=== PATIENT | male | born 1940 | race Caucasian/White ===

== ENCOUNTER 2018-11-11 23:43 | Emergency (ER) | payer MEDICARE, OTHER ==
[~2018-11-11] VITALS: Ht 175.3 cm; Wt 89.8 kg
[~2018-11-11 23:43] MED LIST: ADVIL200 M1; ALBUTEROL S5 MG/1 ML; ASPIRIN EC81 MG; ATENOLOL25 MG; GABAPENTIN300 MG; HYDROCODON-ACE1 EA10 PO; METFORMIN HCL500 MG PO; PREDNISONE20 MG PO; PROVENTIL HFA6.7 GM INH; ROSUVASTATIN CA40 MG PO; STIOLTO RESPIMAT4 GM IH
[2018-11-12] MEDS ORDERED: MACROBID 100 M100 MG PO (04:56)
--- NOTE | 2018-11-12 13:35 | EKG ---
[facility] [address] [facility] [place], [place] [address] Signed Normal sinus rhythm Cannot rule out Anterior infarct , age undetermined Abnormal ECG When compared with ECG of 15-FEB-2017 17:05, Sinus rhythm has replaced Electronic atrial pacemaker Confirmed by GUIDO CRUZ DO ([id number]) on 11/12/2018 1:35:05 PM Electronically Signed By: GUIDO CRUZ DO 11/12/18 1335 PATIENT NAME: CRYSTAL GALVAN Darnell Electrocardiogram DATE OF : 44 PHYSICIAN: GUIDO CRUZ DO REPORT #: [id number] REPORT IS CONFIDENTIAL AND NOT TO BE RELEASED WITHOUT AUTHORIZATION
== END 2018-11-12 05:10 | disposition home or self-care (01) ==
LOC: ED 23:43
DX: N21.0 Calculus in bladder (principal); N39.0 Urinary tract infection, site not specified; I10 Essential (primary) hypertension; E78.5 Hyperlipidemia, unspecified; Z79.82 Long term (current) use of aspirin; Z79.899 Other long term (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; Z79.84 Long term (current) use of oral hypoglycemic drugs
CPT/HCPCS: 71045; 74177; 80053; 81001; 83690; 84484; 85025; 87088; 87502; 93005; 93010; 96361; 96374; 96375; 99284-25; J2270; J2405; J7030; Q9967

== ENCOUNTER 2019-07-29 09:38 | Inpatient (IN) | payer MEDICARE, OTHER ==
[~2019-07-29] VITALS: Ht 175.3 cm; Wt 86.5 kg
[~2019-07-29 09:38] MED LIST changes: +ASPIRIN EC325 MG PO; -ASPIRIN EC81 MG; -ATENOLOL25 MG; +ATENOLOL25 MG PO; -GABAPENTIN300 MG; +GABAPENTIN300 MG PO; +MACROBID 100 M100 MG PO; +METFORMIN HCL500 M3 PO; -METFORMIN HCL500 MG PO; +SPIRIVA RESPIMAT4 GM INH; -STIOLTO RESPIMAT4 GM IH
--- NOTE | 2019-07-29 14:54 | NUR ---
PT ADMITTED TO ROOM 109 VIA STRETCHER
--- NOTE | 2019-07-29 15:48 | NUR ---
PT RESTING IN HIS BED EATING AT THIS TIME HE DIDN'T HAVE LUNCH. HE DENIES ANY SOB OR CP OR ANY OTHER PROBLEMS AT THIS TIME. PT ORIENTED TO HIS ROOM AND QUESTIONS ANSWERED ABOUT HIS POC. PT ON 1L O2 WITH A SAT OF 96%, LUNG SOUNDS ARE COARSE WITH EXP WHEEZES NOTED. UPON THE ASKING QUESTIONS OF THE PT HE STATES BLACK TARRY STOOL THAT HAVE BEEN GOING ON FOR "ABOUT 2 MONTHS" WHICH HIS MD IS AWARE OF.
--- NOTE | 2019-07-29 16:57 | NUR ---
Pt denies any sob of chest pain.
--- NOTE | 2019-07-29 17:00 | NUR ---
Pt ambulated in his room to his chair and his rr did increase to 26 for a few minutes.
--- NOTE | 2019-07-29 18:14 | NUR ---
Pt eating dinner and denies any problems at rest. Dr Lorenzo notified that the pt had stated he has black tarry stool for the last 2 months.
--- NOTE | 2019-07-29 18:55 | NUR ---
SHIFT REPORT RECEIVED FROM DAYSHIFT NGUYEN ZAMORA. PT RESTING IN BED, 1LNC IN PLACE. PT APPEARS COMFORTABLE AND IS WATCHING TELEVISION. NO DISTRESS NOTED. CALL LIGHT IN REACH. NO FURTHER NEEDS VERBALIZED AT THIS TIME.
--- NOTE | 2019-07-29 21:00 | NUR ---
SPOKE TO DR CRUZ REGARDING PT'S SCHEDULED IV SOLU-MEDROL. PT RECEIVED SOLU-MEDROL IN THE ED IN THE AFTERNOON AND HAS IT ORDERED TO ALSO START TOMIGHT. PER DR CRUZ, OKAY TO GIVE TONGIHT'S SCHEDULED DOSE.
--- NOTE | 2019-07-29 21:30 | NUR ---
ASSESSMENT COMPLETE, VSS. NOTIFIED BY PRESLEY MEEHAN THAT PT IS COUGHING IN BED. SCHEDULED MEDICATIONS GIVEN, PRN TESSALON PEARLS ALSO GIVEN. SENNA HELD PER PT REQUEST. ACCUCHECK RESULT OF 208, 3 UNITS INSULIN SS ADMINSITERED. PT ON 1LNC, EXPIRATORY WHEEZES NOTED, COUGHING HAS RESOLVED. WILL CONTNUE TO MONITOR. NO FURTHER NEEDS AT THIS TIME, CALL LIGHT IN REACH.
--- NOTE | 2019-07-29 23:00 | NUR ---
PT RESTING IN BED, EYES CLOSED. NO DISTRESS NOTED, WILL CONTINUE TO MONITOR. CALL LIGHT IN REACH.
--- NOTE | 2019-07-30 01:18 | NUR ---
PT RESTING IN BED, EYES CLOSED. O2 SPOT CHECK 89%, O2 TITRATED TO 2LNC, O2 SAT MAINTAINING 90%. WILL CONTINUE TO MONITOR. CALL LIGHT IN REACH.
--- NOTE | 2019-07-30 02:16 | NUR ---
ASSESSMENT COMPLETE, NO NEW CHANGES OR CONCERNS. VSS, SBP ELEVATED BUT WITHIN PARAMTERS. WILL MONITOR. PT ON 1.5-2LNC, O2 SAT WNL. LUNG SOUNDS COURSE WITH SCATTERED WHEEZES. NO DISTRESS NOTED. WARM BLANKET PROVIDED PER PT REQUEST. NO FURTHER NEEDS, CALL LIGHT IN REACH.
--- NOTE | 2019-07-30 03:43 | NUR ---
PT RESTING IN BED, EYES CLOSED. PT ON 1.5-2LNC, NO DISTRESS NOTED. CALL LIGHT IN REACH.
--- NOTE | 2019-07-30 05:58 | NUR ---
PT HAD AN UNEVENTFUL NIGHT. VSS, SBP ELEVATED, 160-170, BELOW PARAMTERS. 1-2LNC IN PLACE. SBA WITH AMBULATION, USES CALL LIGHT APPROPERIATELY. 60 CARB DIET, TOLERATING WELL. DENIED NAUSEA THIS SHIFT. VOIDING QS.
--- NOTE | 2019-07-30 07:12 | NUR ---
0700: Pt resting in his bed with no complaints at this time. Call stringer within reach. Bedside report recieved from Elke CEDILLO.
--- NOTE | 2019-07-30 08:12 | NUR ---
IN TO COMPLETE PTS INITIAL CASE MANAGEMENT ASSESSMENT. PT DENIES ANY NEEDS AT HOME.
--- NOTE | 2019-07-30 08:13 | NUR ---
PT RESTING IN BED AND HE DENIES ANY PAIN OR SOB. PT STATES HE ONLY HAS SOB WITH ACTIVITY. SAT NOW 94% ON 1.5L VIA NC. LUNG SOUNDS COARSE WITH EXP WHEEZES NOTED. PT GIVEN AN IS AND INSTRUCTED IN IT'S USE.
--- NOTE | 2019-07-30 08:27 | NUR ---
ASKED PATIENT HE WOULD LIKE TO SIT IN THE CHAIR FOR BREAKFAST AND HE SAID NO. HE SAID HE WAS TO TIRED.
--- NOTE | 2019-07-30 08:29 | NUR ---
ODERED HIS BREAKFAST THIS MORNING.
--- NOTE | 2019-07-30 10:17 | NUR ---
Pt had ambulated with assist to the br and his rr increased into the mid 20's and he is unsteady on his feet.
[2019-07-30] MEDS ORDERED: CLOPIDOGREL75 MG PO (10:32)
[2019-07-30] MEDS ORDERED: SYMBICORT 16010.2 GM INH (10:34)
--- NOTE | 2019-07-30 10:35 | NUR ---
PHYSICAL THERAPY INTO THE ROOM TO WORK WITH THE PT AT THIS TIME.
--- NOTE | 2019-07-30 11:08 | NUR ---
UPON RETURNING TO HIS ROOM FROM PHYSICAL THERAPY HIS RR WAS 28 AND HIS SAT ON 1L IS 94%. AFTER A FEW MINUTES HIS RR DECREASED TO 20.
[2019-07-30] MEDS ORDERED: DOK250 MG PO (11:10)
[2019-07-30] MEDS ORDERED: ANTI-ITCH28 G1 TOP (11:15)
[2019-07-30] MEDS ORDERED: CRESTOR40 MG PO (11:18)
[2019-07-30] MEDS ORDERED: FLOMAX0.4 MG PO (11:19)
--- NOTE | 2019-07-30 11:23 | NUR ---
Dr Lorenzo to the room to see the pt at this time.
--- NOTE | 2019-07-30 11:34 | NUR ---
sat 94% on room air at this time. o2 left off.
--- NOTE | 2019-07-30 11:38 | NUR ---
MED REC COMPLETE
--- NOTE | 2019-07-30 13:09 | NUR ---
PT RESTING IN HIS BED, HE REFUSED TO GET UP INTO HIS CHAIR AND STATES HE WISHES TO STAY IN BED. PT DENIES ANY SOB AT REST AT THIS TIME, BUT BECOMES SOB WITH ACTIVITY. SAT ON ROOM AIR IS NOW 95%.
--- NOTE | 2019-07-30 13:13 | NUR ---
URINE OUTPUT HAS BEEN LOW AND HE IS STILL RECEIVING A FLUID IV BOLUS DUE TO THIS. SEE EMAR.
--- NOTE | 2019-07-30 14:41 | NUR ---
PATIENT TOOK A SHOWER THIS MORING. PATIENT DID NOT WANT ANY HELP BUT I STAYED IN HIS ROOM IN CASE HE NEEDED MY HELP.
--- NOTE | 2019-07-30 19:58 | NUR ---
SHIFT REPORT RECEIVED FROM CEEFLCLARICE ZAMORA AT BEDSIDE. PT RESTING IN BED, ON RA. APPEARS IN GOOD SPIRITS, DENIES NEEDS. BOARD UPDATED. CALL LIGHT IN REACH.
--- NOTE | 2019-07-30 21:30 | NUR ---
VITALS DONE AND CHARTED. FRESH ICE WATER GIVEN. BEDSIDE TABLE AND CALL LIGHT IN REACH.
--- NOTE | 2019-07-30 22:00 | NUR ---
ASSESSMENT COMPLETE, VSS. PT ON RA AT THIS TIME. WILL MONITOR. A/OX4, DENIES PAIN. IV SITE WNL, SALINE LOCKED. SCHEDULED MEDICATIONS GIVEN, SEE EMAR. LUNG SOUNDS COURSE, EXPIRATORY WHEEZES NOTED. PT'S UO BORDERLINE, DR CRUZ ALREADY AWARE. PER MD, CONTINUE TO MONITOR. PT DENIES ADDITIONAL NEEDS, CALL LIGHT IN REACH.
--- NOTE | 2019-07-31 00:32 | NUR ---
HELPED PT TO THE BATHROOM AND BACK TO BED WITH HIS FWW. TWO WARM BLANKETS CHAMBER WORKER PER PT REQUEST. BEDSIDE TABLE AND CALL LIGHT IN REACH.
--- NOTE | 2019-07-31 00:59 | NUR ---
PT RESTING IN BED, REPORTS DIFFICULTY IN BREATHING PER RN MAYKEL. PT ON RA, O2 SAT 94%. LUNG SOUNDS COURSE WITH SCATTERED EXPIRATORY WHEEZES, RT SANDRA CALLED FOR PRN BREATHING TEREATMENT. SANDRA IN ROOM WITH PT AT THIS TIME.
--- NOTE | 2019-07-31 01:30 | NUR ---
PT RESTING IN BED, ON RA. NO SIGNS OF DISTRESS NOTED, PT APPEARS COMFORTABLE. EYES CLOSED, RR WNL. HOB ELEVATED FOR EASE OF BREATHING. WILL MONITOR, CALL LIGHT IN REACH.
--- NOTE | 2019-07-31 03:20 | NUR ---
PT RESTING IN BED, EYES CLOSED. PT ON RA, NO DISTRESS NOTED. HOB ELEVATED, CALL LIGHT IN REACH.
--- NOTE | 2019-07-31 03:56 | NUR ---
PT UP SBA WITH FWW AFTER VOIDING 350MLS. PT TOLERATED AMBULATION WELL. AFTER RETURNING TO BED, 02 SAT 93% ON RA, HR 84. ASSESSMENT COMPLETE, NO NEW CHANGES OR CONCERNS. PT NOW RESTING IN BED, DENIES ADDITIONAL NEEDS. CALL LIGHT IN REACH.
--- NOTE | 2019-07-31 05:26 | NUR ---
PT SLEPT ON AND OFF THIS SHIFT, VSS. INTERMITTENT COUGHING NOTED, WITH EPISODE OF SOB. BREATHING TREATMENTS PRN. PT ON RA, SLEEPS WITH HOB ELEVATED AND PILLOWS. 60 G CARB DIET, NO INSULIN SS REQUIRED. NO NAUSEA OR PAIN NOTED. VOIDING QS.
--- NOTE | 2019-07-31 06:44 | NUR ---
THIS RN IN ROOM TO ANSWER CALL LIGHT. PT IN BED REPORTING SOB, O2 SAT 91-92% ON RA. LUNG SOUNDS COURSE, EXPIRATORY WHEEZES NOTED. RT SANDRA CALLED FOR PRN BREATHING TREATMENT. NO SIGNS OF OBVIOUS DISTRESS NOTED, CALL LIGHT IN REACH.
--- NOTE | 2019-07-31 07:25 | NUR ---
PT RESTING IN FOWLERS PSOITION IN BED, ALERT AND ORIENTED. PT DENIES PAIN, SOB OR NAUSEA. BEDSIDE REPORT RECEIVED FROM NGUYEN SALVADOR. CALL LIGHT AND H2O IN REACH.
--- NOTE | 2019-07-31 09:41 | NUR ---
PT RESTING IN FOWLERS POSITION IN BED WATCHING TV. PT ASSESSMENT COMPLETED. CALL LIGHT AND H2O IN REACH. PT APPEARS TO BE IN NO ACUTE DISTRESS. PT VOICED THAT HE WOULD LIKE TO BE DISCHARGED TODAY BUT AGREES THAT HE WOULD LIKELY BENEFIT FROM FURTHER TREATMENT HERE IN HOSPITAL.
--- NOTE | 2019-07-31 11:37 | NUR ---
PT FINISHED WITH SHOWER. BATHROOM CALL LIGHT ON. THIS RN IMMEDIATLY TO ROOM. PT ALREADY UP OUT OF SHOWER WALKING ACROSS FLOOR. PT ASKED TO SIT BACK DOWN. SOCKS APPLIED. PT AMBULATES WITH SBA AND FWW BACK TO BED. RESPIRATORY THERAPY TO BEDSIDE FOR BREATHING TX. CALL LIGHT WITHINR EACH. BED RAILS UP.
--- NOTE | 2019-07-31 14:50 | NUR ---
BLADDER SCAN COMPLETED PER DR ARAUJO REQUEST. BLADDER SCAN SHOWS >729MLS, MD AWARE. PT UP TO VOID AND PT VOIDS 180MLS. BLADDER SCAN COMPLETED AGAIN AND SHOWS >550MLS. MD AWARE AND ÁLVAREZ CATH PLACED PER MD VERBAL ORDER. PT TOLERATED 16F ÁLVAREZ CATH PLACED WITH STERILE TECHNIQUE. BALLOON FILLED WITH 10CC STERILE H2O. ÁLVAREZ PRODUCED OVER 500MLS UPON PLACEMENT AND IS STILL DRAINING CLEAR YELLOW URINE. CALL LIGHT AND H2O IN REACH.
--- NOTE | 2019-07-31 16:51 | NUR ---
PT RESTING IN HIGH FOWLERS POSITION IN BED WATCHING TV. CALL LIGHT AND H2O IN REACH. VSS, GARBAGE EMPTIED PT DENIES SOB, PAIN OR NAUSEA.
--- NOTE | 2019-07-31 19:10 | NUR ---
SHIFT REPORT RECEIVED FROM DAYSHIFT NGUYEN BLOCK AT BEDSIDE. PT AWAKE AND RESTING IN BED, NO DISTRESS NOTED. PT ON RA, CALL LIGHT IN REACH.
--- NOTE | 2019-07-31 21:47 | NUR ---
ROUNDED CHARGE. PATIENT IS RESTING IN BED. PATIENT DENIES ANY COMMENTS, QUESTIONS, OR CONCERNS. NO NEEDS NOTED. CALL LIGHT IN REACH.
--- NOTE | 2019-07-31 22:00 | NUR ---
ASSESSMENT COMPLETE, SCHEDULED MEDICATIONS GIVEN. PT A/OX4, VSS. PT IS SALINE LOCKED, IV SITE WNL. PT REPORTS 4/10 PAIN, DENIES NEED FOR PAIN MEDICATION AT THIS TIME. WILL MONITOR. SCATTERED WHEEZES, PT ON RA. NO FURTHER NEEDS, CALL LIGHT IN REACH.
--- NOTE | 2019-07-31 22:03 | NUR ---
PT VITALS/I&Os DONE
--- NOTE | 2019-08-01 00:25 | NUR ---
PT RESTING IN BED, EYES CLOSED, RR WNL. NO DISTRESS NOTED. CALL LIGHT IN REACH. HOB ELEVATED.
--- NOTE | 2019-08-01 01:16 | NUR ---
PT RESTING IN BED, EYES CLOSED. HOB ELEVATED. NO DISTRESS NOTED, RR WNL. CALL LIGHT IN REACH.
--- NOTE | 2019-08-01 03:00 | NUR ---
ASSESSMENT COMPLETE, PT RESTING IN BED. SPOT CHECKED, RESULT OF 87-88%. 1-1.5LNC PLACED, O2 SAT MAINTAINING ABOVE 90%. NO NEW CHANGES REGARDING LUNG SOUNDS, NO DISTRESS NOTED. HOB ELEVATED, NO FURTHER NEEDS, CALL LIGHT IN REACH.
--- NOTE | 2019-08-01 03:50 | NUR ---
PT TITRATED BACK TO RA, O2 SAT MAINTAINING AT 91%, WILL CONTINUE TO MONITOR. CALL LIGHT IN REACH.
--- NOTE | 2019-08-01 04:54 | NUR ---
PT SLEPT WELL THIS SHIFT, VSS. PT REQUIRED 1.5LNC BRIEFLY ONCE FOR O2 SAT IN UPPER 80'S. A/OX4, VERY [place]. SBA WITH AMBULATION, UNSTEADY AT TIMES. 60 G CARB DIET, SCHEDULED ACCUCHECKS WITH INSULIN SS. ÁLVAREZ CATHETER IN PLACE, VOIDING QS. NO BM THIS SHIFT.
--- NOTE | 2019-08-01 05:45 | NUR ---
SPOT CHECK OF 89%, PT INSTRUCTED TO DEEP BREATH. O2 SAT RETURN TO 90% BUT WOULD NOT SUSTAIN. 0.5-1L NC PLACED. CALL LIGHT IN REACH.
--- NOTE | 2019-08-01 06:44 | NUR ---
TOOK PT VITALS AND RECORDED I&Os
--- NOTE | 2019-08-01 07:07 | NUR ---
PT RESTING IN HIGH FOWLERS POSITION IN BED ALERT AND ORIENTED AND WATCHING TV. PT ON 1/2LPNC AND DENIES SOB. REPORT RECEIVED FROM NGUYEN SALVADOR. CALL LIGHT AND H2O IN REACH.
--- NOTE | 2019-08-01 07:52 | NUR ---
PT ASSISTED UP TO SIT AT SIDE OF BED TO EAT DINNER, PT REFUSED TO AMBULATE TO CHAIR FOR BREAKFAST STATES "OH NO I'M FINE RIGHT HERE, THANK YOU". NO NEEDS OR CONCERNS VOICED, PT REMAINS ON 1/2LPNC AT THIS TIME AND DENIES SOB AT REST.
--- NOTE | 2019-08-01 08:38 | NUR ---
PATIENT SITTING ON EDGE OF THE BED EATING BREAKFAST. WARM WASHCLOTH OFFERED. SHOWER OFFERED AND ACCEPTED. CALL LIGHT IN REACH. NO FURTHER NEEDS AT THIS TIME.
--- NOTE | 2019-08-01 09:02 | NUR ---
PT BACK TO ROOM FROM WORKING WITH PHYSICAL THERAPY. PT APPEARS SHAKEY WHILE WALKING BACK TO BED AND REPORTS SOB, O2 DESATTING TO MID TO HIGH 80'S AFTER WALK, PT STATES "I JUST NEED A MINUTE TO CATCH MY BREATH". 2LPNC APPLIED AND PT NOW SATTING IN LOW TO MID 90'S. CALL LIGHT AND H2O IN DEBRA. MAK,RT NOTIFIED OF NEED FOR BREATHING TX. ASSESSMENT COMPLETED. NO FURTHER NEEDS OR CONCERNS VOICED.
--- NOTE | 2019-08-01 13:37 | NUR ---
PT RESTING IN SEMIFOWLERS POSITION IN BED, ALERT AND ORIENTED. ASSESSMENT COMPLETED. PT DENIES SOB AT REST ON RA. RR 20. CALL LIGHT AND H2O IN REACH. MD IN TO DISCUSS POC WITH PATIENT.
--- NOTE | 2019-08-01 19:05 | NUR ---
SHIFT REPORT RECEIVED FROM DAYSHIFT NGUYEN BLOCK AT BEDSIDE. PT RESTING IN BED, ON RA. NO DISTRESS NOTED, PT APPEARS IN GOOD SPIRITS. NO NEEDS AT THIS TIME. CALL LIGHT IN REACH.
--- NOTE | 2019-08-01 21:19 | NUR ---
ROUNDED CHARGE. PATIENT IS RESTING IN BED WATCHING TV. PATIENT PROVIDED WITH WARM BLANKET. PATIENT DENIES ANY COMMENTS, QUESTIONS OR CONCERNS. NO NEEDS NOTED. CALL LIGHT IN REACH.
--- NOTE | 2019-08-01 22:00 | NUR ---
ASSESSMENT COMPLETE, SCHEDULED MEDICATIONS GIVEN (SEE EMAR). VSS, PT RECENTLY PLACED ON 1LNC FOR O2 SATS IN UPPER 80'S. O2 NOW 93% ON 1LNC, HR 64. SCATTERED WHEEZES NOTED, PT CONVERSING WITH NURSING STAFF. NO SIGNS OF DISTRESS. DENIES PAIN AND FURTHER NEEDS, CALL LIGHT IN REACH. BED ALARM ON FOR SAFETY.
--- NOTE | 2019-08-01 23:45 | NUR ---
PT RESTING IN BED, EYES CLOSED. RESPIRATIONS WNL. NO DISTRESS NOTED, CALL LIGHT IN REACH.
--- NOTE | 2019-08-02 01:00 | NUR ---
NG TUBE PLACED BY NGUYEN BALL. THIS RN AND NGUYEN ESPINO ALSO IN ROOM. PT TOERATED INSERTION WELL, NG TUBE CLAMPED. IMAGING CALLED FOR PLACEMENT VERIFICATION. NEW GOWN PROVIDED, BED LINENS ALSO CHANGED. ASSESSMENT COMPLETE, PT DENIES NAUSEA, ABDOMEN FIRM AND DISTENDED, BOWEL TONES HYPOACTIVE. INCISION WELL APPROXIMATED, OPEN TO AIR WITH NUVIA. IV FLUIDS INFUSING PER MD ORDERS, IV SITE WNL. NO FURTHER NEEDS, CALL LIGHT IN REACH.
--- NOTE | 2019-08-02 01:20 | NUR ---
IMAGING IN ROOM WITH PT.
--- NOTE | 2019-08-02 02:03 | NUR ---
RESULTS FROM IMAGING RECEIVED. PER RECOMMENDATION OF IMAGING RESULTS, ADVANCE NG TUBE 7CM . ADVANCEMENT COMPLETED WITH HELP FROM NGUYEN MEMBRENO. NG TUBE CONNECTED TO LWIS, APPROX 400MLS INITIAL OUTPUT COLLECTED. OUTPUT BROWN/RED IN COLOR. PT HAD JELLO EARLIER IN SHIFT. NO FURTHER NEEDS, CALL LIGHT IN REACH.
--- NOTE | 2019-08-02 02:30 | NUR ---
ASSESSMENT COMPLETE, NO NEW CHANGES OR CONCERNS. LUNG SOUNDS SOUND TIGHT IN PLACES, DIMINISHED IN THE BASES. NO DISTRESS NOTED. CALL LIGHT IN REACH, BED ALARM ON FOR SAFETY.
--- NOTE | 2019-08-02 03:55 | NUR ---
PT RESTING IN BED, EYES CLOSED. O2 SAT 89%, PT PLACED ON 1LNC. O2 SAT MAINTAINING 90-91%. CALL LIGHT IN REACH.
--- NOTE | 2019-08-02 07:07 | NUR ---
PT RESTING IN SEMIFOWLERS POSITION IN BED EYES CLSOED AND RESPIRATIONS EVEN AND UNLABORED. PT APPEARS TO BE SLEEPING COMFORTABLY. CALL LIGHT AND H2O IN REACH. BEDSIDE REPORT RECEIVED FROM NGUYEN SALVADOR.
--- NOTE | 2019-08-02 07:45 | NUR ---
PATIENT UP TO THE BR STANDBY ASSIST WITH FWW. PATIENT REFUSED TO WEAR O2 NC WHILE AMBULATING. THIS [place] CHECK pt SAT'S ONCE THE pt WAS BACK SITTING ON EDGE OF BED SAT'S 82%. OXYGEN 2L BACK ON PATIENT OXYGEN LEVEL BACK UP TO 93% ON 1L NC. RN NOTIFIED PATIENTS HANDS AT FACE WASHED FOR BREAKFAST. CALL BUTTON IN REACH. FRESH ICE WATER GIVEN. NO OTHER NEEDS AT THIS TIME.
--- NOTE | 2019-08-02 08:18 | NUR ---
PT SITTING UP AT SIDE OF BED EATING BREAKFAST. PT ALERT AND ORIENTED. AM MEDS ADMINISTERED AND ASSESSMENT COMPLETED. BP REMAINS ELEVATED WILL RECHECK BP IN AN HOUR. PT DENIES NEEDS OR CONCERNS CALL LIGHT AND H2O IN REACH.
--- NOTE | 2019-08-02 09:15 | NUR ---
SPOKE WITH PATIENT IN ROOM. PATIENT STILL VERY SOB WITH ACTIVITY. PATIENT LIVES ALONE AND STATES HIS FAMILY CANNOT HELP THEY ARE "BUSY WITH THEIR OWN LIVES". DISCUSSED TRANSITIONAL CARE BED PROGRAM, WHERE HE CAN STAY AND WORK ON HIS STRENGTH AND CONDITIONING BEFORE RETURNING HOME TO CARE FOR HIMSELF. HE IS INTERESTED IN THIS. WILL CONTINUE TO FOLLOW.
--- NOTE | 2019-08-02 09:19 | NUR ---
Pt up working with ot in restroom alert and oriented. Pt currently shaving at sink with OT. Pt appears to be tolerating activity well.
--- NOTE | 2019-08-02 10:35 | NUR ---
PT UP AMBULATING WITH FWW AND PHYSICAL THERAPY. PT APPEARS TO BE TOLERATING ACTIVITY WELL.
== END 2019-08-02 10:24 | disposition swing bed (61) | DRG 193 ==
LOC: ED 09:38 → MS 14:12
PROVIDERS: ADMIT Internal Medicine
DX: J18.8 Other pneumonia, unspecified organism (principal); J96.01 Acute respiratory failure with hypoxia; J44.1 Chronic obstructive pulmonary disease with (acute) exacerbation; K92.1 Melena; J44.0 Chronic obstructive pulmonary disease with (acute) lower respiratory infection; I25.10 Atherosclerotic heart disease of native coronary artery without angina pectoris; R91.8 Other nonspecific abnormal finding of lung field; N40.1 Benign prostatic hyperplasia with lower urinary tract symptoms; R33.8 Other retention of urine; I10 Essential (primary) hypertension; F17.210 Nicotine dependence, cigarettes, uncomplicated; E11.9 Type 2 diabetes mellitus without complications; E78.5 Hyperlipidemia, unspecified; D63.8 Anemia in other chronic diseases classified elsewhere; Z95.0 Presence of cardiac pacemaker; Z95.820 Peripheral vascular angioplasty status with implants and grafts; Z79.2 Long term (current) use of antibiotics; Z79.84 Long term (current) use of oral hypoglycemic drugs; Z79.82 Long term (current) use of aspirin; Z79.899 Other long term (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
CPT/HCPCS: 36415; 71260; 74177; 80048; 80053; 82607; 82728; 82746; 83036; 83540; 83605; 83735; 83880; 84466; 85025; 87070; 87077; 87186; 87205; 94640; 94667; 94668; 94760; 97110; 97116; 97162; 97165; 97535; 99284-25; 99406; J0696; J1650; J1815; J2930; J7120; Q9967

== ENCOUNTER 2019-08-02 10:25 | Inpatient (IN) | payer MEDICARE, OTHER ==
[~2019-08-02] VITALS: Ht 175.3 cm; Wt 85.0 kg
[~2019-08-02 10:25] MED LIST changes: +ANTI-ITCH28 G1 TOP; +CLOPIDOGREL75 MG PO; +CRESTOR40 MG PO; +DOK250 MG PO; +FLOMAX0.4 MG PO; +SYMBICORT 16010.2 GM INH
[2019-08-05] MEDS ORDERED: ATENOLOL50 MG PO (09:13)
[2019-08-05] MEDS ORDERED: NICORETTE4 M2 BUCCAL (09:13)
[2019-08-05] MEDS ORDERED: AMLODIPINE BESY10 MG PO (09:14)
[2019-08-05] MEDS ORDERED: LISINOPRIL5 MG PO (09:14)
== END 2019-08-05 10:50 | disposition home or self-care (01) | DRG 189 ==
LOC: MS 10:25
PROVIDERS: ADMIT Student in an Organized Health Care Education/Training Program
DX: J96.21 Acute and chronic respiratory failure with hypoxia (principal); J18.9 Pneumonia, unspecified organism; J44.1 Chronic obstructive pulmonary disease with (acute) exacerbation; J44.0 Chronic obstructive pulmonary disease with (acute) lower respiratory infection; K92.1 Melena; I25.10 Atherosclerotic heart disease of native coronary artery without angina pectoris; F17.210 Nicotine dependence, cigarettes, uncomplicated; I10 Essential (primary) hypertension; E78.5 Hyperlipidemia, unspecified; E11.9 Type 2 diabetes mellitus without complications; D64.9 Anemia, unspecified; R91.8 Other nonspecific abnormal finding of lung field; N40.1 Benign prostatic hyperplasia with lower urinary tract symptoms; R33.8 Other retention of urine; Z95.0 Presence of cardiac pacemaker; Z95.820 Peripheral vascular angioplasty status with implants and grafts; Z79.84 Long term (current) use of oral hypoglycemic drugs; Z79.02 Long term (current) use of antithrombotics/antiplatelets; Z79.82 Long term (current) use of aspirin; Z79.51 Long term (current) use of inhaled steroids; Z79.899 Other long term (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
CPT/HCPCS: 90662; 94640; 94668; 94760; 97110; 97116; 97162

== ENCOUNTER 2020-12-08 07:58 | Emergency (ER) | payer MEDICARE, OTHER ==
[~2020-12-08] VITALS: Ht 175.3 cm; Wt 85.0 kg
[~2020-12-08 07:58] MED LIST changes: +AMLODIPINE BESY10 MG PO; +ATENOLOL50 MG PO; +LISINOPRIL5 MG PO; +NICORETTE4 M2 BUCCAL
[2020-12-08] MEDS ORDERED: ZITHROMAX250 MG PO (11:09)
[2020-12-08] MEDS ORDERED: PREDNISONE20 MG PO (11:09)
--- NOTE | 2020-12-08 15:45 | EKG ---
[facility] [address] [facility] [place] [id number] Signed Atrial-paced rhythm with prolonged AV conduction Abnormal ECG When compared with ECG of 12-NOV-2018 00:42, Electronic atrial pacemaker has replaced Sinus rhythm T wave amplitude has increased in Inferior leads T wave inversion now evident in Anterior leads Confirmed by GUIDO CRUZ DO ([id number]) on 12/08/2020 3:45:30 PM Electronically Signed By: GUIDO CRUZ DO 12/08/20 1545 PATIENT NAME: CRYSTAL GALVAN Darnell Electrocardiogram DATE OF : 44 PHYSICIAN: GUIDO CRUZ DO REPORT #: [id number] REPORT IS CONFIDENTIAL AND NOT TO BE RELEASED WITHOUT AUTHORIZATION
== END 2020-12-08 11:27 | disposition home or self-care (01) ==
LOC: ED 07:58
DX: J44.0 Chronic obstructive pulmonary disease with (acute) lower respiratory infection (principal); J18.9 Pneumonia, unspecified organism; J44.1 Chronic obstructive pulmonary disease with (acute) exacerbation; Z20.822 Contact with and (suspected) exposure to COVID-19; I10 Essential (primary) hypertension; I25.10 Atherosclerotic heart disease of native coronary artery without angina pectoris; E78.5 Hyperlipidemia, unspecified; E11.9 Type 2 diabetes mellitus without complications; F17.200 Nicotine dependence, unspecified, uncomplicated; Z79.899 Other long term (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; Z79.82 Long term (current) use of aspirin; Z79.84 Long term (current) use of oral hypoglycemic drugs
CPT/HCPCS: 71045; 80053; 83880; 84484; 85025; 93005; 93010; 96365; 96375; 99285-25; C9803; J0696; J2930; U0003

== ENCOUNTER 2021-02-15 20:03 | Inpatient (IN) | payer MEDICARE, OTHER ==
[~2021-02-15] VITALS: Ht 175.3 cm; Wt 92.0 kg
[~2021-02-15 20:03] MED LIST changes: +COL-RITE250 MG PO; -DOK250 MG PO; +ZITHROMAX250 MG PO
--- NOTE | 2021-02-15 22:15 | NUR ---
REPORT RECEIVED FROM ED RN PEDRO LUIS, WILL CONTINUE PLAN OF CARE WHEN PT. ARRIVES.
--- NOTE | 2021-02-15 23:35 | NUR ---
PT ARRIVED TO CCU AT 2230 VIA STRETCHER. PT BROUGHT DOWN BY RN WITH BELONGINGS AND WAS ALERT AND ORIENTED ON 10L O2 OXYMASK. PT ABLE TO SHUFFLE WALK A FEW STEPS OVER TO THE BED BUT NEEDED ASSISTANCE GETTING OUT OF THE STRETCHER. IVF AND ORDERED MEDICATIONS ADMINISTERED AT THIS TIME (SEE DEC). PT REPORTS NO SOB AT THIS TIME WHEN ASKED AND IS ON 10L O2 OXYMASK, SPO2 MAINTAINING AT 90-91%. PT ASSESSED AT THIS TIME, LUNGS SOUND DIMINISHED ON RIGHT SIDE, BOWEL TONES ACTIVE IN ALL 4 QUADRANTS. PT PROVIDED WITH A PROTEIN PACK AND ORANGE JUICE PT STATED HE WAS HUNGRY. IV ABX COMPLETED DURING THIS TIME. PT NOW EATING HIS SNACK AND WATCHING TV. PT MOMENTARILY PLACED ON A NC WHILE EATING AND IS MAINTAINING HIS SPO2 AT 90-91%. PT REPORTS NO FURTHER NEEDS AT THIS TIME, WILL CONTINUE PLAN OF CARE. CALL LIGHT IN REACH BED IN LOWEST POSITION, IVF INFUSING AT ORDERED RATE.
--- NOTE | 2021-02-15 23:50 | NUR ---
RESPONDED TO PT CALL LIGHT, PT STATED HE WAS FINISHED EATING. OXYMASK PLACED BACK ON AT 10L OF O2. PT DENIES SOB WHEN ASKED AT THIS TIME. PT REPORTS NO FURTHER NEEDS WHEN ASKED, RT IN ROOM TO DO A NEB TX. CALL LIGHT IN REACH, BED IN LOWEST POSITION, IVF INFUSING, RT IN ROOM, WILL CONTINUE PLAN OF CARE.
--- NOTE | 2021-02-16 00:22 | NUR ---
THIS RN IN TO TAKE VS OF PT. PT SLEEPING ON OXYMASK AND RECEIVING MAINTENANCE IVF AT ORDERED RATE. PT WOKE UP EASILY AND REPORTS NO PAIN OR SOB AT THIS TIME. PT IS ORIENTED. PT REPORTS NO FURTHER NEEDS WHEN ASKED AT THIS TIME AND RETURNED BACK TO SLEEP. CALL LIGHT ON BED WITHIN REACH, BED IN LOWEST POSITION, WILL CONTINUE PLAN OF CARE.
--- NOTE | 2021-02-16 02:06 | NUR ---
THIS RN IN TO CHECK ON PT AND ADJUST THE SPO2 MONITOR IT WAS NOT READING. PT LAYING IN BED SLEEPING BUT WOKE UP WHEN PLACING MONITOR BACK ON. PT WAS ORIENTED AND REPORTED NO NEEDS WHEN ASKED. PT STATED HE WOULD RETURN BACK TO SLEEP. IVF INFUSING ORDERED, PT ON 10L O2 OXYMASK, SPO2 AT 95%. CALL LIGHT IN REACH, BED IN LOWEST POSITION, WILL CONTINUE PLAN OF CARE.
--- NOTE | 2021-02-16 03:32 | NUR ---
RESPONDED TO PT CALL LIGHT, PT AWAKE AND ALERT LAYING IN BED. PT STATED HE WANTED TO SIT UP ON THE SIDE OF THE BED. PT ASSISTED AND IS NOW SITTING AT THE SIDE OF THE BED PLAYING ON HIS PHONE. PT DENIES SOB AT THIS TIME AND PAIN. PT STATES HE OCCASIONALLY WAKES UP AT NIGHT AND PLAYS ON HIS PHONE. PT ASSESSED AT THIS TIME, WHEEZING AND COARSENESS HEARD ON PT'S RIGHT SIDE. LEFT SIDE IS CLEAR/DIM. PT REPORTS NO NEEDS AT THIS TIME AND STATES HE WILL BE UP PLAYING ON HIS PHONE FOR A BIT. CALL LIGHT ON BED WITHIN REACH, BED IN LOWEST POSITION, IVF INFUSING ORDERED, PT ON 10 L O2 OXYMASK WITH AN SPO2 OF 92%. WILL CONTINUE PLAN OF CARE.
--- NOTE | 2021-02-16 03:51 | NUR ---
CHECKED ON PT AT THIS TIME. PT STILL SITTING UP AT SIDE OF BED ON HIS PHONE. PT PROVIDED WITH ICE WATER. PT REPORTS NO FURTHER NEEDS AT THIS TIME AND SAYS THAT HE WILL CONTINUE TO PLAY GAMES ON HIS PHONE FOR A BIT LONGER. IVF INFUSING ORDERED, OXYMASK ON AT 10L, PT SPO2 AT 92%, BED IN LOWEST POSITION, CALL LIGHT IN REACH. WILL CONTINUE PLAN OF CARE.
--- NOTE | 2021-02-16 04:32 | NUR ---
THIS RN IN TO ASSIST NGUYEN BRAR. PT HAD USED CALL LIGHT AND NEEDED HELP GETTING BACK INTO BED AND GETTING COVERED WITH A BLANKET. THIS RN AND NGUYEN BRAR HELPED REPOSITION PT UP IN BED. PT REPORTS NO FURTHER NEEDS AT THIS TIME WHEN ASKED AND STATED HE WOULD GO BACK TO SLEEP. IVF INFUSING ORDERED, PT ON 10L O2 OXYMASK, CALL LIGHT IN REACH, BED IN LOWEST POSITION. WILL CONTINUE PLAN OF CARE.
--- NOTE | 2021-02-16 06:35 | NUR ---
THIS RN IN TO ADMINISTER ORDERED MEDICATION. PT LAYING IN BED SLEEPING INITIALLY BUT AWOKE TO VOICE. PT IS NOW ALERT AND ORIENTED LAYING IN BED. IV MEDICATION ADMINISTERED (SEE MAR). PT ASKED IF HE NEEDED TO VOID, PT DENIES THE NEED AT THIS TIME. PT SITTING ON SIDE OF BED NOW, ICE WATER PROVIDED. PT REPORTS NO NEEDS WHEN ASKED AT THIS TIME, BREAKFAST ORDER TAKEN. IVF INFUSING, PT ON 10L O2 OXYMASK, WILL CONTINUE PLAN OF CARE.
--- NOTE | 2021-02-16 06:51 | NUR ---
THIS RN IN TO BLADDER SCAN PT DUE TO PT. NOT VOIDING THIS SHIFT. PT DENIES THE NEED TO VOID WHEN ASKED. BLADDER SCAN SHOWED A TOTAL OF 644 ML IN HIS BLADDER. PT REPORTS NO NEEDS WHEN ASKED AND IS NOW SITTING AT THE SIDE OF THE BED ON HIS PHONE. PT ON 10L O2 VIA OXYMASK AND ON IVF AT THE ORDERED RATE (SEE MAR). BED IN LOWEST POSITION, CALL LIGHT IN REACH, WILL CONTINUE PLAN OF CARE.
--- NOTE | 2021-02-16 08:00 | NUR ---
REPORT RECEIVED FROM NIGHT RN AND PT. CARE RESUMED. PT. IS ALERT AND ORIENTED. PT. AMBULATED WITH ONE PERSON ASSIST TO THE BATHROOM AND TOLERATED WELL. PT. STEADY ON FEET. PT. COULD NOT VOID. ADMIN. FLOMAX AND WILL CONTINUE TO MONITOR. BLOOD GLUCOSE WAS 239 AND 5 UNITS OF HUMALOG ADMIN. PT. UP IN THE CHAIR FOR BREAKFAST. SWITCHED FROM OXYMASK TO NC AND TITRATED O2 TO 5L. TOLERATING WELL AND O2 SAT. IS 95%, RR IS 17. DISCUSSED POC AND SAFETY. PT. LEFT RESTING IN CHAIR WITH CALL LIGHT IN REACH.
--- NOTE | 2021-02-16 09:16 | NUR ---
1PERSON ASSIST TO THE BATHROOM TO ATTEMPT TO VOID. Kg [email or web address].Neyda. IN THE ROOM. WILL CONTINUE TO MONITOR.
--- NOTE | 2021-02-16 10:12 | NUR ---
PT. HAD AN UNMEASURED VOID. BLADDER SCANNED AFTERWARD AND HAD 440ML REMAINING. WILL CONTINUE TO MONITOR. 02 SAT. WAS 96% AND TITRATED DOWN TO 5L NC. 02 SAT. 94% AND RR IS 18.
--- NOTE | 2021-02-16 11:30 | NUR ---
SPOKE WITH PATIENT IN ROOM. HE IS UP IN CHAIR. HAS OXYGEN IN PLACE. PATIENT IS ALERT AND ORIENTED. DOES HAVE A LITTLE HEARING CHALLENGE. PATIENT LIVES ALONE IN [place]. HE DRIVES, ALTHOUGH HE STATES HE ONLY DRIVES LOCALLY. HE ASKS FOR RIDES TO GO OUT OF TOWN TO APPOINTMENTS. HIS NEICE USUALLY WILL HELP WITH THIS, BUT HE STATES THAT HAS BECOME A PROBLEM. HE STATES IF SHE DOES TAKE HIM SHE ALWAYS WANTS TO GO SHOPPING AND OTHER PLACES AND HE STATES HE JUST DOESN'T FEEL LIKE DOING ALL THAT ANYMORE. HE STATES HE USES A CANE ON OCCASION. HE DOES NOT USE OXYGEN OR HAVE A NEBULIZER AT HOME. HE DOES HAVE A WALK-IN SHOWER WITH CHAIR IF HE NEEDS IT. HE STATES HE SHOPS FOR HIMSELF, BUT HE HAS TROUBLE WITH READING FINE PRINT ON LABELS. HE STATES HE DOES NOT HAVE BI-FOCALS, HE JUST GOT [place] THOUGH 4 MONTHS AGO. HE DENIES PROBLEMS WITH COST OF MEDS/FOOD/UTILITIES. HE USES THE [facility] OR [facility] LOCALLY. HE DOES NOT FEEL HE NEEDS HELP AT HOME USUALLY. STATES SOMETIMES HE GETS WORN OUT AND HAS PROBLEMS KEEPING UP WITH HOUSE CHORES, ETC. [facility] AND HE DID NOT QUALIFY FOR HELP. HE IS NOT VERY HAPPY WITH CURRENT PROVIDER AT [facility]. HE STATES HE MIGHT TALK WITH THEM ABOUT CHANGING. I DISCUSSED THAT POSSIBLY HE MIGHT QUALIFY FOR OXYGEN AT DISCHARGE BUT WHEN HE GETS CLOSER TO THAT WE WILL LOOK AT THAT. WE DISCUSSED HIS PREFERENCE FOR DISCHARGE WHICH IS HOME. WE DISCUSSED WHAT HE MAY NEED TO MANAGE HIS HEALTH AFTER DISCHARGE AND UNDERSTANDING MEDICATIONS HE TAKES. HE STATES HE DOES OWN MEDS, HAS A SYSTEM WITH A SHELF UNIT THAT WORKS FOR HIM. HE STATES HE HAS MORNING MEDS ON ONE SHELF, AFTERNOON MEDS ON NEXT SHELF AND EVENING MEDS ON NEXT SHELF. HE LIKE IT THIS WAY AND STATES HE NEVER MISSES HIS MEDS. WE DISCUSSED POSSIBLE VISIT WITH OUR CHW TO SEE IF SHE COULD HELP HIM WITH ANY RESOURCES. HE IS VERY OPEN TO THIS. I DISCUSSED WE WILL HAVE HER CALL AFTER DISCHARGE. CM WILL CONTINUE TO FOLLOW.
--- NOTE | 2021-02-16 11:41 | NUR ---
PATIENT AMBULATED WITH SBA TO THE BATHROOM AND VOIDED 200ML OF YELLOW URINE. DISCUSSED TOILETING Q1H AND BLADDER SCAN Q2H. PATIENT AGREEABLE.
--- NOTE | 2021-02-16 12:10 | NUR ---
BLOOD GLUCOSE WAS 229 AND 5 UNITS OF HUMALOG ADMIN. PT. UP TO THE CHAIR FOR LUNCH. 02 TITRATED TO 4L NC AND O2 SAT IS 92%.
--- NOTE | 2021-02-16 13:15 | NUR ---
PT. AMBULATED UNIT AND TOLERATED WELL. TO THE BATHROOM WITH SBA AND COULD NOT VOID, BUT HAD A BM. BLADDER SCAN SHOWED 540ML OF RETAINED URINE. STRAIGHT CATH. WITH UROJET ADMIN. PATIENT STATED IT WAS PAINFUL.CATH. OUTPUT WAS 560ML DARK YELLOW, CLEAR URINE. PT. CLEANED AND ASSISTED WITH REPOSITIONING. LEFT RESTING IN BED WITH CALL LIGHT IN REACH.
[2021-02-16] MEDS ORDERED: PRESERVISION A1 EAC3 PO (14:48)
[2021-02-16] MEDS ORDERED: REFRESH LIQUIGE15 ML OU (14:49)
[2021-02-16] MEDS ORDERED: ATENOLOL25 MG PO (14:55)
--- NOTE | 2021-02-16 15:00 | NUR ---
MED REC COMPLETE
--- NOTE | 2021-02-16 15:37 | NUR ---
PT. AMBULATED TO THE BATHROOM WITH SBA. TOLERATED WELL. DISCUSSED SAFETY AND USING CALL LIGHT WHEN DONE. PT. ON 4L NC AND O2 SAT. 93%
--- NOTE | 2021-02-16 15:59 | NUR ---
PATIENT'S O2 TITRATED DOWN TO 3L NC. 02 SAT. REMAINING ABOVE 90%.
--- NOTE | 2021-02-16 16:30 | NUR ---
BLOOD GLUCOSE WAS 265 AND ADMIN. 5 UNITS HUMALOG. PT. UP IN THE CHAIR WITH LEGS ELEVATED. ALERT AND ORIENTED. LUNGS STILL COARSE IN UPPER LOBES AND DIM. IN THE BASES. ON 3L NC AND O2 SAT. IS 93%, RR IS 18 . THERE IS INCREASING EDEMA BLE, NOW +2 PITTING. LEGS ELEVATED. SMALL REDDENED AREA PRESENT ON LEFT SECOND TOE, APPROX. 0.5 CM. IV SITES WNL AND FLUSH WELL.
--- NOTE | 2021-02-16 17:45 | NUR ---
PATIENT BLADDER SCANNED AND HAD 530ML URINE. PT. AMBULATED WITH SBA TO BATHROOM AND VOIDED 300ML.
--- NOTE | 2021-02-16 18:09 | NUR ---
REPORT GIVEN TO NGUYEN GREENE ON [facility]. PT. TRANSFERRED WITH ALL BELONGINGS VIA BED TO ROOM 116. ON 2L NC.
--- NOTE | 2021-02-16 18:11 | NUR ---
PT TRANSFERED FROM CCU TO PA AT 1800. PT AAOX4, PT DENIES SOB, PT ON 2L O2NC. PT WATCHING TV IN ROOM. WILL CONTINUE TO MONITOR.
--- NOTE | 2021-02-16 19:22 | NUR ---
SHIFT REPORT RECEIVED FROM RAMONA CEDILLO. PT RESTING IN BED, LEGS ELEVATED. NO NEEDS AT THIS TIME. CALL LIGHT IN REACH.
--- NOTE | 2021-02-16 19:45 | NUR ---
IN TO SBA PT TO THE TOILET, MISSED URINE HAT IN TOILET, REFILLED ICE WATER, NO FURTHER NEEDS AT THIS TIME
--- NOTE | 2021-02-16 22:20 | NUR ---
pt up at bedside with urinal, 200mls voided at this time
--- NOTE | 2021-02-16 22:27 | NUR ---
ASSESSMENT COMPLETED. GCS 15, A&O X4 BUT CAN BE FORGETFUL. NC @ 2L. LUNGS HAVE EXPIRATORY WHEEZING. HEART TONES DISTANT, PACED. ABD SOFT, NONTENDER, PT STATES NORMAL, BOWEL TONES ACTIVE. IV WNL, CDI, FLUSHED WELL. REMOVED FIELD START IN RIGHT AC, WNL. IV FLUIDS INFUSING PER ORDER. CMS INTACT. 1+ BLE EDEMA. PT HAS SOB WITH ACTIVITY. SCHEDULED MEDS PROVIDED. NO OTHER NEEDS AT THIS TIME. CALL LIGHT IN REACH.
--- NOTE | 2021-02-17 | NUR ---
PT RESTING IN BED, EYES CLOSED. RR EVEN, UNLABORED. NC @ 2L. CALL LIGHT IN REACH.
--- NOTE | 2021-02-17 01:28 | NUR ---
PT STATES HE HAS AN ACHE IN HIS SHOULDER/LEFT CHEST. PT IS LOW IN BED. PT REPOSITIONED IN BED. VS AND I&O COMPLETED, WNL. PT STATES THE ACHE IS GONE. EDUCATION PROVIDED TO CALL IF PAIN RETURNS OR ANY OTHER CONCERNS. NC @ 2L. IV FLUIDS INFUSING PER ORDER. CALL LIGHT IN REACH.
--- NOTE | 2021-02-17 04:32 | NUR ---
PT UP TO BR AND BACK TO BED. 485ML POST RESIDUAL IN BLADDER SCAN. EDUCATION PROVIDED CONCERNING ELIMINATION. GCS 15, A&O X4. LUNGS HAVE EXPIRATORY WHEEZE. NC @ 2L. HEART TONES REGULAR AND DISTANT. ABD SOFT, NONTENDTER, PT STATES NORMAL, BOWEL TONES ACTIVE. CMS INTACT. +1 BLE EDEMA. IV WNL, CDI, IV FLUIDS INFUSING PER ORDER. NO OTHER NEEDS AT THIS TIME. CALL LIGHT IN REACH.
--- NOTE | 2021-02-17 06:12 | NUR ---
PT UP TO BR AND BACK TO BED. PT HAD 399 RESIDUAL IN BLADDER SCAN.
--- NOTE | 2021-02-17 06:41 | NUR ---
SCHEDULED MED PROVIDED. IV FLUIDS INFUSING PER ORDER. NO OTHER NEEDS AT THIS TIME. CALL LIGHT IN REACH.
--- NOTE | 2021-02-17 08:00 | NUR ---
REPORT RECEIVED FROM NIGHT RN AND PT. CARE RESUMED. PT. IS ALERT, ORIENTED AND UP IN THE CHAIR FOR BREAKFAST. 02 SAT. IS 94% ON 2L NC. REMOVED NC FROM PT. O2 SAT. REMAINED GREATER THAN 90% ON RA. LUNGS SOUND CLEAR THROUGHOUT AND IMPROVED SINCE YESTERDAY. MODERATE EDEMA PRESENT BLE. IV SITE WNL AND FLUSH WELL. PT. AMBULATED TO THE BATHROOM AND VOIDED 100ML. BLADDER SCAN AFTER SHOWED 468 RESIDUAL. WILL CONTINUE TO MONITOR. PT. DENIES PAIN AND DENIED SOB ON R.A. PT. LEFT RESTING IN CHAIR.
--- NOTE | 2021-02-17 10:44 | NUR ---
ROUNDING ON PT. AND CHECKED 02 SAT. 93% ON RA. PT. DENIES SOB. HE HAS BEEN UP TO SEVERAL TIMES THIS SHIFT.
[2021-02-17] MEDS ORDERED: PREDNISONE20 MG PO (12:16)
[2021-02-17] MEDS ORDERED: DOXYCYCLINE HY100 MG PO ×2 (12:17→12:26)
--- NOTE | 2021-02-17 12:49 | NUR ---
PATIENT DISCHARGED VITALS DONE. NO COMPLAINTS
--- NOTE | 2021-02-17 15:13 | EKG ---
[facility] [address] [place], [place] [address] Signed Atrial-paced rhythm Abnormal ECG When compared with ECG of 08-DEC-2020 08:04, T wave inversion no longer evident in Anterior leads Confirmed by GUIDO CRUZ DO ([id number]) on 02/17/2021 3:13:19 PM Electronically Signed By: GUIDO CRUZ DO 02/17/21 1513 PATIENT NAME: GALVANCRYSTAL Electrocardiogram DATE OF : 44 PHYSICIAN: GUIDO CRUZ DO REPORT #: [id number] REPORT IS CONFIDENTIAL AND NOT TO BE RELEASED WITHOUT AUTHORIZATION
== END 2021-02-17 12:55 | disposition home or self-care (01) | DRG 871 ==
LOC: ED 20:03 → CCU 22:05 → MS 02-16 17:54
PROVIDERS: ADMIT Student in an Organized Health Care Education/Training Program; ATTEND Student in an Organized Health Care Education/Training Program
DX: A41.9 Sepsis, unspecified organism (principal); J18.9 Pneumonia, unspecified organism; J96.01 Acute respiratory failure with hypoxia; J44.1 Chronic obstructive pulmonary disease with (acute) exacerbation; J44.0 Chronic obstructive pulmonary disease with (acute) lower respiratory infection; K55.1 Chronic vascular disorders of intestine; Z20.822 Contact with and (suspected) exposure to COVID-19; I25.10 Atherosclerotic heart disease of native coronary artery without angina pectoris; I10 Essential (primary) hypertension; E78.5 Hyperlipidemia, unspecified; E11.9 Type 2 diabetes mellitus without complications; N40.0 Benign prostatic hyperplasia without lower urinary tract symptoms; F17.210 Nicotine dependence, cigarettes, uncomplicated; D72.829 Elevated white blood cell count, unspecified; T38.0X5A Adverse effect of glucocorticoids and synthetic analogues, initial encounter; R91.8 Other nonspecific abnormal finding of lung field; Z95.0 Presence of cardiac pacemaker; Z79.899 Other long term (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; Z79.84 Long term (current) use of oral hypoglycemic drugs; Z79.02 Long term (current) use of antithrombotics/antiplatelets; Z79.82 Long term (current) use of aspirin; Z79.51 Long term (current) use of inhaled steroids; Z79.52 Long term (current) use of systemic steroids
CPT/HCPCS: 36415; 36600; 71045; 80048; 80053; 82803; 83605; 83735; 83880; 84484; 85025; 85379; 93005; 93010; 94640; 94644; 96374; 97116; 97161; 97165; 99285-25; C9803; J0696; J1650; J1815; J2930; J7121; U0003

== ENCOUNTER 2021-06-03 19:52 | Observation (INO) | payer MEDICARE, OTHER ==
[~2021-06-03] VITALS: Ht 175.3 cm; Wt 89.1 kg
[~2021-06-03 19:52] MED LIST changes: +DOXYCYCLINE HY100 MG PO; +PRESERVISION A1 EAC3 PO; +REFRESH LIQUIGE15 ML OU
--- OUTSIDE RECORDS SUMMARY | 2021-06-03 20:00 | XMS ---
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 Care History Medical/Surgical 08/13/2019 [facility] - PATIENT IS A -RECEIVES SERVICES AT [facility] [place] VISIT COUNT (12 MO.) [address] [facility] TOTAL 3 NOTE: Visits indicate total known visits. 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 - Hyperlipidemia, unspecified - Nicotine dependence, unspecified, uncomplicated - Shortness of breath - Chronic obstructive pulmonary disease with (acute) lower respiratory infection - care home (current) use of oral hypoglycemic drugs - Essential (primary) hypertension - watermaster (current) use of aspirin - Other custodial (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 - Chronic obstructive pulmonary disease with (acute) exacerbation INPATIENT VISIT TRACKING (12 MO.) 02/15/2021 22:05 [facility] [place] TYPE: Medical Surgical COMPLAINT: - COPD EXACERBATION DIAGNOSES: - Pneumonia, unspecified organism - Elevated white blood cell count, unspecified - Presence of cardiac pacemaker - Essential (primary) hypertension - watermaster (current) use of inhaled steroids - Benign prostatic hyperplasia without lower urinary tract symptoms - 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 - Presence of cardiac pacemaker - Chronic obstructive pulmonary disease with (acute) exacerbation - Nicotine dependence, cigarettes, uncomplicated - Essential (primary) hypertension - Chronic obstructive pulmonary disease with (acute) lower respiratory infection - care home (current) use of oral hypoglycemic drugs - Other nonspecific abnormal finding of lung field - Nicotine dependence, cigarettes, uncomplicated - Hyperlipidemia, unspecified - Adverse effect of glucocorticoids and synthetic analogues, initial encounter - watermaster (current) use of antithrombotics/antiplatelets - Other custodial (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 - Chronic vascular disorders of intestine - care home (current) use of systemic steroids - care home (current) use of aspirin - Chronic obstructive pulmonary disease with (acute) exacerbation - care home (current) use of antithrombotics/antiplatelets - Type 2 diabetes mellitus without complications - Acute respiratory failure with hypoxia - watermaster (current) use of inhaled steroids - Hyperlipidemia, unspecified - watermaster (current) use of aspirin - Sepsis, unspecified organism - 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 - Type 2 diabetes mellitus without complications - care home (current) use of systemic steroids - Pneumonia, unspecified organism - Other nonspecific abnormal finding of lung field - Adverse effect of glucocorticoids and synthetic analogues, initial encounter - watermaster (current) use of oral hypoglycemic drugs - Elevated white blood cell count, unspecified - Benign prostatic hyperplasia without lower urinary tract symptoms - Chronic obstructive pulmonary disease with (acute) lower respiratory infection - Chronic vascular disorders of intestine - Other ocean transportation intermediary (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 - Acute respiratory failure with hypoxia [email or web address]
--- NOTE | 2021-06-04 00:15 | NUR ---
pt ARRIVES TO [facility] FLOOR VIA STRETCHER. AMBULATORY TO HOSPITAL BED. ORIENTATION TO ROOM PROVIDED. SANDWICH BOX PROVIDED REQUESTED. TELE 2 PLACED ON pt PER ORDERS. CALL LIGHT IN REACH.
--- NOTE | 2021-06-04 01:41 | NUR ---
PATIENT'S ADMIT ASSESSMENT COMPLETE. 1PSBA TO THE BATHROOM AND BACK TO BED, PATIENT REPOSITIONED IN BED, SHOWN BED CONTROLS AND CALL LIGHT FUNCTIONS, PATIENT VERBALIZED UNDERSTANDING. PATIENT FINISHED EATING EVERYTHING IN HIS SANDWICH BOX. PATIENT HAS NO OTHER CARE NEEDS AT THIS TIME CALL LIGHT IS IN REACH.
--- NOTE | 2021-06-04 04:00 | NUR ---
PATIENT RESTING QUIETLY IN SEMI-FOWLERS POSITION, EYES CLOSED, RESPIRATIONS REGUAL AND EVEN, CALL LIGHT IS IN REACH. PATIENT'S O2 NASAL CANNULA IS ON.
--- NOTE | 2021-06-04 06:16 | NUR ---
PATIENT UP TO THE BATHROOM AND BACK TO BED 1PSBA WITH THIS RN. PATIENT GETTING DYSPNIC WITH EXERTION. PATIENT COMPENSATES FAIRLY QUICKLY ONCE HE IS BACK AT REST. AM ASSESSMENT COMPLETE. NO CARE NEEDS AT THIS TIME. CALL LIGHT IN REACH.
--- NOTE | 2021-06-04 06:41 | NUR ---
VERBAL ORDER FROM MD TO DC TELEMETRY. FOOD EXPEDITOR IN ROOM TO DC TELE, CCU NOTIFIED.
--- NOTE | 2021-06-04 08:46 | NUR ---
sitting edge of bed, O2 2lNC, chronic at HS only at home, sats wnl. no c/o cp. coop. took meds w/o problems. ivf infusing.
--- NOTE | 2021-06-04 10:00 | NUR ---
PATIENT SITTING UP IN BED WATCHING TV. VITALS AND I&O'S CHARTED. FRESH WATER GIVEN. CALL LIGHT IN REACH. NO FURTHER NEEDS AT THIS TIME.
--- NOTE | 2021-06-04 10:48 | NUR ---
in chair, in room, shaving him and gave him a towel bath. pt denies c/o pain. O2 91% on room air, as he took O2 off while was doing care. aware of results from barium swallow, stated understanding, no cough at this time. legs elevated
--- NOTE | 2021-06-04 12:59 | NUR ---
PT was receiving care and so was unable to visit.
--- NOTE | 2021-06-04 13:12 | NUR ---
pt watching tv, no c/o pain, ate 100% meals, tolerating liquids well. no emesis no sob when up to br. call light at bedside
--- NOTE | 2021-06-04 14:22 | NUR ---
cm in room talking to pt, pt showering, will give 1400 meds when hes done
--- NOTE | 2021-06-04 14:45 | NUR ---
showered, sob on return resp 24, sats 93%n on room air. once he sat down resp went down to 16-18. sasts stayes the same. tolerating diet well
--- NOTE | 2021-06-04 15:13 | NUR ---
Spoke with Hussein. He asks why I am asking him questions as I always see him when he comes in. Told him I have a poor memory and I need to ask everytime. He cont. live in [place] in an apartment. Up to this point he has been active and independent. He still drives. States he now only drives on Sundays and only to his nieces a few blocks away. He used to drive to [employer] and grocery shop but now his niece will drive him. Pt states he needs o2 at home, but this has not shown on qualifier in the past. Discussed qualifier will be completed if he remains on on dc. Pt plans on dc to home when cleared for DC. [facility]
--- NOTE | 2021-06-04 16:02 | NUR ---
PT WAS ON O2 2L NC AT BEGINING OF SHIFT. CURRENTLY ON RA, SATS 93%, INCREAED RESP WITH EXERTION, SATS STAY THE SAME. LUNGS HAD WHEEZING T/O AT BEGINING OF SHIFT. DIM AT BASES AND WHEEZING PRESENT. LAST BM 06/02, VOIDING QS DARK YELLOW URINE. SBA IN ROOM, TOLERATED WELL. PT/OT EVAL PRIOR TO DC HOME ORDERED BY . PT IS TO BE DC HOME TOMORROW. IVF INFUSING W/O PROBLEMS, NO C/O PAIN. GETS NEBS AND SOLUMEDROL IV. PLEASANT AND COOPERATIVE, USES CALL LIGHT. TOLERATING LIQUIDS AND DIET, NO EMESIS
--- NOTE | 2021-06-04 19:10 | NUR ---
REPORT RECEIVED FROM DAY SHIFT RN. PT LYING IN BED ALERT AND ORIENTED. DENIES NEEDS AT THIS TIME. WHITE BOARD UPDATED. CALL LIGHT IN REACH.
--- NOTE | 2021-06-04 21:45 | NUR ---
EVENING ASSESSMENT COMPLETE. SCHEDULED MEDS ADMINISTERED PER EMAR. PT DENIES PAIN OR NAUSEA. SpO2 91% ON RA. HR IRREGULAR. REPORTS FEELING SLIGHTLY SOB AT THIS TIME. RESPIRATIONS EVEN. 2L/NC APPLIED FOR NOC. SNACK PROVIDED. PT DENIES QUESTIONS OR CONCERNS. CALL LIGHT IN REACH. BED ALARM FOR SAFETY.
--- NOTE | 2021-06-04 23:54 | NUR ---
CALL LIGHT ANSWERED. SBA TOT HE BATHROOM. PATIENT IS BACK IN BED SITTING AT THE EDGE PLAYING GAMES ON CELPHONE. BED ALARM ON.
--- NOTE | 2021-06-05 01:39 | NUR ---
PT RESTING IN BED WITH EYES CLOSED. RESPIRATIONS EVEN. 2L/NC IN PLACE. NO APPARENT DISTRESS. CALL LIGHT IN REACH.
--- NOTE | 2021-06-05 04:02 | NUR ---
PT RESTING IN BED LYING ON RIGHT SIDE WITH EYES CLOSED. RESPIRATIONS EVEN. 2L/NC IN PLACE. CALL LIGHT IN REACH.
--- NOTE | 2021-06-05 04:20 | NUR ---
CALL LIGHT ANSWERED. PT UP TO BR WITH MINIMAL SBA TO VOID. GAIT STEADY. BACK TO BED, RANDA WELL. PT HAD REMOVED OXYGEN TO AMB TO BR. UPON RETURNING TO BED SpO2 83% ON RA. 2L/NC PLACED. PT DOES REPORT SOB WITH EXERTION. SpO2 UP TO 92% 2L/NC BEFORE THIS RN LEFT THE ROOM. RT IN ROOM FOR BREATHING TX. NO FURTHER NEEDS AT THIS TIME. CALL LIGHT IN REACH.
--- NOTE | 2021-06-05 05:41 | NUR ---
SCHEDULED MEDS ADMINISTERED PER EMAR. PT DENIES SOB. SpO2 91% ON 2L/NC. RESPIRATIONS EVEN. FRESH WATER PROVIDED. NO FURTHER NEEDS. CALL LIGHT IN REACH.
--- NOTE | 2021-06-05 07:30 | NUR ---
Shift report received from NGUYEN Carrington, pt resting in bed safely w/ call light in reach. Pt denies any needs at this time.
--- NOTE | 2021-06-05 08:09 | NUR ---
Wash cloth was offered. Patient refused to sit in chair but is eating breakfast on the side of the bed and wants to sleep soon. No requests at this time but is curious when the doctor will come.
--- NOTE | 2021-06-05 08:12 | NUR ---
Board was updated for the patient.
--- NOTE | 2021-06-05 09:25 | NUR ---
PT SITTING UP IN BED WATCHING TV, CALL LIGHT IN REACH. MORNING ASSESMENT COMPLETED AND SCHEDULED MEDS GIVEN PER PROVIDER ORDER. PT GIVEN COFFEE PER REQUEST.
--- NOTE | 2021-06-05 10:13 | NUR ---
Vitals, I&Os were completed. Patient requested and recieved coffee. Call light in reach. Patient has no requests at this time.
--- NOTE | 2021-06-05 10:30 | NUR ---
pt sitting up in bed watching tv, pt denies any needs at this time.
[2021-06-05] MEDS ORDERED: PREDNISONE20 MG PO (10:47)
[2021-06-05] MEDS ORDERED: DOXYCYCLINE HY100 MG PO (11:20)
--- NOTE | 2021-06-05 11:25 | NUR ---
MED REC COMPLETE
--- NOTE | 2021-06-05 11:32 | NUR ---
MED REC COMPLETE
--- NOTE | 2021-06-05 12:05 | NUR ---
It was my pleasure to visit with Hussein today and discuss his care while here in the hospital. Mr. Brunner stated that he felt like he was receiving "good care" while here in the hopsital. He feels that the nurses are answering his call light in a timely manner, and that his needs are being attended to. He denies pain, and expresses understanding of the medications that he is receiving, and his current treatment plan. He denies any concerns regarding his care or treatment plans, and expresses no needs at this time.
--- NOTE | 2021-06-05 12:21 | NUR ---
Notified by Rn pt is ready for dc, but does not have 02 take to go home with. In and spoke with pt and he is unsure who supplies his 02. He knows he gets it through the [place]. He thinks it might be [employer]. Attempted to call [employer] x 5 as his niece is waiting in the parking lot to take him home. Pt also states he had portables at home, but left them turned on and they are empty. I am attempting to contact [employer] to check if they provide his 02. Spoke with [facility] and they do not have this pt on service. Per Ansley at [facility], the [facility] contracts with [employer]. I will send this pt home with one of [employer] portable tanks and contact them when I can get through by phone.
--- NOTE | 2021-06-05 12:43 | NUR ---
Still unable to reach [employer] by phone. Pt sent with [employer] tank and regulator with his niece. Faxed [employer] face sheet and dc summary with note showing pt dc with their tank and regulator.
--- NOTE | 2021-06-05 18:38 | EKG ---
[facility] [address] [place] [address] Signed Atrial flutter with variable AV block with occasional ventricular-paced complexes Abnormal ECG When compared with ECG of 15-FEB-2021 20:20, Electronic ventricular pacemaker has replaced Electronic atrial pacemaker Confirmed by GUIDO CRUZ DO ([id number]) on 06/05/2021 6:38:49 PM Electronically Signed By: GUIDO CRUZ DO 06/05/21 1838 PATIENT NAME: CRYSTAL GALVAN Darnell Electrocardiogram DATE OF : 44 PHYSICIAN: GUIDO CRUZ DO REPORT #: [id number] REPORT IS CONFIDENTIAL AND NOT TO BE RELEASED WITHOUT AUTHORIZATION
== END 2021-06-05 12:45 | disposition home or self-care (01) ==
LOC: ED 19:52 → MS 19:53
PROVIDERS: ADMIT Internal Medicine; ATTEND Internal Medicine
DX: J43.9 Emphysema, unspecified (principal); J96.21 Acute and chronic respiratory failure with hypoxia; I10 Essential (primary) hypertension; E11.9 Type 2 diabetes mellitus without complications; E78.5 Hyperlipidemia, unspecified; N40.0 Benign prostatic hyperplasia without lower urinary tract symptoms; I48.91 Unspecified atrial fibrillation; Z20.822 Contact with and (suspected) exposure to COVID-19; M19.90 Unspecified osteoarthritis, unspecified site; G89.29 Other chronic pain; M54.9 Dorsalgia, unspecified; F17.200 Nicotine dependence, unspecified, uncomplicated; Z79.52 Long term (current) use of systemic steroids; Z79.899 Other long term (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; Z79.82 Long term (current) use of aspirin
CPT/HCPCS: 71045; 80053; 83735; 84484; 85025; 93005; 93010; 94640; 94760; 96372; 96374; 96376; 97162; 99285-25; G0378; J1650; J2920; J2930; J7121; U0003

== ENCOUNTER 2021-10-10 17:34 | Emergency (ER) | payer OTHER ==
[~2021-10-10] VITALS: Ht 175.3 cm; Wt 81.7 kg
[2021-10-10] MEDS ORDERED: PREDNISONE20 MG PO (19:43)
--- NOTE | 2021-10-10 19:45 | EKG ---
[facility] [address] [place] [address] Signed Atrial fibrillation with occasional ventricular-paced complexes Abnormal ECG When compared with ECG of 03-JUN-2021 20:17, Vent. rate has increased BY 8 BPM Confirmed by HUMBLE MOYER MD ([id number]) on 10/10/2021 7:45:17 PM Electronically Signed By: HUMBLE MOYER MD 10/10/211944 PATIENT NAME: CRYSTAL GALVAN Darnell Electrocardiogram DATE OF : 44 PHYSICIAN: HUMBLE MOYER MD REPORT #: [id number] REPORT IS CONFIDENTIAL AND NOT TO BE RELEASED WITHOUT AUTHORIZATION
== END 2021-10-10 21:04 | disposition home or self-care (01) ==
LOC: ED 17:34
DX: J44.1 Chronic obstructive pulmonary disease with (acute) exacerbation (principal); Z20.822 Contact with and (suspected) exposure to COVID-19; I10 Essential (primary) hypertension; I25.10 Atherosclerotic heart disease of native coronary artery without angina pectoris; E78.5 Hyperlipidemia, unspecified; E11.9 Type 2 diabetes mellitus without complications; F17.200 Nicotine dependence, unspecified, uncomplicated; Z79.899 Other long term (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; Z79.82 Long term (current) use of aspirin; Z79.52 Long term (current) use of systemic steroids
CPT/HCPCS: 71045; 80053; 83880; 84484; 85025; 93005; 93010; 94640; 96374; 99285-25; C9803; J2930; U0003

== ENCOUNTER 2021-12-08 23:49 | Emergency (ER) | payer MEDICARE, OTHER ==
[~2021-12-08] VITALS: Ht 175.3 cm; Wt 77.1 kg
[~2021-12-08 23:49] MED LIST changes: -SYMBICORT 16010.2 GM INH; +WIXELA 250-501 EACH INH
[2021-12-09] MEDS ORDERED: AZITHROMYCIN500 MG PO (01:15)
[2021-12-09] MEDS ORDERED: medrol dose pack (01:15)
[2021-12-09] MEDS ORDERED: IPRAT-ALBUT 0.5-3 ML INH (01:15)
[2021-12-09] MEDS ORDERED: ONDANSETRON ODT8 MG PO (01:16)
[2021-12-09] MEDS ORDERED: CYCLOBENZAPRINE5 MG PO (01:16)
[2021-12-10] MEDS ORDERED: METHYLPREDNISOLO4 M1 PO (09:20)
== END 2021-12-09 03:33 | disposition home or self-care (01) ==
LOC: ED 23:49
DX: U07.1 COVID-19 (principal); J44.1 Chronic obstructive pulmonary disease with (acute) exacerbation; E11.9 Type 2 diabetes mellitus without complications; I25.10 Atherosclerotic heart disease of native coronary artery without angina pectoris; E78.5 Hyperlipidemia, unspecified; M19.90 Unspecified osteoarthritis, unspecified site; F17.200 Nicotine dependence, unspecified, uncomplicated; Z79.899 Other long term (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; Z79.52 Long term (current) use of systemic steroids; Z79.82 Long term (current) use of aspirin
CPT/HCPCS: 36415; 71045; 80053; 82803; 83880; 85025; 94640; 96374; 96375; 96376; 99285-25; C9803; J1885; J2270; M0247; U0003

== ENCOUNTER 2021-12-09 09:48 | Inpatient (IN) | payer OTHER ==
[~2021-12-09] VITALS: Ht 175.3 cm; Wt 81.8 kg
[~2021-12-09 09:48] MED LIST changes: +AZITHROMYCIN500 MG PO; +CYCLOBENZAPRINE5 MG PO; +IPRAT-ALBUT 0.5-3 ML INH; +ONDANSETRON ODT8 MG PO; +medrol dose pack
--- OUTSIDE RECORDS SUMMARY | 2021-12-09 09:56 | XMS ---
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 Care History Medical/Surgical 08/13/2019 [facility] - PATIENT IS A -RECEIVES SERVICES AT [facility] [place] VISIT COUNT (12 MO.) [address] [facility] TOTAL 5 NOTE: Visits indicate total known visits. 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 - fuel pilot engineer (current) use of aspirin - Atherosclerotic heart disease of [place] coronary artery without angina pectoris - Chronic obstructive pulmonary disease with (acute) exacerbation - Other assisted (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 - Essential (primary) hypertension - Hyperlipidemia, unspecified - Shortness of breath - Type 2 diabetes mellitus without complications 06/03/2021 19:52 [facility] [place] TYPE: Emergency COMPLAINT: - DIFFUCULTY BREATHING 02/15/2021 20:04 [facility] [place] TYPE: Emergency COMPLAINT: - SOB INPATIENT VISIT TRACKING (12 MO.) 06/03/2021 19:53 [facility] [place] TYPE: Observation COMPLAINT: - COPD EXACERBATION DIAGNOSES: - Nicotine dependence, unspecified, uncomplicated - Hyperlipidemia, unspecified - Other chronic pain - Type 2 diabetes mellitus without complications - Emphysema, unspecified - 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 saw operator (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 - Acute and chronic respiratory failure with hypoxia - Unspecified atrial fibrillation - Shortness of breath - Dorsalgia, unspecified - Essential (primary) hypertension - Unspecified osteoarthritis, unspecified site - correction (current) use of aspirin - Benign prostatic hyperplasia without lower urinary tract symptoms - correction (current) use of systemic steroids 02/15/2021 22:05 [facility] [place] TYPE: Medical Surgical COMPLAINT: - COPD EXACERBATION DIAGNOSES: - Pneumonia, unspecified organism - Elevated white blood cell count, unspecified - Presence of cardiac pacemaker - Essential (primary) hypertension - correction (current) use of inhaled steroids - Benign prostatic hyperplasia without lower urinary tract symptoms - Atherosclerotic heart disease of [place] coronary artery without angina pectoris - Presence of cardiac pacemaker - Chronic obstructive pulmonary disease with (acute) exacerbation - Nicotine dependence, cigarettes, uncomplicated - Essential (primary) hypertension - Chronic obstructive pulmonary disease with (acute) lower respiratory infection - fuel pilot engineer (current) use of oral hypoglycemic drugs - Other nonspecific abnormal finding of lung field - Nicotine dependence, cigarettes, uncomplicated - Hyperlipidemia, unspecified - Adverse effect of glucocorticoids and synthetic analogues, initial encounter - fuel pilot engineer (current) use of antithrombotics/antiplatelets - 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 saw operator (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 - Chronic vascular disorders of intestine - fuel pilot engineer (current) use of systemic steroids - fuel pilot engineer (current) use of aspirin - Chronic obstructive pulmonary disease with (acute) exacerbation - correction (current) use of antithrombotics/antiplatelets - Type 2 diabetes mellitus without complications - Acute respiratory failure with hypoxia - fuel pilot engineer (current) use of inhaled steroids - Hyperlipidemia, unspecified - fuel pilot engineer (current) use of aspirin - Sepsis, unspecified organism - Atherosclerotic heart disease of [place] coronary artery without angina pectoris - Type 2 diabetes mellitus without complications - correction (current) use of systemic steroids - Pneumonia, unspecified organism - Other nonspecific abnormal finding of lung field - Adverse effect of glucocorticoids and synthetic analogues, initial encounter - correction (current) use of oral hypoglycemic drugs - Elevated white blood cell count, unspecified - Benign prostatic hyperplasia without lower urinary tract symptoms - Chronic obstructive pulmonary disease with (acute) lower respiratory infection - Chronic vascular disorders of intestine - 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 saw operator (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 - Acute respiratory failure with hypoxia [email or web address]
--- NOTE | 2021-12-09 13:00 | NUR ---
81 YEAR OLD MALE PATIENT ADMITTED TO CCU FROM ED VIA STRETCHER WITH DX OF COVID +. PATIENT STATES HE HAS BEEN FEELING ILL FOR APPROX 5 DAYS. WAS IN ED YESTERDAY AND RECIEVED MOMOCLONAL ANTIBODIES, THEN HOME. PATIENT NIECE CALL EMS THIS AM PATIENT WAS WITH INCREASED SHORTNESS OF BREATH. IS ON HOME O2, HX OF COPD. O2 SAT 85 IN FEILD. UPON ADMIT TO CCU PATIENT IS ALERT, ORIENTED AND COOPERATIVE. IS [place]. ADMISSION PROCESS STARTED.
--- NOTE | 2021-12-09 13:30 | NUR ---
TRANSFERRED TO CHAIR WITH ASSIST. TAKING JELLO. MOIZTAYLER NAUSEA, HAS SLIGHT HEADACHE, MILD BACK PAIN. ROUTINE MEDICATIONS GIVEN WHICH INCLUDED GABAPENTIN.
--- NOTE | 2021-12-09 14:00 | NUR ---
BACK TO BED WITH ASSIST. C/O INCREASED SOB WITH EXERTION, REQUESTING NEB TREATMENT. CPAP AT 50%, WITH PRESSURE OF 10. CALM AFTER CPAP APPLIED. HAD BEEN ON O2 NC 5 LITERS.
--- NOTE | 2021-12-09 16:00 | NUR ---
CONTINUE ON CPAP, WOKE BRIEFLY FOR ASSESSMENT. HAS BEEN VERY SLEEPY SINCE GABAPENTIN GIVEN. REFUSING PO AT THIS TIME. HOB ELEVATED.
--- NOTE | 2021-12-09 17:30 | NUR ---
DINNER HELD PATIENT IS STILL IN DEEP SLEEP. NO FUTHER CHANGES.
--- NOTE | 2021-12-09 19:02 | NUR ---
[place] [facility]
--- NOTE | 2021-12-09 20:06 | NUR ---
PATIENT APPEARS TO BE SLEEPING SOUNDLY. TOLERATING CPAP AT 50% Fi02, SPO2 93%, RR 20. CPAP ALERM FOR POOR SEAL, PATIENT'S MOUTH HANGING OPEN AND LEAK IS GREATER THAN 100. CPAP REMOVED. PATIENT ALERT. REPORTS "I'M READY TO GO HOME". TOLD PATIENT I'D CALL HIM A TAXI AND HE LAUGHED, STATING "I GUESS I'LL SPEND THE NIGHT". PATIENT SWITCHED TO OXYMASK 8L. PATIENT DENIED HIS GABAPENTINE FOR THE 2100 DOSE AND DENIED NEED TO VOID AT THIS TIME. CALL LIGHT IN REACH, PATIENT DROWSY. BACK TO SLEEPING QUICKLY. LIGHTS DIMMED.
--- NOTE | 2021-12-09 21:20 | NUR ---
PATIENT AWAKE WATCHING TV. TOLERATING OXYMASK 8L. REPORTS FEELING "SO MUCH BETTER". DENIES FEELING SOB. RR 16-18. O2 SAYS 94%. SWITCHED TO 4L NC. PATIENT REPOSITIONED IN BED. PROVIDED WITH EVENING MEDS, DECLINED PM DOSE OF GABAPENTIN. DENIED BACK PAIN. NO GI UPSET. DENIED NEED TO VOID. LUNG SOUNDS ARE CLEAR. VS STABLE. PATIENT AGREES TO CALL FOR ANY ASSISTANCE OR TO USE THE URNAL. DEMONSTATES ABILITY TO USE CALL LIGHT. LIGHTS DIMMED. TV LEFT ON PER REQUEST.
--- NOTE | 2021-12-10 00:30 | NUR ---
PATIENT APPEARED TO BE SLEEPING SOUNDLY. WAKES EASILY TO VOICE. PATIENT DENIES ANY NEEDS; ENCOURAGED PATIENT TO VOID WHICH HE DECLINED. TOLERATING 4L NC. ALLOWED PATIENT TO REST. CALL LIGHT IN REACH.
--- NOTE | 2021-12-10 03:29 | NUR ---
PATIENT UP TO THE EDGE OF THE BED. INSIST ON STANDING TO VOID. PATIENT REQUIRED SOME LIGHT ASSISTANCE TO GET TO A STANDING POSITION, THEN STOOD WITHOUT ASSISTANCE TO VOID. 300MLS [place]ARK [place] URINE. PATIENT BACK TO SITTING ON EDGE OF BED. TOLERATING 4L NC. HR UP TO 120'S WITH ACTIVITY, 90-100 SITTING. PROVIDED PATIENT WITH SNACKS AND A PROTEIN DRINK, WARM WASH CLOTH AND HIS DENTURES. PATIENT WOULD LIKE TO SIT UP FOR A WHILE. DOES NOT APPEAR SOB, RR 20. LUNG SOUNDS ARE MOSTL CLEAR, LITTLE COARSE IN TERRELL UPPER LOABES THAT CLEARED WITH A COUGH. PATIENT AGREES TO CALL IF HE NEEDS ASSISTANCE OR TO LAY BACK DOWN. CALL LIGHT IN REACH.
--- NOTE | 2021-12-10 04:00 | NUR ---
PATIENT ASSISTED BACK INTO BED BY KIANNA CEDILLO
--- NOTE | 2021-12-10 05:15 | NUR ---
MORNING LABS DRAWN FROM ON RIGHT. IVF STOPPED, 6ML WASTED AND THEN SAMPLE TAKEN. LAB IN ROOM TO COLLECT. ALL PORTS FLUSHED WITH 10ML NS.
--- NOTE | 2021-12-10 06:48 | EKG ---
[facility] [address] [place] [address] Signed Atrial fibrillation with rapid ventricular response Low voltage QRS Abnormal ECG When compared with ECG of 10-OCT-2021 17:59, Atrial fibrillation has replaced Electronic ventricular pacemaker Vent. rate has increased BY 37 BPM Confirmed by HUMBLE MOYER MD ([id number]) on 12/10/2021 6:48:30 AM Electronically Signed By: HUMBLE OMYER MD 12/10/21 0648 PATIENT NAME: CRYSTAL GALVAN Electrocardiogram DATE OF : 44 PHYSICIAN: HUMBLE MOYER MD REPORT #: [id number] REPORT IS CONFIDENTIAL AND NOT TO BE RELEASED WITHOUT AUTHORIZATION
--- NOTE | 2021-12-10 08:16 | NUR ---
PATIENT AWAKE IN BED, SBA TO CHAIR FOR [facility]. O2 INCREASED TO 5L WHILE HE EATS. FRESH ICE WATER PROVIDED. LINENS CHANGED. DR MOYER IN TO SEE PATIENT AT THIS TIME. CALL LIGHT IN REACH
--- NOTE | 2021-12-10 08:30 | NUR ---
ASSESSMENT DONE. IN CHAIR EATING BREAKFAST. DENIES FEELING SHORT OF BREATH.
--- NOTE | 2021-12-10 09:00 | NUR ---
ORDERS RECIEVED TO TRANSFER TO [facility]. TELE#5 APPLIED. IS ON O2 AT 5NC, WILL USE OXYMASK WITH NC WHEN FEEING INCREASED SHORTNESS OF BREATH. CURRENT FLOWW OF PRN OXYMASK IS 8 L. PATIENT STATES HE SLEP POOR.
[2021-12-10] MEDS ORDERED: METHYLPREDNISOLO4 M1 PO (09:20)
--- NOTE | 2021-12-10 10:31 | NUR ---
1pa, patient back to bed. 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 Call light in easy reach, no other needs at this time.
--- NOTE | 2021-12-10 12:30 | NUR ---
TOOK LUNCH FAIR.
--- NOTE | 2021-12-10 13:00 | NUR ---
REPORT TO MED-SURG.
--- NOTE | 2021-12-10 13:10 | NUR ---
PATIENT READY TO TRANSFER TO MED-SURG.
--- NOTE | 2021-12-10 13:20 | NUR ---
PT ARRIVED TO FLOOR AT THIS TIME VIA CHAIR BUT PT REQUESTING TO GO BACK TO BED AT THIS TIME. PT ON 5L NC. SATING WNL. CALL LIGHT WITHIN REACH
--- NOTE | 2021-12-10 15:30 | NUR ---
THIS RN IN PTS ROOM TO GIVE SCHEDULED MEDS. PT STATES THAT HE IS DOING WELL AND NEEDS NOTHING ELSE
--- NOTE | 2021-12-10 16:58 | NUR ---
ATTEMPTED TO CONTACT THE PATIENT VIA PHONE TO DISCUSS DISCHARGE PLANNING, NO ANSWER. WILL ATTEMPT TO CONTACT TOMORROW.
--- NOTE | 2021-12-10 17:45 | NUR ---
THIS RN DELIVERED PT A DIFFERENT DINNER PER PT REQUEST. PT STATES THAT EGG SALAD ANDWICH APPEARS MORE APPETIZING. PT NEEDS NOTHING FURTHER AND CALL LIGHT WITHIN REACH
--- NOTE | 2021-12-10 19:12 | NUR ---
PATIENT IN BED RESTING AT THIS TIME. VITALS AND I&O'S CHARTED. CALL LIGHT IN REACH. NO FURTHER NEEDS AT THIS TIME.
--- NOTE | 2021-12-10 19:25 | NUR ---
RECEIVED REPORT FROM DAY SHIFT RN. PATIENT IS RESTING IN BEDSIDE. PATIENT DENIES ANY SOB. PATIENT IS ON 5L. NO NEEDS NOTED. CALL LIGHT IN REACH.
--- NOTE | 2021-12-10 21:55 | NUR ---
PATIENT ASSESMENT COMPLETED. PATIENT IS RESTING IN BED. PATIENT DENIES ANY SOB. PATIENT DENIES ANY PAIN. PATIENT ON 5L VIA NC AT THIS TIME. PATIENTS VITALS TAKEN AND RECORDED. INTAKE AND OUTPUT RECORDED. PATIENT REMAINS ON TELE #5. PATIENT DENIES ANY NEEDS. CALL LIGHT IN REACH.
--- NOTE | 2021-12-11 00:32 | NUR ---
PATIENT IS RESTING IN BED WATCHING TV. PATIENT DENIES ANY NEEDS. CALL LIGHT IN REACH.
--- NOTE | 2021-12-11 01:43 | NUR ---
PATIENT IS RESTING IN BED WITH EYES CLOSED, RR 18. CALL LIGHT IN REACH. TITRATED OXYGEN TO 4LVIA NC
--- NOTE | 2021-12-11 02:38 | NUR ---
PATIENT HAS INCREASED WHAT APPEARS TO BE PVCS ON TELE #5. EKG DONE PER CHANGES AND CCUS REQUEST. NO ACUTE CONCERN AT THIS TIME PER CCU RN. PATIENT DENIES ANY CHEST PAIN OR SOB. PATIENT DENIES ANY PALPITATIONS. PATIENT DENIES ANY NEEDS. PATIENT ON 4L VIA NC. NO FURTHER NEEDS NOTED. CALL LIGHT IN REACH.
--- NOTE | 2021-12-11 04:13 | NUR ---
PATIENT IS RESTING IN BED WITH EYES CLOSED, RR 18. CALL LIGHT IN REACH. CBI REMAINS CLAMPED.
--- NOTE | 2021-12-11 05:31 | NUR ---
PATIENTS VITALS TAKEN AND RECORDED. INTAKE AND OUTPUT RECORDED. PATIENT DENIES ANY PAIN OR SOB. PATIENT REMAINS ON 4L VIA NC. PATIENT REPORTS HEARTBURN. PATIENT STATED "ITS LIKE I ALWAYS GET AT HOME". PATIENT DENIES ANY CHEST PAIN OR HEART PALPITATIONS. PATIENTS BLOOD DRAWN AND SENT TO LAB. NO FURTHER NEEDS NOTED. CALL LIGHT IN REACH.
--- NOTE | 2021-12-11 06:29 | NUR ---
PATIENT IS RESTING IN BED WATCHING TV. PATIENT REPORTS "HEARTBURN IS ALL RON NOW". PATIENT REMAINS ON 4L VIA NC. TEA PROVIDED IN ICE TO PATIENT. PATIENT DENIES ANY FURTHER NEEDS. CALL LIGHT IN REACH.
--- NOTE | 2021-12-11 07:00 | NUR ---
Report received from Pascual CEDILLO. Pt resting in bed, watching tv. On 4L NC at this time. No needs identified at this time, will continue plan of care.
[2021-12-11] MEDS ORDERED: METFORMIN HCL500 M2 PO (08:28)
--- NOTE | 2021-12-11 08:45 | NUR ---
Scheduled medications administered and assessment complete. Pt sitting up at edge of bedside eating breakfast. VSS, A+O, [place]. Pt states no pain or SOB, maintains spo2 >90% on 4L O2 at this time. Exp wheeze, coarse lung sounds noted. pt states current smoker and states uninterested in tobacco cessation materials. Pt states no needs at this time. Call light in reach
[2021-12-11] MEDS ORDERED: IPRAT-ALBUT 0.5-3 ML INH (08:50)
[2021-12-11] MEDS ORDERED: NITROGLYCERIN0.4 MG SL (08:54)
[2021-12-11] MEDS ORDERED: NORVASC10 MG PO (08:55)
--- NOTE | 2021-12-11 10:07 | NUR ---
PATIENT WAS SITTING ON EDGE OF BED FOR BREAKFAST. PATIENT NOW BACK TO BED. VITALS DONE BY TOOLING MECHANIC AND RN. VITALS CHARTED BY THIS MIXING PLANT DUMPER. CALL LIGHT IN REACH. NO FURTHER NEEDS AT THIS TIME.
--- NOTE | 2021-12-11 11:00 | NUR ---
Spoke with pt and he states he lives alone in low income housing. Nieces assist him with grocery shopping, but work and cannot be his cg. He requests help with medication management, house keeping, and caregiving. I suggested he start using a med box, apply for Medicaid caregiver to help with cooking and cleaning and provide in home care. He refuses all of this, including a walker. He does agree to use of a cane. He cont. to request help and informed we can complete GEC as he has covid and is legally blind. I can complete this form and send to the [facility] to see if there is any assistance, but he will need to agree to assistance and not refuse. He agrees to this. GEC completed and I faxed to Mira Zheng at the Home care program. Pt states he is able to walk across the side street [place] office. He does not cross the highway as his vision is so poor. His niece takes him shopping. Pt wants to go home today and will use his 02 from [employer]. I faxed [employer] the paperwork for a cane and called and asked if they could deliver to his home. Pt is concerned as he does not have his keys. I called his niece Milli and she states her daughter is delivering keys around 3:30pm. They do not have anyone to transport as pt is covid + and family has not been around him. I will call [facility].
--- NOTE | 2021-12-11 11:15 | NUR ---
Rounded on patient who is resting in bed and has no concerns at this time. On 2L NC at this time. SPO2 >90s.
--- NOTE | 2021-12-11 12:41 | NUR ---
MED REC COMPLETE
--- NOTE | 2021-12-11 14:51 | NUR ---
Scheduled medications administered, assessment complete, pt resting in bed A+O. Attempted to make arrangements for his transport, niece called and does not have adequate transport for patient. Discharge teaching provided to patient, SN Fabian assisttyrese, this Rn at bedside. VSS, SPO2 100% on 4L, titrated to 3L O2. POLST form signed to update patient's wishes.
--- NOTE | 2021-12-11 15:00 | NUR ---
Pts RN in my office, she attempted to call [facility] and they could not transport. WC will work on transport by facilities to home.
--- NOTE | 2021-12-13 18:03 | EKG ---
[facility] [address] [place], [place] [address] Signed Atrial fibrillation with frequent ventricular-paced complexes Low voltage QRS Abnormal ECG When compared with ECG of 11-DEC-2021 02:13, (Unconfirmed) Vent. rate has increased BY 3 BPM Confirmed by ALEXI HAWLEY MD ([id number]) on 12/13/2021 6:03:04 PM Electronically Signed By: ALEXI HAWLEY MD 12/13/21 1803 PATIENT NAME: CRYSTAL GALVAN Electrocardiogram DATE OF : 44 PHYSICIAN: ALEXI HAWLEY MD REPORT #: [id number] REPORT IS CONFIDENTIAL AND NOT TO BE RELEASED WITHOUT AUTHORIZATION
== END 2021-12-11 16:10 | disposition home or self-care (01) | DRG 177 ==
LOC: ED 09:48 → CCU 11:45 → MS 11:45
PROVIDERS: ADMIT Internal Medicine; ATTEND Internal Medicine
PROC: 8E0ZXY6 Isolation (ICD-10-PCS; principal; 2021-12-09)
PROC: 3E0DX3Z Introduction of Anti-inflammatory into Mouth and Pharynx, External Approach (ICD-10-PCS; 2021-12-09)
PROC: 5A09357 Assistance with Respiratory Ventilation, Less than 24 Consecutive Hours, Continuous Positive Airway Pressure (ICD-10-PCS; 2021-12-09)
DX: U07.1 COVID-19 (principal); J12.82 Pneumonia due to coronavirus disease 2019; J96.01 Acute respiratory failure with hypoxia; I10 Essential (primary) hypertension; I48.91 Unspecified atrial fibrillation; K21.9 Gastro-esophageal reflux disease without esophagitis; E11.9 Type 2 diabetes mellitus without complications; J43.9 Emphysema, unspecified; E78.5 Hyperlipidemia, unspecified; M19.90 Unspecified osteoarthritis, unspecified site; I25.10 Atherosclerotic heart disease of native coronary artery without angina pectoris; Z95.0 Presence of cardiac pacemaker; Z90.49 Acquired absence of other specified parts of digestive tract; Z98.890 Other specified postprocedural states; Z79.4 Long term (current) use of insulin; Z79.52 Long term (current) use of systemic steroids; Z79.82 Long term (current) use of aspirin; Z79.899 Other long term (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
CPT/HCPCS: 36415; 36600; 71045; 80053; 82803; 83735; 83880; 84484; 85025; 93005; 93010; 94660; 96374; 99285-25; C9113; J1100; J1650; J8540

== ENCOUNTER 2023-01-02 11:48 | Emergency (ER) | payer OTHER, MEDICARE ==
[~2023-01-02] VITALS: Ht 175.3 cm; Wt 79.8 kg
[~2023-01-02 11:48] MED LIST changes: -ANTI-ITCH28 G1 TOP; -COL-RITE250 MG PO; +DOCUSATE CALCI240 MG PO; +HYDROCORTISONE454 GM TOP; +METFORMIN HCL500 M2 PO; +METHYLPREDNISOLO4 M1 PO; +NITROGLYCERIN0.4 MG SL; +NORVASC10 MG PO; -REFRESH LIQUIGE15 ML OU; +REFRESH TEARS15 ML OU
[2023-01-02] MEDS ORDERED: PREDNISONE20 MG PO (13:19)
[2023-01-02] MEDS ORDERED: IPRAT-ALBUT 0.5-3 ML INH (13:38)
[2023-01-03] MEDS ORDERED: ELIQUIS5 MG PO (18:01)
[2023-01-03] MEDS ORDERED: ATENOLOL25 MG PO (18:02)
[2023-01-03] MEDS ORDERED: IPRATROPIU0.2 MG/1 M INH (18:04)
[2023-01-03] MEDS ORDERED: CENTRUM SILVER1 EAC3 PO (18:05)
[2023-01-03] MEDS ORDERED: OCULAR VITAMIN1 EACH PO (18:06)
== END 2023-01-02 14:11 | disposition home or self-care (01) ==
LOC: ED 11:48
DX: J44.1 Chronic obstructive pulmonary disease with (acute) exacerbation (principal); Z20.822 Contact with and (suspected) exposure to COVID-19; I10 Essential (primary) hypertension; E11.9 Type 2 diabetes mellitus without complications; I25.10 Atherosclerotic heart disease of native coronary artery without angina pectoris; E78.5 Hyperlipidemia, unspecified; M19.90 Unspecified osteoarthritis, unspecified site; F17.200 Nicotine dependence, unspecified, uncomplicated; Z79.899 Other long term (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; Z79.82 Long term (current) use of aspirin; Z79.84 Long term (current) use of oral hypoglycemic drugs
CPT/HCPCS: 36415; 71045; 80053; 83880; 85025; 87502; 94640; 99285-25; C9803; U0003

== ENCOUNTER 2023-01-03 10:44 | Inpatient (IN) | payer OTHER, MEDICARE ==
[~2023-01-03] VITALS: Ht 175.3 cm; Wt 75.3 kg
--- OUTSIDE RECORDS SUMMARY | 2023-01-03 10:47 | XMS ---
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 Care History Medical/Surgical 08/13/2019 [facility] - [facility] NOTE: Visits indicate total known visits. ED/UCC VISIT TRACKING (12 MO.) 01/03/2023 10:45 [facility] [place] COMPLAINT: - SHORTNESS OF BREATH 01/02/2023 11:[address] [facility] [place] TYPE: Emergency COMPLAINT: - SHORTNESS OF BREATH INPATIENT VISIT TRACKING (12 MO.) No inpatient visits to display in this time frame [email or web address]
[2023-01-03] MEDS ORDERED: ELIQUIS5 MG PO (18:01)
[2023-01-03] MEDS ORDERED: ATENOLOL25 MG PO (18:02)
[2023-01-03] MEDS ORDERED: IPRATROPIU0.2 MG/1 M INH (18:04)
[2023-01-03] MEDS ORDERED: CENTRUM SILVER1 EAC3 PO (18:05)
[2023-01-03] MEDS ORDERED: OCULAR VITAMIN1 EACH PO (18:06)
--- NOTE | 2023-01-03 21:46 | EKG ---
[facility] [address] [place] [address] Signed Atrial fibrillation with rapid ventricular response Abnormal ECG When compared with ECG of 11-DEC-2021 02:13, Atrial fibrillation has replaced Electronic ventricular pacemaker Vent. rate has increased BY 78 BPM Confirmed by HUMBLE MOYER MD ([id number]) on 01/03/2023 9:46:17 PM Electronically Signed By: HUMBLE MOYER MD 01/03/23 2146 PATIENT NAME: CRYSTAL GALVAN [place] Electrocardiogram DATE OF : 44 PHYSICIAN: HUMBLE MOYER MD REPORT #: [id number] REPORT IS CONFIDENTIAL AND NOT TO BE RELEASED WITHOUT AUTHORIZATION
[2023-01-09] MEDS ORDERED: IPRAT-ALBUT 0.5-3 ML INH (17:42)
[2023-01-09] MEDS ORDERED: FLOMAX0.4 MG PO (17:43)
[2023-01-09] MEDS ORDERED: NICOTINE LOZENGE4 MG BUCCAL (17:44)
[2023-01-09] MEDS ORDERED: LACTULOSE20 GM/30 M PO (17:45)
[2023-01-09] MEDS ORDERED: DILTIAZEM 24HR120 MG PO (17:45)
[2023-01-09] MEDS ORDERED: GABAPENTIN300 MG PO (17:45)
[2023-01-09] MEDS ORDERED: GAS RELIEF125 M1 PO (17:46)
[2023-01-09] MEDS ORDERED: SENNA LAX8.6 MG PO (17:46)
[2023-01-09] MEDS ORDERED: SORE THROAT LO1 EAC3 PO (17:46)
[2023-01-09] MEDS ORDERED: HEALTHYLAX17 GM PO (17:46)
[2023-01-09] MEDS ORDERED: PREDNISONE10 MG PO (17:47)
== END 2023-01-10 09:00 | DRG 308 ==
LOC: ED 10:44 → MS 14:01
PROVIDERS: ADMIT Internal Medicine; ATTEND Internal Medicine
DX: I48.91 Unspecified atrial fibrillation (principal); J96.21 Acute and chronic respiratory failure with hypoxia; Z66 Do not resuscitate; Z20.822 Contact with and (suspected) exposure to COVID-19; N40.1 Benign prostatic hyperplasia with lower urinary tract symptoms; R33.8 Other retention of urine; K59.09 Other constipation; I10 Essential (primary) hypertension; E78.5 Hyperlipidemia, unspecified; E11.9 Type 2 diabetes mellitus without complications; G89.4 Chronic pain syndrome; I25.10 Atherosclerotic heart disease of native coronary artery without angina pectoris; M19.90 Unspecified osteoarthritis, unspecified site; J43.9 Emphysema, unspecified; F17.210 Nicotine dependence, cigarettes, uncomplicated; Z95.0 Presence of cardiac pacemaker; Z87.01 Personal history of pneumonia (recurrent); Z90.49 Acquired absence of other specified parts of digestive tract; Z98.890 Other specified postprocedural states; Z79.51 Long term (current) use of inhaled steroids; Z79.52 Long term (current) use of systemic steroids; Z79.82 Long term (current) use of aspirin; Z79.899 Other long term (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
CPT/HCPCS: 36415; 71045; 80048; 83735; 83880; 84484; 85025; 93005; 93010; 94640; 94660; 94760; 94762; 94799; 97110; 97116; 97162; 97530; A9270; C9803; J0690; J1815; J1940; J2060; J2930; J7512; U0003

== ENCOUNTER 2023-06-02 08:31 | Emergency (ER) | payer OTHER, MEDICARE ==
[~2023-06-02] VITALS: Ht 175.3 cm; Wt 73.9 kg
--- OUTSIDE RECORDS SUMMARY | ~2023-06-02 | XMS | Continuity of Care Document ---
Demographics + + + | Address | [address] | | | [place] [address] | + + + | Preferred Language | Unknown | + + + | Marital Status | | + + + | Denominational Affiliation | Unknown | + + + | Race | White | + + + | Ethnic Group | Not or | + + + Author + + + | Author | [facility] | + + + | Organization | [facility] | + + + | Address | [address] | | | [place] [address] | + + + | Phone | | + + + Care Team Providers + + + + | Care Hand Sander Name | Role | Phone | + + + + Unavailable | Unavailable | + + + + Unavailable | Unavailable | + + + + Unavailable | Unavailable | + + + + Allergies No information. Encounters No information. Functional Status No information. Immunizations + + + + | date | description | facility | + + + + | 2019-08-03 00:00 | Influenza, High Dose | [facility] | | | Seasonal | | + + + + | 2019-08-03 00:00 | Influenza, High Dose | [facility] | | | Seasonal | | + + + + | 2023-01-02 00:00 | Influenza, High Dose | [facility] | | | Seasonal | | + + + + | 2023-01-10 00:00 | Influenza, High Dose | [facility] | | | Seasonal | | + + + + | 2023-01-17 00:00 | Influenza, High Dose | [facility] | | | Seasonal | | + + + + Medications + + + + | date | description | facility | + + + + | 2023-01-02 00:00 | HYDROCORTISONE | [facility] | + + + + | 2023-01-09 00:00 | POLYETHYLENE GLYCOL 3350 | [facility] | + + + + | 2023-01-09 00:00 | POLYETHYLENE GLYCOL 3350 | [facility] | + + + + | 2023-01-10 00:00 | CARBOXYMETHYLCELLULOSE | [facility] | | | SODIUM | | + + + + | 2023-01-17 00:00 | CARBOXYMETHYLCELLULOSE | [facility] | | | SODIUM | | + + + + | 2023-01-10 00:00 | DOCUSATE CALCIUM | [facility] | + + + + | 2023-01-17 00:00 | DOCUSATE CALCIUM | [facility] | + + + + | 2023-01-02 00:00 | DOCUSATE SODIUM | [facility] | + + + + | 2023-01-10 00:00 | APIXABAN | [facility] | + + + + | 2023-01-17 00:00 | APIXABAN | [facility] | + + + + | 2023-01-02 00:00 | IPRATROPIUM/ALBUTEROL | [facility] | | | SULFATE | | + + + + | 2023-01-02 00:00 | IPRATROPIUM/ALBUTEROL | [facility] | | | SULFATE | | + + + + | 2023-01-09 00:00 | IPRATROPIUM/ALBUTEROL | [facility] | | | SULFATE | | + + + + | 2023-01-09 00:00 | IPRATROPIUM/ALBUTEROL | [facility] | | | SULFATE | | + + + + | 2023-01-02 00:00 | TIOTROPIUM BROMIDE | [facility] | + + + + | 2023-01-10 00:00 | TIOTROPIUM BROMIDE | [facility] | + + + + | 2023-01-17 00:00 | TIOTROPIUM BROMIDE | [facility] | + + + + | 2021-02-17 00:00 | DOXYCYCLINE HYCLATE | [facility] | + + + + | 2021-02-17 00:00 | DOXYCYCLINE HYCLATE | [facility] | + + + + | 2023-01-02 00:00 | METFORMIN HCL | [facility] | + + + + | 2023-01-10 00:00 | METFORMIN HCL | [facility] | + + + + | 2023-01-17 00:00 | METFORMIN HCL | [facility] | + + + + | 2023-01-02 00:00 | ATENOLOL | [facility] | + + + + | 2023-01-10 00:00 | ATENOLOL | [facility] | + + + + | 2023-01-17 00:00 | ATENOLOL | [facility] | + + + + | 2023-01-02 00:00 | NITROGLYCERIN | [facility] | + + + + | 2023-01-10 00:00 | NITROGLYCERIN | [facility] | + + + + | 2023-01-17 00:00 | NITROGLYCERIN | [facility] | + + + + | 2023-01-09 00:00 | predniSONE | [facility] | + + + + | 2023-01-09 00:00 | predniSONE | [facility] | + + + + | 2023-01-02 00:00 | ASPIRIN | [facility] | + + + + | 2023-01-10 00:00 | ASPIRIN | [facility] | + + + + | 2023-01-17 00:00 | ASPIRIN | [facility] | + + + + | 2023-01-02 00:00 | Fluticasone | [facility] | | | Propion/Salmeterol | | + + + + | 2023-01-10 00:00 | Fluticasone | [facility] | | | Propion/Salmeterol | | + + + + | 2023-01-17 00:00 | Fluticasone | [facility] | | | Propion/Salmeterol | | + + + + | 2023-01-02 00:00 | AMLODIPINE BESYLATE | [facility] | + + + + | 2023-01-10 00:00 | AMLODIPINE BESYLATE | [facility] | + + + + | 2023-01-17 00:00 | AMLODIPINE BESYLATE | [facility] | + + + + | 2023-01-02 00:00 | ALBUTEROL SULFATE | [facility] | + + + + | 2023-01-10 00:00 | ALBUTEROL SULFATE | [facility] | + + + + | 2023-01-17 00:00 | ALBUTEROL SULFATE | [facility] | + + + + | 2019-08-05 00:00 | AMLODIPINE BESYLATE | [facility] | + + + + | 2019-08-05 00:00 | AMLODIPINE BESYLATE | [facility] | + + + + | 2023-01-02 00:00 | GABAPENTIN | [facility] | + + + + | 2023-01-09 00:00 | GABAPENTIN | [facility] | + + + + | 2023-01-09 00:00 | GABAPENTIN | [facility] | + + + + | 2023-01-10 00:00 | GABAPENTIN | [facility] | + + + + | 2023-01-17 00:00 | GABAPENTIN | [facility] | + + + + | 2023-01-10 00:00 | HYDROCORTISONE | [facility] | + + + + | 2023-01-17 00:00 | HYDROCORTISONE | [facility] | + + + + | 2019-08-05 00:00 | LISINOPRIL | [facility] | + + + + | 2019-08-05 00:00 | LISINOPRIL | [facility] | + + + + | 2017-02-15 00:00 | predniSONE | [facility] | + + + + | 2017-02-15 00:00 | predniSONE | [facility] | + + + + | 2021-02-17 00:00 | predniSONE | [facility] | + + + + | 2021-02-17 00:00 | predniSONE | [facility] | + + + + | 2021-06-05 00:00 | predniSONE | [facility] | + + + + | 2021-06-05 00:00 | predniSONE | [facility] | + + + + | 2023-01-02 00:00 | predniSONE | [facility] | + + + + | 2023-01-09 00:00 | SENNOSIDES | [facility] | + + + + | 2023-01-09 00:00 | SENNOSIDES | [facility] | + + + + | 2023-01-09 00:00 | SIMETHICONE | [facility] | + + + + | 2023-01-09 00:00 | SIMETHICONE | [facility] | + + + + | 2023-01-09 00:00 | NICOTINE POLACRILEX | [facility] | + + + + | 2023-01-09 00:00 | NICOTINE POLACRILEX | [facility] | + + + + | 2023-01-09 00:00 | LACTULOSE | [facility] | + + + + | 2023-01-09 00:00 | LACTULOSE | [facility] | + + + + | 2023-01-02 00:00 | CARBOXYMETHYLCELLULOSE | [facility] | | | SODIUM | | + + + + | 2023-01-02 00:00 | IBUPROFEN | [facility] | + + + + | 2023-01-10 00:00 | IBUPROFEN | [facility] | + + + + | 2023-01-17 00:00 | IBUPROFEN | [facility] | + + + + | 2023-01-02 00:00 | ALBUTEROL SULFATE MDI | [facility] | | | (HFA) | | + + + + | 2023-01-10 00:00 | ALBUTEROL SULFATE MDI | [facility] | | | (HFA) | | + + + + | 2023-01-17 00:00 | ALBUTEROL SULFATE MDI | [facility] | | | (HFA) | | + + + + | 2021-12-09 00:00 | AZITHROMYCIN | [facility] | + + + + | 2021-12-09 00:00 | AZITHROMYCIN | [facility] | + + + + | 2023-01-09 00:00 | BENZOCAINE/MENTHOL | [facility] | + + + + | 2023-01-09 00:00 | BENZOCAINE/MENTHOL | [facility] | + + + + | 2021-12-09 00:00 | CYCLOBENZAPRINE HCL | [facility] | + + + + | 2023-01-09 00:00 | DILTIAZEM HCL | [facility] | + + + + | 2023-01-09 00:00 | DILTIAZEM HCL | [facility] | + + + + | 2023-01-10 00:00 | IPRATROPIUM BROMIDE | [facility] | + + + + | 2023-01-17 00:00 | IPRATROPIUM BROMIDE | [facility] | + + + + | 2023-01-02 00:00 | HYDROCODONE | [facility] | | | BIT/ACETAMINOPHEN | | + + + + | 2023-01-10 00:00 | HYDROCODONE | [facility] | | | BIT/ACETAMINOPHEN | | + + + + | 2023-01-17 00:00 | HYDROCODONE | [facility] | | | BIT/ACETAMINOPHEN | | + + + + | 2023-01-02 00:00 | Rosuvastatin Calcium | [facility] | + + + + | 2023-01-10 00:00 | Rosuvastatin Calcium | [facility] | + + + + | 2023-01-17 00:00 | Rosuvastatin Calcium | [facility] | + + + + | 2023-01-02 00:00 | ROSUVASTATIN CALCIUM | [facility] | + + + + | 2023-01-10 00:00 | ROSUVASTATIN CALCIUM | [facility] | + + + + | 2023-01-17 00:00 | ROSUVASTATIN CALCIUM | [facility] | + + + + | 2023-01-02 00:00 | TAMSULOSIN HCL | [facility] | + + + + | 2023-01-09 00:00 | TAMSULOSIN HCL | [facility] | + + + + | 2023-01-09 00:00 | TAMSULOSIN HCL | [facility] | + + + + | 2023-01-10 00:00 | TAMSULOSIN HCL | [facility] | + + + + | 2023-01-17 00:00 | TAMSULOSIN HCL | [facility] | + + + + | 2019-08-05 00:00 | Nicotine Polacrilex | [facility] | + + + + | 2019-08-05 00:00 | Nicotine Polacrilex | [facility] | + + + + Problems + + + + | date | description | facility | + + + + | 2014-06-23 00:00 | Abdominal pain | [facility] | + + + + | 2014-06-23 00:00 | Abdominal pain | [facility] | + + + + | 2017-02-15 00:00 | Obstructive chronic | [facility] | | | bronchitis with | | | | exacerbation | | + + + + | 2017-02-15 00:00 | Obstructive chronic | [facility] | | | bronchitis with | | | | exacerbation | | + + + + | 2018-11-12 00:00 | Urolithiasis | [facility] | + + + + | 2018-11-12 00:00 | Urolithiasis | [facility] | + + + + | 2018-11-12 00:00 | Urinary tract infection | [facility] | + + + + | 2018-11-12 00:00 | Urinary tract infection | [facility] | + + + + | 2019-07-29 00:00 | Hypokalemia | [facility] | + + + + | 2019-07-29 00:00 | Hypokalemia | [facility] | + + + + | 2019-07-29 00:00 | Contusion | [facility] | + + + + | 2019-07-29 00:00 | Contusion | [facility] | + + + + | 2019-07-29 00:00 | Fall | [facility] | + + + + | 2019-07-29 00:00 | Fall | [facility] | + + + + | 2020-12-08 00:00 | Pneumonia | [facility] | + + + + | 2020-12-08 00:00 | Pneumonia | [facility] | + + + + | 2020-12-08 00:00 | Chronic obstructive | [facility] | | | pulmonary disease with | | | | acute exacerbation | | + + + + | 2020-12-08 00:00 | Chronic obstructive | [facility] | | | pulmonary disease with | | | | acute exacerbation | | + + + + | 2021-02-15 00:00 | Acute exacerbation of | [facility] | | | chronic obstructive | | | | pulmonary disease | | + + + + | 2021-02-15 00:00 | Acute exacerbation of | [facility] | | | chronic obstructive | | | | pulmonary disease | | + + + + | 2021-12-09 00:00 | New onset atrial | [facility] | | | fibrillation | | + + + + | 2021-12-09 00:00 | New onset atrial | [facility] | | | fibrillation | | + + + + | 2021-12-09 00:00 | Infection due to severe | [facility] | | | acute respiratory syndrome | | | | coronavirus 2 (SARS-CoV-2) | | + + + + | 2021-12-09 00:00 | Infection due to severe | [facility] | | | acute respiratory syndrome | | | | coronavirus 2 (SARS-CoV-2) | | + + + + | 2023-01-03 00:00 | Atrial fibrillation with | [facility] | | | rapid ventricular response | | + + + + | 2023-01-03 00:00 | Atrial fibrillation with | [facility] | | | rapid ventricular response | | + + + + | 2023-01-17 00:00 | Encounter for medical | [facility] | | | screening examination | | + + + + Procedures [...] (missing) | | (unavailable | 11:54:07 | [facility] | | | | | ) | [...] (missing) | (missing) | | (unavailable | 12::07 | [facility] | | | | + + + + + + + + + | Result panel 55 | + + + + + + + + + | | 2023-01-02 | [facility] | NEGATIVE | (missing) | (missing) | | (unavailable | 12::07 | [facility] | | | | + + + + + + + + + | Result panel 56 | + + + + + + + + + | | 2023-01-02 | [facility] | NEGATIVE | (missing) | (missing) | | (unavailable | | [facility] | | | | + + + + + + + + + | Result panel 57 | + + + + + + + + + | | 2023-01-02 | [facility] | NEGATIVE | (missing) | (missing) | | (unavailable | | [facility] | | | | | [...] 68 | + + + + + +------+ + + | | 2023-01-07 | [facility] | 99 | (missing) | (missing) | | (unavailable | 05:22:07 | [facility] | | | | + + + +------+ + + + + | Result panel 69 | + + + + + +------+ + + | | 2023-01-07 | [facility] | 38 | (missing) | (missing) | | (unavailable | 05:22:07 | [facility] | | | | + + + +------+ + + + + | Result panel 70 | + + + + + +-------+ + + | | 2023-01-07 | [facility] | 5.9 | (missing) | (missing) | | (unavailable | 05:22:07 | [facility] | | | | + + + +-------+ + + + + | Result panel 71 | + + + + + +-------+---------+ + | | 2023-01-07 | [facility] | 8.7 | mg/dL | (missing) | | (unavailable | 05:22:07 | [facility] | | | | + + + +-------+---------+ + + + | Result panel 72 | + + + + + +------+---------+ + | | 2023-01-07 | [facility] | 87 | mg/dL | (missing) | | (unavailable | 05:22:07 | [facility] | | | | + + + +------+---------+ + + + | Result panel 73 | + + + + + +------+---------+ + | | 2023-01-07 | [facility] | 24 | mg/dL | (missing) | | (unavailable | 05:22:07 | [facility] | | | | + + + +------+---------+ + + + | Result panel 74 | + + + + + +--------+---------+ + | | 2023-01-07 | [facility] | 0.62 | mg/dL | (missing) | | (unavailable | 05:22:07 | [facility] | | | | + + + +--------+---------+ + + + | Result panel 75 [...] 76 | + + + + + +---------+ [...] 78 | + + + + + +-------+ + + | | 2023-01-07 | [facility] | 3.9 | (missing) | (missing) | | (unavailable | 05:22:07 | [facility] | | | | + + + +-------+ + + + + | Result panel 79 | + + + + + +------+ + + | | 2023-01-07 | [facility] | 99 | (missing) | (missing) | | (unavailable | 05:22:07 [facility] | | | | + + + +------+ + + + + | Result panel 80 | + + + + + +------+ + + | | 2023-01-07 | [facility] | 38 | (missing) | (missing) | | (unavailable | 05:22:07 | [facility] | | | | + + + +------+ + + + + | Result panel 81 | + + + + + +-------+ + + | | 2023-01-07 | [facility] | 5.9 | (missing) | (missing) | | (unavailable | 05:22:07 [facility] | | | | + + + +-------+ + + + + | Result panel 82 | + + + + + +-------+---------+ + | | 2023-01-07 | [facility] | 8.7 | mg/dL | (missing) | | (unavailable | 05:22:07 | [facility] | | | | + + + +-------+---------+ + + + | Result panel 83 | + + + + + +------+---------+ + | | 2023-01-07 | [facility] | 87 | mg/dL | (missing) | | (unavailable | 05:22:07 | [facility] | | | | + + + +------+---------+ + + + | Result panel 84 | + + + + + +------+---------+ + | | 2023-01-07 | [facility] | 24 | mg/dL | (missing) | | (unavailable | 05:22:07 | [facility] | | | | + + + +------+---------+ + + + | Result panel 85 | + + + + + +--------+---------+ + | | 2023-01-07 | [facility] | 0.62 | mg/dL | (missing) | | (unavailable | 05:22:07 | [facility] | | | | + + + +--------+---------+ + + + | Result panel 86 [...] 87 | + + + + + +---------+ [...] 89 | + + + + + +-------+ + + | | 2023-01-07 | [facility] | 3.9 | (missing) | (missing) | | (unavailable | 05:22:07 [facility] | | | | + + + +-------+ + + + + | Result panel 90 [...] 98 | + + + + + +--------+ [...] 100 | + + + + + +-------+ + + | | 2023-01-09 | [facility] | 272 | (missing) | (missing) | | (unavailable | 05:26:07 | [facility] | | | | + + + +-------+ + + + + | Result panel 101 | + + + + + +--------+ + + | | 2023-01-09 | [facility] | 80.6 | (missing) | (missing) | | (unavailable | 05:26:07 | [facility] | | | | + + + +--------+ + + + + | Result panel 102 | + + + + + +--------+ [...] 104 | + + + + + +-------+ + + | | 2023-01-09 | [facility] | 1.1 | (missing) | (missing) | | (unavailable | 05:26:07 [facility] | | | | + + + +-------+ + + + + | Result panel 105 | + + + + + +-------+ + + | | 2023-01-09 | [facility] | 0.5 | (missing) | (missing) | | (unavailable | 05:26:07 [facility] | | | | + + + +-------+ + + + + | Result panel 106 | + + + + + +-------+ [...] 109 | + + + + + +-------+ + + | | 2023-01-09 | [facility] | 5.6 | (missing) | (missing) | | (unavailable | 05:26:07 [facility] | | | | + + + +-------+ + + + + | Result panel 110 | + + + + + +-------+ + + | | 2023-01-09 | [facility] | 1.1 | (missing) | (missing) | | (unavailable | 05::07 | [facility] | | | | + + + +-------+ + + + + | Result panel 111 | + + + + + +-------+ + + | | 2023-01-09 | [facility] | 0.5 | (missing) | (missing) | | (unavailable | 05:26:07 [facility] | | | | + + + +-------+ + + + + | Result panel 112 | + + + + + +--------+ [...] 115 | + + + + + +--------+ + + | | 2023-01-09 | [facility] | 34.3 | (missing) | (missing) | | (unavailable | 05:26:07 [facility] | | | | + + + +--------+ + + + + | Result panel 116 | + + + + + +--------+ + + | | 2023-01-09 | [facility] | 93.6 | (missing) | (missing) | | (unavailable | 05:26:07 [facility] | | | | + + + +--------+ + + + + | Result panel 117 | + + + + + +--------+ [...] + + + + + + + Social History No information. Vital [...] 172.63 | lb | + + + +---------+"
--- OUTSIDE RECORDS SUMMARY | ~2023-06-02 | XMS | Continuity of Care Document ---
Demographics + + + | Address | [facility] [address] | | | [place] [address] | + + + | Preferred Language | Unknown | + + + | Marital Status | | + + + | Catholic Affiliation | Unknown | + + + | Race | White | + + + | Ethnic Group | Not or | + + + Author + + + | Author | [facility] | + + + | Organization | [facility] | + + + | Address | [address] | | | [place] [address] | + + + | Phone | | + + + Care Team Providers + + + + | Care Tailing Hand Name | Role | Phone | + [...] 2019-08-03 00:00 | Influenza, High Dose | [facility] | | | Seasonal | | + + + + | 2019-08-03 00:00 | Influenza, High Dose | [facility] | | | Seasonal | | + + + + | 2023-01-02 00:00 | Influenza, High Dose | [facility] | | | Seasonal | | + + + + | 2023-01-10 00:00 | Influenza, High Dose | [facility] | | | Seasonal | | + + + + | 2023-01-17 00:00 | Influenza, High Dose | [facility] | | | Seasonal | | + + + + Medications + + + + | date | description | facility | + + + + | 2023-01-02 00:00 | HYDROCORTISONE | [facility] | + + + + | 2023-01-09 00:00 | POLYETHYLENE GLYCOL 3350 | [facility] | + + + + | 2023-01-09 00:00 | POLYETHYLENE GLYCOL 3350 | [facility] | + + + + | 2023-01-10 00:00 | CARBOXYMETHYLCELLULOSE | [facility] | | | SODIUM | | + + + + | 2023-01-17 00:00 | CARBOXYMETHYLCELLULOSE | [facility] | | | SODIUM | | + + + + | 2023-01-10 00:00 | DOCUSATE CALCIUM | [facility] | + + + + | 2023-01-17 00:00 | DOCUSATE CALCIUM | [facility] | + + + + | 2023-01-02 00:00 | DOCUSATE SODIUM | [facility] | + + + + | 2023-01-10 00:00 | APIXABAN | [facility] | + + + + | 2023-01-17 00:00 | APIXABAN | [facility] | + + + + | 2023-01-02 00:00 | IPRATROPIUM/ALBUTEROL | [facility] | | | SULFATE | | + + + + | 2023-01-02 00:00 | IPRATROPIUM/ALBUTEROL | [facility] | | | SULFATE | | + + + + | 2023-01-09 00:00 | IPRATROPIUM/ALBUTEROL | [facility] | | | SULFATE | | + + + + | 2023-01-09 00:00 | IPRATROPIUM/ALBUTEROL | [facility] | | | SULFATE | | + + + + | 2023-01-02 00:00 | TIOTROPIUM BROMIDE | [facility] | + + + + | 2023-01-10 00:00 | TIOTROPIUM BROMIDE | [facility] | + + + + | 2023-01-17 00:00 | TIOTROPIUM BROMIDE | [facility] | + + + + | 2021-02-17 00:00 | DOXYCYCLINE HYCLATE | [facility] | + + + + | 2021-02-17 00:00 | DOXYCYCLINE HYCLATE | [facility] | + + + + | 2023-01-02 00:00 | METFORMIN HCL | [facility] | + + + + | 2023-01-10 00:00 | METFORMIN HCL | [facility] | + + + + | 2023-01-17 00:00 | METFORMIN HCL | [facility] | + + + + | 2023-01-02 00:00 | ATENOLOL | [facility] | + + + + | 2023-01-10 00:00 | ATENOLOL | [facility] | + + + + | 2023-01-17 00:00 | ATENOLOL | [facility] | + + + + | 2023-01-02 00:00 | NITROGLYCERIN | [facility] | + + + + | 2023-01-10 00:00 | NITROGLYCERIN | [facility] | + + + + | 2023-01-17 00:00 | NITROGLYCERIN | [facility] | + + + + | 2023-01-09 00:00 | predniSONE | [facility] | + + + + | 2023-01-09 00:00 | predniSONE | [facility] | + + + + | 2023-01-02 00:00 | ASPIRIN | [facility] | + + + + | 2023-01-10 00:00 | ASPIRIN | [facility] | + + + + | 2023-01-17 00:00 | ASPIRIN | [facility] | + + + + | 2023-01-02 00:00 | Fluticasone | [facility] | | | Propion/Salmeterol | | + + + + | 2023-01-10 00:00 | Fluticasone | [facility] | | | Propion/Salmeterol | | + + + + | 2023-01-17 00:00 | Fluticasone | [facility] | | | Propion/Salmeterol | | + + + + | 2023-01-02 00:00 | AMLODIPINE BESYLATE | [facility] | + + + + | 2023-01-10 00:00 | AMLODIPINE BESYLATE | [facility] | + + + + | 2023-01-17 00:00 | AMLODIPINE BESYLATE | [facility] | + + + + | 2023-01-02 00:00 | ALBUTEROL SULFATE | [facility] | + + + + | 2023-01-10 00:00 | ALBUTEROL SULFATE | [facility] | + + + + | 2023-01-17 00:00 | ALBUTEROL SULFATE | [facility] | + + + + | 2019-08-05 00:00 | AMLODIPINE BESYLATE | [facility] | + + + + | 2019-08-05 00:00 | AMLODIPINE BESYLATE | [facility] | + + + + | 2023-01-02 00:00 | GABAPENTIN | [facility] | + + + + | 2023-01-09 00:00 | GABAPENTIN | [facility] | + + + + | 2023-01-09 00:00 | GABAPENTIN | [facility] | + + + + | 2023-01-10 00:00 | GABAPENTIN | [facility] | + + + + | 2023-01-17 00:00 | GABAPENTIN | [facility] | + + + + | 2023-01-10 00:00 | HYDROCORTISONE | [facility] | + + + + | 2023-01-17 00:00 | HYDROCORTISONE | [facility] | + + + + | 2019-08-05 00:00 | LISINOPRIL | [facility] | + + + + | 2019-08-05 00:00 | LISINOPRIL | [facility] | + + + + | 2017-02-15 00:00 | predniSONE | [facility] | + + + + | 2017-02-15 00:00 | predniSONE | [facility] | + + + + | 2021-02-17 00:00 | predniSONE | [facility] | + + + + | 2021-02-17 00:00 | predniSONE | [facility] | + + + + | 2021-06-05 00:00 | predniSONE | [facility] | + + + + | 2021-06-05 00:00 | predniSONE | [facility] | + + + + | 2023-01-02 00:00 | predniSONE | [facility] | + + + + | 2023-01-09 00:00 | SENNOSIDES | [facility] | + + + + | 2023-01-09 00:00 | SENNOSIDES | [facility] | + + + + | 2023-01-09 00:00 | SIMETHICONE | [facility] | + + + + | 2023-01-09 00:00 | SIMETHICONE | [facility] | + + + + | 2023-01-09 00:00 | NICOTINE POLACRILEX | [facility] | + + + + | 2023-01-09 00:00 | NICOTINE POLACRILEX | [facility] | + + + + | 2023-01-09 00:00 | LACTULOSE | [facility] | + + + + | 2023-01-09 00:00 | LACTULOSE | [facility] | + + + + | 2023-01-02 00:00 | CARBOXYMETHYLCELLULOSE | [facility] | | | SODIUM | | + + + + | 2023-01-02 00:00 | IBUPROFEN | [facility] | + + + + | 2023-01-10 00:00 | IBUPROFEN | [facility] | + + + + | 2023-01-17 00:00 | IBUPROFEN | [facility] | + + + + | 2023-01-02 00:00 | ALBUTEROL SULFATE MDI | [facility] | | | (HFA) | | + + + + | 2023-01-10 00:00 | ALBUTEROL SULFATE MDI | [facility] | | | (HFA) | | + + + + | 2023-01-17 00:00 | ALBUTEROL SULFATE MDI | [facility] | | | (HFA) | | + + + + | 2021-12-09 00:00 | AZITHROMYCIN | [facility] | + + + + | 2021-12-09 00:00 | AZITHROMYCIN | [facility] | + + + + | 2023-01-09 00:00 | BENZOCAINE/MENTHOL | [facility] | + + + + | 2023-01-09 00:00 | BENZOCAINE/MENTHOL | [facility] | + + + + | 2021-12-09 00:00 | CYCLOBENZAPRINE HCL | [facility] | + + + + | 2023-01-09 00:00 | DILTIAZEM HCL | [facility] | + + + + | 2023-01-09 00:00 | DILTIAZEM HCL | [facility] | + + + + | 2023-01-10 00:00 | IPRATROPIUM BROMIDE | [facility] | + + + + | 2023-01-17 00:00 | IPRATROPIUM BROMIDE | [facility] | + + + + | 2023-01-02 00:00 | HYDROCODONE | [facility] | | | BIT/ACETAMINOPHEN | | + + + + | 2023-01-10 00:00 | HYDROCODONE | [facility] | | | BIT/ACETAMINOPHEN | | + + + + | 2023-01-17 00:00 | HYDROCODONE | [facility] | | | BIT/ACETAMINOPHEN | | + + + + | 2023-01-02 00:00 | Rosuvastatin Calcium | [facility] | + + + + | 2023-01-10 00:00 | Rosuvastatin Calcium | [facility] | + + + + | 2023-01-17 00:00 | Rosuvastatin Calcium | [facility] | + + + + | 2023-01-02 00:00 | ROSUVASTATIN CALCIUM | [facility] | + + + + | 2023-01-10 00:00 | ROSUVASTATIN CALCIUM | [facility] | + + + + | 2023-01-17 00:00 | ROSUVASTATIN CALCIUM | [facility] | + + + + | 2023-01-02 00:00 | TAMSULOSIN HCL | [facility] | + + + + | 2023-01-09 00:00 | TAMSULOSIN HCL | [facility] | + + + + | 2023-01-09 00:00 | TAMSULOSIN HCL | [facility] | + + + + | 2023-01-10 00:00 | TAMSULOSIN HCL | [facility] | + + + + | 2023-01-17 00:00 | TAMSULOSIN HCL | [facility] | + + + + | 2019-08-05 00:00 | Nicotine Polacrilex | [facility] | + + + + | 2019-08-05 00:00 | Nicotine Polacrilex | [facility] | + + + + Problems + + + + | date | description | facility | + + + + | 2014-06-23 00:00 | Abdominal pain | [facility] | + + + + | 2014-06-23 00:00 | Abdominal pain | [facility] | + + + + | 2017-02-15 00:00 | Obstructive chronic | [facility] | | | bronchitis with | | | | exacerbation | | + + + + | 2017-02-15 00:00 | Obstructive chronic | [facility] | | | bronchitis with | | | | exacerbation | | + + + + | 2018-11-12 00:00 | Urolithiasis | [facility] | + + + + | 2018-11-12 00:00 | Urolithiasis | [facility] | + + + + | 2018-11-12 00:00 | Urinary tract infection | [facility] | + + + + | 2018-11-12 00:00 | Urinary tract infection | [facility] | + + + + | 2019-07-29 00:00 | Hypokalemia | [facility] | + + + + | 2019-07-29 00:00 | Hypokalemia | [facility] | + + + + | 2019-07-29 00:00 | Contusion | [facility] | + + + + | 2019-07-29 00:00 | Contusion | [facility] | + + + + | 2019-07-29 00:00 | Fall | [facility] | + + + + | 2019-07-29 00:00 | Fall | [facility] | + + + + | 2020-12-08 00:00 | Pneumonia | [facility] | + + + + | 2020-12-08 00:00 | Pneumonia | [facility] | + + + + | 2020-12-08 00:00 | Chronic obstructive | [facility] | | | pulmonary disease with | | | | acute exacerbation | | + + + + | 2020-12-08 00:00 | Chronic obstructive | [facility] | | | pulmonary disease with | | | | acute exacerbation | | + + + + | 2021-02-15 00:00 | Acute exacerbation of | [facility] | | | chronic obstructive | | | | pulmonary disease | | + + + + | 2021-02-15 00:00 | Acute exacerbation of | [facility] | | | chronic obstructive | | | | pulmonary disease | | + + + + | 2021-12-09 00:00 | New onset atrial | [facility] | | | fibrillation | | + + + + | 2021-12-09 00:00 | New onset atrial | [facility] | | | fibrillation | | + + + + | 2021-12-09 00:00 | Infection due to severe | [facility] | | | acute respiratory syndrome | | | | coronavirus 2 (SARS-CoV-2) | | + + + + | 2021-12-09 00:00 | Infection due to severe | [facility] | | | acute respiratory syndrome | | | | coronavirus 2 (SARS-CoV-2) | | + + + + | 2023-01-03 00:00 | Atrial fibrillation with | [facility] | | | rapid ventricular response | | + + + + | 2023-01-03 00:00 | Atrial fibrillation with | [facility] | | | rapid ventricular response | | + + + + | 2023-01-17 00:00 | Encounter for medical | [facility] | | | screening examination | [...] (missing) | | (unavailable | 11:54:07 | Elais | | | | | ) | [...]
[~2023-06-02 08:31] MED LIST changes: +CENTRUM SILVER1 EAC3 PO; +DILTIAZEM 24HR120 MG PO; +ELIQUIS5 MG PO; +GAS RELIEF125 M1 PO; +HEALTHYLAX17 GM PO; +IPRATROPIU0.2 MG/1 M INH; +LACTULOSE20 GM/30 M PO; +NICOTINE LOZENGE4 MG BUCCAL; +OCULAR VITAMIN1 EACH PO; +PREDNISONE10 MG PO; +SENNA LAX8.6 MG PO; +SORE THROAT LO1 EAC3 PO
[2023-06-02 09:06] LABS: BILIRUBIN, URINE NEGATIVE (negative); BLOOD/HGB, URINE LARGE (Negative); KETONE, URINE TRACE (Negative); LEUK ESTERASE, URINE MODERATE (negative); NITRITE, URINE POSITIVE (negative); PH, URINE 6.5 (5-7)
[2023-06-02 09:35] LABS: RED BLOOD CELLS, URINE >50 /hpf (0-5); WHITE BLOOD CELLS, URINE >50 /HPF (0-5)
[2023-06-02 09:36] LABS: BACTERIA, URINE 3+ /hpf (negative); CASTS, URINE NONE SEEN \\lpf; COLLECTION TYPE, URINE CLEAN CATCH; CRYSTALS, URINE NONE SEEN (0-1+); EPITHELIAL CELLS, URINE 0 /lpf (0-1+); REFLEX CULTURE, URINE Yes (No)
[2023-06-02] MEDS ORDERED: CEFDINIR300 MG PO (09:45)
[2023-06-02 09:52] VITALS: BP 97/61
== END 2023-06-02 09:54 | disposition home or self-care (01) ==
LOC: ED 08:31
PROVIDERS: Emergency Medicine
DX: N39.0 Urinary tract infection, site not specified (principal); I10 Essential (primary) hypertension; I25.10 Atherosclerotic heart disease of native coronary artery without angina pectoris; E78.5 Hyperlipidemia, unspecified; E11.9 Type 2 diabetes mellitus without complications; Z79.01 Long term (current) use of anticoagulants; Z79.84 Long term (current) use of oral hypoglycemic drugs; Z79.899 Other long term (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
CPT/HCPCS: 51798; 81001; 87088; 99283-25

== ENCOUNTER 2023-07-04 23:14 | Emergency (ER) | payer OTHER, MEDICARE ==
[~2023-07-04] VITALS: Ht 175.3 cm; Wt 71.2 kg
--- OUTSIDE RECORDS SUMMARY | ~2023-07-04 | XMS | Continuity of Care Document ---
Demographics + + + | Address | [address] | | | [place] [address] | + + + | Preferred Language | Unknown | + + + | Marital Status | | + + + | Taoist Affiliation | Unknown | + + + | Race | White | + + + | Ethnic Group | Not or | + + + Author + + + | Author | [facility] | + + + | Organization | [facility] | + + + | Address | [address] | | | [place] [address] | + + + | Phone | | + + + Care Team Providers + + + + | Care Line Up Machine Operator Name | Role | Phone | + + + + Unavailable | Unavailable | + + + + Unavailable | Unavailable | + + + + Unavailable | Unavailable | + + + + Unavailable | Unavailable | + + + + Unavailable | Unavailable | + + + + Allergies and Intolerances + + + + + + | date | description | facility | reaction | severity | + + + + + + | (no date) | No Known Drug | [facility] | (no reaction) | (no severity) | | | Allergies | | | | + + + + + + Encounters No information. Functional Status No information. Immunizations + + + + | date | description | facility | + + + + | 2019-08-03 00:00 | Influenza, High Dose | [facility] | | | Seasonal | | + + + + | 2019-08-03 00:00 | Influenza, High Dose | [facility] | | | Seasonal | | + + + + | 2019-08-03 00:00 | Influenza, High Dose | [facility] | | | Seasonal | | + + + + | 2023-01-02 00:00 | Influenza, High Dose | [facility] | | | Seasonal | | + + + + | 2023-01-10 00:00 | Influenza, High Dose | [facility] | | | Seasonal | | + + + + | 2023-01-17 00:00 | Influenza, High Dose | [facility] | | | Seasonal | | + + + + | 2023-06-02 00:00 | Influenza, High Dose | [facility] | | | Seasonal | | + + + + Medications + + + + | date | description | facility | + + + + | 2023-01-02 00:00 | HYDROCORTISONE | [facility] | + + + + | 2023-01-09 00:00 | POLYETHYLENE GLYCOL 3350 | [facility] | + + + + | 2023-01-09 00:00 | POLYETHYLENE GLYCOL 3350 | [facility] | + + + + | 2023-01-09 00:00 | POLYETHYLENE GLYCOL 3350 | [facility] | + + + + | 2023-01-10 00:00 | CARBOXYMETHYLCELLULOSE | [facility] | | | SODIUM | | + + + + | 2023-01-17 00:00 | CARBOXYMETHYLCELLULOSE | [facility] | | | SODIUM | | + + + + | 2023-06-02 00:00 | CARBOXYMETHYLCELLULOSE | [facility] | | | SODIUM | | + + + + | 2023-01-10 00:00 | DOCUSATE CALCIUM | [facility] | + + + + | 2023-01-17 00:00 | DOCUSATE CALCIUM | [facility] | + + + + | 2023-06-02 00:00 | DOCUSATE CALCIUM | [facility] | + + + + | 2023-01-02 00:00 | DOCUSATE SODIUM | [facility] | + + + + | 2023-01-10 00:00 | APIXABAN | [facility] | + + + + | 2023-01-17 00:00 | APIXABAN | [facility] | + + + + | 2023-06-02 00:00 | APIXABAN | [facility] | + + + + | 2023-01-02 00:00 | IPRATROPIUM/ALBUTEROL | [facility] | | | SULFATE | | + + + + | 2023-01-02 00:00 | IPRATROPIUM/ALBUTEROL | [facility] | | | SULFATE | | + + + + | 2023-01-02 00:00 | IPRATROPIUM/ALBUTEROL | [facility] | | | SULFATE | | + + + + | 2023-01-09 00:00 | IPRATROPIUM/ALBUTEROL | [facility] | | | SULFATE | | + + + + | 2023-01-09 00:00 | IPRATROPIUM/ALBUTEROL | [facility] | | | SULFATE | | + + + + | 2023-01-09 00:00 | IPRATROPIUM/ALBUTEROL | [facility] | | | SULFATE | | + + + + | 2023-01-02 00:00 | TIOTROPIUM BROMIDE | [facility] | + + + + | 2023-01-10 00:00 | TIOTROPIUM BROMIDE | [facility] | + + + + | 2023-01-17 00:00 | TIOTROPIUM BROMIDE | [facility] | + + + + | 2023-06-02 00:00 | TIOTROPIUM BROMIDE | [facility] | + + + + | 2021-02-17 00:00 | DOXYCYCLINE HYCLATE | [facility] | + + + + | 2021-02-17 00:00 | DOXYCYCLINE HYCLATE | [facility] | + + + + | 2021-02-17 00:00 | DOXYCYCLINE HYCLATE | [facility] | + + + + | 2023-01-02 00:00 | METFORMIN HCL | [facility] | + + + + | 2023-01-10 00:00 | METFORMIN HCL | [facility] | + + + + | 2023-01-17 00:00 | METFORMIN HCL | [facility] | + + + + | 2023-06-02 00:00 | METFORMIN HCL | [facility] | + + + + | 2023-01-02 00:00 | ATENOLOL | [facility] | + + + + | 2023-01-10 00:00 | ATENOLOL | [facility] | + + + + | 2023-01-17 00:00 | ATENOLOL | [facility] | + + + + | 2023-06-02 00:00 | ATENOLOL | [facility] | + + + + | 2023-01-02 00:00 | NITROGLYCERIN | [facility] | + + + + | 2023-01-10 00:00 | NITROGLYCERIN | [facility] | + + + + | 2023-01-17 00:00 | NITROGLYCERIN | [facility] | + + + + | 2023-06-02 00:00 | NITROGLYCERIN | [facility] | + + + + | 2023-01-09 00:00 | predniSONE | [facility] | + + + + | 2023-01-09 00:00 | predniSONE | [facility] | + + + + | 2023-01-09 00:00 | predniSONE | [facility] | + + + + | 2023-01-02 00:00 | ASPIRIN | [facility] | + + + + | 2023-01-10 00:00 | ASPIRIN | [facility] | + + + + | 2023-01-17 00:00 | ASPIRIN | [facility] | + + + + | 2023-06-02 00:00 | ASPIRIN | [facility] | + + + + | 2023-06-02 00:00 | CEFDINIR | [facility] | + + + + | 2023-01-02 00:00 | Fluticasone | [facility] | | | Propion/Salmeterol | | + + + + | 2023-01-10 00:00 | Fluticasone | [facility] | | | Propion/Salmeterol | | + + + + | 2023-01-17 00:00 | Fluticasone | [facility] | | | Propion/Salmeterol | | + + + + | 2023-06-02 00:00 | Fluticasone | [facility] | | | Propion/Salmeterol | | + + + + | 2023-01-02 00:00 | AMLODIPINE BESYLATE | [facility] | + + + + | 2023-01-10 00:00 | AMLODIPINE BESYLATE | [facility] | + + + + | 2023-01-17 00:00 | AMLODIPINE BESYLATE | [facility] | + + + + | 2023-06-02 00:00 | AMLODIPINE BESYLATE | [facility] | + + + + | 2023-01-02 00:00 | ALBUTEROL SULFATE | [facility] | + + + + | 2023-01-10 00:00 | ALBUTEROL SULFATE | [facility] | + + + + | 2023-01-17 00:00 | ALBUTEROL SULFATE | [facility] | + + + + | 2023-06-02 00:00 | ALBUTEROL SULFATE | [facility] | + + + + | 2019-08-05 00:00 | AMLODIPINE BESYLATE | [facility] | + + + + | 2019-08-05 00:00 | AMLODIPINE BESYLATE | [facility] | + + + + | 2019-08-05 00:00 | AMLODIPINE BESYLATE | [facility] | + + + + | 2023-01-02 00:00 | GABAPENTIN | [facility] | + + + + | 2023-01-09 00:00 | GABAPENTIN | [facility] | + + + + | 2023-01-09 00:00 | GABAPENTIN | [facility] | + + + + | 2023-01-09 00:00 | GABAPENTIN | [facility] | + + + + | 2023-01-10 00:00 | GABAPENTIN | [facility] | + + + + | 2023-01-17 00:00 | GABAPENTIN | [facility] | + + + + | 2023-06-02 00:00 | GABAPENTIN | [facility] | + + + + | 2023-01-10 00:00 | HYDROCORTISONE | [facility] | + + + + | 2023-01-17 00:00 | HYDROCORTISONE | [facility] | + + + + | 2023-06-02 00:00 | HYDROCORTISONE | [facility] | + + + + | 2019-08-05 00:00 | LISINOPRIL | [facility] | + + + + | 2019-08-05 00:00 | LISINOPRIL | [facility] | + + + + | 2019-08-05 00:00 | LISINOPRIL | [facility] | + + + + | 2017-02-15 00:00 | predniSONE | [facility] | + + + + | 2017-02-15 00:00 | predniSONE | [facility] | + + + + | 2017-02-15 00:00 | predniSONE | [facility] | + + + + | 2021-02-17 00:00 | predniSONE | [facility] | + + + + | 2021-02-17 00:00 | predniSONE | [facility] | + + + + | 2021-02-17 00:00 | predniSONE | [facility] | + + + + | 2021-06-05 00:00 | predniSONE | [facility] | + + + + | 2021-06-05 00:00 | predniSONE | [facility] | + + + + | 2021-06-05 00:00 | predniSONE | [facility] | + + + + | 2023-01-02 00:00 | predniSONE | [facility] | + + + + | 2023-01-09 00:00 | SENNOSIDES | [facility] | + + + + | 2023-01-09 00:00 | SENNOSIDES | [facility] | + + + + | 2023-01-09 00:00 | SENNOSIDES | [facility] | + + + + | 2023-01-09 00:00 | SIMETHICONE | [facility] | + + + + | 2023-01-09 00:00 | SIMETHICONE | [facility] | + + + + | 2023-01-09 00:00 | SIMETHICONE | [facility] | + + + + | 2023-01-09 00:00 | NICOTINE POLACRILEX | [facility] | + + + + | 2023-01-09 00:00 | NICOTINE POLACRILEX | [facility] | + + + + | 2023-01-09 00:00 | NICOTINE POLACRILEX | [facility] | + + + + | 2023-01-09 00:00 | LACTULOSE | [facility] | + + + + | 2023-01-09 00:00 | LACTULOSE | [facility] | + + + + | 2023-01-09 00:00 | LACTULOSE | [facility] | + + + + | 2023-01-02 00:00 | CARBOXYMETHYLCELLULOSE | [facility] | | | SODIUM | | + + + + | 2023-01-02 00:00 | IBUPROFEN | [facility] | + + + + | 2023-01-10 00:00 | IBUPROFEN | [facility] | + + + + | 2023-01-17 00:00 | IBUPROFEN | [facility] | + + + + | 2023-06-02 00:00 | IBUPROFEN | [facility] | + + + + | 2023-01-02 00:00 | ALBUTEROL SULFATE MDI | [facility] | | | (HFA) | | + + + + | 2023-01-10 00:00 | ALBUTEROL SULFATE MDI | [facility] | | | (HFA) | | + + + + | 2023-01-17 00:00 | ALBUTEROL SULFATE MDI | [facility] | | | (HFA) | | + + + + | 2023-06-02 00:00 | ALBUTEROL SULFATE MDI | [facility] | | | (HFA) | | + + + + | 2021-12-09 00:00 | AZITHROMYCIN | [facility] | + + + + | 2021-12-09 00:00 | AZITHROMYCIN | [facility] | + + + + | 2021-12-09 00:00 | AZITHROMYCIN | [facility] | + + + + | 2023-01-09 00:00 | BENZOCAINE/MENTHOL | [facility] | + + + + | 2023-01-09 00:00 | BENZOCAINE/MENTHOL | [facility] | + + + + | 2023-01-09 00:00 | BENZOCAINE/MENTHOL | [facility] | + + + + | 2021-12-09 00:00 | CYCLOBENZAPRINE HCL | [facility] | + + + + | 2023-01-09 00:00 | DILTIAZEM HCL | [facility] | + + + + | 2023-01-09 00:00 | DILTIAZEM HCL | [facility] | + + + + | 2023-01-09 00:00 | DILTIAZEM HCL | [facility] | + + + + | 2023-01-10 00:00 | IPRATROPIUM BROMIDE | [facility] | + + + + | 2023-01-17 00:00 | IPRATROPIUM BROMIDE | [facility] | + + + + | 2023-06-02 00:00 | IPRATROPIUM BROMIDE | [facility] | + + + + | 2023-01-02 00:00 | HYDROCODONE | [facility] | | | BIT/ACETAMINOPHEN | | + + + + | 2023-01-10 00:00 | HYDROCODONE | [facility] | | | BIT/ACETAMINOPHEN | | + + + + | 2023-01-17 00:00 | HYDROCODONE | [facility] | | | BIT/ACETAMINOPHEN | | + + + + | 2023-06-02 00:00 | HYDROCODONE | [facility] | | | BIT/ACETAMINOPHEN | | + + + + | 2023-01-02 00:00 | Rosuvastatin Calcium | [facility] | + + + + | 2023-01-10 00:00 | Rosuvastatin Calcium | [facility] | + + + + | 2023-01-17 00:00 | Rosuvastatin Calcium | [facility] | + + + + | 2023-06-02 00:00 | Rosuvastatin Calcium | [facility] | + + + + | 2023-01-02 00:00 | ROSUVASTATIN CALCIUM | [facility] | + + + + | 2023-01-10 00:00 | ROSUVASTATIN CALCIUM | [facility] | + + + + | 2023-01-17 00:00 | ROSUVASTATIN CALCIUM | [facility] | + + + + | 2023-06-02 00:00 | ROSUVASTATIN CALCIUM | [facility] | + + + + | 2023-01-02 00:00 | TAMSULOSIN HCL | [facility] | + + + + | 2023-01-09 00:00 | TAMSULOSIN HCL | [facility] | + + + + | 2023-01-09 00:00 | TAMSULOSIN HCL | [facility] | + + + + | 2023-01-09 00:00 | TAMSULOSIN HCL | [facility] | + + + + | 2023-01-10 00:00 | TAMSULOSIN HCL | [facility] | + + + + | 2023-01-17 00:00 | TAMSULOSIN HCL | [facility] | + + + + | 2023-06-02 00:00 | TAMSULOSIN HCL | [facility] | + + + + | 2019-08-05 00:00 | Nicotine Polacrilex | [facility] | + + + + | 2019-08-05 00:00 | Nicotine Polacrilex | [facility] | + + + + | 2019-08-05 00:00 | Nicotine Polacrilex | [facility] | + + + + Problems + + + + | date | description | facility | + + + + | 2014-06-23 00:00 | Abdominal pain | [facility] | + + + + | 2014-06-23 00:00 | Abdominal pain | [facility] | + + + + | 2014-06-23 00:00 | Abdominal pain | [facility] | + + + + | 2017-02-15 00:00 | Obstructive chronic | [facility] | | | bronchitis with | | | | exacerbation | | + + + + | 2017-02-15 00:00 | Obstructive chronic | [facility] | | | bronchitis with | | | | exacerbation | | + + + + | 2017-02-15 00:00 | Obstructive chronic | [facility] | | | bronchitis with | | | | exacerbation | | + + + + | 2018-11-12 00:00 | Urolithiasis | [facility] | + + + + | 2018-11-12 00:00 | Urolithiasis | [facility] | + + + + | 2018-11-12 00:00 | Urolithiasis | [facility] | + + + + | 2018-11-12 00:00 | Urinary tract infection | [facility] | + + + + | 2018-11-12 00:00 | Urinary tract infection | [facility] | + + + + | 2018-11-12 00:00 | Urinary tract infection | [facility] | + + + + | 2019-07-29 00:00 | Hypokalemia | [facility] | + + + + | 2019-07-29 00:00 | Hypokalemia | [facility] | + + + + | 2019-07-29 00:00 | Hypokalemia | [facility] | + + + + | 2019-07-29 00:00 | Contusion | [facility] | + + + + | 2019-07-29 00:00 | Contusion | [facility] | + + + + | 2019-07-29 00:00 | Contusion | [facility] | + + + + | 2019-07-29 00:00 | Fall | [facility] | + + + + | 2019-07-29 00:00 | Fall | [facility] | + + + + | 2019-07-29 00:00 | Fall | [facility] | + + + + | 2020-12-08 00:00 | Pneumonia | [facility] | + + + + | 2020-12-08 00:00 | Pneumonia | [facility] | + + + + | 2020-12-08 00:00 | Pneumonia | [facility] | + + + + | 2020-12-08 00:00 | Chronic obstructive | [facility] | | | pulmonary disease with | | | | acute exacerbation | | + + + + | 2020-12-08 00:00 | Chronic obstructive | [facility] | | | pulmonary disease with | | | | acute exacerbation | | + + + + | 2020-12-08 00:00 | Chronic obstructive | [facility] | | | pulmonary disease with | | | | acute exacerbation | | + + + + | 2021-02-15 00:00 | Acute exacerbation of | [facility] | | | chronic obstructive | | | | pulmonary disease | | + + + + | 2021-02-15 00:00 | Acute exacerbation of | [facility] | | | chronic obstructive | | | | pulmonary disease | | + + + + | 2021-02-15 00:00 | Acute exacerbation of | [facility] | | | chronic obstructive | | | | pulmonary disease | | + + + + | 2021-06-03 19:53 | TYPE 2 DIABETES MELLITUS | [facility] | | | WITHOUT COMPLICATIONS | | + + + + | 2021-06-03 19:53 | HYPERLIPIDEMIA, | [facility] | | | UNSPECIFIED | | + + + + | 2021-06-03 19:53 | NICOTINE DEPENDENCE, | [facility] | | | UNSPECIFIED, UNCOMPLICATED | | + + + + | 2021-06-03 19:53 | OTHER CHRONIC PAIN | [facility] | + + + + | 2021-06-03 19:53 | Essential (primary) | [facility] | | | hypertension | | + + + + | 2021-06-03 19:53 | UNSPECIFIED ATRIAL | [facility] | | | FIBRILLATION | | + + + + | 2021-06-03 19:53 | EMPHYSEMA, UNSPECIFIED | [facility] | + + + + | 2021-06-03 19:53 | ACUTE AND CHRONIC | [facility] | | | RESPIRATORY FAILURE WITH | | | | HYPOXIA | | + + + + | 2021-06-03 19:53 | UNSPECIFIED | [facility] | | | OSTEOARTHRITIS, UNSPECIFIED | | | | SITE | | + + + + | 2021-06-03 19:53 | DORSALGIA, UNSPECIFIED | [facility] | + + + + | 2021-06-03 19:53 | BENIGN PROSTATIC | [facility] | | | HYPERPLASIA WITHOUT LOWER | | | | URINRY | | + + + + | 2021-06-03 19:53 | SHORTNESS OF BREATH | [facility] | + + + + | 2021-06-03 19:53 | HALF-WAY (CURRENT) USE OF | [facility] | | | SYSTEMIC STEROIDS | | + + + + | 2021-06-03 19:53 | ACCOUNTS MANAGER (CURRENT) USE OF | [facility] | | | ASPIRIN | | + + + + | 2021-06-03 19:53 | OTHER ACCOUNTS MANAGER (CURRENT) | [facility] | | | DRUG THERAPY | | + + + + | 2021-12-08 23:50 | TYPE 2 DIABETES MELLITUS | [facility] | | | WITHOUT COMPLICATIONS | | + + + + | 2021-12-08 23:50 | HYPERLIPIDEMIA, | [facility] | | | UNSPECIFIED | | + + + + | 2021-12-08 23:50 | NICOTINE DEPENDENCE, | [facility] | | | UNSPECIFIED, UNCOMPLICATED | | + + + + | 2021-12-08 23:50 | 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 | | + + + + | 2021-12-08 23:50 | CHRONIC OBSTRUCTIVE | [facility] | | | PULMONARY DISEASE W (ACUTE) | | | | EX | | + + + + | 2021-12-08 23:50 | UNSPECIFIED | [facility] | | | OSTEOARTHRITIS, UNSPECIFIED | | | | SITE | | + + + + | 2021-12-08 23:50 | SHORTNESS OF BREATH | [facility] | + + + + | 2021-12-08 23:50 | COVID-19 | [facility] | + + + + | 2021-12-08 23:50 | ACCOUNTS MANAGER (CURRENT) USE OF | [facility] | | | SYSTEMIC STEROIDS | | + + + + | 2021-12-08 23:50 | ACCOUNTS MANAGER (CURRENT) USE OF | [facility] | | | ASPIRIN | | + + + + | 2021-12-08 23:50 | OTHER ACCOUNTS MANAGER (CURRENT) | [facility] | | | DRUG THERAPY | | + + + + | 2021-12-09 00:00 | New onset atrial | [facility] | | | fibrillation | | + + + + | 2021-12-09 00:00 | New onset atrial | [facility] | | | fibrillation | | + + + + | 2021-12-09 00:00 | New onset atrial | [facility] | | | fibrillation | | + + + + | 2021-12-09 00:00 | Infection due to severe | [facility] | | | acute respiratory syndrome | | | | coronavirus 2 (SARS-CoV-2) | | + + + + | 2021-12-09 00:00 | Infection due to severe | [facility] | | | acute respiratory syndrome | | | | coronavirus 2 (SARS-CoV-2) | | + + + + | 2021-12-09 00:00 | Infection due to severe | [facility] | | | acute respiratory syndrome | | | | coronavirus 2 (SARS-CoV-2) | | + + + + | 2023-01-02 11:49 | TYPE 2 DIABETES MELLITUS | [facility] | | | WITHOUT COMPLICATIONS | | + + + + | 2023-01-02 11:49 | HYPERLIPIDEMIA, | [facility] | | | UNSPECIFIED | | + + + + | 2023-01-02 11:49 | NICOTINE DEPENDENCE, | [facility] | | | UNSPECIFIED, UNCOMPLICATED | | + + + + | 2023-01-02 11:49 | Essential (primary) | [facility] | | | hypertension | | + + + + | 2023-01-02 11:49 | 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 | | | rapid ventricular response | | + + + + | 2023-01-03 00:00 | Atrial fibrillation with | [facility] | | | rapid ventricular response | | + + + + | 2023-01-03 00:00 | Atrial fibrillation with | [facility] | | | rapid ventricular response | | + + + + | 2023-01-03 14:01 | TYPE 2 DIABETES MELLITUS | [facility] | | | WITHOUT COMPLICATIONS | | + + + + | 2023-01-03 14:01 | HYPERLIPIDEMIA, | [facility] | | | UNSPECIFIED | | + + + + | 2023-01-03 14:01 | NICOTINE DEPENDENCE, | [facility] | | | CIGARETTES, UNCOMPLICATED | | + + + + | 2023-01-03 14:01 | CHRONIC PAIN SYNDROME | [facility] | + + + + | 2023-01-03 14:01 | Essential (primary) | [facility] | | | hypertension | | + + + + | 2023-01-03 14:01 | 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 | | + + + + | 2023-01-03 14:01 | UNSPECIFIED ATRIAL | [facility] | | | FIBRILLATION | | + + + + | 2023-01-03 14:01 | EMPHYSEMA, UNSPECIFIED | [facility] | + + + + | 2023-01-03 14:01 | CHRONIC OBSTRUCTIVE | [facility] | | | PULMONARY DISEASE W (ACUTE) | | | | EXACERBATION | | + + + + | 2023-01-03 14:01 | ACUTE AND CHRONIC | [facility] | | | RESPIRATORY FAILURE WITH | | | | HYPOXIA | | + + + + | 2023-01-03 14:01 | OTHER CONSTIPATION | [facility] | + + + + | 2023-01-03 14:01 | UNSPECIFIED | [facility] | | | OSTEOARTHRITIS, UNSPECIFIED | | | | SITE | | + + + + | 2023-01-03 14:01 | BENIGN PROSTATIC | [facility] | | | HYPERPLASIA WITH LOWER | | | | URINARY TR | | + + + + | 2023-01-03 14:01 | OTHER RETENTION OF URINE | [facility] | + + + + | 2023-01-03 14:01 | Do not resuscitate status | [facility] | | | (Z66) | | + + + + | 2023-01-03 14:01 | HALF-WAY (CURRENT) USE OF | [facility] | | | INHALED STEROIDS | | + + + + | 2023-01-03 14:01 | HALF-WAY (CURRENT) USE OF | [facility] | | | SYSTEMIC STEROIDS | | + + + + | 2023-01-03 14:01 | HALF-WAY (CURRENT) USE OF | [facility] | | | ASPIRIN | | + + + + | 2023-01-03 14:01 | OTHER ACCOUNTS MANAGER (CURRENT) | [facility] | | | DRUG THERAPY | | + + + + | 2023-01-03 14:01 | PERSONAL HISTORY OF | [facility] | | | PNEUMONIA (RECURRENT) | | + + + + | 2023-01-03 14:01 | ACQUIRED ABSENCE OF OTHER | [facility] | | | SPECIFIED PARTS OF DIGES | | + + + + | 2023-01-03 14:01 | PRESENCE OF CARDIAC | [facility] | | | PACEMAKER | | + + + + | 2023-01-03 14:01 | OTHER SPECIFIED | [facility] | | | POSTPROCEDURAL STATES | | + + + + | 2023-01-17 00:00 | Encounter for medical | [facility] | | | screening examination | | + + + + | 2023-01-17 00:00 | Encounter for medical | [facility] | | | screening examination | | + + + + | 2023-06-02 08:32 | TYPE 2 DIABETES MELLITUS | [facility] | | | WITHOUT COMPLICATIONS | | + + + + | 2023-06-02 08:32 | HYPERLIPIDEMIA, | [facility] | | | UNSPECIFIED | | + + + + | 2023-06-02 08:32 | Essential (primary) | [facility] | | | hypertension | | + + + + | 2023-06-02 08:32 | 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 Results/Labs +--------+--------+ +---------+--------+---------+ | test | date | facility | value | unit | notes | +--------+--------+ +---------+--------+---------+ + + | Result panel 1 | + + + + + +-------+ + + | | 2023-01-02 | [facility] | 6.8 | (missing) | (missing) | | (unavailable | 11:54:07 | [facility] | | | | + + + +-------+ + + + + | Result panel 2 | + + + + + +-------+ + + | | 2023-01-02 | [facility] | 3.5 | (missing) | (missing) | | (unavailable | 11:54:07 | [facility] | | | | + + + +-------+ + + + + | Result panel 3 | + + + + + +-------+ + + | | 2023-01-02 | [facility] | 3.3 | (missing) | (missing) | | (unavailable | 11:54:07 | [facility] | | | | + + + +-------+ + + + + | Result panel 4 | + + + + + +--------+ + + | | 2023-01-02 | [facility] | 1.06 | (missing) | (missing) | | (unavailable | 11:54:07 | [facility] | | | | + + + +--------+ + + + + | Result panel 5 | + + + + + +-------+ + + | | 2023-01-02 | [facility] | 0.4 | (missing) | (missing) | | (unavailable | 11:54:07 | [facility] | | | | + + + +-------+ + + + + | Result panel 6 | + + + + + +------+ + + | | 2023-01-02 | [facility] | 21 | (missing) | (missing) | | (unavailable | 11:54:07 | [facility] | | | | + + + +------+ + + + + | Result panel 7 | + + + + + +------+ + + | | 2023-01-02 | [facility] | 23 | (missing) | (missing) | | (unavailable | 11:54:07 | [facility] | | | | + + + +------+ + + + + | Result panel 8 | + + + + + +-------+ + + | | 2023-01-02 | [facility] | 115 | (missing) | (missing) | | (unavailable | 11:54:07 | [facility] | | | | + + + +-------+ + + + + | Result panel 9 | + + + + + +-------+ + + | | 2023-01-02 | [facility] | 6.8 | (missing) | (missing) | | (unavailable | 11:54:07 | [facility] | | | + + + +-------+ + + + + | Result panel 10 | + + + + + +-------+ + + | | 2023-01-02 | [facility] | 3.5 | (missing) | (missing) | | (unavailable | 11:54:07 | [facility] | | | + + + +-------+ + + + + | Result panel 11 | + + + + + +-------+ + + | | 2023-01-02 | [facility] | 3.3 | (missing) | (missing) | | (unavailable | 11:54:07 | [facility] | | | + + + +-------+ + + + + | Result panel 12 | + + + + + +--------+ + + | | 2023-01-02 | [facility] | 1.06 | (missing) | (missing) | | (unavailable | 11:54:07 | [facility] | | | + + + +--------+ + + + + | Result panel 13 | + + + + + +-------+ + + | | 2023-01-02 | [facility] | 0.4 | (missing) | (missing) | | (unavailable | 11:54:07 [facility] | | | + + + +-------+ + + + + | Result panel 14 | + + + + + +------+ + + | | 2023-01-02 | [facility] | 21 | (missing) | (missing) | | (unavailable | 11:54:07 [facility] | | | + + + +------+ + + + + | Result panel 15 | + + + + + +------+ + + | | 2023-01-02 | [facility] | 23 | (missing) | (missing) | | (unavailable | 11:54:07 | [facility] | | | + + + +------+ + + + + | Result panel 16 | + + + + + +-------+ + + | | 2023-01-02 | [facility] | 115 | (missing) | (missing) | | (unavailable | 11:54:07 | [facility] | | | + + + +-------+ + + + + | Result panel 17 | + + + + + +-------+ + + | | 2023-01-02 | [facility] | 6.5 | (missing) | (missing) | | (unavailable | 11:54:08 | [facility] | | | + + + +-------+ + + + + | Result panel 18 | + + + + + +--------+ + + | | 2023-01-02 | [facility] | 3.91 | (missing) | (missing) | | (unavailable | 11:54:08 | [facility] | | | + + + +--------+ + + + + | Result panel 19 | + + + + + +--------+ + + | | 2023-01-02 | [facility] | 12.3 | (missing) | (missing) | | (unavailable | 11:54:08 | [facility] | | | + + + +--------+ + + + + | Result panel 20 | + + + + + +--------+ + + | | 2023-01-02 | [facility] | 37.2 | (missing) | (missing) | | (unavailable | 11:54:08 | [facility] | | | + + + +--------+ + + + + | Result panel 21 | + + + + + +--------+ + + | | 2023-01-02 | [facility] | 95.0 | (missing) | (missing) | | (unavailable | 11:54:08 | [facility] | | | + + + +--------+ + + + + | Result panel 22 | + + + + + +--------+ + + | | 2023-01-02 | [facility] | 31.4 | (missing) | (missing) | | (unavailable | 11:54:08 | [facility] | | | + + + +--------+ + + + + | Result panel 23 | + + + + + +--------+ + + | | 2023-01-02 | [facility] | 33.0 | (missing) | (missing) | | (unavailable | 11:54:08 | [facility] | | | + + + +--------+ + + + + | Result panel 24 | + + + + + +--------+ + + | | 2023-01-02 | [facility] | 14.8 | (missing) | (missing) | | (unavailable | 11:54:08 | [facility] | | | + + + +--------+ + + + + | Result panel 25 | + + + + + +-------+ + + | | 2023-01-02 | [facility] | 231 | (missing) | (missing) | | (unavailable | 11:54:08 | [facility] | | | + + + +-------+ + + + + | Result panel 26 | + + + + + +--------+ + + | | 2023-01-02 | [facility] | 76.1 | (missing) | (missing) | | (unavailable | 11:54:08 | [facility] | | | + + + +--------+ + + + + | Result panel 27 | + + + + + +-------+ + + | | 2023-01-02 | [facility] | 8.1 | (missing) | (missing) | | (unavailable | 11:54:08 | [facility] | | | + + + +-------+ + + + + | Result panel 28 | + + + + + +--------+ + + | | 2023-01-02 | [facility] | 11.0 | (missing) | (missing) | | (unavailable | 11:54:08 | [facility] | | | + + + +--------+ + + + + | Result panel 29 | + + + + + +-------+ + + | | 2023-01-02 | [facility] | 4.3 | (missing) | (missing) | | (unavailable | 11:54:08 | [facility] | | | + + + +-------+ + + + + | Result panel 30 | + + + + + +-------+ + + | | 2023-01-02 | [facility] | 0.5 | (missing) | (missing) | | (unavailable | 11:54:08 | [facility] | | | + + + +-------+ + + + + | Result panel 31 | + + + + + +-------+---------+ + | | 2023-01-02 | [facility] | 133 | mg/dL | (missing) | | (unavailable | 11:54:08 | [facility] | | | | + + + +-------+---------+ + + + | Result panel 32 | + + + + + +------+---------+ + | | 2023-01-02 | [facility] | 15 | mg/dL | (missing) | | (unavailable | 11:54:08 | [facility] | | | | + + + +------+---------+ + + + | Result panel 33 | + + + + + +--------+---------+ + | | 2023-01-02 | [facility] | 0.84 | mg/dL | (missing) | | (unavailable | 11:54:08 | [facility] | | | | + + + +--------+---------+ + + + | Result panel 34 | + + + + + +------+ + + | | 2023-01-02 | [facility] | 88 | (missing) | (missing) | | (unavailable | 11:54:08 | [facility] | | | + + + +------+ + + + + | Result panel 35 | + + + + + +---------+ + + | | 2023-01-02 | [facility] | 17.85 | (missing) | (missing) | | (unavailable | 11:54:08 | [facility] | | | | + + + +---------+ + + + + | Result panel 36 | + + + + + +-------+ + + | | 2023-01-02 | [facility] | 138 | (missing) | (missing) | | (unavailable | 11:54:08 | [facility] | | | | + + + +-------+ + + + + | Result panel 37 | + + + + + +-------+ + + | | 2023-01-02 | [facility] | 3.8 | (missing) | (missing) | | (unavailable | 11:54:08 | [facility] | | | | + + + +-------+ + + + + | Result panel 38 | + + + + + +-------+ + + | | 2023-01-02 | [facility] | 100 | (missing) | (missing) | | (unavailable | 11:54:08 | [facility] | | | | + + + +-------+ + + + + | Result panel 39 | + + + + + +------+ + + | | 2023-01-02 | [facility] | 32 | (missing) | (missing) | | (unavailable | 11:54:08 | [facility] | | | + + + +------+ + + + + | Result panel 40 | + + + + + +-------+ + + | | 2023-01-02 | [facility] | 9.8 | (missing) | (missing) | | (unavailable | 11:54:08 | [facility] | | | + + + +-------+ + + + + | Result panel 41 | + + + + + +-------+---------+ + | | 2023-01-02 | [facility] | 9.1 | mg/dL | (missing) | | (unavailable | 11:54:08 | [facility] | | | + + + +-------+---------+ + + + | Result panel 42 | + + + + + +-------+ + + | | 2023-01-02 | [facility] | 6.8 | (missing) | (missing) | | (unavailable | 11:54:08 | [facility] | | | | + + + +-------+ + + + + | Result panel 43 | + + + + + +-------+ + + | | 2023-01-02 | [facility] | 3.5 | (missing) | (missing) | | (unavailable | 11:54:08 | [facility] | | | | + + + +-------+ + + + + | Result panel 44 | + + + + + +-------+ + + | | 2023-01-02 | [facility] | 3.3 | (missing) | (missing) | | (unavailable | 11:54:08 | [facility] | | | + + + +-------+ + + + + | Result panel 45 | + + + + + +--------+ + + | | 2023-01-02 | [facility] | 1.06 | (missing) | (missing) | | (unavailable | 11:54:08 | [facility] | | | + + + +--------+ + + + + | Result panel 46 | + + + + + +-------+ + + | | 2023-01-02 | [facility] | 0.4 | (missing) | (missing) | | (unavailable | 11:54:08 | [facility] | | | + + + +-------+ + + + + | Result panel 47 | + + + + + +------+ + + | | 2023-01-02 | [facility] | 21 | (missing) | (missing) | | (unavailable | 11:54:08 | [facility] | | | + + + +------+ + + + + | Result panel 48 | + + + + + +------+ + + | | 2023-01-02 | [facility] | 23 | (missing) | (missing) | | (unavailable | 11:54:08 | [facility] | | | + + + +------+ + + + + | Result panel 49 | + + + + + +-------+ + + | | 2023-01-02 | [facility] | 115 | (missing) | (missing) | | (unavailable | 11:54:08 | [facility] | | | + + + +-------+ + + + + | Result panel 50 | + + + + + + + + + | | 2023-01-02 | [facility] | NEGATIVE | (missing) | (missing) | | (unavailable | 12:05:07 | [facility] | | | + + + + + + + + + | Result panel 51 | + + + + + + + + + | | 2023-01-02 | [facility] | NEGATIVE | (missing) | (missing) | | (unavailable | 12:05:07 | [facility] | | | | + + + + + + + + + | Result panel 52 | + + + + + + + + + | | 2023-01-02 | [facility] | NEGATIVE | (missing) | (missing) | | (unavailable | 12:: | [facility] | | | | + + + + + + + + + | Result panel 53 | + + + + + + + + + | | 2023-01-02 | [facility] | NEGATIVE | (missing) | (missing) | | (unavailable | 07 | [facility] | | | | + + + + + + + + + | Result panel 54 | + + + + + + + + + | | 2023-01-02 | [facility] | NEGATIVE | (missing) | (missing) | | (unavailable | 12:05:07 | [facility] | | | | + + + + + + + + + | Result panel 55 | + + + + + + + + + | | 2023-01-02 | [facility] | NEGATIVE | (missing) | (missing) | | (unavailable | 12:05:07 | [facility] | | | | + + + + + + + + + | Result panel 56 | + + + + + + + + + | | 2023-01-02 | [facility] | NEGATIVE | (missing) | (missing) | | (unavailable | 12:05:07 | [facility] | | | | + + + + + + + + + | Result panel 57 | + + + + + + + + + | | 2023-01-02 | [facility] | NEGATIVE | (missing) | (missing) | | (unavailable | 12:05:07 | [facility] | | | | + + + + + + + + + | Result panel 58 | + + + + + + + + + | | 2023-01-02 | [facility] | NEGATIVE | (missing) | (missing) | | (unavailable | 12:05:08 | [facility] | | | | + + + + + + + + + | Result panel 59 | + + + + + + + + + | | 2023-01-02 | [facility] | NEGATIVE | (missing) | (missing) | | (unavailable | 12:05:08 | [facility] | | | | + + + + + + + + + | Result panel 60 | + + + + + + + + + | | 2023-01-02 | [facility] | NEGATIVE | (missing) | (missing) | | (unavailable | 12:05:08 | [facility] | | | + + + + + + + + + | Result panel 61 | + + + + + + + + + | | 2023-01-02 | [facility] | NEGATIVE | (missing) | (missing) | | (unavailable | 12:05:08 | [facility] | | | | + + + + + + + + + | Result panel 62 | + + + + + +-------+ + + | | 2023-01-03 | [facility] | 8.7 | (missing) | (missing) | | (unavailable | 10:45:07 | [facility] | | | | + + + +-------+ + + + + | Result panel 63 | + + + + + +-------+ + + | | 2023-01-03 | [facility] | 8.7 | (missing) | (missing) | | (unavailable | 10:45:07 | [facility] | | | + + + +-------+ + + + + | Result panel 64 | + + + + + +-------+---------+ + | | 2023-01-04 | [facility] | 2.5 | mg/dL | (missing) | | (unavailable | 05:11:07 | [facility] | | | | + + + +-------+---------+ + + + | Result panel 65 | + + + + + +-------+---------+ + | | 2023-01-04 | [facility] | 2.5 | mg/dL | (missing) | | (unavailable | 05:11:07 | [facility] | | | | + + + +-------+---------+ + + + | Result panel 66 | + + + + + +-------+ + + | | 2023-01-06 | [facility] | 246 | (missing) | (missing) | | (unavailable | 20:40:07 | [facility] | | | | + + + +-------+ + + + + | Result panel 67 | + + + + + +-------+ + + | | 2023-01-06 | [facility] | 246 | (missing) | (missing) | | (unavailable | 20:40:07 | [facility] | | | | + + + +-------+ + + + + | Result panel 68 | + + + + + +------+---------+ + | | 2023-01-07 | [facility] | 87 | mg/dL | (missing) | | (unavailable | 05:22:07 | [facility] | | | | + + + +------+---------+ + + + | Result panel 69 | + + + + + +------+---------+ + | | 2023-01-07 | [facility] | 24 | mg/dL | (missing) | | (unavailable | 05:22:07 | [facility] | | | | + + + +------+---------+ + + + | Result panel 70 | + + + + + +--------+---------+ + | | 2023-01-07 | [facility] | 0.62 | mg/dL | (missing) | | (unavailable | 05:22:07 [facility] | | | + + + +--------+---------+ + + + | Result panel 71 | + + + + + +------+ + + | | 2023-01-07 | [facility] | 97 | (missing) | (missing) | | (unavailable | 05:22:07 | [facility] | | | + + + +------+ + + + + | Result panel 72 | + + + + + +---------+ + + | | 2023-01-07 | [facility] | 38.70 | (missing) | (missing) | | (unavailable | 05:22:07 | [facility] | | | | + + + +---------+ + + + + | Result panel 73 | + + + + + +-------+ + + | | 2023-01-07 | [facility] | 139 | (missing) | (missing) | | (unavailable | 05:22:07 | [facility] | | | | + + + +-------+ + + + + | Result panel 74 | + + + + + +-------+ + + | | 2023-01-07 | [facility] | 3.9 | (missing) | (missing) | | (unavailable | 05:22:07 | [facility] | | | + + + +-------+ + + + + | Result panel 75 | + + + + + +------+ + + | | 2023-01-07 | [facility] | 99 | (missing) | (missing) | | (unavailable | 05:22:07 | [facility] | | | + + + +------+ + + + + | Result panel 76 | + + + + + +------+ + + | | 2023-01-07 | [facility] | 38 | (missing) | (missing) | | (unavailable | 05:22:07 | [facility] | | | + + + +------+ + + + + | Result panel 77 | + + + + + +-------+ + + | | 2023-01-07 | [facility] | 5.9 | (missing) | (missing) | | (unavailable | 05:22:07 [facility] | | | + + + +-------+ + + + + | Result panel 78 | + + + + + +-------+---------+ + | | 2023-01-07 | [facility] | 8.7 | mg/dL | (missing) | | (unavailable | 05::07 | [facility] | | | | + + + +-------+---------+ + + + | Result panel 79 | + + + + + +------+---------+ + | | 2023-01-07 | [facility] | 87 | mg/dL | (missing) | | (unavailable | 05:22:07 [facility] | | | + + + +------+---------+ + + + | Result panel 80 | + + + + + +------+---------+ + | | 2023-01-07 | [facility] | 24 | mg/dL | (missing) | | (unavailable | 05:22:07 [facility] | | | + + + +------+---------+ + + + | Result panel 81 | + + + + + +--------+---------+ + | | 2023-01-07 | [facility] | 0.62 | mg/dL | (missing) | | (unavailable | 05:22:07 [facility] | | | + + + +--------+---------+ + + + | Result panel 82 | + + + + + +------+ + + | | 2023-01-07 | [facility] | 97 | (missing) | (missing) | | (unavailable | 05:22:07 [facility] | | | + + + +------+ + + + + | Result panel 83 | + + + + + +---------+ + + | | 2023-01-07 | [facility] | 38.70 | (missing) | (missing) | | (unavailable | 05:22:07 [facility] | | | + + + +---------+ + + + + | Result panel 84 | + + + + + +-------+ + + | | 2023-01-07 | [facility] | 139 | (missing) | (missing) | | (unavailable | 05:22:07 [facility] | | | + + + +-------+ + + + + | Result panel 85 | + + + + + +-------+ + + | | 2023-01-07 | [facility] | 3.9 | (missing) | (missing) | | (unavailable | 05:22:07 [facility] | | | + + + +-------+ + + + + | Result panel 86 | + + + + + +------+ + + | | 2023-01-07 | [facility] | 99 | (missing) | (missing) | | (unavailable | 05:22:07 [facility] | | | | + + + +------+ + + + + | Result panel 87 | + + + + + +------+ + + | | 2023-01-07 | [facility] | 38 | (missing) | (missing) | | (unavailable | 05:22:07 [facility] | | | | + + + +------+ + + + + | Result panel 88 | + + + + + +-------+ + + | | 2023-01-07 | [facility] | 5.9 | (missing) | (missing) | | (unavailable | 05:22:07 [facility] | | | + + + +-------+ + + + + | Result panel 89 | + + + + + +-------+---------+ + | | 2023-01-07 | [facility] | 8.7 | mg/dL | (missing) | | (unavailable | 05:22:07 [facility] | | | + + + +-------+---------+ + + + | Result panel 90 | + + + + + +--------+ + + | | 2023-01-09 | [facility] | 11.3 | (missing) | (missing) | | (unavailable | 05:26:07 [facility] | | | + + + +--------+ + + + + | Result panel 91 | + + + + + +--------+ + + | | 2023-01-09 | [facility] | 3.67 | (missing) | (missing) | | (unavailable | 05:26:07 [facility] | | | + + + +--------+ + + + + | Result panel 92 | + + + + + +--------+ + + | | 2023-01-09 | [facility] | 11.3 | (missing) | (missing) | | (unavailable | 05:26:07 [facility] | | | + + + +--------+ + + + + | Result panel 93 | + + + + + +--------+ + + | | 2023-01-09 | [facility] | 34.3 | (missing) | (missing) | | (unavailable | 05:26:07 [facility] | | | + + + +--------+ + + + + | Result panel 94 | + + + + + +--------+ + + | | 2023-01-09 | [facility] | 93.6 | (missing) | (missing) | | (unavailable | 05:26:07 [facility] | | | + + + +--------+ + + + + | Result panel 95 | + + + + + +--------+ + + | | 2023-01-09 | [facility] | 30.9 | (missing) | (missing) | | (unavailable | 05:26:07 [facility] | | | + + + +--------+ + + + + | Result panel 96 | + + + + + +--------+ + + | | 2023-01-09 | [facility] | 33.0 | (missing) | (missing) | | (unavailable | 05:26:07 [facility] | | | + + + +--------+ + + + + | Result panel 97 | + + + + + +--------+ + + | | 2023-01-09 | [facility] | 14.4 | (missing) | (missing) | | (unavailable | 05:26:07 [facility] | | | + + + +--------+ + + + + | Result panel 98 | + + + + + +-------+ + + | | 2023-01-09 | [facility] | 272 | (missing) | (missing) | | (unavailable | 05:26:07 [facility] | | | + + + +-------+ + + + + | Result panel 99 | + + + + + +--------+ + + | | 2023-01-09 | [facility] | 80.6 | (missing) | (missing) | | (unavailable | 05:26:07 [facility] | | | + + + +--------+ + + + + | Result panel 100 | + + + + + +--------+ + + | | 2023-01-09 | [facility] | 12.2 | (missing) | (missing) | | (unavailable | 05:26:07 [facility] | | | + + + +--------+ + + + + | Result panel 101 | + + + + + +-------+ + + | | 2023-01-09 | [facility] | 5.6 | (missing) | (missing) | | (unavailable | 05:26:07 [facility] | | | + + + +-------+ + + + + | Result panel 102 | + + + + + +-------+ + + | | 2023-01-09 | [facility] | 1.1 | (missing) | (missing) | | (unavailable | 05:26:07 [facility] | | | + + + +-------+ + + + + | Result panel 103 | + + + + + +-------+ + + | | 2023-01-09 | [facility] | 0.5 | (missing) | (missing) | | (unavailable | 05:26:07 [facility] | | | + + + +-------+ + + + + | Result panel 104 | + + + + + +--------+ + + | | 2023-01-09 | [facility] | 11.3 | (missing) | (missing) | | (unavailable | 05:26:07 [facility] | | | + + + +--------+ + + + + | Result panel 105 | + + + + + +--------+ + + | | 2023-01-09 | [facility] | 3.67 | (missing) | (missing) | | (unavailable | 05:26:07 [facility] | | | + + + +--------+ + + + + | Result panel 106 | + + + + + +--------+ + + | | 2023-01-09 | [facility] | 11.3 | (missing) | (missing) | | (unavailable | 05:26:07 [facility] | | | + + + +--------+ + + + + | Result panel 107 | + + + + + +--------+ + + | | 2023-01-09 | [facility] | 34.3 | (missing) | (missing) | | (unavailable | 05:26:07 [facility] | | | + + + +--------+ + + + + | Result panel 108 | + + + + + +--------+ + + | | 2023-01-09 | [facility] | 93.6 | (missing) | (missing) | | (unavailable | 05:26:07 [facility] | | | + + + +--------+ + + + + | Result panel 109 | + + + + + +--------+ + + | | 2023-01-09 | [facility] | 30.9 | (missing) | (missing) | | (unavailable | 05:26:07 [facility] | | | + + + +--------+ + + + + | Result panel 110 | + + + + + +--------+ + + | | 2023-01-09 | [facility] | 33.0 | (missing) | (missing) | | (unavailable | 05:26:07 [facility] | | | + + + +--------+ + + + + | Result panel 111 | + + + + + +--------+ + + | | 2023-01-09 | [facility] | 14.4 | (missing) | (missing) | | (unavailable | 05:26:07 [facility] | | | | + + + +--------+ + + + + | Result panel 112 | + + + + + +-------+ + + | | 2023-01-09 | [facility] | 272 | (missing) | (missing) | | (unavailable | 05:26:07 | [facility] | | | | + + + +-------+ + + + + | Result panel 113 | + + + + + +--------+ + + | | 2023-01-09 | [facility] | 80.6 | (missing) | (missing) | | (unavailable | 05:26:07 | [facility] | | | | + + + +--------+ + + + + | Result panel 114 | + + + + + +--------+ + + | | 2023-01-09 | [facility] | 12.2 | (missing) | (missing) | | (unavailable | 05:26:07 | [facility] | | | | + + + +--------+ + + + + | Result panel 115 | + + + + + +-------+ + + | | 2023-01-09 | [facility] | 5.6 | (missing) | (missing) | | (unavailable | 05:26:07 [facility] | | | | + + + +-------+ + + + + | Result panel 116 | + + + + + +-------+ + + | | 2023-01-09 | [facility] | 1.1 | (missing) | (missing) | | (unavailable | 05:26:07 | [facility] | | | | + + + +-------+ + + + + | Result panel 117 | + + + + + +-------+ + + | | 2023-01-09 | [facility] | 0.5 | (missing) | (missing) | | (unavailable | 05:26:07 | [facility] | | | | + + + +-------+ + + + + | Result panel 118 | + + + + + + + + + | | 2023-01-10 | [facility] | NEGATIVE | (missing) | (missing) | | (unavailable | 07:45:07 | [facility] | | | | + + + + + + + + + | Result panel 119 | + + + + + + + + + | | 2023-01-10 | [facility] | NEGATIVE | (missing) | (missing) | | (unavailable | 07:45:07 | [facility] | | | | + + + + + + + + + | Result panel 120 | + + + + + +---------+ + + | | 2023-06-02 | [facility] | BROWN | (missing) | (missing) | | (unavailable | 08:58:07 | [facility] | | | | + + + +---------+ + + + + | Result panel 121 | + + + + + +-------+ + + | | 2023-06-02 | [facility] | 2.0 | (missing) | (missing) | | (unavailable | 08:58:07 | [facility] | | | | + + + +-------+ + + + + | Result panel 122 | + + + + + + + + + | | 2023-06-02 | [facility] | POSITIVE | (missing) | (missing) | | (unavailable | 08:58:07 | [facility] | | | | + + + + + + + + + | Result panel 123 | + + + + + + + + + | | 2023-06-02 | [facility] | MODERATE | (missing) | (missing) | | (unavailable | 08:58:07 | [facility] | | | | + + + + + + + + + | Result panel 124 | + + + + + +-------+ + + | | 2023-06-02 | [facility] | >50 | (missing) | (missing) | | (unavailable | 08:58:07 | [facility] | | | | + + + +-------+ + + + + | Result panel 125 | + + + + + +-------+ + + | | 2023-06-02 | [facility] | >50 | (missing) | (missing) | | (unavailable | 08:58:07 | [facility] | | | | + + + +-------+ + + + + | Result panel 126 | + + + + + +-----+ + + | | 2023-06-02 | [facility] | 0 | (missing) | (missing) | | (unavailable | 08:58:07 | [facility] | | | | + + + +-----+ + + + + | Result panel 127 | + + + + + + + + + | | 2023-06-02 | [facility] | NONE SEEN | (missing) | (missing) | | (unavailable | 08:58:07 | [facility] | | | | + + + + + + + + + | Result panel 128 | + + + + + +------+ + + | | 2023-06-02 | [facility] | 3+ | (missing) | (missing) | | (unavailable | 08:58:07 | [facility] | | | | + + + +------+ + + + + | Result panel 129 | + + + + + + + + + | | 2023-06-02 | [facility] | NONE SEEN | (missing) | (missing) | | (unavailable | 08:58:07 | [facility] | | | | + + + + + + + + + | Result panel 130 | + + + + + +-------+ + + | | 2023-06-02 | [facility] | Yes | (missing) | (missing) | | (unavailable | 08:58:07 | [facility] | | | | + + + +-------+ + + + + | Result panel 131 | + + + + + + + + + | | 2023-06-02 | [facility] | CLOUDY | (missing) | (missing) | | (unavailable | 08:58:07 | [facility] | | | | + + + + + + + + + | Result panel 132 | + + + + + + + + + | | 2023-06-02 | [facility] | CLEAN CATCH | (missing) | (missing) | | (unavailable | 08:58:07 | [facility] | | | | + + + + + + + + + | Result panel 133 | + + + + + + + + + | | 2023-06-02 | [facility] | >=1000 | (missing) | (missing) | | (unavailable | 08:58:07 | [facility] | | | | + + + + + + + + + | Result panel 134 | + + + + + + + + + | | 2023-06-02 | [facility] | NEGATIVE | (missing) | (missing) | | (unavailable | 08:58:07 | [facility] | | | | + + + + + + + + + | Result panel 135 | + + + + + +---------+ + + | | 2023-06-02 | [facility] | TRACE | (missing) | (missing) | | (unavailable | 08:58:07 | [facility] | | | | + + + +---------+ + + + + | Result panel 136 | + + + + + +---------+ + + | | 2023-06-02 | [facility] | 1.020 | (missing) | (missing) | | (unavailable | 08:58:07 | [facility] | | | | + + + +---------+ + + + + | Result panel 137 | + + + + + +---------+ + + | | 2023-06-02 | [facility] | LARGE | (missing) | (missing) | | (unavailable | 08:58:07 | [facility] | | | | + + + +---------+ + + + + | Result panel 138 | + + + + + +-------+ + + | | 2023-06-02 | [facility] | 6.5 | (missing) | (missing) | | (unavailable | 08:58:07 | [facility] | | | | + + + +-------+ + + + + | Result panel 139 | + + + + + +---------+ + + | | 2023-06-02 | [facility] | >=300 | (missing) | (missing) | | (unavailable | 08:58:07 | [facility] | | | | + + + +---------+ + + Social History No information. Vital Signs + + + +---------+ | date | measurement | value | units | + + + +---------+ | 2023-01-02 00:00 | BMI | 26.0 | kg/m2 | + + + +---------+ | 2023-01-02 00:00 | BP_diastolic | 58 | mmHg | + + + +---------+ | 2023-01-02 00:00 | BP_systolic | 110 | mmHg | + + + +---------+ | 2023-01-02 00:00 | heart_rate | 97 | /min | + + + +---------+ | 2023-01-02 00:00 | height_metric | 175.26 | cm | + + + +---------+ | 2023-01-02 00:00 | height_standard | 69 | in | + + + +---------+ | 2023-01-02 00:00 | o2_saturation | 94 | % | + + + +---------+ | 2023-01-02 00:00 | respiration_rate | 17 | /min | + + + +---------+ | 2023-01-02 00:00 | temperature_metric | 36.78 | C | | | | | | + + + +---------+ | 2023-01-02 00:00 | | 98.2 | F | | | temperature_standar | | | | | d | | | + + + +---------+ | 2023-01-02 00:00 | weight_metric | 79.83 | kg | + + + +---------+ | 2023-01-02 00:00 | weight_standard | 176 | lb | + + + +---------+ | 2023-01-10 00:00 | BMI | 24.5 | kg/m2 | + + + +---------+ | 2023-01-10 00:00 | BP_diastolic | 57 | mmHg | + + + +---------+ | 2023-01-10 00:00 | BP_systolic | 100 | mmHg | + + + +---------+ | 2023-01-10 00:00 | heart_rate | 83 | /min | + + + +---------+ | 2023-01-10 00:00 | height_metric | 175.26 | cm | + + + +---------+ | 2023-01-10 00:00 | height_standard | 69 | in | + + + +---------+ | 2023-01-10 00:00 | o2_saturation | 92 | % | + + + +---------+ | 2023-01-10 00:00 | respiration_rate | 20 | /min | + + + +---------+ | 2023-01-10 00:00 | temperature_metric | 36.78 | C | | | | | | + + + +---------+ | 2023-01-10 00:00 | | 98.2 | F | | | temperature_standar | | | | | d | | | + + + +---------+ | 2023-01-10 00:00 | weight_metric | 75.3 | kg | + + + +---------+ | 2023-01-10 00:00 | weight_standard | 166.01 | lb | + + + +---------+ | 2023-01-17 00:00 | BMI | 25.5 | kg/m2 | + + + +---------+ | 2023-01-17 00:00 | BP_diastolic | 64 | mmHg | + + + +---------+ | 2023-01-17 00:00 | BP_systolic | 104 | mmHg | + + + +---------+ | 2023-01-17 00:00 | heart_rate | 72 | /min | + + + +---------+ | 2023-01-17 00:00 | height_metric | 175.26 | cm | + + + +---------+ | 2023-01-17 00:00 | height_standard | 69 | in | + + + +---------+ | 2023-01-17 00:00 | o2_saturation | 90 | % | + + + +---------+ | 2023-01-17 00:00 | respiration_rate | 15 | /min | + + + +---------+ | 2023-01-17 00:00 | temperature_metric | 36.56 | C | | | | | | + + + +---------+ | 2023-01-17 00:00 | | 97.8 | F | | | temperature_standar | | | | | d | | | + + + +---------+ | 2023-01-17 00:00 | weight_metric | 78.3 | kg | + + + +---------+ | 2023-01-17 00:00 | weight_standard | 172.62 | lb | + + + +---------+ | 2023-01-17 00:00 | weight_standard | 172.63 | lb | + + + +---------+ | 2023-06-02 00:00 | BMI | 24.1 | kg/m2 | + + + +---------+ | 2023-06-02 00:00 | BP_diastolic | 61 | mmHg | + + + +---------+ | 2023-06-02 00:00 | BP_systolic | 97 | mmHg | + + + +---------+ | 2023-06-02 00:00 | heart_rate | 87 | /min | + + + +---------+ | 2023-06-02 00:00 | height_metric | 175.26 | cm | + + + +---------+ | 2023-06-02 00:00 | height_standard | 69 | in | + + + +---------+ | 2023-06-02 00:00 | o2_saturation | 91 | % | + + + +---------+ | 2023-06-02 00:00 | respiration_rate | 15 | /min | + + + +---------+ | 2023-06-02 00:00 | temperature_metric | 36.89 | C | | | | | | + + + +---------+ | 2023-06-02 00:00 | | 98.4 | F | | | temperature_standar | | | | | d | | | + + + +---------+ | 2023-06-02 00:00 | weight_metric | 73.9 | kg | + + + +---------+ | 2023-06-02 00:00 | weight_standard | 162.92 | lb | + + + +---------+"
--- OUTSIDE RECORDS SUMMARY | ~2023-07-04 | XMS | Continuity of Care Document ---
Demographics + + + | Address | [facility] [address] | | | [place] [address] | + + + | Preferred Language | Unknown | + + + | Marital Status | | + + + | Anglican Affiliation | Unknown | + + + | Race | White | + + + | Ethnic Group | Not or | + + + Author + + + | Author | [facility] | + + + | Organization | [facility] | + + + | Address | [address] [facility] | | | [place] [address] | + + + | Phone | | + + + Care Team Providers + + + + | Care Emblem Fuser Tender Name | Role | Phone | + [...] 00:00 | Influenza, High Dose | [facility] | | | Seasonal | | + + + + | 2019-08-03 00:00 | Influenza, High Dose | [facility] | | | Seasonal | | + + + + | 2019-08-03 00:00 | Influenza, High Dose | [facility] | | | Seasonal | | + + + + | 2023-01-02 00:00 | Influenza, High Dose | [facility] | | | Seasonal | | + + + + | 2023-01-10 00:00 | Influenza, High Dose | [facility] | | | Seasonal | | + + + + | 2023-01-17 00:00 | Influenza, High Dose | [facility] | | | Seasonal | | + + + + | 2023-06-02 00:00 | Influenza, High Dose | [facility] | | | Seasonal | | + + + + Medications + + + + | date | description | facility | + + + + | 2023-01-02 00:00 | HYDROCORTISONE | [facility] | + + + + | 2023-01-09 00:00 | POLYETHYLENE GLYCOL 3350 | [facility] | + + + + | 2023-01-09 00:00 | POLYETHYLENE GLYCOL 3350 | [facility] | + + + + | 2023-01-09 00:00 | POLYETHYLENE GLYCOL 3350 | [facility] | + + + + | 2023-01-10 00:00 | CARBOXYMETHYLCELLULOSE | [facility] | | | SODIUM | | + + + + | 2023-01-17 00:00 | CARBOXYMETHYLCELLULOSE | [facility] | | | SODIUM | | + + + + | 2023-06-02 00:00 | CARBOXYMETHYLCELLULOSE | [facility] | | | SODIUM | | + + + + | 2023-01-10 00:00 | DOCUSATE CALCIUM | [facility] | + + + + | 2023-01-17 00:00 | DOCUSATE CALCIUM | [facility] | + + + + | 2023-06-02 00:00 | DOCUSATE CALCIUM | [facility] | + + + + | 2023-01-02 00:00 | DOCUSATE SODIUM | [facility] | + + + + | 2023-01-10 00:00 | APIXABAN | [facility] | + + + + | 2023-01-17 00:00 | APIXABAN | [facility] | + + + + | 2023-06-02 00:00 | APIXABAN | [facility] | + + + + | 2023-01-02 00:00 | IPRATROPIUM/ALBUTEROL | [facility] | | | SULFATE | | + + + + | 2023-01-02 00:00 | IPRATROPIUM/ALBUTEROL | [facility] | | | SULFATE | | + + + + | 2023-01-02 00:00 | IPRATROPIUM/ALBUTEROL | [facility] | | | SULFATE | | + + + + | 2023-01-09 00:00 | IPRATROPIUM/ALBUTEROL | [facility] | | | SULFATE | | + + + + | 2023-01-09 00:00 | IPRATROPIUM/ALBUTEROL | [facility] | | | SULFATE | | + + + + | 2023-01-09 00:00 | IPRATROPIUM/ALBUTEROL | [facility] | | | SULFATE | | + + + + | 2023-01-02 00:00 | TIOTROPIUM BROMIDE | [facility] | + + + + | 2023-01-10 00:00 | TIOTROPIUM BROMIDE | [facility] | + + + + | 2023-01-17 00:00 | TIOTROPIUM BROMIDE | [facility] | + + + + | 2023-06-02 00:00 | TIOTROPIUM BROMIDE | [facility] | + + + + | 2021-02-17 00:00 | DOXYCYCLINE HYCLATE | [facility] | + + + + | 2021-02-17 00:00 | DOXYCYCLINE HYCLATE | [facility] | + + + + | 2021-02-17 00:00 | DOXYCYCLINE HYCLATE | [facility] | + + + + | 2023-01-02 00:00 | METFORMIN HCL | [facility] | + + + + | 2023-01-10 00:00 | METFORMIN HCL | [facility] | + + + + | 2023-01-17 00:00 | METFORMIN HCL | [facility] | + + + + | 2023-06-02 00:00 | METFORMIN HCL | [facility] | + + + + | 2023-01-02 00:00 | ATENOLOL | [facility] | + + + + | 2023-01-10 00:00 | ATENOLOL | [facility] | + + + + | 2023-01-17 00:00 | ATENOLOL | [facility] | + + + + | 2023-06-02 00:00 | ATENOLOL | [facility] | + + + + | 2023-01-02 00:00 | NITROGLYCERIN | [facility] | + + + + | 2023-01-10 00:00 | NITROGLYCERIN | [facility] | + + + + | 2023-01-17 00:00 | NITROGLYCERIN | [facility] | + + + + | 2023-06-02 00:00 | NITROGLYCERIN | [facility] | + + + + | 2023-01-09 00:00 | predniSONE | [facility] | + + + + | 2023-01-09 00:00 | predniSONE | [facility] | + + + + | 2023-01-09 00:00 | predniSONE | [facility] | + + + + | 2023-01-02 00:00 | ASPIRIN | [facility] | + + + + | 2023-01-10 00:00 | ASPIRIN | [facility] | + + + + | 2023-01-17 00:00 | ASPIRIN | [facility] | + + + + | 2023-06-02 00:00 | ASPIRIN | [facility] | + + + + | 2023-06-02 00:00 | CEFDINIR | [facility] | + + + + | 2023-01-02 00:00 | Fluticasone | [facility] | | | Propion/Salmeterol | | + + + + | 2023-01-10 00:00 | Fluticasone | [facility] | | | Propion/Salmeterol | | + + + + | 2023-01-17 00:00 | Fluticasone | [facility] | | | Propion/Salmeterol | | + + + + | 2023-06-02 00:00 | Fluticasone | [facility] | | | Propion/Salmeterol | | + + + + | 2023-01-02 00:00 | AMLODIPINE BESYLATE | [facility] | + + + + | 2023-01-10 00:00 | AMLODIPINE BESYLATE | [facility] | + + + + | 2023-01-17 00:00 | AMLODIPINE BESYLATE | [facility] | + + + + | 2023-06-02 00:00 | AMLODIPINE BESYLATE | [facility] | + + + + | 2023-01-02 00:00 | ALBUTEROL SULFATE | [facility] | + + + + | 2023-01-10 00:00 | ALBUTEROL SULFATE | [facility] | + + + + | 2023-01-17 00:00 | ALBUTEROL SULFATE | [facility] | + + + + | 2023-06-02 00:00 | ALBUTEROL SULFATE | [facility] | + + + + | 2019-08-05 00:00 | AMLODIPINE BESYLATE | [facility] | + + + + | 2019-08-05 00:00 | AMLODIPINE BESYLATE | [facility] | + + + + | 2019-08-05 00:00 | AMLODIPINE BESYLATE | [facility] | + + + + | 2023-01-02 00:00 | GABAPENTIN | [facility] | + + + + | 2023-01-09 00:00 | GABAPENTIN | [facility] | + + + + | 2023-01-09 00:00 | GABAPENTIN | [facility] | + + + + | 2023-01-09 00:00 | GABAPENTIN | [facility] | + + + + | 2023-01-10 00:00 | GABAPENTIN | [facility] | + + + + | 2023-01-17 00:00 | GABAPENTIN | [facility] | + + + + | 2023-06-02 00:00 | GABAPENTIN | [facility] | + + + + | 2023-01-10 00:00 | HYDROCORTISONE | [facility] | + + + + | 2023-01-17 00:00 | HYDROCORTISONE | [facility] | + + + + | 2023-06-02 00:00 | HYDROCORTISONE | [facility] | + + + + | 2019-08-05 00:00 | LISINOPRIL | [facility] | + + + + | 2019-08-05 00:00 | LISINOPRIL | [facility] | + + + + | 2019-08-05 00:00 | LISINOPRIL | [facility] | + + + + | 2017-02-15 00:00 | predniSONE | [facility] | + + + + | 2017-02-15 00:00 | predniSONE | [facility] | + + + + | 2017-02-15 00:00 | predniSONE | [facility] | + + + + | 2021-02-17 00:00 | predniSONE | [facility] | + + + + | 2021-02-17 00:00 | predniSONE | [facility] | + + + + | 2021-02-17 00:00 | predniSONE | [facility] | + + + + | 2021-06-05 00:00 | predniSONE | [facility] | + + + + | 2021-06-05 00:00 | predniSONE | [facility] | + + + + | 2021-06-05 00:00 | predniSONE | [facility] | + + + + | 2023-01-02 00:00 | predniSONE | [facility] | + + + + | 2023-01-09 00:00 | SENNOSIDES | [facility] | + + + + | 2023-01-09 00:00 | SENNOSIDES | [facility] | + + + + | 2023-01-09 00:00 | SENNOSIDES | [facility] | + + + + | 2023-01-09 00:00 | SIMETHICONE | [facility] | + + + + | 2023-01-09 00:00 | SIMETHICONE | [facility] | + + + + | 2023-01-09 00:00 | SIMETHICONE | [facility] | + + + + | 2023-01-09 00:00 | NICOTINE POLACRILEX | [facility] | + + + + | 2023-01-09 00:00 | NICOTINE POLACRILEX | [facility] | + + + + | 2023-01-09 00:00 | NICOTINE POLACRILEX | [facility] | + + + + | 2023-01-09 00:00 | LACTULOSE | [facility] | + + + + | 2023-01-09 00:00 | LACTULOSE | [facility] | + + + + | 2023-01-09 00:00 | LACTULOSE | [facility] | + + + + | 2023-01-02 00:00 | CARBOXYMETHYLCELLULOSE | [facility] | | | SODIUM | | + + + + | 2023-01-02 00:00 | IBUPROFEN | [facility] | + + + + | 2023-01-10 00:00 | IBUPROFEN | [facility] | + + + + | 2023-01-17 00:00 | IBUPROFEN | [facility] | + + + + | 2023-06-02 00:00 | IBUPROFEN | [facility] | + + + + | 2023-01-02 00:00 | ALBUTEROL SULFATE MDI | [facility] | | | (HFA) | | + + + + | 2023-01-10 00:00 | ALBUTEROL SULFATE MDI | [facility] | | | (HFA) | | + + + + | 2023-01-17 00:00 | ALBUTEROL SULFATE MDI | [facility] | | | (HFA) | | + + + + | 2023-06-02 00:00 | ALBUTEROL SULFATE MDI | [facility] | | | (HFA) | | + + + + | 2021-12-09 00:00 | AZITHROMYCIN | [facility] | + + + + | 2021-12-09 00:00 | AZITHROMYCIN | [facility] | + + + + | 2021-12-09 00:00 | AZITHROMYCIN | [facility] | + + + + | 2023-01-09 00:00 | BENZOCAINE/MENTHOL | [facility] | + + + + | 2023-01-09 00:00 | BENZOCAINE/MENTHOL | [facility] | + + + + | 2023-01-09 00:00 | BENZOCAINE/MENTHOL | [facility] | + + + + | 2021-12-09 00:00 | CYCLOBENZAPRINE HCL | [facility] | + + + + | 2023-01-09 00:00 | DILTIAZEM HCL | [facility] | + + + + | 2023-01-09 00:00 | DILTIAZEM HCL | [facility] | + + + + | 2023-01-09 00:00 | DILTIAZEM HCL | [facility] | + + + + | 2023-01-10 00:00 | IPRATROPIUM BROMIDE | [facility] | + + + + | 2023-01-17 00:00 | IPRATROPIUM BROMIDE | [facility] | + + + + | 2023-06-02 00:00 | IPRATROPIUM BROMIDE | [facility] | + + + + | 2023-01-02 00:00 | HYDROCODONE | [facility] | | | BIT/ACETAMINOPHEN | | + + + + | 2023-01-10 00:00 | HYDROCODONE | [facility] | | | BIT/ACETAMINOPHEN | | + + + + | 2023-01-17 00:00 | HYDROCODONE | [facility] | | | BIT/ACETAMINOPHEN | | + + + + | 2023-06-02 00:00 | HYDROCODONE | [facility] | | | BIT/ACETAMINOPHEN | | + + + + | 2023-01-02 00:00 | Rosuvastatin Calcium | [facility] | + + + + | 2023-01-10 00:00 | Rosuvastatin Calcium | [facility] | + + + + | 2023-01-17 00:00 | Rosuvastatin Calcium | [facility] | + + + + | 2023-06-02 00:00 | Rosuvastatin Calcium | [facility] | + + + + | 2023-01-02 00:00 | ROSUVASTATIN CALCIUM | [facility] | + + + + | 2023-01-10 00:00 | ROSUVASTATIN CALCIUM | [facility] | + + + + | 2023-01-17 00:00 | ROSUVASTATIN CALCIUM | [facility] | + + + + | 2023-06-02 00:00 | ROSUVASTATIN CALCIUM | [facility] | + + + + | 2023-01-02 00:00 | TAMSULOSIN HCL | [facility] | + + + + | 2023-01-09 00:00 | TAMSULOSIN HCL | [facility] | + + + + | 2023-01-09 00:00 | TAMSULOSIN HCL | [facility] | + + + + | 2023-01-09 00:00 | TAMSULOSIN HCL | [facility] | + + + + | 2023-01-10 00:00 | TAMSULOSIN HCL | [facility] | + + + + | 2023-01-17 00:00 | TAMSULOSIN HCL | [facility] | + + + + | 2023-06-02 00:00 | TAMSULOSIN HCL | [facility] | + + + + | 2019-08-05 00:00 | Nicotine Polacrilex | [facility] | + + + + | 2019-08-05 00:00 | Nicotine Polacrilex | [facility] | + + + + | 2019-08-05 00:00 | Nicotine Polacrilex | [facility] | + + + + Problems + + + + | date | description | facility | + + + + | 2014-06-23 00:00 | Abdominal pain | [facility] | + + + + | 2014-06-23 00:00 | Abdominal pain | [facility] | + + + + | 2014-06-23 00:00 | Abdominal pain | [facility] | + + + + | 2017-02-15 00:00 | Obstructive chronic | [facility] | | | bronchitis with | | | | exacerbation | | + + + + | 2017-02-15 00:00 | Obstructive chronic | [facility] | | | bronchitis with | | | | exacerbation | | + + + + | 2017-02-15 00:00 | Obstructive chronic | [facility] | | | bronchitis with | | | | exacerbation | | + + + + | 2018-11-12 00:00 | Urolithiasis | [facility] | + + + + | 2018-11-12 00:00 | Urolithiasis | [facility] | + + + + | 2018-11-12 00:00 | Urolithiasis | [facility] | + + + + | 2018-11-12 00:00 | Urinary tract infection | [facility] | + + + + | 2018-11-12 00:00 | Urinary tract infection | [facility] | + + + + | 2018-11-12 00:00 | Urinary tract infection | [facility] | + + + + | 2019-07-29 00:00 | Hypokalemia | [facility] | + + + + | 2019-07-29 00:00 | Hypokalemia | [facility] | + + + + | 2019-07-29 00:00 | Hypokalemia | [facility] | + + + + | 2019-07-29 00:00 | Contusion | [facility] | + + + + | 2019-07-29 00:00 | Contusion | [facility] | + + + + | 2019-07-29 00:00 | Contusion | [facility] | + + + + | 2019-07-29 00:00 | Fall | [facility] | + + + + | 2019-07-29 00:00 | Fall | [facility] | + + + + | 2019-07-29 00:00 | Fall | [facility] | + + + + | 2020-12-08 00:00 | Pneumonia | [facility] | + + + + | 2020-12-08 00:00 | Pneumonia | [facility] | + + + + | 2020-12-08 00:00 | Pneumonia | [facility] | + + + + | 2020-12-08 00:00 | Chronic obstructive | [facility] | | | pulmonary disease with | | | | acute exacerbation | | + + + + | 2020-12-08 00:00 | Chronic obstructive | [facility] | | | pulmonary disease with | | | | acute exacerbation | | + + + + | 2020-12-08 00:00 | Chronic obstructive | [facility] | | | pulmonary disease with | | | | acute exacerbation | | + + + + | 2021-02-15 00:00 | Acute exacerbation of | [facility] | | | chronic obstructive | | | | pulmonary disease | | + + + + | 2021-02-15 00:00 | Acute exacerbation of | [facility] | | | chronic obstructive | | | | pulmonary disease | | + + + + | 2021-02-15 00:00 | Acute exacerbation of | [facility] | | | chronic obstructive | | [...] + + + | 2021-06-03 19:53 | FDC (CURRENT) USE OF | [facility] | | | SYSTEMIC STEROIDS | | + + + + | 2021-06-03 19:53 | OPTIMIZATION ENGINEER (CURRENT) USE OF | [facility] | | | ASPIRIN | | + + + + | 2021-06-03 19:53 | OTHER OPTIMIZATION ENGINEER (CURRENT) | [facility] | | | DRUG [...] DISEASE OF | [facility] | | | [place] CORONARY ARTERY W/O | | + + [...] + + + | 2021-12-08 23:50 | OPTIMIZATION ENGINEER (CURRENT) USE OF | [facility] | | | SYSTEMIC STEROIDS | | + + + + | 2021-12-08 23:50 | OPTIMIZATION ENGINEER (CURRENT) USE OF | [facility] | | | ASPIRIN | | + + + + | 2021-12-08 23:50 | OTHER OPTIMIZATION ENGINEER (CURRENT) | [facility] | | | DRUG THERAPY | | + + + + | 2021-12-09 00:00 | New onset atrial | [facility] | | | fibrillation | | + + + + | 2021-12-09 00:00 | New onset atrial | [facility] | | | fibrillation | | + + + + | 2021-12-09 00:00 | New onset atrial | [facility] | | | fibrillation | | + + + + | 2021-12-09 00:00 | Infection due to severe | [facility] | | | acute respiratory syndrome | | | | coronavirus 2 (SARS-CoV-2) | | + + + + | 2021-12-09 00:00 | Infection due to severe | [facility] | | | acute respiratory syndrome | | | | coronavirus 2 (SARS-CoV-2) | | + + + + | 2021-12-09 00:00 | Infection due to severe | [facility] | | | acute respiratory syndrome | [...] DISEASE OF | [facility] | | | [place] CORONARY ART[place] W/O | | + + [...] + + + | 2023-01-02 11:49 | FDC (CURRENT) USE OF | [facility] | | | ASPIRIN | | + + + + | 2023-01-02 11:49 | FDC (CURRENT) USE OF | [facility] | | | ORAL HYPOGLYCEMIC DRUGS | | + + + + | 2023-01-02 11:49 | OTHER OPTIMIZATION ENGINEER (CURRENT) | [facility] | | | DRUG THERAPY | | + + + + | 2023-01-03 00:00 | Atrial fibrillation with | [facility] | | | rapid ventricular response | | + + + + | 2023-01-03 00:00 | Atrial fibrillation with | [facility] | | | rapid ventricular response | | + + + + | 2023-01-03 00:00 | Atrial fibrillation with | [facility] | | | rapid ventricular response | [...] DISEASE OF | [facility] | | | [place] CORONARY ARTERY W/O | | + + [...] + + + | 2023-01-03 14:01 | FDC (CURRENT) USE OF | [facility] | | | INHALED STEROIDS | | + + + + | 2023-01-03 14:01 | FDC (CURRENT) USE OF | [facility] | | | SYSTEMIC STEROIDS | | + + + + | 2023-01-03 14:01 | FDC (CURRENT) USE OF | [facility] | | | ASPIRIN | | + + + + | 2023-01-03 14:01 | OTHER OPTIMIZATION ENGINEER (CURRENT) | [facility] | | | DRUG [...] 00:00 | Encounter for medical | [facility] | | | screening examination | | + + + + | 2023-01-17 00:00 | Encounter for medical | [facility] | | | screening examination | | [...] DISEASE OF | [facility] | | | [place] CORONARY ARTERY W/O | | + + + + | 2023-06-02 08:32 | URINARY TRACT INFECTION, | [facility] | | | SITE NOT SPECIFIED | | + + + + | 2023-06-02 08:32 | OPTIMIZATION ENGINEER (CURRENT) USE OF | [facility] | | | ANTICOAGULANTS | | + + + + | 2023-06-02 08:32 | OPTIMIZATION ENGINEER (CURRENT) USE OF | [facility] | | | ORAL HYPOGLYCEMIC DRUGS | | + + + + | 2023-06-02 08:32 | OTHER FDC (CURRENT) | [facility] | | | DRUG [...]
[~2023-07-04 23:14] MED LIST changes: +CEFDINIR300 MG PO
[2023-07-05 03:00] VITALS: BP 106/53
== END 2023-07-05 03:05 | disposition home or self-care (01) ==
LOC: ED 23:14
DX: S80.11XA Contusion of right lower leg, initial encounter (principal); W01.0XXA Fall on same level from slipping, tripping and stumbling without subsequent striking against object, initial encounter; I10 Essential (primary) hypertension; E11.9 Type 2 diabetes mellitus without complications; I25.10 Atherosclerotic heart disease of native coronary artery without angina pectoris; E78.5 Hyperlipidemia, unspecified; J43.9 Emphysema, unspecified; F17.200 Nicotine dependence, unspecified, uncomplicated; Z95.0 Presence of cardiac pacemaker; Z79.899 Other long term (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; Z79.01 Long term (current) use of anticoagulants
CPT/HCPCS: 70450; 73552; 96374; 99284-25; J2270

== ENCOUNTER 2023-07-27 08:43 | Inpatient (IN) | payer OTHER ==
[2023-07-27] VITALS (23 sets, daily range): BP systolic 90–146; BP diastolic 30–798
[~2023-07-27] VITALS: Ht 175.3 cm; Wt 69.8 kg
--- OUTSIDE RECORDS SUMMARY | ~2023-07-27 | XMS | Continuity of Care Document ---
Demographics + + + | Address | [address] | | | [place] [address] | + + + | Preferred Language | Unknown | + + + | Marital Status | | + + + | Confucianism Affiliation | Unknown | + + + | Race | White | + + + | Ethnic Group | Not or | + + + Author + + + | Author | [place] | + + + | Organization | [facility] | + + + | Address | [address] | | | [place] [address] | + + + | Phone | | + + + Care Team Providers + + + + | Care Reversal Print Inspector Name | Role | Phone | + + + + Unavailable | Unavailable | + + + + Allergies No information. Encounters No information. Functional Status No information. Immunizations No information. Medications No information. Problems + + + + | date | description | facility | + + + + | 2023-06-02 [...] DISEASE OF | [facility] | | | [place] CORONARY ARTERY W/O | | + + + + | 2023-06-02 08:32 | URINARY TRACT INFECTION, | [facility] | | | SITE NOT SPECIFIED | | + + + + | 2023-06-02 08:32 | DETENTION (CURRENT) USE OF | [facility] | | | ANTICOAGULANTS | | + + + + | 2023-06-02 08:32 | LICENSED INVESTMENT SALES ASSISTANT (CURRENT) USE OF | [facility] | | | ORAL HYPOGLYCEMIC DRUGS | | + + + + | 2023-06-02 08:32 | OTHER LICENSED INVESTMENT SALES ASSISTANT (CURRENT) | [facility] | | | DRUG THERAPY | | + + + + | 2023-07-04 23:14 | TYPE 2 DIABETES MELLITUS | [facility] | | | WITHOUT COMPLICATIONS | | + + + + | 2023-07-04 23:14 | HYPERLIPIDEMIA, | [facility] | | | UNSPECIFIED | | + + + + | 2023-07-04 23:14 | NICOTINE DEPENDENCE, | [facility] | | | UNSPECIFIED, UNCOMPLICATED | | + + + + | 2023-07-04 23:14 | Essential (primary) | [facility] | | | hypertension | | + + + + | 2023-07-04 23:14 | ATHSCL HEART DISEASE OF | [facility] | | | [place] CORONARY ARTERY W/O | | + + + + | 2023-07-04 23:14 | EMPHYSEMA, UNSPECIFIED | [facility] | + + + + | 2023-07-04 23:14 | PAIN IN RIGHT LEG | [facility] | + + + + | 2023-07-04 23:14 | CONTUSION OF RIGHT LOWER | [facility] | | | LEG, INITIAL ENCOUNTER | | + + + + | 2023-07-04 23:14 | FALL SAME LEV FROM | [facility] | | | SLIP/TRIP W/O STRIKE | | | | AGAINST OB | | + + + + | 2023-07-04 23:14 | DETENTION (CURRENT) USE OF | [facility] | | | ANTICOAGULANTS | | + + + + | 2023-07-04 23:14 | OTHER DETENTION (CURRENT) | [facility] | | | DRUG THERAPY | | + + + + | 2023-07-04 23:14 | PRESENCE OF CARDIAC | [facility] | | | PACEMAKER | | + + + + | 2023-07-19 11:48 | ANEMIA, UNSPECIFIED | [facility] | + + + + | 2023-07-19 11:48 | HYPOKALEMIA | [facility] | + + + + | 2023-07-19 11:48 | NICOTINE DEPENDENCE, | [facility] | | | UNSPECIFIED, UNCOMPLICATED | | + + + + | 2023-07-19 11:48 | URINARY TRACT INFECTION, | [facility] | | | SITE NOT SPECIFIED | | + + + + | 2023-07-19 11:48 | DYSURIA | [facility] | + + + + | 2023-07-19 11:48 | DETENTION (CURRENT) USE OF | [facility] | | | ANTICOAGULANTS | | + + + + | 2023-07-19 11:48 | OTHER DETENTION (CURRENT) | [facility] | | | DRUG THERAPY | | + + + + Procedures No information. Results/Labs No information. Social History +--------+ + + | date | description | facility | +--------+ + + Vital Signs No information."
--- OUTSIDE RECORDS SUMMARY | ~2023-07-27 | XMS | Continuity of Care Document ---
Demographics + + + | Address | [address] | | | [place] [address] | + + + | Preferred Language | Unknown | + + + | Marital Status | | + + + | Hoahaoism Affiliation | Unknown | + + + | Race | White | + + + | Ethnic Group | Not or | + + + Author + + + | Author | [facility] | + + + | Organization | [facility] | + + + | Address | [address] | | | [place] [address] | + + + | Phone | | + + + Care Team Providers + + + + | Care Funeral Home Location Manager Name | Role | Phone | + [...] DISEASE OF | [facility] | | | [place] CORONARY ARTERY W/O | | + + + + | 2023-06-02 08:32 | URINARY TRACT INFECTION, | [facility] | | | SITE NOT SPECIFIED | | + + + + | 2023-06-02 08:32 | PRISON (CURRENT) USE OF | [facility] | | | ANTICOAGULANTS | | + + + + | 2023-06-02 08:32 | NATIONAL SALES ASSOCIATE (CURRENT) USE OF | [facility] | | | ORAL HYPOGLYCEMIC DRUGS | | + + + + | 2023-06-02 08:32 | OTHER NATIONAL SALES ASSOCIATE (CURRENT) | [facility] | | | DRUG [...] DISEASE OF | [facility] | | | [place] CORONARY ARTERY W/O | | + + [...] + + + | 2023-07-04 23:14 | PRISON (CURRENT) USE OF | [facility] | | | ANTICOAGULANTS | | + + + + | 2023-07-04 23:14 | OTHER PRISON (CURRENT) | [facility] | | | DRUG [...] + + + | 2023-07-19 11:48 | PRISON (CURRENT) USE OF | [facility] | | | ANTICOAGULANTS | | + + + + | 2023-07-19 11:48 | OTHER PRISON (CURRENT) | [facility] | | | DRUG THERAPY | | + + + + Procedures No information. Results/Labs No information. Social History +--------+ + + | date | description | facility | +--------+ + + Vital Signs No information."
[~2023-07-27 08:43] MED LIST changes: +CEPHALEXIN500 M1 PO; +PYRIDIUM200 MG PO
--- OUTSIDE RECORDS SUMMARY | 2023-07-27 08:46 | XMS ---
PreManage Notification: CRYSTAL GALVAN [facility] Events No recent Security Events currently on file CRITERIA MET - [facility] - 2 Visits in 30 Days CARE PROVIDERS Dot Escobar Technical Photographer/Professional Builder 05/27/2023-Current PHONE: [phone] Elian Plummer [place] [facility] [place] 08/13/2019-[facility] PHONE: [phone] NAREN Rangel, Registered 08/10/2019-[facility] PHONE: [phone] -Muriel- Dentist: Sandwich Artist [facility] PHONE: [phone] JAN BRIAN Milieu Counselor: Foot \T\ Ankle Surgery Current PHONE: [phone] SPEEDY AGUILAR Internal Medicine Current PHONE: [phone] MERON TIRADO Nurse Practitioner: Family Current PHONE: Unknown STEFANI SHIELDS Internal Medicine Current PHONE: [phone] KELVIN BELCHER Nurse Practitioner: Family Current PHONE: [phone] BRODY CRONIN Nurse Practitioner Current GREER PHONE: [phone] [facility] Current PHONE: Unknown MARYCARMEN SHAW Family [facility] Current PHONE: [phone] ANUSHA WEI Nurse Practitioner: Family Current PHONE: [phone] Gracie has no Care Guidelines for this patient. Care History Medical/Surgical 08/13/2019 [facility] - PATIENT IS A -RECEIVES SERVICES AT [facility] [place] VISIT COUNT (12 MO[address] [facility] NOTE: Visits indicate total known visits. ED/UCC VISIT TRACKING (12 MO.) 07/[facility]2023 08:[facility] [place] [facility] COMPLAINT: - RECTAL BLEEDING 07/19/2023 11:48 [facility]DA Navarro [place] TYPE: Emergency COMPLAINT: - FALL DIAGNOSES: - Anemia, unspecified - Dysuria - Hypokalemia - custodial (current) use of anticoagulants - Nicotine dependence, unspecified, uncomplicated - Other joint terminal attack controller (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 - Urinary tract infection, site not specified 07/04/2023 23:14 [facility]DA [facility] [place] TYPE: Emergency COMPLAINT: - WEAKNESS DIAGNOSES: - Atherosclerotic heart disease of [place] coronary artery without angina pectoris - Contusion of right lower leg, initial encounter - Emphysema, unspecified - Essential (primary) hypertension - Fall on same level from slipping, tripping and stumbling without subsequent striking against object, initial encounter - Hyperlipidemia, unspecified - joint terminal attack controller (current) use of anticoagulants - Nicotine dependence, unspecified, uncomplicated - Other joint terminal attack controller (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 - Pain in right leg - Presence of cardiac pacemaker - Type 2 diabetes mellitus without complications 06/02/2023 08:32 [facility] [place] TYPE: Emergency COMPLAINT: - DIFFICULTY URINATING DIAGNOSES: - Atherosclerotic heart disease of [place] coronary artery without angina pectoris - Essential (primary) hypertension - Hyperlipidemia, unspecified - custodial (current) use of anticoagulants - custodial (current) use of oral hypoglycemic drugs - Other joint terminal attack controller (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 - Type 2 diabetes mellitus without complications - Urinary tract infection, site not specified 01/17/2023 10:10 [facility] [place] TYPE: Emergency COMPLAINT: - CATHETER ISSUE 01/03/2023 10:45 [facility] Navarro [place] TYPE: Emergency COMPLAINT: - SHORTNESS OF BREATH 01/02/2023 11:49 [facility]DA Navarro [place] TYPE: Emergency COMPLAINT: - SHORTNESS OF BREATH DIAGNOSES: - Atherosclerotic heart disease of [place] coronary artery without angina pectoris - Chronic obstructive pulmonary disease with (acute) exacerbation - Contact with and (suspected) exposure to COVID-19 - Essential (primary) hypertension - Hyperlipidemia, unspecified - joint terminal attack controller (current) use of aspirin - custodial (current) use of oral hypoglycemic drugs - Nicotine dependence, unspecified, uncomplicated - Other joint terminal attack controller (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 - Shortness of breath - Type 2 diabetes mellitus without complications - Unspecified osteoarthritis, unspecified site INPATIENT VISIT TRACKING (12 MO.) 01/03/2023 14:01 ROLANDA Navarro [place] TYPE: Medical Surgical COMPLAINT: - ACUTE EXACERBATION OF COPD, ATRIAL FIB WITH RVR DIAGNOSES: - Acquired absence of other specified parts of digestive tract - Acquired absence of other specified parts of digestive tract - Acute and chronic respiratory failure with hypoxia - Acute and chronic respiratory failure with hypoxia - Atherosclerotic heart disease of [place] coronary artery without angina pectoris - Atherosclerotic heart disease of [place] coronary artery without angina pectoris - Benign prostatic hyperplasia with lower urinary tract symptoms - Benign prostatic hyperplasia with lower urinary tract symptoms - Chronic obstructive pulmonary disease with (acute) exacerbation - Chronic pain syndrome - Chronic pain syndrome - Constipation, unspecified - Contact with and (suspected) exposure to COVID-19 - Contact with and (suspected) exposure to COVID-19 - Do not resuscitate - Do not resuscitate - Emphysema, unspecified - Emphysema, unspecified - Essential (primary) hypertension - Essential (primary) hypertension - Hyperlipidemia, unspecified - Hyperlipidemia, unspecified - joint terminal attack controller (current) use of aspirin - joint terminal attack controller (current) use of aspirin - custodial (current) use of inhaled steroids - joint terminal attack controller (current) use of inhaled steroids - joint terminal attack controller (current) use of systemic steroids - joint terminal attack controller (current) use of systemic steroids - Nicotine dependence, cigarettes, uncomplicated - Nicotine dependence, cigarettes, uncomplicated - Other constipation - Other joint terminal attack controller (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 - Other joint terminal attack controller (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 - Other retention of urine - Other retention of urine - Other specified postprocedural states - Other specified postprocedural states - Personal history of pneumonia (recurrent) - Personal history of pneumonia (recurrent) - Presence of cardiac pacemaker - Presence of cardiac pacemaker - Type 2 diabetes mellitus without complications - Type 2 diabetes mellitus without complications - Unspecified atrial fibrillation - Unspecified atrial fibrillation - Unspecified osteoarthritis, unspecified site - Unspecified osteoarthritis, unspecified site [email or web address]
[2023-07-27 09:12] LABS: BASOPHILS 0.6 % (0-2); EOSINOPHILS 0.1 % (0-6); HEMATOCRIT 13.7 % (35.0-50.0); LYMPHOCYTES 8.3 % (24-44); MCH 32.6 (27-36); MCHC 33.3 g/dl (30-36); MCV 97.9 fl (81-99); MONOCYTES 6.4 % (0-12); NEUTROPHILS 84.6 % (39-80); PLATELET COUNT 305 K/uL (140-440); RDW 14.7 (10.5-15.0)
[2023-07-27 09:25] LABS: HEMOGLOBIN 4.5 g/dL (12.0-18.0); INR 1.39 (0.80-1.30); PROTIME 16.6 Sec (11.2-14.2)
[2023-07-27 09:35] LABS: ALBUMIN 1.8 g/dL (3.4-5.0); ALBUMIN/GLOBULIN RATIO 0.64 (1.1-2.4); BILIRUBIN, TOTAL 0.4 ng/dL (0.2-1.0); BUN/CREATININE RATIO 46.66 (6.0-28.6); CREATININE, SERUM 1.05 mg/dL (0.70-1.30); PROTEIN, TOTAL 4.6 g/dL (6.4-8.2)
[2023-07-27 09:55] LABS: ABO AB; RH POSITIVE
[2023-07-27 09:56] LABS: ANTIBODY SCREEN NEGATIVE; IS CROSSMATCH COMPATIBLE
[2023-07-27 09:58] LABS: ABO AB; RH POSITIVE
[2023-07-27 10:45] LABS: INFLUENZA B NAA NEGATIVE (NEGATIVE); RESPIRATORY SYNCYTIAL VIR NAA NEGATIVE (NEGATIVE)
[2023-07-27 15:06] LABS: BASOPHILS 0.8 % (0-2); EOSINOPHILS 0.3 % (0-6); HEMATOCRIT 18.7 % (35.0-50.0); HEMOGLOBIN 6.3 g/dL (12.0-18.0); LYMPHOCYTES 9.7 % (24-44); MCH 31.7 (27-36); MCHC 33.8 g/dl (30-36); MCV 93.7 fl (81-99); MONOCYTES 5.8 % (0-12); NEUTROPHILS 83.4 % (39-80); PLATELET COUNT 273 K/uL (140-440); RBC 1.99 M/ul (4.3-5.7); RDW 15.4 (10.5-15.0)
[2023-07-27 17:46] LABS: IS CROSSMATCH COMPATIBLE
--- NOTE | 2023-07-27 21:40 | EKG ---
[facility] [address] [place] [address] Signed Atrial fibrillation with rapid ventricular response Low voltage QRS Nonspecific ST and T wave abnormality Abnormal ECG When compared with ECG of 03-JAN-2023 11:01, Nonspecific T wave abnormality now evident in Inferior leads Nonspecific T wave abnormality now evident in Anterolateral leads Confirmed by Vamsi Hong MD () on 07/27/2023 9:40:19 PM Electronically Signed By: VAMSI HONG MD 07/27/23 2140 PATIENT NAME: CRYSTAL GALVAN Electrocardiogram DATE OF : 44 PHYSICIAN: VAMSI HONG MD REPORT #: [id number] REPORT IS CONFIDENTIAL AND NOT TO BE RELEASED WITHOUT AUTHORIZATION
[2023-07-28] VITALS (15 sets, daily range): BP systolic 102–121; BP diastolic 48–84
[2023-07-28 00:15] LABS: HEMOGLOBIN 7.7 g/dL (12.0-18.0)
[2023-07-28 00:18] LABS: BASOPHILS 0.9 % (0-2); HEMATOCRIT 22.5 % (35.0-50.0); LYMPHOCYTES 9.9 % (24-44); MCH 30.8 (27-36); MCV 90.7 fl (81-99); MONOCYTES 7.1 % (0-12); NEUTROPHILS 81.1 % (39-80); PLATELET COUNT 214 K/uL (140-440); RBC 2.48 M/ul (4.3-5.7); RDW 16.5 (10.5-15.0)
[2023-07-28 05:18] LABS: BILIRUBIN, URINE NEGATIVE (negative); BLOOD/HGB, URINE TRACE-I (Negative); KETONE, URINE NEGATIVE (Negative); LEUK ESTERASE, URINE SMALL (negative); NITRITE, URINE NEGATIVE (negative)
[2023-07-28 05:23] LABS: BACTERIA, URINE RARE /hpf (negative); CRYSTALS, URINE NONE SEEN (0-1+); EPITHELIAL CELLS, URINE SQUAMOUS 1+ /lpf (0-1+); WHITE BLOOD CELLS, URINE >50 /HPF (0-5)
[2023-07-28 05:24] LABS: CASTS, URINE NONE SEEN \\lpf; REFLEX CULTURE, URINE Yes (No)
[2023-07-28 05:35] LABS: BASOPHILS 0.3 % (0-2); EOSINOPHILS 1.9 % (0-6); HEMATOCRIT 24.2 % (35.0-50.0); HEMOGLOBIN 8.1 g/dL (12.0-18.0); LYMPHOCYTES 8.4 % (24-44); MCH 30.6 (27-36); MCHC 33.7 g/dl (30-36); MCV 90.7 fl (81-99); MONOCYTES 7.1 % (0-12); NEUTROPHILS 82.3 % (39-80); PLATELET COUNT 213 K/uL (140-440); RBC 2.66 M/ul (4.3-5.7); RDW 16.8 (10.5-15.0)
[2023-07-28 05:50] LABS: ALBUMIN 1.6 g/dL (3.4-5.0); ALBUMIN/GLOBULIN RATIO 0.57 (1.1-2.4); ANION GAP 10.9 (7-21); BILIRUBIN, TOTAL 0.7 ng/dL (0.2-1.0); BUN/CREATININE RATIO 29.62 (6.0-28.6); CALCIUM 7.5 mg/dL (8.5-10.1); CREATININE, SERUM 0.81 mg/dL (0.70-1.30); MAGNESIUM 1.6 mg/dL (1.8-2.4); POTASSIUM 2.9 mmol/L (3.5-5.1); PROTEIN, TOTAL 4.4 g/dL (6.4-8.2)
[2023-07-28 18:00] LABS: BASOPHILS 0.6 % (0-2); EOSINOPHILS 1.5 % (0-6); HEMOGLOBIN 9.6 g/dL (12.0-18.0); LYMPHOCYTES 7.5 % (24-44); MCH 30.6 (27-36); MCV 92.8 fl (81-99); MONOCYTES 3.6 % (0-12); NEUTROPHILS 86.8 % (39-80); PLATELET COUNT 249 K/uL (140-440); RBC 3.12 M/ul (4.3-5.7); RDW 17.1 (10.5-15.0)
[2023-07-29 04:49] VITALS: BP 121/65
[2023-07-29 06:04] LABS: BASOPHILS 0.5 % (0-2); EOSINOPHILS 1.1 % (0-6); HEMATOCRIT 24.2 % (35.0-50.0); LYMPHOCYTES 5.7 % (24-44); MCH 30.6 (27-36); MCV 92.7 fl (81-99); MONOCYTES 4.3 % (0-12); NEUTROPHILS 88.4 % (39-80); PLATELET COUNT 195 K/uL (140-440); RBC 2.61 M/ul (4.3-5.7); RDW 16.5 (10.5-15.0)
[2023-07-29 06:17] LABS: ALBUMIN 1.7 g/dL (3.4-5.0); ALBUMIN/GLOBULIN RATIO 0.61 (1.1-2.4); ANION GAP 8.6 (7-21); BILIRUBIN, TOTAL 0.6 ng/dL (0.2-1.0); BUN/CREATININE RATIO 17.24 (6.0-28.6); CALCIUM 7.5 mg/dL (8.5-10.1); CREATININE, SERUM 0.87 mg/dL (0.70-1.30); MAGNESIUM 1.7 mg/dL (1.8-2.4); PHOSPHORUS, INORGANIC 3.5 mg/dL (2.5-4.9); POTASSIUM 3.6 mmol/L (3.5-5.1); PROTEIN, TOTAL 4.5 g/dL (6.4-8.2)
[2023-07-29 10:20] VITALS: BP 116/63
[2023-07-29 13:07] VITALS: BP 147/62
[2023-07-29 13:28] VITALS: BP 101/52
[2023-07-29 13:33] LABS: BASOPHILS 0.7 % (0-2); EOSINOPHILS 1.7 % (0-6); HEMATOCRIT 25.4 % (35.0-50.0); HEMOGLOBIN 8.3 g/dL (12.0-18.0); LYMPHOCYTES 7.9 % (24-44); MCH 30.6 (27-36); MCHC 32.7 g/dl (30-36); MCV 93.4 fl (81-99); MONOCYTES 3.3 % (0-12); NEUTROPHILS 86.4 % (39-80); PLATELET COUNT 193 K/uL (140-440); RBC 2.72 M/ul (4.3-5.7); RDW 17.1 (10.5-15.0)
[2023-07-29 18:16] VITALS: BP 131/64
[2023-07-29 22:19] VITALS: BP 122/54
[2023-07-30 05:56] VITALS: BP 141/76
[2023-07-30 06:12] LABS: BASOPHILS 0.8 % (0-2); EOSINOPHILS 3.7 % (0-6); HEMATOCRIT 22.4 % (35.0-50.0); HEMOGLOBIN 7.4 g/dL (12.0-18.0); MCH 30.6 (27-36); MCHC 33.2 g/dl (30-36); MCV 92.3 fl (81-99); MONOCYTES 4.9 % (0-12); NEUTROPHILS 82.6 % (39-80); PLATELET COUNT 198 K/uL (140-440); RBC 2.43 M/ul (4.3-5.7); RDW 16.6 (10.5-15.0)
[2023-07-30 06:26] LABS: ALBUMIN 1.6 g/dL (3.4-5.0); ALBUMIN/GLOBULIN RATIO 0.57 (1.1-2.4); ANION GAP 9.3 (7-21); BILIRUBIN, TOTAL 0.4 ng/dL (0.2-1.0); BUN/CREATININE RATIO 16.43 (6.0-28.6); CALCIUM 7.6 mg/dL (8.5-10.1); CREATININE, SERUM 0.73 mg/dL (0.70-1.30); MAGNESIUM 1.9 mg/dL (1.8-2.4); POTASSIUM 3.3 mmol/L (3.5-5.1); PROTEIN, TOTAL 4.4 g/dL (6.4-8.2)
[2023-07-30] MEDS ORDERED: CEFPODOXIME PR200 MG PO (09:35)
[2023-07-30 09:39] VITALS: BP 127/62
== END 2023-07-30 09:45 | disposition home or self-care (01) | DRG 378 ==
LOC: ED 08:43 → MS 10:22 → CCU 10:22 → MS 07-28 09:20
PROVIDERS: Emergency Medicine; ADMIT Family Medicine; ATTEND Family Medicine
PROC: 30233N1 Transfusion of Nonautologous Red Blood Cells into Peripheral Vein, Percutaneous Approach (ICD-10-PCS; principal; 2023-07-27)
DX: K92.2 Gastrointestinal hemorrhage, unspecified (principal); D62 Acute posthemorrhagic anemia; J96.10 Chronic respiratory failure, unspecified whether with hypoxia or hypercapnia; N39.0 Urinary tract infection, site not specified; D68.9 Coagulation defect, unspecified; I48.91 Unspecified atrial fibrillation; E87.6 Hypokalemia; E11.65 Type 2 diabetes mellitus with hyperglycemia; E78.5 Hyperlipidemia, unspecified; F17.210 Nicotine dependence, cigarettes, uncomplicated; E83.39 Other disorders of phosphorus metabolism; E83.42 Hypomagnesemia; I25.10 Atherosclerotic heart disease of native coronary artery without angina pectoris; I10 Essential (primary) hypertension; M19.90 Unspecified osteoarthritis, unspecified site; J43.9 Emphysema, unspecified; H54.7 Unspecified visual loss; Z20.822 Contact with and (suspected) exposure to COVID-19; B95.7 Other staphylococcus as the cause of diseases classified elsewhere; B95.2 Enterococcus as the cause of diseases classified elsewhere; Z87.01 Personal history of pneumonia (recurrent); Z90.49 Acquired absence of other specified parts of digestive tract; Z98.890 Other specified postprocedural states; Z60.2 Problems related to living alone; Z95.0 Presence of cardiac pacemaker; Z79.2 Long term (current) use of antibiotics; Z79.899 Other long term (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; Z79.51 Long term (current) use of inhaled steroids; Z79.01 Long term (current) use of anticoagulants
CPT/HCPCS: 36415; 36430; 80053; 81001; 83036; 83735; 84100; 85025; 85060; 85610; 86850; 86900; 86901; 86922; 87088; 87502; 93005; 93010; 94640; 94762; 96374; 96375; 99285-25; A9270; C9113; C9803; J0696; J1200; J1815; J3475; J3480; J3490; J7060; J7121; J7168; P9016; U0002

== ENCOUNTER 2023-08-10 22:53 | Inpatient (IN) | payer OTHER, MEDICARE ==
[~2023-08-10] VITALS: Ht 175.3 cm; Wt 68.4 kg
[~2023-08-10 22:53] MED LIST changes: +CEFPODOXIME PR200 MG PO
--- OUTSIDE RECORDS SUMMARY | 2023-08-10 22:56 | XMS ---
PreManage Notification: CYRSTAL GALVAN Security Veterinarian Laboratory Animal Care Events No recent Security Events currently on file CRITERIA MET - [facility] - 2 Visits in 30 Days CARE PROVIDERS Dot Escobar Hairspring I Inspector/Bat Person 05/27/2023-Current PHONE: [phone] Elian Plummer [place] [facility] [place] 08/13/2019-[facility] PHONE: [phone] NAREN Rangel, Registered 08/10/2019-[facility] PHONE: [phone] -Muriel- Dentist: Electrician Third [facility] PHONE: [phone] JAN BRIAN Chemical Laboratory Assistant: Foot \T\ Ankle Surgery Current PHONE: [phone] SPEEDY AGUILAR Internal Medicine Current PHONE: [phone] MERON TIRADO Nurse Practitioner: Family Current PHONE: Unknown STEFANI SHIELDS Internal Medicine Current PHONE: [phone] KELVIN BELCHER Nurse Practitioner: Family Current PHONE: [phone] BRODY CRONIN Nurse Practitioner Current [facility] PHONE: [phone] [facility] Current PHONE: Unknown MARYCARMEN SHAW [facility] Current PHONE: [phone] ANUSHA WEI Nurse Practitioner: Family Current PHONE: [phone] Gracie has no Care Guidelines for this patient. Care History Medical/Surgical 08/13/2019 [facility] - PATIENT IS A -RECEIVES SERVICES AT [facility] [place] VISIT COUNT (12 MO.) 8 [facility] TOTAL 8 NOTE: Visits indicate total known visits. ED/UCC VISIT TRACKING (12 MO.) 08[facility]10/2023 22:53 [facility] [place] [facility] Emergency COMPLAINT: - BACK PAIN 07/27/2023 08:44 ROLANDA Navarro [place] TYPE: Emergency COMPLAINT: - RECTAL BLEEDING 07/19/2023 11:48 ROLANDA Navarro [place] TYPE: Emergency COMPLAINT: - FALL DIAGNOSES: - Anemia, unspecified - Dysuria - Hypokalemia - jail (current) use of anticoagulants - Nicotine dependence, unspecified, uncomplicated - Other computer terminal operator (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 - Urinary tract infection, site not specified 07/04/2023 23:14 ROLANDA Navarro [place] TYPE: Emergency COMPLAINT: - WEAKNESS DIAGNOSES: - Atherosclerotic heart disease of [place] coronary artery without angina pectoris - Contusion of right lower leg, initial encounter - Emphysema, unspecified - Essential (primary) hypertension - Fall on same level from slipping, tripping and stumbling without subsequent striking against object, initial encounter - Hyperlipidemia, unspecified - long term care administrator (current) use of anticoagulants - Nicotine dependence, unspecified, uncomplicated - Other computer terminal operator (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 - Pain in right leg - Presence of cardiac pacemaker - Type 2 diabetes mellitus without complications 06/02/2023 08:32 [facility]DA [facility]arro [place] TYPE: Emergency COMPLAINT: - DIFFICULTY URINATING DIAGNOSES: - Atherosclerotic heart disease of [place] coronary artery without angina pectoris - Essential (primary) hypertension - Hyperlipidemia, unspecified - long term care administrator (current) use of anticoagulants - jail (current) use of oral hypoglycemic drugs - Other computer terminal operator (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 - Type 2 diabetes mellitus without complications - Urinary tract infection, site not specified 01/17/2023 10:10 ROLANDA Navarro [place] TYPE: Emergency COMPLAINT: - CATHETER ISSUE 01/03/2023 10:45 R[facility]ANDA Navarro [place] TYPE: Emergency COMPLAINT: - SHORTNESS OF BREATH 01/02/2023 11:49 R[facility]DA Navarro [place] TYPE: Emergency COMPLAINT: - SHORTNESS OF BREATH DIAGNOSES: - Atherosclerotic heart disease of [place] coronary artery without angina pectoris - Chronic obstructive pulmonary disease with (acute) exacerbation - Contact with and (suspected) exposure to COVID-19 - Essential (primary) hypertension - Hyperlipidemia, unspecified - long term care administrator (current) use of aspirin - long term care administrator (current) use of oral hypoglycemic drugs - Nicotine dependence, unspecified, uncomplicated - Other computer terminal operator (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 - Shortness of breath - Type 2 diabetes mellitus without complications - Unspecified osteoarthritis, unspecified site INPATIENT VISIT TRACKING (12 MO.) 07/27/2023 10:[address] [facility] [place] TYPE: Medical Surgical COMPLAINT: - GI BLEED DIAGNOSES: - Acquired absence of other specified parts of digestive tract - Acquired absence of other specified parts of digestive tract - Acute posthemorrhagic anemia - Acute posthemorrhagic anemia - Atherosclerotic heart disease of [place] coronary artery without angina pectoris - Atherosclerotic heart disease of [place] coronary artery without angina pectoris - Chronic respiratory failure, unspecified whether with hypoxia or hypercapnia - Chronic respiratory failure, unspecified whether with hypoxia or hypercapnia - Coagulation defect, unspecified - Coagulation defect, unspecified - Contact with and (suspected) exposure to COVID-19 - Contact with and (suspected) exposure to COVID-19 - Emphysema, unspecified - Emphysema, unspecified - Enterococcus as the cause of diseases classified elsewhere - Enterococcus as the cause of diseases classified elsewhere - Essential (primary) hypertension - Essential (primary) hypertension - Gastrointestinal hemorrhage, unspecified - Hyperlipidemia, unspecified - Hyperlipidemia, unspecified - Hypokalemia - Hypokalemia - Hypomagnesemia - Hypomagnesemia - jail (current) use of antibiotics - long term care administrator (current) use of antibiotics - jail (current) use of anticoagulants - long term care administrator (current) use of anticoagulants - long term care administrator (current) use of inhaled steroids - jail (current) use of inhaled steroids - Nicotine dependence, cigarettes, uncomplicated - Nicotine dependence, cigarettes, uncomplicated - 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 - Other usp (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 - Other usp (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 - Other specified postprocedural states - Other specified postprocedural states - Other staphylococcus as the cause of diseases classified elsewhere - Other staphylococcus as the cause of diseases classified elsewhere - Personal history of pneumonia (recurrent) - Personal history of pneumonia (recurrent) - Presence of cardiac pacemaker - Presence of cardiac pacemaker - Problems related to living alone - Problems related to living alone - Type 2 diabetes mellitus with hyperglycemia - Type 2 diabetes mellitus with hyperglycemia - Unspecified atrial fibrillation - Unspecified atrial fibrillation - Unspecified osteoarthritis, unspecified site - Unspecified osteoarthritis, unspecified site - Unspecified visual loss - Unspecified visual loss - Urinary tract infection, site not specified - Urinary tract infection, site not specified 01/03/2023 14:01 [facility]arro [place] TYPE: Medical Surgical COMPLAINT: - ACUTE EXACERBATION OF COPD, ATRIAL FIB WITH RVR DIAGNOSES: - Acquired absence of other specified parts of digestive tract - Acquired absence of other specified parts of digestive tract - Acute and chronic respiratory failure with hypoxia - Acute and chronic respiratory failure with hypoxia - Atherosclerotic heart disease of [place] coronary artery without angina pectoris - Atherosclerotic heart disease of [place] coronary artery without angina pectoris - Benign [...] - Hyperlipidemia, unspecified - Hyperlipidemia, unspecified - long term care administrator (current) use of aspirin - long term care administrator (current) use of aspirin - jail (current) use of inhaled steroids - long term care administrator (current) use of inhaled steroids - long term care administrator (current) use of systemic steroids - jail (current) use of systemic steroids - Nicotine dependence, cigarettes, uncomplicated - Nicotine dependence, cigarettes, uncomplicated - Other constipation - Other usp (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 - Other usp (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 - Other retention of [...] unspecified site - Unspecified osteoarthritis, unspecified site [email or web address]
[2023-08-11 00:49] LABS: BASOPHILS 0.3 % (0-2); EOSINOPHILS 0.6 % (0-6); HEMATOCRIT 29.4 % (35.0-50.0); HEMOGLOBIN 9.5 g/dL (12.0-18.0); LYMPHOCYTES 1.6 % (24-44); MCH 30.1 (27-36); MCHC 32.4 g/dl (30-36); MCV 92.7 fl (81-99); MONOCYTES 3.2 % (0-12); NEUTROPHILS 94.3 % (39-80); PLATELET COUNT 356 K/uL (140-440); RBC 3.17 M/ul (4.3-5.7); RDW 16.4 (10.5-15.0)
[2023-08-11 01:01] LABS: ALBUMIN 2.5 g/dL (3.4-5.0); ALBUMIN/GLOBULIN RATIO 0.71 (1.1-2.4); ANION GAP 10.1 (7-21); BILIRUBIN, TOTAL 0.6 ng/dL (0.2-1.0); BUN/CREATININE RATIO 14.15 (6.0-28.6); CALCIUM 8.3 mg/dL (8.5-10.1); CREATININE, SERUM 1.13 mg/dL (0.70-1.30); POTASSIUM 4.1 mmol/L (3.5-5.1)
[2023-08-11 01:08] LABS: BILIRUBIN, URINE NEGATIVE (negative); BLOOD/HGB, URINE LARGE (Negative); KETONE, URINE NEGATIVE (Negative); LEUK ESTERASE, URINE MODERATE (negative); NITRITE, URINE POSITIVE (negative)
[2023-08-11 01:16] LABS: BACTERIA, URINE 1+ /hpf (negative); COLLECTION TYPE, URINE CLEAN CATCH; EPITHELIAL CELLS, URINE SQUAMOUS 1+ /lpf (0-1+); REFLEX CULTURE, URINE Yes (No); WHITE BLOOD CELLS, URINE >50 /HPF (0-5)
[2023-08-11] MEDS ORDERED: DILTIAZEM 24HR120 MG PO (02:15)
[2023-08-11] MEDS ORDERED: CIPRO500 MG PO (02:15)
[2023-08-11 06:43] VITALS: BP 117/52
--- NOTE | 2023-08-11 07:25 | NUR ---
REPORT RECIEVED FROM BREAKER HAND. PT RESTING IN BED. BREATHS EVEN AND UNLABORED. O2 VIA NC IN PLACE. CALL LIGHT WITHIN REACH
--- NOTE | 2023-08-11 08:50 | NUR ---
ASSESSMENT COMPLETE. PT REQUESTING US TO CALL HIS NIECE TO TELL HER HE WAS ADMITTED TO THE HOSPITAL. THIS RN CALLS AND UPDATES FAMILY. PT DENIES OTHER NEEDS AT THIS TIME. CALL LIGHT GIVEN. WARM BLANKET PROVIDED.
--- NOTE | 2023-08-11 09:34 | NUR ---
PT REQUESTS BREATHING TREATMENT. ORDER RECEIVED FROM . RT CALLED. TREATMENT COMPLETED. PT HELPED FROM SITTING ON BEDSIDE BACK TO LAYING DOWN. BREAKFAST TRAY CLEARED. CALL LIGHT GIVEN., NO OTHER NEEDS AT THIS TIME.
[2023-08-11 10:06] VITALS: BP 118/53
--- NOTE | 2023-08-11 10:21 | NUR ---
DR. HONG IN ROOM TO ROUND. DISCUSSED CODE STATUS. PT DECIDES ON FULL CODE/DNI PT DENIES NEEDS AT THIS TIME. CALL LIGHT GIVEN. WARM BLANKET GIVEN.
--- NOTE | 2023-08-11 10:44 | NUR ---
medications reconciled
--- NOTE | 2023-08-11 11:26 | NUR ---
PT REQUESTING TO USE BEDSIDE COMMODE. PT VERY RESISTANT TO RN AND JEWELRY SALES REPRESENTATIVE HELP. DISCUSSED FALL RISK AND CALLING FOR HELP BEFORE AMBULATING. PT RELUCTANT BUT EVENTUALLY AGREEABLE TO HELP. CALL LIGHT GIVEN. PT MEDICATED FOR NAUSEA.
--- NOTE | 2023-08-11 11:44 | NUR ---
PT BACK IN BED. SBA WITH CANE. PT UNABLE TO HAVE A BOWEL MOVEMENT BUT IS PASSING GAS. CALL LIGHT GIVEN. BELONGINGS MOVED CLOSER TO PT PER REQUEST
--- NOTE | 2023-08-11 12:03 | NUR ---
PT APPEARED TO BE SLEEPING. DID NOT ROUSE TO MY KNOCK OR MY PRESENCE IN ROOM. LEFT GUIDEPOST WITH PRAYER CARD AND CONTACT CARD. PRAYED FOR CONGREGATIONAL OF STRENGTH IN BODY AND IN SPIRIT.
--- NOTE | 2023-08-11 12:07 | NUR ---
PT REQUESTING SOMETHING FOR HEARTBURN. NIO INPUT
--- NOTE | 2023-08-11 12:30 | NUR ---
Spoke with Lidia. He is a readmission for pyelonephrities and acute urinary retention. He is a . He uses a state paid cg. He could apply for a [facility]. I attempted to discuss filling out a GEC for this pt. Pt becomes angry and states he will speak with the [facility]. He does not want any assistance. I let him know, they usually require a GEC. He loudly states, "NO". He also declines placement and plans on dc to his home. He states he just does not feel well. His back hurts. He uses a walker, cane, and scooter. He takes his meds without assist. He is nearly blind, but uses a system of am meds on one shelf, and pm meds on the second shelf. He denies needs at this time.
--- NOTE | 2023-08-11 12:41 | NUR ---
LUNCH TRAY SET UP FOR PATIENT. PATIENT REPORTED, "IF I DON'T LIKE IT, I WON'T EAT IT." EVENING MEAL AND OPTIONAL FOOD CHOICES REVIEWED WITH PATIENT. PATIENT ENDORSED THAT HE THOUGHT DINNER SOUNDED GOOD.
--- NOTE | 2023-08-11 12:51 | NUR ---
UR NOTE: MEETS FOR URINARY TRACT INFECTION OBSERVATION
[2023-08-11 13:15] VITALS: BP 124/68
--- NOTE | 2023-08-11 13:46 | NUR ---
PRESLEY GAYLE GETS PT TO COMMODE. PT GIVEN CALL LIGHT. PT REPORTS HAVING GAS BUT NO BM YET
--- NOTE | 2023-08-11 13:58 | NUR ---
PT BACK TO BED. CALL LIGHT AND BELONGINGS IN REACH
--- NOTE | 2023-08-11 16:49 | NUR ---
PT HAVING BREATHING TREATMENT AND HAS 600 ML GREEN/BROWN EMESIS. PT REPORTS NAUSEA AND THAT HE HASNT HAD A BOWEL MOVEMENT IN "MAYBE 3 DAYS". PT'S ABD IS TENDER WHEN PALPATED. BOWEL TONES ACTIVE. MD NOTIFIED. KUB ORDERED.
--- NOTE | 2023-08-11 17:22 | NUR ---
PT UP TO COMMODE TO TRY AND HAVE A BOWEL MOVEMENT. SUPP PLACED PRIOR. SEE EMAR.
--- NOTE | 2023-08-11 17:46 | NUR ---
PT BACK UP TO COMMODE. CALL LIGHT GIVEN
[2023-08-11 18:35] VITALS: BP 101/72
--- NOTE | 2023-08-11 19:05 | NUR ---
PATIENT UP TO COMMODE WITH 1PA TO TRY AND HAVE A BM.
--- NOTE | 2023-08-11 19:30 | NUR ---
IN TO THE ROOM TO ANSWER PATIENT'S CALL LIGHT. ARIANA CARE ASSISTED. PATIENT USED THE COMMODE AND HAD A MEDIUM FORMED BM. PATIENT IS BACK IN BED. WARM BLANKET X2 PROVIDED. ICE WATER REFILLED. NO FURTHER NEEDS AT THIS TIME.
--- NOTE | 2023-08-11 19:35 | NUR ---
REPORT RECEIVED FROM DAY SHIFT RN. PT UP TO BSC WITH ADMINISTRATIVE SPECIALIST ASSIST. DENIES NURSING NEEDS.
[2023-08-11 22:15] VITALS: BP 131/88
--- NOTE | 2023-08-11 22:48 | NUR ---
CANCER PROGRAM CONSULTANT REPORTS PT HAD 400 ML DARK GREENISH BROWN EMESIS. PT REPORTS FEELING BETTER AFTER EMESIS. PRN FOR N/V ADMIN PER EMAR. SCHEDULED MEDS ADMIN PER EMAR. EVENING ASSESSMENT COMPLETE. PT DENIES PAIN. IVF INFUSING PER ORDER. ÁLVAREZ PATENT. CONGESTED COUGH NOTED. PT REPORTS SLIGHT SOB. RT IN ROOM FOR BREATHING TX. 3L/NC AND CPOX IN PLACE. SpO2 LOW 90'S. LUNGS DIM THROUGHOUT. ASSISTED TO REPOSITION IN BED. WARM BLANKETS PROVIDED. PT DENIES QUESTIONS OR CONCERNS. CALL LIGHT IN REACH.
--- NOTE | 2023-08-11 22:56 | NUR ---
PATIENT CALLED TO USE THE TOILET. SBA. PATIENT STATED "HAD A VERY LITTLE BM". PATIENT IS BACK IN BED. NO OTHER NEEDS AT THIS TIME.
--- NOTE | 2023-08-12 00:06 | NUR ---
PT WITH 3L/NC IN PLACE. SpO2 MID 80'S. PT OXYGEN TITRATED TO 10L/OM. WHEN PT AWAKE TAKING DEEP BREATHS THROUGH NOSE OXYGEN WAS 90%, WHEN PT DOZED OFF SpO2 MID 80'S. LUNGS DIM. HR 100'S. RESPIRATIONS EVEN. 2PA TO REPOSITION IN BED. MD NOTIFIED. NEW TELEPHONE ORDERS RECEIVED VERIFIED WITH READBACK METHOD.
--- NOTE | 2023-08-12 00:25 | NUR ---
VAPOTHERM 25L/70% FiO2 PLACED BY RT. PT RESTING IN BED WITH EYES CLOSED. SPO2 93%. HR LOW 100'S.
[2023-08-12 01:25] VITALS: BP 130/53
--- NOTE | 2023-08-12 01:59 | NUR ---
VS AND I&O OBTAINED. PT DENIES PAIN OR NAUSEA AT THIS TIME. RT IN TO TITRATE VAPOTHERM TO 25L/50% FiO2. SpO2 HIGH 90'S. HR LOW 100'S. SCD'S PLACED PER ORDER. ASSESSMENT UNCHANGED. PT DENIES NEEDS. CALL LIGHT IN REACH.
--- NOTE | 2023-08-12 04:46 | NUR ---
PT RESTING IN BED WITH EYES CLOSED. RESPIRATIONS EVEN. CALL LIGHT IN REACH.
[2023-08-12 05:45] VITALS: BP 111/63
--- NOTE | 2023-08-12 06:07 | NUR ---
PT RESTING IN BED WITH EYES CLOSED. AWAKENS EASILY. VS AND I&O OBTAINED. PT DENIES PAIN OR NAUSEA. VAPOTHERM IN PLACE. ÁLVAREZ PATENT WITH QS YELLOW URINE. PT DENIES NEEDS. CALL LIGHT IN REACH.
[2023-08-12 06:10] LABS: BASOPHILS 0.6 % (0-2); EOSINOPHILS 1.5 % (0-6); HEMATOCRIT 24.6 % (35.0-50.0); LYMPHOCYTES 8.3 % (24-44); MCH 30.4 (27-36); MCHC 32.7 g/dl (30-36); MCV 93.2 fl (81-99); MONOCYTES 4.8 % (0-12); NEUTROPHILS 84.8 % (39-80); PLATELET COUNT 281 K/uL (140-440); RBC 2.64 M/ul (4.3-5.7); RDW 16.8 (10.5-15.0)
[2023-08-12 06:27] LABS: ALBUMIN 1.9 g/dL (3.4-5.0); ALBUMIN/GLOBULIN RATIO 0.66 (1.1-2.4); ANION GAP 6.9 (7-21); BILIRUBIN, TOTAL 0.3 ng/dL (0.2-1.0); BUN/CREATININE RATIO 21.17 (6.0-28.6); CALCIUM 8.1 mg/dL (8.5-10.1); CREATININE, SERUM 0.85 mg/dL (0.70-1.30); MAGNESIUM 1.9 mg/dL (1.8-2.4); PHOSPHORUS, INORGANIC 3.2 mg/dL (2.5-4.9); POTASSIUM 3.9 mmol/L (3.5-5.1); PROTEIN, TOTAL 4.8 g/dL (6.4-8.2)
--- NOTE | 2023-08-12 07:29 | NUR ---
REPORT RECIEVED FROM NGUYEN DE GUZMAN. PT RESTING WITH EYES CLOSED. VAPO THERM SET AT 25\50. ÁLVAREZ DRAINING.
--- NOTE | 2023-08-12 08:30 | NUR ---
PT SITTING UP IN BED EATING BREAKFAST. ASSISTED WITH SEASONING AND COFFEE PT CAN'T SEE HIS FOOD WELL. STUDENT RN CHON FLUSHED UNUSED IV, WNL. ASSESS COMPLETE. LUNGS VERY WHEEZY, RT AWARE, NEB ORDERED. PT DECLINED BLINDS OPEN DUE TO SIGHT. CALL LIGHT IN REACH.
[2023-08-12 10:10] VITALS: BP 134/60
--- NOTE | 2023-08-12 10:11 | NUR ---
PATIENT IN BED WATCHING TV. VITALS AND I&O'S CHARTED. PATIENT WANTS TO SHOWER LATER TODAY. CALL LIGHT IN REACH. BED ALARM ON. NO FURTHER NEEDS AT THIS TIME.
--- NOTE | 2023-08-12 11:21 | NUR ---
PT SITTING UP IN CHAIR AFTER A BED BATH WITH STUDENT NGUYEN GIVENS. PT GIVEN TWO CUPS OF ICE PER REQUEST.
--- NOTE | 2023-08-12 12:00 | NUR ---
ASSESSED BS WITH ORALIA CEDILLO. PT WILL RECIEVE ONE UNIT WHEN LUNCH TRAY ARRIVES.
--- NOTE | 2023-08-12 13:29 | NUR ---
PT APPEARED TO BE SLEEPING. DID NOT ROUSE TO MY KNOCK. LEFT PRAYER CARD. PRAYED FOR EPISCOPAL AND ABIDING PEACE.
[2023-08-12 14:09] VITALS: BP 132/73
--- NOTE | 2023-08-12 14:30 | NUR ---
PT CALLED TO GET BACK INTO BED. VS AND ASSESSMENT COMPLETE. STAYED AND HAD A LENGTHY CONVERSATION REGARDING HIS LIFE. PT GETTING DROWSY.
--- NOTE | 2023-08-12 15:50 | NUR ---
ASSESSED BS WITH STUDENT RN. NEEDS ONE UNIT BUT LUNCH TRAYS NOT HERE YET. NGUYEN BROCK WILL GIVE
--- NOTE | 2023-08-12 16:00 | NUR ---
Update from Dr. Meehan. No change in plan for pt at this time. No dc today.
--- NOTE | 2023-08-12 16:58 | NUR ---
bs 151, 1 unit insulin given. pt requests breathing treatment. rt called.
--- NOTE | 2023-08-12 17:56 | NUR ---
PT SITTING AT BEDSIDE TO EAT DINNER. PT IS PLEASED WITH DINNER OPTIONS TONIGHT. PT TO CALL WHEN FINISHED.
[2023-08-12 18:22] VITALS: BP 123/71
--- NOTE | 2023-08-12 18:23 | NUR ---
PATIENT SITTING UP IN BED WATCHING TV. VITALS AND I&O'S CHARTED. CALL LIGHT IN REACH. BED ALARM ON. NO FURTHER NEEDS AT THIS TIME.
--- NOTE | 2023-08-12 19:22 | NUR ---
REPORT RECEIVED FROM DAY SHIFT RN. PT LYING IN BED RESTING WITH EYES CLOSED. RESPIRATIONS EVEN. VAPOTHERM 25L/30% FiO2 IN PLACE. SpO2 92% HR 70'S. WHITE BOARD UPDATED. CALL LIGHT IN REACH.
--- NOTE | 2023-08-12 20:50 | NUR ---
In with pt for med administration and VS. Pt is asleep, and did not wake until I started cleaning a finger with an alcohol prep pad. Pt was oriented and made appropriate requests for a warm blanket and fresh cup of ice with a little bit of water. Pt's television was on with the volume up very loud, which may have contributed to his inability to hear me calling his name, initially. VSS, IV fluids running through patent IV. CBG 139 which required no insulin at this time. Warm blankets provided. Call light in reach.
[2023-08-12 20:59] VITALS: BP 126/49
--- NOTE | 2023-08-12 21:55 | NUR ---
PT RESTING WITH EYES CLOSED. AWAKENS TO TOUCH. ALERT AND ORIENTED. DENIES PAIN OR NAUSEA. DENIES SOB AT THIS TIME. VAPOTHERM IN PLACE AT 25L/70% FiO2. SpO2 99%. LUNG DIM THROUGHOUT. ÁLVAREZ POSITIONAL WITH 525 CLEAR YELLOW URINE. PT REPORTS HE IS RESTING COMFORTABLY. DENIES NEEDS. CALL LIGHT IN REACH.
--- NOTE | 2023-08-13 01:20 | NUR ---
CALL LIGHT ANSWERED. PT REPORTS SOB. SCATTERED WHEEZES AUSCULTATED. RT IN FOR BREATHING TX. PT REPORTS BREATHING IMPROVED. 2PA TO REPOSITION IN BED. HOB ELEVATED. ICE CREAM PROVIDED PER REQUEST. NO FURTHER NEEDS.
--- NOTE | 2023-08-13 04:30 | NUR ---
CPOX ALARMING, SPO2 SHOWS SATS IN THE MID TO LOW 80'S. NEW SPO2 FINGER PROBE IN PLACE AND GOOD PLETH NOTED. pt HAS VAPOTHERM TUBING OUT OF NARES, TUBING BACK IN PLACE AND SPO2 QUICKLY RETURNED AND SUSTAINED IN THE LOW 90'S, NO CHANGE TO VAPOTHERM SETTINGS. PRIMARY RN AWARE AND pt EDUCATED TO KEEP O2 IN PLACE, pt VERBALIZED UNDERSTANDING. UPON ENTERING ROOM, pt WAS RESTING IN BED WITH EYES CLOSED, RR EVEN AND UNLABORED. APPEARED O2 TUBING WAS ACCIDENETLY PULLED FROM NARES. CALL LIGHT IN REACH, pt DENIES ADDITIONAL NEEDS OR CONCERNS WHEN ASKED.
--- NOTE | 2023-08-13 04:48 | NUR ---
PT RESTING IN BED WITH EYES CLOSED. RESPIRATIONS EVEN. SpO2 99% WITH VAPOTHERM IN PLACE. HR 70'S. CALL LIGHT IN REACH.
[2023-08-13 05:23] VITALS: BP 115/54
[2023-08-13 05:36] LABS: PH, VENOUS 7.475 (7.31-7.41)
[2023-08-13 05:42] LABS: BASOPHILS 0.7 % (0-2); EOSINOPHILS 6.8 % (0-6); HEMATOCRIT 23.5 % (35.0-50.0); HEMOGLOBIN 7.6 g/dL (12.0-18.0); MCH 30.1 (27-36); MCHC 32.4 g/dl (30-36); MCV 92.8 fl (81-99); MONOCYTES 4.1 % (0-12); NEUTROPHILS 78.4 % (39-80); PLATELET COUNT 243 K/uL (140-440); RBC 2.53 M/ul (4.3-5.7); RDW 16.4 (10.5-15.0)
--- NOTE | 2023-08-13 05:54 | NUR ---
PT RESTING WITH EYES CLOSED. AWAKENS EASILY. VS AND I&O OBTAINED. PT DENIES NEEDS AT THIS TIME.
[2023-08-13 05:56] LABS: ALBUMIN 1.7 g/dL (3.4-5.0); ALBUMIN/GLOBULIN RATIO 0.57 (1.1-2.4); ANION GAP 8.9 (7-21); BILIRUBIN, TOTAL 0.3 ng/dL (0.2-1.0); BUN/CREATININE RATIO 16.45 (6.0-28.6); CALCIUM 7.6 mg/dL (8.5-10.1); CREATININE, SERUM 0.79 mg/dL (0.70-1.30); POTASSIUM 3.9 mmol/L (3.5-5.1); PROTEIN, TOTAL 4.7 g/dL (6.4-8.2)
--- NOTE | 2023-08-13 09:16 | NUR ---
PATIENT SITTING UP AT EDGE OF BED EATING BREAKFAST, VAPOTHERM IN PLACE 25 L WITH FIO2 70%, LUNGS DIM THROUGHOUT. ADMINISTERED MORNING MEDICATIONS. FULL BODY ASSESSMENT DONE. PATIENT OKAY WITH TAKING MIRALAX FOR STOOL SOFTENER, NIO ORDER PLACED.
--- NOTE | 2023-08-13 09:35 | NUR ---
REPORT RECEIVED FROM NGUYEN ROMAN.
[2023-08-13 10:17] VITALS: BP 133/69
--- NOTE | 2023-08-13 10:20 | NUR ---
IN TO ADMINISTER MEDICATION, SEE MAR. PT TAKES MIRALAX WITH APPLE JUICE WITH NO ISSUES. PRESLEY GAYLE IN ROOM OBTAINING VITALS AND I&Os. PT DENIES ANY OTHER NEEDS AT THIS TIME. CALL LIGHT IN REACH.
--- NOTE | 2023-08-13 11:19 | NUR ---
PT APPEARED TO BE ASLEEP. DID NOT DISTURB. PRAYED FOR YAZIDI OF STRENGTH AND ABIDING PEACE.
--- NOTE | 2023-08-13 11:45 | NUR ---
Spoke with Hussein. He is very tired. He remains on high flow 02. Pt stating he wants to go home. We discussed that is not possible when he is on high flow 02. He again is refusing to consider placement. He also does not want [facility] with the [facility] to check for further care[facility]. I called Dot from [facility] after our visit. Message left asking it pt can be reevaluated for more cg hours in the home.
--- NOTE | 2023-08-13 11:49 | NUR ---
SPOKE WITH DR. HONG REGARDING PAIN. DILAUDID 0.25 MG IV x1 NOW, VORB DR. HONG/Umang GUNDERSON RN.
--- NOTE | 2023-08-13 13:07 | NUR ---
PATIENT FINISHED LUNCH, ATE 40% LUNCH. PATIENT BREATHING EASY, RR EVEN AND REGULAR. NOTED EXPIRATORY WHEEZE IN UPPPER LOBES THAT RESOLVES WITH COUGH AND DEEP BREATHING. PATIENT USING ACAPELLA. CURRENTLY ON VAPOTHERM 25L AT 50% FIO2, 02 SAT 98%. ASSISTED PATIENT TO REST BACK IN BED. ADMINISTERED STOOL SOFTENERS PER DEC. ÁLVAREZ DRAINING YELLOW URINE, ADEQUATE VOLUME NOTED. NO OTHER NEEDS AT THIS TIME. CALL LIGHT WITHIN REACH.
[2023-08-13 13:17] VITALS: BP 149/80
--- NOTE | 2023-08-13 15:24 | NUR ---
Received a call from Dot from [facility]. She will see this pt tomorrow to evaluate for increased CG hours.
--- NOTE | 2023-08-13 15:26 | NUR ---
PATIENT RESTING BACK IN BED. O2 SAT 98% ON VAPOTHERM. PROVIDED PATIENT WITH WARM BLANKET AND ICE CHIPS. PATIENT BREATHING EVEN AND REGULAR, DIMINISHED BREATH SOUNDS THROUGHOUT. ENCOURAGED PATIENT TO COUGH AND DEEP BREATHE, APPEARS TO TRY WITH BEING ABLE TO PROVIDE AT LEAST TWO COUGHS WITH DEEP BREATHS.
--- NOTE | 2023-08-13 16:06 | NUR ---
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
--- NOTE | 2023-08-13 16:18 | NUR ---
PATIENT ABDOMEN APPEARS FIRM, STATES " IT HURTS WHEN I PRESS ON IT" PATIENT APPEARS RESTLESS. DISCUSSED RECENT CT THAT SHOWED LARGE AMOUNT OF STOOL PRESENT IN BOWELS AND BOWEL CARE REGIME. PATIENT REPORTED HE DID NOT WANT ANOTHER SUPPOSITORY, AGREED TO MAG CITRATE. DR. CALLAWAY PROVIDED VERBAL ORDER FOR MAG CITRATE, SEE MAR.
[2023-08-13 18:11] VITALS: BP 142/70
--- NOTE | 2023-08-13 18:17 | NUR ---
PATIENT REFUSED DINNER, STATES " I AM STARTING TO FEEL LIKE MY BOWELS ARE GOING TO MOVE". PATIENT SITTING UP IN BED. 02 SATURATION 93% ON 3.5L NC. BED ALARM ON.
[2023-08-13 18:50] LABS: BASOPHILS 0.3 % (0-2); EOSINOPHILS 4.4 % (0-6); HEMATOCRIT 26.8 % (35.0-50.0); HEMOGLOBIN 8.4 g/dL (12.0-18.0); LYMPHOCYTES 5.7 % (24-44); MCH 29.6 (27-36); MCHC 31.3 g/dl (30-36); MCV 94.5 fl (81-99); MONOCYTES 4.8 % (0-12); NEUTROPHILS 84.8 % (39-80); PLATELET COUNT 252 K/uL (140-440); RBC 2.84 M/ul (4.3-5.7); RDW 16.5 (10.5-15.0)
--- NOTE | 2023-08-13 19:15 | NUR ---
patient resting in bed, no complaints, no noted distress, report provided by dayshift RN, call light in reach.
[2023-08-13 19:48] LABS: ABO AB; ANTIBODY SCREEN NEGATIVE; RH POSITIVE
[2023-08-13 20:30] VITALS: BP 143/67
--- NOTE | 2023-08-13 21:03 | NUR ---
FAMILY MEMBER TO RN STATION, pt REQUESTING WARM BLANKET. BLANKETS X2 PROVIDED.
--- NOTE | 2023-08-13 21:42 | NUR ---
Patient visiting with granddaughter, VSS, lungs diminished with exp wheeze, RT in to give breathing tx. patient tolerating well, remains on 3.5liters/nc and patient denies SOB or CP. Abd rounded, active BT's, patient states it is slightly uncomfortable and "I need to have a bowel movement". Blood sugar 152 and 1unit insulin given per SS. Lab back and improved from earlier draw with H/h=8.4/26.8. brand intact draining clear yellow urine. call light in reach.
--- NOTE | 2023-08-13 23:08 | NUR ---
Called into patient room, assisted with repositioning, turned out lights, call light in reach. patient without complaints.
[2023-08-14] VITALS (7 sets, daily range): BP systolic 121–142; BP diastolic 59–69
--- NOTE | 2023-08-14 00:55 | NUR ---
Patient sleeping between care, no complaints, oxygen on and continous pulse ox on with sats @90%. lights out and call light in reach.
--- NOTE | 2023-08-14 01:58 | NUR ---
Patient appears a sleep, brand intact with good urine output. IV infusing and site clean dry and intact. appears comfortable, lights are out and call light in reach.
--- NOTE | 2023-08-14 04:05 | NUR ---
Patient was sleeping, O2 sats dropping to 85%. Encouraged and patient did DB&C. Continues to have upper airway congestion, loose non productive cough. RT notified and patient given breathing tx. repositined in bed and HOB raised. with sats at 88%. RT placed patient back on vapotherm at 15L. Working with patient now using flutter valve. HR 90. RR 20. Will continue to monitor.
--- NOTE | 2023-08-14 04:34 | NUR ---
Patient now resting with HOB up. RR -20, vapotherm settings at 20/50 with O2 sats now at 93%. lungs diminished with fine crackles in bases that clear with cough. continues to have a loose congested cough. patient states his breathing treatment helped. no resp distress noted. continues on continous pulse ox. call light in reach.
--- NOTE | 2023-08-14 05:33 | NUR ---
Patient has slept well inbetween care. VSS, Remains on vapotherm at 20/50 with O2 sats at 93%. RR=20 even and relaxed. brand intact with 2100ml output this shift. Patient has had no BM. lights are out and call light in reach.
[2023-08-14 05:46] LABS: BASOPHILS 0.5 % (0-2); EOSINOPHILS 8.3 % (0-6); HEMATOCRIT 24.4 % (35.0-50.0); HEMOGLOBIN 8.1 g/dL (12.0-18.0); LYMPHOCYTES 10.4 % (24-44); MCH 30.5 (27-36); MCHC 33.1 g/dl (30-36); MCV 92.4 fl (81-99); MONOCYTES 5.9 % (0-12); NEUTROPHILS 74.9 % (39-80); PLATELET COUNT 236 K/uL (140-440); RBC 2.65 M/ul (4.3-5.7); RDW 15.9 (10.5-15.0)
[2023-08-14 06:02] LABS: ALBUMIN 1.8 g/dL (3.4-5.0); ALBUMIN/GLOBULIN RATIO 0.62 (1.1-2.4); ANION GAP 6.5 (7-21); BILIRUBIN, TOTAL 0.3 ng/dL (0.2-1.0); BUN/CREATININE RATIO 9.58 (6.0-28.6); CREATININE, SERUM 0.73 mg/dL (0.70-1.30); POTASSIUM 3.5 mmol/L (3.5-5.1); PROTEIN, TOTAL 4.7 g/dL (6.4-8.2)
--- NOTE | 2023-08-14 07:33 | NUR ---
IN FOR BS CHECK. PT IS IN BED, EYES CLOSED, TELEVISION ON. PT AWAKENS EASILY TO QUIET NOISE. CALL LIGHT AND PERSONAL BELONGINGS IN REACH. DENIES NEEDS AT THIS TIME.
--- NOTE | 2023-08-14 08:20 | NUR ---
In with pt for call light request for a wash cloth. SN in with PT as well. Warm wash cloth provided to pt. When asked, pt states he would like to take a shower today. Pt is currently eating breakfast, sitting at edge of bed, television on. Call light and personal belongings in reach.
--- NOTE | 2023-08-14 08:30 | NUR ---
REPORT FROM NURSE RECIEVED. INTO ROOM PATIENT RESTING BACK IN BED. RT IN ROOM. PATIENT CURRENTLY ON VAPO THERM 20 L WITH FIO2 50%. PATIENT APPEARS TO BE BREATHING EVEN AND REGULAR, 02 SAT 95%. DISCUSSED POC, AND DISCUSSED WITH DR. CALLAWAY. NEW ORDERS TO SHELL ÁLVAREZ, AND TATE REDMAN, PT/OT CONSULT, AND ADDITIONAL BREATHING TREATMENTS. DR. CALLAWAY VERBALIZED HE WOULD SEE THE PATIENT AND THEN REVIEW THE BOWEL CARE REGIME. PATIENT HAS NOT HAD A BOWEL MOVEMENT WITH CURRENT BOWEL CARE REGIME.
--- NOTE | 2023-08-14 09:13 | NUR ---
ASSISTED PT TO THE SHOWER. HELPED HIM BY WASHING HIS BACK THEN HE STATED HE IS CAPABLE OF SHOWERING WHILE SEATED IN THE SHOWER CHAIR, UNASSISTED. LINEN CHANGE DONE WHILE PT WAS SHOWERING. PT DRIED OFF, CLEAN SOCKS APPLIED AFTER HIS FEET WERE DRIED, AND PT AMBULATED WITH SBA USING HIS CANE, TO THE CHAIR. WARM BLANKET PROVIDED. PERSONAL BELONGINGS PLACED ON THE SIDE TABLE IN REACH. CALL LIGHT IN REACH. FAMILY MEMBERS AT BEDSIDE. PT DENIES FURTHER NEEDS AT THIS TIME. ÁLVAREZ WAS D/C'D JUST PRIOR TO HIS SHOWER. REMOVED 10ML FROM BALLOON PRIOR TO REMOVING THE ÁLVAREZ. PT TOLERATED REMOVAL WELL. EDUCATION ON WHEN TO LET NURSE'S KNOW IF HE'S HAVING ANY PAIN, BURNING, BLEEDING, BLOATING, ETC. AFTER ÁLVAREZ REMOVED. PT VERBALIZED UNDERSTANDING.
--- NOTE | 2023-08-14 11:00 | NUR ---
Spoke with Hussein, his niece, and her daughter. Pt looking better today and states he feels better. He has an [address] Pt states he wants to go home. I let him know I called Dot Tejeda at [facility] and requested an evaluation for further CG hours. She will be in to see him today. We all discussed with him we could assist him if he wanted to try for hrs from the [facility] for [facility]g also. He again declines this. I discussed how he takes his meds off of two shelves. He now states he has three shelves. Top shelf am meds, bottom shelf pm meds, middle shelf am &pm. He does not want to change this process. Milli Caceres states she and the [facility] have filled a med box in the past. Pt then threw them out. Pt c/o of no bm. Staff are aware. Pt wants to dc when possible.
--- NOTE | 2023-08-14 11:00 | NUR ---
PATIENT AMBULATED IN [place] WITH PT. STBY WITH WALKER RECOMMENDED. PATIENT BACK TO ROOM RESTING IN RECLINER. LUNG SOUNDS DIMINISHED IN LOWER BASES, PATIENT ON 3.5 L NC, O2 SAT 92%. DOES NOT APPEAR SOB WITH ACTIVITY. PROVIDED EDUCATION ON COUGHING AND DEEP BREATHING.
--- NOTE | 2023-08-14 13:26 | NUR ---
INTO ROOM TO CHECK ON PATIENT. PATIENT REPORTS CONTINUES TO BE UNABLE TO HAVE BOWEL MOVEMENT. HAS WALKED IN HALLS X2, AND IS DRINKING WATER. ENCOURAGED PATIENT TO AMBULATE IN HALLS AGAIN, STATED " LET ME HAVE A NAP, I AM TIRED AND THEN I WILL WALK". REPOSITIONED PATIENT HOB AND TURNED DOWN LIGHTS, PLAN TO AMBULATE AFTER NAP. CALL LIGHT WITHIN REACH, NO OTHER NEEDS AT THIS TIME.
--- NOTE | 2023-08-14 13:27 | NUR ---
PT APPEARED TO BE SLEEPING. DID NOT DISTURB. 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
--- NOTE | 2023-08-14 14:00 | NUR ---
Received a call from Dot at [facility]. She did evaluate Hussein and he will qualify for increased cg hours. This will not be completed until the mid to end of next week. She also states she was surprised I was discussing discharge for tomorrow as pt told her he would not dc until Friday. Updated he requested to dc yesterday and today. Pt was discussed in IDT and plan is for pt to dc tomorrow if possible. His cg will be available tomorrow as she sees him on Fridays.
--- NOTE | 2023-08-14 14:03 | NUR ---
I called and spoke with Haylie at Dr. Watson's office. Requested preop appt as pt missed his appt this week due to hospitalization. Niece is in town until the and can assist him. Asked if they can schedule him an appt between now and the Jul. She will call me back.
--- NOTE | 2023-08-14 15:20 | NUR ---
At 0900, patient's brand catheter was removed. At 1400 bladder scan was performed on pt, showing 750mL of urine. Pt was then ambulated. Prior to ambulation when sitting up, patient reported feeling dizzy and lightheaded. B/P was taken and result was 140/89. After sitting up for a minute patient reported feeling better. Ambulation with 3.5L on a nasal cannula with the assistance of a front-wheel walker. Patient denied dizziness and SOB. Patient ambulated two loops around the halls. Primary nurse was notified result and his tolerance of ambulation. Urinal was given upon exit so patient could void with privacy.
--- NOTE | 2023-08-14 15:39 | NUR ---
Called and spoke with pts arash and updated pt may dc tomorrow. I have [facility] and I am waiting on a call from Dr. Watson and Dr. Chapa office to scheduled fu appts. I called pts niradha and she will check on pt over the weekend. I called Charlene from [facility] and let them know he will more than likely dc tomorrow. She will schedule his visit with his cg in the afternoon tomorrow. Sheree from [facility] updated.
--- NOTE | 2023-08-14 16:19 | NUR ---
PATIENT AGREED TO SUPPOSITORY, WITH SUPPOSITORY INSERTION NOTED LARGE AMOUNT OF HARD STOOL IN RECTAL CAVITY, UNABLE TO REMOVE STOOL DIGITALLY. PATIENT TOLERATED PLACEMENT WELL. ALSO UNABLE TO URINATE, BLADDER SCAN >700 ML, PATIENT AMBULATING IN HALLS. PATIENT STATES " I HAVE A SHY BLADDER". PATIENT APPEARS TO BE TOLERATING ACTIVITY WELL, 3.5L NC O2 SATURATION 92%. APPEARS STEADY WITH WALKER.
--- NOTE | 2023-08-14 18:01 | NUR ---
ÁLVAREZ CATHETER INSERTED PER MD ORDER. UROJET AND A 16 SAUDI ARABIAN COUDE CATHER USED. PATIENT STATED NO PAIN ON INSERTION. IMMEDIATE RETURN OF 950 ML OF CLEAR YELLOW URINE. PATIENT TOLERATED WELL. PATIENT IS SITTING UP IN THE BED EATING DINNER. PATIENT STATED NO FURTHER NEEDS AT THIS TIME. CALL LIGHT AND PERSONAL BELONGINGS ARE WITHIN REACH.
--- NOTE | 2023-08-14 18:10 | NUR ---
PATIENT HAD XLARGE HARD BM SITTING ON BSC. NOTED PATIENT HR INCREASED TO 130S WHILE BEARING DOWN. CHECKED PATIENT RECTAL VAULT DIGITALLY AND FELT SMALL AMOUNT OF STOOL HIGH IN THE COLON. DISCUSSED IMPORTANCE OF PLACING ÁLVAREZ BACK IN SECONDARY TO LARGE AMOUNT OF URINE IN BLADDER, TO REST FROM BM ACTIVITY, HAVE SOME DINNER AND THEN COULD TRY AGAIN. ASSISTED WITH ÁLVAREZ INSERTION, COUDE WAS USED WITHOUT ANY RESISTANCE. PATIENT TOLERATED WELL. STERILE TECHNIQUE MAINTAINED. DRAINAGE BAG TO GRAVITY AND SECURED TO LEFT LEG. PATIENT NOW RESTING EASY, NC 3.5 L 02 SAT 94%, PATIENT REPORTS FEELING RELIEVED AND APPEARS CALM, ATE 50% OF DINNER, WATCHING TELEVISION. APPEARS TO HAVE NO OTHER NEEDS AT THIS TIME. CALL LIGHT WITHIN REACH, BED ALARM ON.
--- NOTE | 2023-08-14 19:12 | NUR ---
PATIENT RESTING IN BED, NO COMPLAINTS, NO RESP DISTRESS, REPORT PROVIDED BY SAY SHIFT RN, CALL LIGHT WITHIN REACH.
--- NOTE | 2023-08-14 20:35 | NUR ---
PATIENT RESTING IN BED, DENIES PAIN, VSS, BLOOD SUGAR 133 AND NO INSULIN COVERAGE REQUIRED, LUNGS WITH EXP WHEEZE AND DIMINISHED BREATH SOUNDS, RT IN FOR PULMONARY CARE. PATIENT DENIES INCREASED SOB OR CP. ON 3.5 LITERS O2 PER NC. ON CONTINUOUS PULSE OX WITH SATS AT 93%. ÁLVAREZ INTACT WITH ADEQUATE OUTPUT, STATES HE IS TIRED THIS EVENING. CALL LIGHT IN REACH.
--- NOTE | 2023-08-14 22:41 | NUR ---
call light answered, pt asking for something for heartburn, primary rn cornelio made aware. call light remains in reach and bed alarm on for safety.
--- NOTE | 2023-08-14 22:47 | NUR ---
PATIENT CALLED, C/O HEARTBURN AND REQUESTING SOMETHING, GIVEN A DOSE OF MALLOX AND PATIENT NOW GOING TO TRY AND GET BACK TO SLEEP, LIGHTS OUT AND CALL LIGHT IN REACH. NO NOTED SOB
--- NOTE | 2023-08-14 23:09 | NUR ---
pt RECEIVED FLU VACCINE EARLIER IN WEEK, EMAR UPDATED AND ORDERED COMPLETED PER PROTOCOL.
--- NOTE | 2023-08-14 23:33 | NUR ---
PATIENT RESTING IN BED WITH EYES CLOSED, NO NOTED RESP DISTRESS, RR=20, O2 SATS MAINTAINING >92%. APPEARS COMFORTABLE, LIGHTS ARE OUT, CALL LIGHT IN REACH.
--- NOTE | 2023-08-15 01:31 | NUR ---
PATIENT UP TO BSC, HAD EXTRA LARGE FORMED AND PARTIALLY LOOSE BM, ASSISTED BACK TO BED AND ATTEMPTING TO GO TO SLEEP. LIGHTS OUT CALL LIGHT IN REACH. NO NOTED INCREASED SOB.
--- NOTE | 2023-08-15 03:51 | NUR ---
Patient has been resting comfortable, called into room and patient requested and given a warm blanket, sats have remained in high 90's, no resp distress, patient denies pain, lights are out and patient trying to go back to sleep, call light in reach.
[2023-08-15 05:32] VITALS: BP 124/69
[2023-08-15 05:33] LABS: BASOPHILS 0.5 % (0-2); EOSINOPHILS 4.2 % (0-6); HEMATOCRIT 27.3 % (35.0-50.0); HEMOGLOBIN 8.9 g/dL (12.0-18.0); LYMPHOCYTES 9.5 % (24-44); MCH 29.9 (27-36); MCHC 32.7 g/dl (30-36); MCV 91.3 fl (81-99); MONOCYTES 6.4 % (0-12); NEUTROPHILS 79.4 % (39-80); PLATELET COUNT 270 K/uL (140-440); RBC 2.99 M/ul (4.3-5.7); RDW 15.7 (10.5-15.0)
--- NOTE | 2023-08-15 05:33 | NUR ---
patient awake and feeling good, stating "I want to go home today". VSS except o2 sats down to 83%. repositioned patient and had him DB & C and brought sats to 88-89%. RT notified and will do a breathing treatment. During the night patient remained at 96-98% on 3.5 liter NC. Patient without complaints at this time, no resp distress noted, slept on and off through the night. Melo intact and adequate U.O. Patient had extra large BM last evening and feeling so much better. call light within reach. RT in room.
[2023-08-15 05:43] LABS: ANION GAP 5.8 (7-21); BUN/CREATININE RATIO 13.33 (6.0-28.6); CALCIUM 8.4 mg/dL (8.5-10.1); CREATININE, SERUM 0.75 mg/dL (0.70-1.30); POTASSIUM 3.8 mmol/L (3.5-5.1)
--- NOTE | 2023-08-15 06:20 | NUR ---
patient given a warm blanket, resting with eyes closed, lights out, no resp distress noted, o2 sats at 90%. call light within reach.
--- NOTE | 2023-08-15 08:10 | NUR ---
HOURLY ROUNDING-PATIENT'S OXYGEN NOTED TO BE 79%, ENCOURAGED PATIENT TO COUGH AND DEEP BREATH. SP02 INCREASED TO 82%. RT NOTIFIED AND TO ROOM PROMPTLY. OXY-MASK PLACED, 02 INCREASED TO 5L. BREATHING TREATMENT ADMIN WITH RT IN ROOM. PATIENT'S OXYGEN INCREASED TO 91% POST TREATMENT. PATIENT'S OXYGEN DECREASED BACK TO 3.5L AFTER BREATHING TREATMENT.
--- NOTE | 2023-08-15 08:30 | NUR ---
Starting at 0800, pt was lying supine watching TV. Noticed his O2 was 82, I sat him up to high semi fowlers, encouraged coughing and deep breathing. Cough was nonproductive. Patient was then encourage to use the acapella tool, which he calls the "horn". O2 saturation popped up to 86. Primary nurse was notifed, she assesed, we boosted him up in bed. O2 finger probed was changed. Did a pulmonary assessment and RT was called. RT present in room implementing a breathing treatment. O2 rest in the low 90s.
[2023-08-15 09:53] VITALS: BP 129/70
--- NOTE | 2023-08-15 10:45 | NUR ---
PT APPEARED TO BE SLEEPING. DID NOT ROUSE TO MY KNOCK. DID NOT DISTURB. PRAYED FOR ONGOING HEALING.
--- NOTE | 2023-08-15 11:30 | NUR ---
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
[2023-08-15 14:19] VITALS: BP 126/65
--- NOTE | 2023-08-15 15:21 | NUR ---
PATIENT AWAKE IN BED WATCHING TV, NO DISTRESS. PATIENT IS ON 3.5L OXYGEN PER NC, RESPIRATIONS NON LABORED, SP02 96%. WARM BLANKEY PROVIDED. CALL LIGHT WITHIN REACH.
[2023-08-15 17:54] VITALS: BP 115/63
[2023-08-15 20:12] VITALS: BP 146/52
--- NOTE | 2023-08-15 20:17 | NUR ---
PATIENT IN BED RESTING, STATES HE FEELS TIRED TONIGHT, REPORT PROVIDED BY JUAN ANTONIO RN, VSS, DENIES PAIN, CONTINOUS PUSE OX ON WITH SATS AT 92%, PATIENT DENIES SOB OR CP, OXYGEN AT 3.5L/NC, LUNGS - COARSE. ABDOMINE SOFT, ACTIVE BT'S NO NAUSEA, LIGHTS ARE OUT, TV ON, CALL LIGHT WITHIN REACH.
--- NOTE | 2023-08-15 21:10 | NUR ---
PATIENT CALLED, ASSISTED PATIENT TO BSC, TOLERATED WELL, HAD MEDIUM SEMI SOFT STOOL. REFUSING BOWEL MEDS THIS EVENING. ENCOURAGED AND PATIENT DID DB& C WHILE SITTING UP. IS NOW BACK TO BED, LIGHTS ARE OUT, CALL LIGHT IN REACH.
--- NOTE | 2023-08-15 22:06 | NUR ---
PATIENT RESTING IN BED, MOVING STUFF AROUND, DENIES ANY DISCOMFORT, NO NOTED RESP DISTRESS, CALL LIGHT WITHIN REACH.
--- NOTE | 2023-08-15 23:29 | NUR ---
patient awake, having a little discomfort in his stomach. BT's are active, denies nausea or heartburn, medicated with tylenol and given a warm blanket. call light in reach.
--- NOTE | 2023-08-16 00:39 | NUR ---
patient resting with eyes closed, RR-20, O2 sats 92%, no noted resp distress, appears comfortable, call light within reach.
--- NOTE | 2023-08-16 01:40 | NUR ---
PATIENT CALLED AND STOMACH CONTINUES TO HURT, GIVEN TYLENOL EARLIER AND WARM PAD FOR STOMACH. ACTIVE BT'S, DENIES NAUSEA STILL, NO VOMITING, HAD BM EARLIER AND PASSED FLATUS, ABDOMINE ROUNDED AND PAINFUL TO PALPATE ESPCIALLY TO THE LEFT SIDE. NOTIFIED MD WITH ABOVE AND GIVEN ORDER FOR ONE TIME DOSE 2MG MORPHINE.
--- NOTE | 2023-08-16 02:01 | NUR ---
PATIENT GIVEN 2MG MORPHINE, TAKEN OFF NASAL CANNULA AND PLACED ON OPEN MASK AND CONTINOUS PULSE OX AT 91-91%. PATIENT TRYING TO GO BACK TO SLEEP. WILL MONITOR CLOSELY AND INSTRUCTED PATIENT TO CALL IF SYMPTOMS WORSEN. TMEP CHECK AT 99.1. CALL LIGHT WITHIN REACH.
--- NOTE | 2023-08-16 04:07 | NUR ---
resting comfortable with eyes closed, stated earlier that the pain medication helped. HR 96 and O2 sats 92-93%. Patient tolerating open mask well. call light within reach.
[2023-08-16 05:53] VITALS: BP 123/69
--- NOTE | 2023-08-16 05:55 | NUR ---
Patient slept on and off during the night. Had episode of abdominal pain and MD notified and one time dose of pain med given which resolved patients discomfort and allowed him to sleep. Patient is awake now watching TV, VSS, On continous pulse ox with O2 sats at 93%. Patient has tolerated the open mask all night. No resp distress, Is comfortable at this time. call light within reach.
--- NOTE | 2023-08-16 07:29 | NUR ---
REPORT RECEIVED FROM DRIVER SALESMAN RN. PT RESTING IN BED WITH EYES CLOSED. OXY MASK IN PLACE. RESP EVEN AND UNLABORED.
[2023-08-16 07:34] LABS: BASOPHILS 0.3 % (0-2); EOSINOPHILS 7.5 % (0-6); HEMATOCRIT 25.8 % (35.0-50.0); HEMOGLOBIN 8.5 g/dL (12.0-18.0); MCH 30.2 (27-36); MCHC 32.8 g/dl (30-36); NEUTROPHILS 77.2 % (39-80); PLATELET COUNT 275 K/uL (140-440); RDW 16.1 (10.5-15.0)
[2023-08-16 07:50] LABS: ALBUMIN/GLOBULIN RATIO 0.61 (1.1-2.4); ANION GAP 7.7 (7-21); BILIRUBIN, TOTAL 0.5 ng/dL (0.2-1.0); BUN/CREATININE RATIO 15.18 (6.0-28.6); CALCIUM 8.2 mg/dL (8.5-10.1); CREATININE, SERUM 0.79 mg/dL (0.70-1.30); POTASSIUM 3.7 mmol/L (3.5-5.1); PROTEIN, TOTAL 5.3 g/dL (6.4-8.2)
--- NOTE | 2023-08-16 08:15 | NUR ---
ASSESSMENTS COMPLETE. PT DENIES PAIN AT THIS TIME. PT REPORTS FEELING "BETTER" TODAY. NO ADDITIONAL NEEDS AT THIS TIME. CALL LIGHT IN REACH
--- NOTE | 2023-08-16 08:52 | NUR ---
PT PRESSES CALL LIGHT TO HAVE HELP SITTING UP AT BEDSIDE TO EAT BREAKFAST. CALL LIGHT WITHIN REACH
[2023-08-16 09:30] VITALS: BP 129/73
[2023-08-16] MEDS ORDERED: NITROFURANTOIN100 M1 PO ×2 (09:41→10:36)
[2023-08-16] MEDS ORDERED: LEVOFLOXACIN750 MG PO ×2 (09:41→10:36)
--- NOTE | 2023-08-16 10:52 | NUR ---
DC ORDER RECEIVED. MULTIPLE CALLS TO PT'S NIECE TO ENSURE PT HAS A SAFE RIDE HOME AND THAT SHE WILL BE PRESENT WHEN HE ARRIVES. PRESCRIPTIONS RESENT TO CONCEPCION IN [facility] SO PT CAN GET PRESCRIBED MEDICATIONS BEFORE FRIDAY FROM THE [facility] EXPRESS INSTRUCTIONS ABOUT APPOINTMENTS AND ÁLVAREZ CARE PROVIDED TO PT. PT DECLINES LEG BAG. IV X 2 DC'D WNL. PT HELPED DRESS. HOME O2 MACHINE WITH TUBING IN ROOM FOR USE WHEN DC HAPPENS.
--- NOTE | 2023-08-16 11:15 | NUR ---
PT TAKEN BY WC TO FRONT. WAITED OUTSIDE WITH PT FOR TAXI. PT HELPED INTO TAXI.
[2023-08-16 11:16] VITALS: BP 133/72
== END 2023-08-16 11:15 | disposition home or self-care (01) | DRG 871 ==
LOC: ED 22:53 → MS 22:54
PROVIDERS: Emergency Medicine; Family Medicine; ADMIT Family Medicine; ATTEND Family Medicine
PROC: 3E03329 Introduction of Other Anti-infective into Peripheral Vein, Percutaneous Approach (ICD-10-PCS; principal; 2023-08-12)
PROC: 0T9B70Z Drainage of Bladder with Drainage Device, Via Natural or Artificial Opening (ICD-10-PCS; 2023-08-12)
DX: A41.9 Sepsis, unspecified organism (principal); J18.9 Pneumonia, unspecified organism; J96.21 Acute and chronic respiratory failure with hypoxia; N12 Tubulo-interstitial nephritis, not specified as acute or chronic; I48.20 Chronic atrial fibrillation, unspecified; R33.9 Retention of urine, unspecified; E78.5 Hyperlipidemia, unspecified; E11.9 Type 2 diabetes mellitus without complications; F17.210 Nicotine dependence, cigarettes, uncomplicated; M54.50 Low back pain, unspecified; B95.2 Enterococcus as the cause of diseases classified elsewhere; B96.89 Other specified bacterial agents as the cause of diseases classified elsewhere; I10 Essential (primary) hypertension; I25.10 Atherosclerotic heart disease of native coronary artery without angina pectoris; M19.90 Unspecified osteoarthritis, unspecified site; H54.7 Unspecified visual loss; Z60.2 Problems related to living alone; Z95.0 Presence of cardiac pacemaker; Z90.49 Acquired absence of other specified parts of digestive tract; Z98.890 Other specified postprocedural states; Z87.19 Personal history of other diseases of the digestive system; Z79.899 Other long term (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; Z79.51 Long term (current) use of inhaled steroids
CPT/HCPCS: 36415; 51702; 51798; 71045; 74018; 74177; 80048; 80053; 81001; 82803; 83605; 83690; 83735; 84100; 85025; 85060; 86850; 86900; 86901; 87040; 87088; 94640; 94668; 94760; 94762; 94799; 96361; 96376; 97161; 97165; 97530; 99285-25; A9270; G0378; J0696; J1170; J1815; J1885; J1956; J2270; J2405; J7030; Q9967

== ENCOUNTER 2023-08-16 20:33 | Emergency (ER) | payer OTHER, MEDICARE ==
[~2023-08-16] VITALS: Ht 175.3 cm; Wt 68.4 kg
[~2023-08-16 20:33] MED LIST changes: +CIPRO500 MG PO; +LEVOFLOXACIN750 MG PO; +NITROFURANTOIN100 M1 PO
--- OUTSIDE RECORDS SUMMARY | 2023-08-16 20:36 | XMS ---
PreManage Notification: CRYSTAL GALVAN Security National Expansion Recruiter Events No recent Security Events currently on file CRITERIA MET - 6 ED Visits in 6 Months - [facility] - 2 Visits in 30 Days CARE PROVIDERS Dot Escobar Activities Specialist/Wheel Aligner 05/27/2023-Current PHONE: [phone] Elian [place]um[place] [facility] [place] 08[place]13/2019-[facility] PHONE: [phone] NAREN Rangel, Registered 08/10/2019-[facility] PHONE: [phone] -Muriel- Dentist: Tanner Rotary Drum Continuous Process [facility] PHONE: [phone] JAN BRIAN Press Maintainer: Foot \T\ Ankle Surgery Current PHONE: [phone] SPEEDY AGUILAR Internal Medicine Current PHONE: [phone] MERON TIRADO Nurse Practitioner: Family Current PHONE: Unknown STEFANI SHIELDS Internal Medicine Current PHONE: [phone] KELVIN BELCHER Nurse Practitioner: Family Current PHONE: [phone] BRODY CRONIN Nurse Practitioner Current GREER PHONE: [phone] [facility] Current PHONE: Unknown MARYCARMEN SHAW Family Medicine Current PHONE: [phone] ANUSHA WEI Nurse Practitioner: Family Current PHONE: [phone] Gracie has no Care Guidelines for this patient. Care History Medical/Surgical 08/13/2019 [facility] - PATIENT IS A -RECEIVES SERVICES AT [facility] [place] VISIT COUNT (12 MO.) 9 [facility] TOTAL 9 NOTE: Visits indicate total known visits. ED/UCC VISIT TRACKING (12 MO.) [facility] COMPLAINT: - CATH ISSUES 08/10/2023 22:[address] [facility] [place] TYPE: Emergency COMPLAINT: - BACK PAIN 07/27/2023 08:44 [facility] [place] TYPE: Emergency COMPLAINT: - RECTAL BLEEDING 07/19/2023 11:48 [facility] [employer] [place] TYPE: Emergency COMPLAINT: - FALL DIAGNOSES: - Anemia, unspecified - Dysuria - Hypokalemia - remote computer terminal operator (current) use of anticoagulants - Nicotine dependence, unspecified, uncomplicated - Other remote computer terminal operator (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 - Urinary tract infection, site not specified 07/04/2023 23:14 ROLANDA [place] [place] TYPE: Emergency COMPLAINT: - WEAKNESS DIAGNOSES: - Atherosclerotic heart disease of [place] coronary artery without angina pectoris - Contusion of right lower leg, initial encounter - Emphysema, unspecified - Essential (primary) hypertension - Fall on same level from slipping, tripping and stumbling without subsequent striking against object, initial encounter - Hyperlipidemia, unspecified - longterm (current) use of anticoagulants - Nicotine dependence, unspecified, uncomplicated - Other half-way (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 - Pain in right leg - Presence of cardiac pacemaker - Type 2 diabetes mellitus without complications 06/02/2023 08:32 ROLANDA [place] TYPE: Emergency COMPLAINT: - DIFFICULTY URINATING DIAGNOSES: - Atherosclerotic heart disease of [place] coronary artery without angina pectoris - Essential (primary) hypertension - Hyperlipidemia, unspecified - longterm (current) use of anticoagulants - longterm (current) use of oral hypoglycemic drugs - Other remote computer terminal operator (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 - Type 2 diabetes mellitus without complications - Urinary tract infection, site not specified 01/17/2023 10:10 ROLANDA [place] TYPE: Emergency COMPLAINT: - CATHETER ISSUE 01/03/2023 10:45 ROLANDA [place] TYPE: Emergency COMPLAINT: - SHORTNESS OF BREATH 01/02/2023 11:49 ROLANDA [place] TYPE: Emergency COMPLAINT: - SHORTNESS OF BREATH DIAGNOSES: - Atherosclerotic heart disease of [place] coronary artery without angina pectoris - Chronic obstructive pulmonary disease with (acute) exacerbation - Contact with and (suspected) exposure to COVID-19 - Essential (primary) hypertension - Hyperlipidemia, unspecified - longterm (current) use of aspirin - longterm (current) use of oral hypoglycemic drugs - Nicotine dependence, unspecified, uncomplicated - Other half-way (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 - Shortness of breath - Type 2 diabetes mellitus without complications - Unspecified osteoarthritis, unspecified site INPATIENT VISIT TRACKING (12 MO.) 08/12/2023 16:25 ROLANDA [place] TYPE: Medical Surgical COMPLAINT: - SEPSIS,UTI,PYELONEPHRITIS,ACUTE URINARY RETENTION 07/27/2023 10:[address] [facility] [place] TYPE: Medical Surgical COMPLAINT: - GI BLEED DIAGNOSES: - Acquired absence of other specified parts of digestive tract - Acquired absence of other specified parts of digestive tract - Acute posthemorrhagic anemia - Acute posthemorrhagic anemia - Atherosclerotic heart disease of [place] coronary artery without angina pectoris - Atherosclerotic heart disease of [place] coronary artery without angina pectoris - Chronic [...] - Hypokalemia - Hypomagnesemia - Hypomagnesemia - longterm (current) use of antibiotics - remote computer terminal operator (current) use of antibiotics - longterm (current) use of anticoagulants - longterm (current) use of anticoagulants - longterm (current) use of inhaled steroids - remote computer terminal operator (current) use of inhaled steroids - Nicotine dependence, cigarettes, uncomplicated - Nicotine dependence, cigarettes, uncomplicated - 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 - Other remote computer terminal operator (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 - Other remote computer terminal operator (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 - Other specified postprocedural [...] with hypoxia - Atherosclerotic heart disease of [place] coronary artery without angina pectoris - Atherosclerotic heart disease of [place] coronary artery without angina pectoris - Benign [...] - Hyperlipidemia, unspecified - Hyperlipidemia, unspecified - longterm (current) use of aspirin - remote computer terminal operator (current) use of aspirin - longterm (current) use of inhaled steroids - remote computer terminal operator (current) use of inhaled steroids - remote computer terminal operator (current) use of systemic steroids - longterm (current) use of systemic steroids - Nicotine dependence, cigarettes, uncomplicated - Nicotine dependence, cigarettes, uncomplicated - Other constipation - Other remote computer terminal operator (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 - Other half-way (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 - Other retention of [...] unspecified site - Unspecified osteoarthritis, unspecified site [email or web address]
[2023-08-16 21:00] VITALS: BP 123/85
== END 2023-08-16 21:00 | disposition home or self-care (01) ==
LOC: ED 20:33
DX: Z46.6 Encounter for fitting and adjustment of urinary device (principal); S41.012A Laceration without foreign body of left shoulder, initial encounter; S61.412A Laceration without foreign body of left hand, initial encounter; I10 Essential (primary) hypertension; I25.10 Atherosclerotic heart disease of native coronary artery without angina pectoris; E11.9 Type 2 diabetes mellitus without complications; J43.9 Emphysema, unspecified; F17.200 Nicotine dependence, unspecified, uncomplicated; W18.09XA Striking against other object with subsequent fall, initial encounter; Z95.0 Presence of cardiac pacemaker; Z79.899 Other long term (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
CPT/HCPCS: 99282

== ENCOUNTER 2023-09-07 15:35 | Emergency (ER) | payer OTHER, MEDICARE ==
[~2023-09-07] VITALS: Ht 175.3 cm; Wt 68.0 kg
--- OUTSIDE RECORDS SUMMARY | 2023-09-07 15:38 | XMS ---
PreManage Notification: CRYSTAL GALVAN Security Instructor Modeling Events No recent Security Events currently on file CRITERIA MET - 6 ED Visits in 6 Months - [facility] - 2 Visits in 30 Days CARE PROVIDERS Dot Escobar Fiber Heel Piece Shaper/School Cleaner 07/27/2023-Current PHONE: [phone] Elian Plummer [place] [facility] [place] 08/13/2019-[facility] PHONE: [phone] NAREN Rangel, Registered 08/10/2019-[facility] PHONE: [phone] -Muriel- Dentist: Community Liaison Officer [facility] PHONE: [phone] JAN BRIAN Surface Grinding Machine Hand: Foot \T\ Ankle Surgery Current PHONE: [phone] SPEEDY AGUILAR Internal Medicine Current PHONE: [phone] MREON TIRADO Nurse Practitioner: Family Current PHONE: Unknown STEFANI SHIELDS Internal Medicine Current PHONE: [phone] KELVIN BELCHER Nurse Practitioner: Family Current PHONE: [phone] BRODY CRONIN Nurse Practitioner Current GREER PHONE: [phone] [facility] Current PHONE: Unknown MARYCARMEN SHAW Family Medicine Current PHONE: [phone] ANUSHA WEI Nurse Practitioner: Family Current PHONE: [phone] Gracie has no Care Guidelines for this patient. Care History Medical/Surgical 08/13/2019 [facility] - PATIENT IS A -RECEIVES SERVICES AT [facility] [place] VISIT COUNT (12 MO.) 10 [facility] TOTAL 10 NOTE: Visits indicate total known visits. ED/UCC VISIT TRACKING (12 MO.) 09/07/2023 15:[facility] [place] [facility] COMPLAINT: - PROBLEM WITH CATH 08/16/2023 20:34 ROLANDA [place] TYPE: Emergency COMPLAINT: - CATH ISSUES DIAGNOSES: - Atherosclerotic heart disease of [place] coronary artery without angina pectoris - Emphysema, unspecified - Encounter for fitting and adjustment of urinary device - Essential (primary) hypertension - Laceration without foreign body of left hand, initial encounter - Laceration without foreign body of left shoulder, initial encounter - Nicotine dependence, unspecified, uncomplicated - Other residential (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 - Presence of cardiac pacemaker - Striking against other object with subsequent fall, initial encounter - Type 2 diabetes mellitus without complications 08/10/2023 22:53 ROLANDA [place] TYPE: Emergency COMPLAINT: - BACK PAIN 07/27/2023 08:44 ROLANDA [place] TYPE: Emergency COMPLAINT: - RECTAL BLEEDING 07/19/2023 11:48 ROLANDA [place] TYPE: Emergency COMPLAINT: - FALL DIAGNOSES: - Anemia, unspecified - Dysuria - Hypokalemia - boarding kennel or cattery operator (current) use of anticoagulants - Nicotine dependence, unspecified, uncomplicated - Other residential (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 - Urinary tract infection, site not specified 07/04/2023 23:14 ROLANDA [place] TYPE: Emergency COMPLAINT: - WEAKNESS DIAGNOSES: - Atherosclerotic heart disease of [place] coronary artery without angina pectoris - Contusion of right lower leg, initial encounter - Emphysema, unspecified - Essential (primary) hypertension - Fall on same level from slipping, tripping and stumbling without subsequent striking against object, initial encounter - Hyperlipidemia, unspecified - boarding kennel or cattery operator (current) use of anticoagulants - Nicotine dependence, unspecified, uncomplicated - Other residential (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 - Pain in right leg - Presence of cardiac pacemaker - Type 2 diabetes mellitus without complications 06/02/2023 08:32 ROLANDA [place] TYPE: Emergency COMPLAINT: - DIFFICULTY URINATING DIAGNOSES: - Atherosclerotic heart disease of [place] coronary artery without angina pectoris - Essential (primary) hypertension - Hyperlipidemia, unspecified - correction (current) use of anticoagulants - correction (current) use of oral hypoglycemic drugs - Other residential (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 - Type 2 diabetes mellitus without complications - Urinary tract infection, site not specified 01/17/2023 10:10 ROLANDA [place] TYPE: Emergency COMPLAINT: - CATHETER ISSUE 01/03/2023 10:45 ROLANDA [place]arro [place] TYPE: Emergency COMPLAINT: - SHORTNESS OF BREATH 01/02/2023 11:49 ROLANDA [place]arro [place] TYPE: Emergency COMPLAINT: - SHORTNESS OF BREATH DIAGNOSES: - Atherosclerotic heart disease of [place] coronary artery without angina pectoris - Chronic obstructive pulmonary disease with (acute) exacerbation - Contact with and (suspected) exposure to COVID-19 - Essential (primary) hypertension - Hyperlipidemia, unspecified - boarding kennel or cattery operator (current) use of aspirin - correction (current) use of oral hypoglycemic drugs - Nicotine dependence, unspecified, uncomplicated - Other web services architect (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 - Shortness of breath - Type 2 diabetes mellitus without complications - Unspecified osteoarthritis, unspecified site INPATIENT VISIT TRACKING (12 MO.) 08/12/2023 16:[address] [facility] [place] TYPE: Medical Surgical COMPLAINT: - SEPSIS,UTI,PYELONEPHRITIS,ACUTE URINARY RETENTION DIAGNOSES: - Acquired absence of other specified parts of digestive tract - Acquired absence of other specified parts of digestive tract - Acute and chronic respiratory failure with hypoxia - Acute and chronic respiratory failure with hypoxia - Atherosclerotic heart disease of [place] coronary artery without angina pectoris - Atherosclerotic heart disease of [place] coronary artery without angina pectoris - Chronic atrial fibrillation, unspecified - Chronic atrial fibrillation, unspecified - Enterococcus as the cause of diseases classified elsewhere - Enterococcus as the cause of diseases classified elsewhere - Essential (primary) hypertension - Essential (primary) hypertension - Hyperlipidemia, unspecified - Hyperlipidemia, unspecified - correction (current) use of inhaled steroids - correction (current) use of inhaled steroids - Low back pain, unspecified - Low back pain, unspecified - Nicotine dependence, cigarettes, uncomplicated - Nicotine dependence, cigarettes, uncomplicated - Other web services architect (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 - Other web services architect (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 - Other specified bacterial agents as the cause of diseases classified elsewhere - Other specified bacterial agents as the cause of diseases classified elsewhere - Other specified postprocedural states - Other specified postprocedural states - Personal history of other diseases of the digestive system - Personal history of other diseases of the digestive system - Pneumonia, unspecified organism - Pneumonia, unspecified organism - Presence of cardiac pacemaker - Presence of cardiac pacemaker - Problems related to living alone - Problems related to living alone - Retention of urine, unspecified - Retention of urine, unspecified - Sepsis, unspecified organism - Tubulo-interstitial nephritis, not specified as acute or chronic - Tubulo-interstitial nephritis, not specified as acute or chronic - Type 2 diabetes mellitus without complications - Type 2 diabetes mellitus without complications - Unspecified osteoarthritis, unspecified site - Unspecified osteoarthritis, unspecified site - Unspecified visual loss - Unspecified visual loss 07/27/2023 10:[address] [facility] [place] TYPE: Medical Surgical COMPLAINT: - GI BLEED DIAGNOSES: - Acquired absence of other specified parts of digestive tract - Acquired absence of other specified parts of digestive tract - Acute posthemorrhagic anemia - Acute posthemorrhagic anemia - Atherosclerotic heart disease of [place] coronary artery without angina pectoris - Atherosclerotic heart disease of [place] coronary artery without angina pectoris - Chronic [...] - Hypokalemia - Hypomagnesemia - Hypomagnesemia - correction (current) use of antibiotics - correction (current) use of antibiotics - correction (current) use of anticoagulants - correction (current) use of anticoagulants - boarding kennel or cattery operator (current) use of inhaled steroids - boarding kennel or cattery operator (current) use of inhaled steroids - Nicotine dependence, cigarettes, uncomplicated - Nicotine dependence, cigarettes, uncomplicated - 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 - Other web services architect (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 - Other web services architect (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 - Other specified postprocedural [...] with hypoxia - Atherosclerotic heart disease of [place] coronary artery without angina pectoris - Atherosclerotic heart disease of [place] coronary artery without angina pectoris - Benign [...] - Hyperlipidemia, unspecified - Hyperlipidemia, unspecified - correction (current) use of aspirin - correction (current) use of aspirin - correction (current) use of inhaled steroids - boarding kennel or cattery operator (current) use of inhaled steroids - correction (current) use of systemic steroids - boarding kennel or cattery operator (current) use of systemic steroids - Nicotine dependence, cigarettes, uncomplicated - Nicotine dependence, cigarettes, uncomplicated - Other constipation - Other web services architect (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 - Other residential (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 - Other retention of [...] unspecified site - Unspecified osteoarthritis, unspecified site [email or web address]
[2023-09-07 16:14] VITALS: BP 154/91
== END 2023-09-07 16:13 | disposition home or self-care (01) ==
LOC: ED 15:35
DX: Z46.6 Encounter for fitting and adjustment of urinary device (principal); I10 Essential (primary) hypertension; I25.10 Atherosclerotic heart disease of native coronary artery without angina pectoris; E11.9 Type 2 diabetes mellitus without complications; J43.9 Emphysema, unspecified; E78.5 Hyperlipidemia, unspecified; Z79.899 Other long term (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; Z95.0 Presence of cardiac pacemaker
CPT/HCPCS: 99283

== ENCOUNTER 2023-09-21 09:05 | Emergency (ER) | payer OTHER, MEDICARE ==
[~2023-09-21] VITALS: Ht 175.3 cm; Wt 68.0 kg
--- OUTSIDE RECORDS SUMMARY | 2023-09-21 09:09 | XMS ---
PreManage Notification: CRYSTAL GALVAN Security Director Of Strategic Sourcing Events No recent Security Events currently on file CRITERIA MET - 6 ED Visits in 6 Months - [facility] - 2 Visits in 30 Days CARE PROVIDERS Dot Escobar Project Development Coordinator/Diesel Engineer 07/27/2023-Current PHONE: [phone] Elian [place]ummer [place] [facility] [place] 08[place]13/2019-[facility] PHONE: [phone] NAREN Rangel, Registered 08/10/2019-[facility] PHONE: [phone] -Muriel- Dentist: Rate Marker [facility] Dental [facility] PHONE: [phone] JAN BRIAN Retail Tire Sales Manager: Foot \T\ Ankle Surgery Current PHONE: [phone] SPEEDY AGUILAR Internal Medicine Current PHONE: [phone] MERON TIRADO Nurse Practitioner: Family Current PHONE: Unknown STEFANI SHIELDS Internal Medicine Current PHONE: [phone] KELVIN BELCHER Nurse Practitioner: Psychiatric/Mental Health Current PHONE: [phone] BRODY CRONIN Nurse Practitioner Current GREER PHONE: [phone] DORA [facility] Current PHONE: Unknown MARYCARMEN SHAW Family [facility] Current PHONE: [phone] ANUSHA WEI Nurse Practitioner: Family Current PHONE: [phone] Gracie has no Care Guidelines for this patient. Care History Medical/Surgical 08/13/2019 [facility] - PATIENT IS A -RECEIVES SERVICES AT [facility] [place] [facility] MO[facility] NOTE: Visits indicate total known visits. ED/UCC VISIT TRACKING (12 MO.) 09/21/2023 09:05 [facility] [place] [facility] COMPLAINT: - CATHETER PROBLEM 09/07/2023 15:36 ROLANDA Navarro [place] TYPE: Emergency COMPLAINT: - PROBLEM WITH CATH DIAGNOSES: - Atherosclerotic heart disease of [place] coronary artery without angina pectoris - Emphysema, unspecified - Encounter for fitting and adjustment of urinary device - Essential (primary) hypertension - Hyperlipidemia, unspecified - Other fpc (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 - Presence of cardiac pacemaker - Type 2 diabetes mellitus without complications 08/16/2023 20:34 ROLANDA Navarro [place] TYPE: Emergency COMPLAINT: - CATH ISSUES DIAGNOSES: - Atherosclerotic heart disease of [place] coronary artery without angina pectoris - Emphysema, unspecified - Encounter for fitting and adjustment of urinary device - Essential (primary) hypertension - Laceration without foreign body of left hand, initial encounter - Laceration without foreign body of left shoulder, initial encounter - Nicotine dependence, unspecified, uncomplicated - Other fpc (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 - Presence of cardiac [...] Anemia, unspecified - Dysuria - Hypokalemia - detention (current) use of anticoagulants - Nicotine dependence, unspecified, uncomplicated - Other watermaster (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 - Urinary tract infection, site not specified 07/04/2023 23:14 ROLANDA Navarro [place] TYPE: Emergency COMPLAINT: - WEAKNESS DIAGNOSES: - Atherosclerotic heart disease of [place] coronary artery without angina pectoris - Contusion of right lower leg, initial encounter - Emphysema, unspecified - Essential (primary) hypertension - Fall on same level from slipping, tripping and stumbling without subsequent striking against object, initial encounter - Hyperlipidemia, unspecified - detention (current) use of anticoagulants - Nicotine dependence, unspecified, uncomplicated - Other watermaster (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 - Pain in right leg - Presence of cardiac pacemaker - Type 2 diabetes mellitus without complications 06/02/2023 08:32 ROLANDA Navarro [place] TYPE: Emergency COMPLAINT: - DIFFICULTY URINATING DIAGNOSES: - Atherosclerotic heart disease of [place] coronary artery without angina pectoris - Essential (primary) hypertension - Hyperlipidemia, unspecified - detention (current) use of anticoagulants - termite treater (current) use of oral hypoglycemic drugs - Other fpc (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 - Type 2 diabetes mellitus without complications - Urinary tract infection, site not specified 01/17/2023 10:10 ROLANDA Navarro [place] TYPE: Emergency COMPLAINT: - CATHETER ISSUE 01/03/2023 10:45 ROLANDA Navarro [place] TYPE: Emergency COMPLAINT: - SHORTNESS OF BREATH 01/02/2023 11:49 ROLANDA Navarro [place] TYPE: Emergency COMPLAINT: - SHORTNESS OF BREATH DIAGNOSES: - Atherosclerotic heart disease of [place] coronary artery without angina pectoris - Chronic obstructive pulmonary disease with (acute) exacerbation - Contact with and (suspected) exposure to COVID-19 - Essential (primary) hypertension - Hyperlipidemia, unspecified - termite treater (current) use of aspirin - termite treater (current) use of oral hypoglycemic drugs - Nicotine dependence, unspecified, uncomplicated - Other fpc (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 - Shortness of breath [...] with hypoxia - Atherosclerotic heart disease of [place] coronary artery without angina pectoris - Atherosclerotic heart disease of [place] coronary artery without angina pectoris - Chronic atrial fibrillation, unspecified - Chronic atrial fibrillation, unspecified - Enterococcus as the cause of diseases classified elsewhere - Enterococcus as the cause of diseases classified elsewhere - Essential (primary) hypertension - Essential (primary) hypertension - Hyperlipidemia, unspecified - Hyperlipidemia, unspecified - detention (current) use of inhaled steroids - termite treater (current) use of inhaled steroids - Low back pain, unspecified - Low back pain, unspecified - Nicotine dependence, cigarettes, uncomplicated - Nicotine dependence, cigarettes, uncomplicated - Other watermaster (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 - Other watermaster (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 - Other specified bacterial [...] posthemorrhagic anemia - Atherosclerotic heart disease of [place] coronary artery without angina pectoris - Atherosclerotic heart disease of [place] coronary artery without angina pectoris - Chronic [...] - Hypokalemia - Hypomagnesemia - Hypomagnesemia - detention (current) use of antibiotics - termite treater (current) use of antibiotics - detention (current) use of anticoagulants - detention (current) use of anticoagulants - termite treater (current) use of inhaled steroids - detention (current) use of inhaled steroids - Nicotine dependence, cigarettes, uncomplicated - Nicotine dependence, cigarettes, uncomplicated - 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 - Other fpc (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 - Other watermaster (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 - Other specified postprocedural [...] with hypoxia - Atherosclerotic heart disease of [place] coronary artery without angina pectoris - Atherosclerotic heart disease of [place] coronary artery without angina pectoris - Benign [...] - Hyperlipidemia, unspecified - Hyperlipidemia, unspecified - termite treater (current) use of aspirin - termite treater (current) use of aspirin - detention (current) use of inhaled steroids - termite treater (current) use of inhaled steroids - detention (current) use of systemic steroids - detention (current) use of systemic steroids - Nicotine dependence, cigarettes, uncomplicated - Nicotine dependence, cigarettes, uncomplicated - Other constipation - Other watermaster (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 - Other fpc (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 - Other retention of [...] unspecified site - Unspecified osteoarthritis, unspecified site [email or web address]
[2023-09-21 10:09] VITALS: BP 135/81
== END 2023-09-21 10:11 | disposition home or self-care (01) ==
LOC: ED 09:05
DX: Z46.6 Encounter for fitting and adjustment of urinary device (principal); I10 Essential (primary) hypertension; I25.10 Atherosclerotic heart disease of native coronary artery without angina pectoris; E11.9 Type 2 diabetes mellitus without complications; E78.5 Hyperlipidemia, unspecified; J43.9 Emphysema, unspecified; F17.200 Nicotine dependence, unspecified, uncomplicated; Z95.0 Presence of cardiac pacemaker; Z79.899 Other long term (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
CPT/HCPCS: 51702; 99283

== ENCOUNTER 2023-11-13 10:16 | Observation (INO) | payer OTHER, MEDICARE ==
[~2023-11-13] VITALS: Ht 175.3 cm; Wt 68.2 kg
--- OUTSIDE RECORDS SUMMARY | 2023-11-13 10:20 | XMS ---
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 Events No recent Security Events currently on file CRITERIA MET - 6 ED Visits in 6 Months - [facility] - 2 Visits in 30 Days CARE PROVIDERS Dot Escobar Blanket Cutting Machine Operator/Environmental Services Assistant 09/26/2023-Current PHONE: [phone] Elian Plummer [place] [facility] [place] 08[place]13[place]2019-[facility] PHONE: [phone] NAREN Rangel, Registered 08/10/2019-[facility] PHONE: [phone] -Muriel- Dentist: Medical Records Library Professor [facility] PHONE: [phone] JAN BRIAN Webbing Seamer Pound Net: Foot \T\ Ankle Surgery Current PHONE: [phone] SPEEDY AGUILAR Internal Medicine Current PHONE: [phone] MERON TIRADO Nurse Practitioner: Family Current PHONE: Unknown STEFANI SHIELDS Internal Medicine Current PHONE: [phone] KELVIN BELCHER Nurse Practitioner: Psychiatric/Mental Health Current PHONE: [phone] BRODY CRONIN Nurse Practitioner Current GREER PHONE: [phone] [facility]: [facility] Current \F\ [facility] PHONE: [phone] DORA SHARON [facility] Current PHONE: Unknown MARYCARMEN SHAW [facility] Current PHONE: [phone] ANUSHA WEI Nurse Practitioner: Family Current PHONE: Unknown Gracie has no Care Guidelines for this patient. Care History Medical/Surgical 08/13/2019 [facility] \R\- PATIENT IS A -RECEIVES SERVICES AT [facility] [place] VISIT COUNT ([address] MO[address] 13 [facility]. TOTAL 13 NOTE: Visits indicate total known visits. ED/UCC VISIT TRACKING (12 MO.) 11/13/2023 10:17 ROLANDA Navarro [place] TYPE: Emergency COMPLAINT: - DIFFICULT BREATHING 11/03/2023 22:52 ROLANDA Navarro [place] TYPE: Emergency COMPLAINT: - URINE PROBLEM DIAGNOSES: - Atherosclerotic heart disease of [place] coronary artery without angina pectoris - Dysuria - Emphysema, unspecified - Essential (primary) hypertension - Hyperlipidemia, unspecified - Nicotine dependence, unspecified, uncomplicated - Other detention (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 - Presence of cardiac pacemaker - Retention of urine, unspecified - Type 2 diabetes mellitus without complications - Urinary tract infection, site not specified 09/21/2023 09:05 ROLANDA Navarro [place] TYPE: Emergency COMPLAINT: - CATHETER PROBLEM DIAGNOSES: - Atherosclerotic heart disease of [place] coronary artery without angina pectoris - Emphysema, unspecified - Encounter for fitting and adjustment of urinary device - Essential (primary) hypertension - Hyperlipidemia, unspecified - Nicotine dependence, unspecified, uncomplicated - Other detention (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 - Presence of cardiac pacemaker - Type 2 diabetes mellitus without complications 09/07/2023 15:36 ROLANDA Navarro [place] TYPE: Emergency COMPLAINT: - PROBLEM WITH CATH DIAGNOSES: - Atherosclerotic heart disease of [place] coronary artery without angina pectoris - Emphysema, unspecified - Encounter for fitting and adjustment of urinary device - Essential (primary) hypertension - Hyperlipidemia, unspecified - Other termite exterminator (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 - Presence of cardiac pacemaker - Type 2 diabetes mellitus without complications 08/16/2023 20:34 ROLANDA Navarro [place] TYPE: Emergency COMPLAINT: - CATH ISSUES DIAGNOSES: - Atherosclerotic heart disease of [place] coronary artery without angina pectoris - Emphysema, unspecified - Encounter for fitting and adjustment of urinary device - Essential (primary) hypertension - Laceration without foreign body of left hand, initial encounter - Laceration without foreign body of left shoulder, initial encounter - Nicotine dependence, unspecified, uncomplicated - Other detention (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 - Presence of cardiac pacemaker - Striking against other object with subsequent fall, initial encounter - Type 2 diabetes mellitus without complications 08/10/2023 22:53 ROLANDA Navarro [place] TYPE: Emergency COMPLAINT: - BACK PAIN 07/27/2023 08:44 ROLANDA Kwonony Alexandrea Cruz [place] TYPE: Emergency COMPLAINT: - RECTAL BLEEDING 07/19/2023 11:48 ROLANDA Navarro [place] TYPE: Emergency COMPLAINT: - FALL DIAGNOSES: - Anemia, unspecified - Dysuria - Hypokalemia - snf (current) use of anticoagulants - Nicotine dependence, unspecified, uncomplicated - Other termite exterminator (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 - Urinary tract infection, site not specified 07/04/2023 23:14 ROLANDA Kwonni EscobedoKevin Cruz [place] TYPE: Emergency COMPLAINT: - WEAKNESS DIAGNOSES: - Atherosclerotic heart disease of [place] coronary artery without angina pectoris - Contusion of right lower leg, initial encounter - Emphysema, unspecified - Essential (primary) hypertension - Fall on same level from slipping, tripping and stumbling without subsequent striking against object, initial encounter - Hyperlipidemia, unspecified - snf (current) use of anticoagulants - Nicotine dependence, unspecified, uncomplicated - Other detention (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 - Pain in right leg - Presence of cardiac pacemaker - Type 2 diabetes mellitus without complications 06/02/2023 08:32 ROLANDA Navarro [place] TYPE: Emergency COMPLAINT: - DIFFICULTY URINATING DIAGNOSES: - Atherosclerotic heart disease of [place] coronary artery without angina pectoris - Essential (primary) hypertension - Hyperlipidemia, unspecified - snf (current) use of anticoagulants - snf (current) use of oral hypoglycemic drugs - Other detention (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 - Type 2 diabetes mellitus without complications - Urinary tract infection, site not specified 01/17/2023 10:10 ROLANDA Navarro [place] TYPE: Emergency COMPLAINT: - CATHETER ISSUE 01/03/2023 10:45 ROLANDA Navarro [place] TYPE: Emergency COMPLAINT: - SHORTNESS OF BREATH 01/02/2023 11:49 ROLANDA Navarro [place] TYPE: Emergency COMPLAINT: - SHORTNESS OF BREATH DIAGNOSES: - Atherosclerotic heart disease of [place] coronary artery without angina pectoris - Chronic obstructive pulmonary disease with (acute) exacerbation - Contact with and (suspected) exposure to COVID-19 - Essential (primary) hypertension - Hyperlipidemia, unspecified - terminal gauger supervisor (current) use of aspirin - snf (current) use of oral hypoglycemic drugs - Nicotine dependence, unspecified, uncomplicated - Other detention (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 - Shortness of breath [...] with hypoxia - Atherosclerotic heart disease of [place] coronary artery without angina pectoris - Atherosclerotic heart disease of [place] coronary artery without angina pectoris - Chronic atrial fibrillation, unspecified - Chronic atrial fibrillation, unspecified - Enterococcus as the cause of diseases classified elsewhere - Enterococcus as the cause of diseases classified elsewhere - Essential (primary) hypertension - Essential (primary) hypertension - Hyperlipidemia, unspecified - Hyperlipidemia, unspecified - terminal gauger supervisor (current) use of inhaled steroids - snf (current) use of inhaled steroids - Low back pain, unspecified - Low back pain, unspecified - Nicotine dependence, cigarettes, uncomplicated - Nicotine dependence, cigarettes, uncomplicated - Other detention (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 - Other termite exterminator (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 - Other specified bacterial [...] posthemorrhagic anemia - Atherosclerotic heart disease of [place] coronary artery without angina pectoris - Atherosclerotic heart disease of [place] coronary artery without angina pectoris - Chronic [...] - Hypokalemia - Hypomagnesemia - Hypomagnesemia - terminal gauger supervisor (current) use of antibiotics - terminal gauger supervisor (current) use of antibiotics - terminal gauger supervisor (current) use of anticoagulants - snf (current) use of anticoagulants - terminal gauger supervisor (current) use of inhaled steroids - snf (current) use of inhaled steroids - Nicotine dependence, cigarettes, uncomplicated - Nicotine dependence, cigarettes, uncomplicated - 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 - Other termite exterminator (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 - Other termite exterminator (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 - Other specified postprocedural [...] with hypoxia - Atherosclerotic heart disease of [place] coronary artery without angina pectoris - Atherosclerotic heart disease of [place] coronary artery without angina pectoris - Benign [...] - Hyperlipidemia, unspecified - Hyperlipidemia, unspecified - terminal gauger supervisor (current) use of aspirin - snf (current) use of aspirin - snf (current) use of inhaled steroids - snf (current) use of inhaled steroids - snf (current) use of systemic steroids - terminal gauger supervisor (current) use of systemic steroids - Nicotine dependence, cigarettes, uncomplicated - Nicotine dependence, cigarettes, uncomplicated - Other constipation - Other detention (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 - Other termite exterminator (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 - Other retention of [...] unspecified site - Unspecified osteoarthritis, unspecified site [email or web address]
[2023-11-13] MEDS ORDERED: dilTIAZem HCL 25 MG/5 ML VIAL IV ONE ×2 (10:30→11:15)
[2023-11-13] MEDS ORDERED: LACTATED RINGER'S 1,000 ML IV ONE (10:30)
[2023-11-13] MEDS ORDERED: ACETAMINOPHEN 500 MG TAB PO ONE (10:30)
[2023-11-13] MEDS ORDERED: ALBUTEROL SULFATE 0.083% 3 ML VIAL INH ONE (10:30)
[2023-11-13 10:48] LABS: HEMATOCRIT 29.4 % (35.0-50.0); HEMOGLOBIN 9.5 g/dL (12.0-18.0); MCH 28.1 (27-36); MCHC 32.3 g/dl (30-36); MCV 87.1 fl (81-99); PLATELET COUNT 425 K/uL (140-440); RBC 3.38 M/ul (4.3-5.7); RDW 16.5 (10.5-15.0)
[2023-11-13 10:54] LABS: BILIRUBIN, URINE NEGATIVE (negative); BLOOD/HGB, URINE NEGATIVE (Negative); KETONE, URINE NEGATIVE (Negative); LEUK ESTERASE, URINE MODERATE (negative); NITRITE, URINE POSITIVE (negative); PH, URINE 5.5 (5-7)
[2023-11-13 10:56] LABS: ALBUMIN 2.8 g/dL (3.4-5.0); ALBUMIN/GLOBULIN RATIO 0.7 (1.1-2.4); ANION GAP 7.6 (7-21); BILIRUBIN, TOTAL 0.3 ng/dL (0.2-1.0); BUN/CREATININE RATIO 14.77 (6.0-28.6); CALCIUM 8.2 mg/dL (8.5-10.1); CREATININE, SERUM 0.88 mg/dL (0.70-1.30); POTASSIUM 3.6 mmol/L (3.5-5.1); PROTEIN, TOTAL 6.8 g/dL (6.4-8.2)
[2023-11-13 10:59] LABS: LACTIC ACID, BLOOD 1.7 mmol/L (0.4-2.0)
[2023-11-13 11:01] LABS: WHITE BLOOD CELLS, URINE 21-40 /HPF (0-5)
[2023-11-13 11:03] LABS: BACTERIA, URINE 1+ /hpf (negative); CASTS, URINE NONE SEEN \\lpf; COLLECTION TYPE, URINE CLEAN CATCH; CRYSTALS, URINE NONE SEEN (0-1+); EPITHELIAL CELLS, URINE 0 /lpf (0-1+); REFLEX CULTURE, URINE Yes (No)
[2023-11-13 11:13] LABS: BANDS, MANUAL DIFF 3; LYMPHOCYTES, MANUAL DIFF 1; NEUTROPHILS, MANUAL DIFF 96
[2023-11-13] MEDS ORDERED: CEFTRIAXONE/SODIUM CHLORIDE 2 GM/100 ML PIGGYBACK IV ONE (11:15)
[2023-11-13 11:18] LABS: INFLUENZA B NAA NEGATIVE (NEGATIVE); RESPIRATORY SYNCYTIAL VIR NAA NEGATIVE (NEGATIVE)
[2023-11-13] MEDS ORDERED: AZITHROMYCIN/DEXTROSE 500 MG/250 ML BAG IV ONE (12:00)
[2023-11-13] MEDS ORDERED: ALBUTEROL SULFATE 8 GM INH INH PRN (13:30)
[2023-11-13] MEDS ORDERED: INHALER, ASSIST DEVICES 1 EACH SPACER MISC ONE (13:30)
[2023-11-13] MEDS ORDERED: methylPREDNISolone SOD SUCC 125 MG/2 ML VIAL IV SCH (14:00)
[2023-11-13] MEDS ORDERED: ondansetron HCL 4 MG/2 ML VIAL IV PRN (14:00)
[2023-11-13] MEDS ORDERED: LACTATED RINGER'S 1,000 ML IV SCH (14:00)
[2023-11-13] MEDS ORDERED: ALBUTEROL SULFATE 0.083% 3 ML VIAL INH PRN (14:00)
[2023-11-13] MEDS ORDERED: ENOXAPARIN SODIUM 80 MG/0.8 ML SYR SUB-Q SCH (14:00)
--- NOTE | 2023-11-13 14:22 | NUR ---
report from er pt with chronic brand, 4l nc to come to room 128 ccu.
[2023-11-13 15:00] VITALS: BP 111/64
[2023-11-13] MEDS ORDERED: GABAPENTIN 300 MG CAP PO SCH (15:00)
--- NOTE | 2023-11-13 15:17 | NUR ---
PT REPORTS NOT TO CONTACT CARRIE STEVEN WHO IS LISTED ON HIS FACE SHEET - HE SAYS OK TO TALK TO HER DAUGHTER.
--- NOTE | 2023-11-13 15:20 | NUR ---
DR MCPHERSON IN WITH PT AND RN, PT IS DISCUSSING CODE STATUS WITH PT, - HE HAS DNR POLST - HE REVIEWS ON ADMIT WITH DR MCPHERSON AND DECIDES ON YES TO CPR AND NO TO INTUBATION. NEW POLST FROM DR MCPHERSON FILLED OUT. PT STATES IT IS OK TO TELL MAURIZIO HE IS HERE NOW - SHE IS JUST OUT OF THE HOSPITAL AND DID NOT WANT TO BOTHER HER.
--- NOTE | 2023-11-13 15:57 | NUR ---
RT ROLAND IN FOR NEB TX, PT RESTING WITH AUDIBLE EXHALE AND WORK OF BREATHING - 100% ON 4L NC.
[2023-11-13] MEDS ORDERED: ALBUTEROL/IPRATROPIUM 3 ML NEB INH SCH (16:00)
--- NOTE | 2023-11-13 16:06 | NUR ---
pt cell phone in room - rings and he ok'd this rn to answer phone - marybel from family resorces on phone - refered her to call laquita in dc planning.
--- NOTE | 2023-11-13 17:06 | NUR ---
dr stringer in to assess pt, pt complaint of pain in abd. call light in reach - offered reg dinner - declined. ensure provided to pt and he drank a few sips, jello 100% hr 112, 98% oxygen on 4l nc.
--- NOTE | 2023-11-13 17:10 | NUR ---
Spoke with Hussein. He immediately begins yelling at me, "I told you not to call my niece." I let him know I have not called his niece Milli. She just called me for an update. He is concerned as she recently has surgery. Let him know I came to check on him and let him know Milli called. Pt states everything is the same. Same DME. He cont. to take his own meds and will not allow anyone to assist him or set up a med box. He is legally blind and mixes up his meds per Milli. He has them onto three shelves. [facility], so far he has refused them and asked them to leave when a they attempted to visit. Per Milli, "he ran them out of his home". Pt requested a change of DNR in the ER and Dr. Orellana completed this. I asked Hussein why he changed his DNR as he has one on file. He states he does not want either one. One shows DNR with limited and new one shows DNR with attempt CPR. I will discuss with him tomorrow when he is feeling better. 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 He plans on dc to home when he is cleared medically. Pt would benefit from placement but always refuses this. He did go to a SNF when discharged in the past, but he called and friend and left without notifing anyone.
--- NOTE | 2023-11-13 17:58 | NUR ---
PT UP TO BSC WITH STUDENT RN - LG SOFT FORMED BM NOTED, PT BACK TO BED, THIS RN IN ROOM, PT HAD 100 ML EMISIS IN BAG THAT SMELLED LIKE AND LOOKED LIKE STOOL, BROWN LIQUID - PT REPORTS FEELING BEETER AFTER EMISIS, AND HOB UP IN BED. CALL TO TO INFORM AND KUB ORDERED.
[2023-11-13] MEDS ORDERED: PANTOPRAZOLE SODIUM 40 MG TABEC PO SCH (18:15)
[2023-11-13] MEDS ORDERED: DIGOXIN 500 MCG/2 ML AMP IV ONE (18:15)
--- NOTE | 2023-11-13 18:28 | NUR ---
call to dr stringer see new orders emar - protonix, zofran and iv x1 dig. pt resting in bed watching tv, afib hr 120's - reports pain in abd improved, oral care done, resting with call light in reach.
[2023-11-13 19:00] VITALS: BP 123/64
--- NOTE | 2023-11-13 19:30 | NUR ---
REPORT RECEIVED FROM MARINA CEDILLO. PT IS AWAKE, WATCHING TV IN BED WITH SPO2 94%, RR 22, HR 100'S AND O2 AT 4L/NC.
[2023-11-13 20:00] VITALS: BP 104/51
[2023-11-13] MEDS ORDERED: BUDESONIDE 0.5 MG/2 ML VIAL INH SCH (20:00)
--- NOTE | 2023-11-13 20:22 | NUR ---
IN TO DO ASSESSMENT, WHEN ASKED IF PT IS HAVING PAIN HE STATES "ONLY MY STOMACH". PT DENIES FEELING SHORT OF BREATH, LUNGS HAVE FEW COARSE SOUNDS IN BASES AND CLEAR IN THE REST. LEGS HAVE TRACE AMOUNTS OF EDEMA. ORAL TEMP IS 100.4, WILL NOTIFIY .
--- NOTE | 2023-11-13 20:59 | NUR ---
UPDATED ON KUB RESULTS, WILL KEEP PT NPO WITH SIPS OF CLEARS AND ICE CHIPS FOR COMFORT.
[2023-11-13 21:00] VITALS: BP 122/65
[2023-11-13] MEDS ORDERED: MELATONIN 3 MG TAB PO PRN (21:00)
--- NOTE | 2023-11-13 21:03 | NUR ---
UPDATED MD ON RECENT TEMP, ORDER GIVEN FOR TYLENOL.
[2023-11-13] MEDS ORDERED: ACETAMINOPHEN 325 MG TAB PO PRN (21:15)
--- NOTE | 2023-11-13 21:53 | NUR ---
IN TO GIVE PT HS MEDS WELL PRN TYLENOL FOR TEMP. PT TOOK MEDS WITHOUT DIFFICULTY. NO REQUESTS, BACK TO SLEEP.
[2023-11-13 22:00] VITALS: BP 121/57
[2023-11-13 23:00] VITALS: BP 113/63
[2023-11-14] VITALS (10 sets, daily range): BP systolic 94–148; BP diastolic 55–83
--- NOTE | 2023-11-14 00:10 | NUR ---
IN TO DO ASSESSMENT, PT IS SLEEPING, DOES WAKE SOME WITH ASSESSMENT AND MUMBLES SOMETHING ABOUT THE TV, BACK TO SLEEP. VSS.
--- NOTE | 2023-11-14 01:46 | NUR ---
PT RESTING WITH EYES CLOSED, RESP EVEN AND UNLABORED, SPO2 975 ON 4L/O2.
--- NOTE | 2023-11-14 04:27 | NUR ---
PT CALLS TO ASK FOR NEB TX AND REPOSITIONING, ASSESSMENT DONE. MORE COARSE SOUNDS IN BILAT BASES THAN EARLIER, IVF PLACED ON STANDBY FOR NOW. RT IN TO DO NEB TX.
[2023-11-14 05:32] LABS: HEMATOCRIT 25.4 % (35.0-50.0); MCH 27.5 (27-36); MCHC 31.7 g/dl (30-36); MCV 86.8 fl (81-99); PLATELET COUNT 290 K/uL (140-440); RBC 2.92 M/ul (4.3-5.7); RDW 16.5 (10.5-15.0)
[2023-11-14 05:48] LABS: ANION GAP 11.7 (7-21); BUN/CREATININE RATIO 23.46 (6.0-28.6); CALCIUM 7.9 mg/dL (8.5-10.1); CREATININE, SERUM 0.98 mg/dL (0.70-1.30); POTASSIUM 3.7 mmol/L (3.5-5.1)
[2023-11-14 06:11] LABS: BANDS, MANUAL DIFF 9; NEUTROPHILS, MANUAL DIFF 91
[2023-11-14] MEDS ORDERED: CEFTRIAXONE/SODIUM CHLORIDE 1 GM/100 ML PIGGYBACK IV SCH (09:00)
[2023-11-14] MEDS ORDERED: AZITHROMYCIN 500 MG in DEXTROSE 5% 250 ML IV SCH (09:00)
[2023-11-14] MEDS ORDERED: PANTOPRAZOLE SODIUM 40 MG TABEC PO SCH (09:00)
--- NOTE | 2023-11-14 09:10 | NUR ---
Spoke with Hussein. He states he is feeling better. He also complains the [facility] doesn't help him. We discussed I had sent GECs in the past and they had called and visited him. I will call and check with them today to see what help they could provide.
--- NOTE | 2023-11-14 09:27 | NUR ---
PT WORKING WITH PT AT THIS TIME, ALERT AND ORIENTED.
--- NOTE | 2023-11-14 10:57 | NUR ---
DR MCPHERSON IN UNIT - ADVANCE PT TO CL LIQ PER PT REQUEST FOR REGULAR FOOD! - TOLLERATES SPRITE WELL - WATCHING TV. ANTONELLA FROM ID PLANNING IN WITH PT.
--- NOTE | 2023-11-14 11:03 | NUR ---
ROUNDS. PT ON PHONE. DID NOT INTERRUPT. PROVIDED SILENT PRAYER.
[2023-11-14] MEDS ORDERED: PHARMACY RENAL DOSE ADJUSTMENT 1 DOSE MISC PO SCH (12:00)
--- NOTE | 2023-11-14 13:14 | NUR ---
Review: 11/14/2023 [facility] review: Patient meets observation Guideline: Chronic Obstructive Pulmonary Disease: Observation Care - based on admission tachycardia, exacerbation of COPD - Tachypnea with inadequate response to ED treatment.
--- NOTE | 2023-11-14 13:59 | NUR ---
Patient was admitted at high risk for malnutrition due to recent poor appetite and unsure of weight loss. He lives at home with a caregiver. Currently has an ileus limiting his diet to sips of clears. He also has a history of COPD, Type 2 DM, CAD, HTN. Current BMI is 22.2. Patient's weight is only 3 lbs less than 3 months ago on 07/27/23 his weight was 153 lbs (BMI 22.7) per chart review. He has lost about 30 lbs over the past [address] follow up on Friday to see if ileus is resolved at patient is eating.
[2023-11-14] MEDS ORDERED: ATENOLOL50 MG PO (14:50)
[2023-11-14] MEDS ORDERED: LISINOPRIL5 MG PO (14:51)
--- NOTE | 2023-11-14 16:00 | NUR ---
Called and spoke with Jocelin from the [facility] home based program. She states Hussein was on their program in the past, but he disenrolled himself. She states I can send a GEC and fax them on Friday if he would like the Home based program again.
--- NOTE | 2023-11-14 16:20 | NUR ---
DR MCPHERSON HERE - PT RESTING, TOLLERATING CLEAR LIQ. DIET - AJ ENSURE GIVEN FOR NUTRUTION. PT 3L NC BASELINE 95% OXYGEN. PT WATCHING TV. CHRONIC ÁLVAREZ DRAINING URINE. CALL LIGHT IN REACH - RATES ABD. PAIN IMPROVING AND COMES AND GOES.
[2023-11-14] MEDS ORDERED: GABAPENTIN300 MG PO (16:41)
[2023-11-14] MEDS ORDERED: CRESTOR40 MG PO (16:42)
[2023-11-14] MEDS ORDERED: IPRAT-ALBUT 0.5-3 ML INH (16:42)
[2023-11-14] MEDS ORDERED: FLOMAX0.4 MG PO (16:43)
--- NOTE | 2023-11-14 16:45 | NUR ---
MED REC COMPLETE
--- NOTE | 2023-11-14 19:30 | NUR ---
REPORT RECEIVED FROM MARINA CEDILLO. PT AWAKE IN BED WATCHING TV, RESP EVEN AND UNLABORED, PT CALLS TO SAY HE IS UNCOMFORTABLE, PT BOOSTED UP IN BED AND REPOSITIONED, PT ALSO GIVEN ENSURE PER REQUEST.
--- NOTE | 2023-11-14 19:50 | NUR ---
IN TO DO ASSESSMENT, LUNGS HAVE SOME COARSE SOUNDS IN BASES, DENIES FEELING SHORT OF BREATH. PT DENIES PAIN, ACTIVE BOWEL SOUNDS. PT IS ALERT AND ORIENTED, IS WATCHING TV-ASSISTANCE GIVEN WITH FINDING THE RIGHT CHANNEL AND THEN PT IS SATISFIED WITH NO OTHER REQUESTS.
[2023-11-14] MEDS ORDERED: atenoloL 50 MG TAB PO SCH (21:00)
[2023-11-14] MEDS ORDERED: ENOXAPARIN SODIUM 60 MG/0.6 ML SYR SUB-Q SCH (21:00)
--- NOTE | 2023-11-14 23:35 | NUR ---
PT AWAKE IN BED WATCHING TV, NO REQUESTS AT THIS TIME, ASSESSMENT UNCHANGED FROM PREVIOUS.
[2023-11-15] VITALS: BP 108/57
[2023-11-15] MEDS ORDERED: methylPREDNISolone 4 MG HOME.PACK PO SCH
[2023-11-15] MEDS ORDERED: AMOXICILLIN/CLAVULANATE K 875 MG TAB PO SCH
--- NOTE | 2023-11-15 04:30 | NUR ---
PATIENT REQUEST PRN NEB TREATMENT; RT CALLED. PATIENT IS AAOX4; WATCHING TV AND RESTING IN BED. VS STABLE. TOLERATING 3L NC. IV SITE WNL; FLUIDS PER ORDER. ÁLVAREZ EMPTIED AT THIS TIME. ENSURE PROVIDED. NO OTHER NEEDS; CALL LIGHT IN REACH.
[2023-11-15 04:49] VITALS: BP 125/65
[2023-11-15 05:38] LABS: BASOPHILS 0.2 % (0-2); HEMATOCRIT 23.6 % (35.0-50.0); HEMOGLOBIN 7.7 g/dL (12.0-18.0); LYMPHOCYTES 1.4 % (24-44); MCH 28.2 (27-36); MCHC 32.8 g/dl (30-36); MCV 85.9 fl (81-99); MONOCYTES 1.1 % (0-12); NEUTROPHILS 97.3 % (39-80); PLATELET COUNT 291 K/uL (140-440); RBC 2.74 M/ul (4.3-5.7); RDW 16.6 (10.5-15.0)
[2023-11-15 05:51] LABS: ANION GAP 9.7 (7-21); BUN/CREATININE RATIO 33.33 (6.0-28.6); CALCIUM 8.5 mg/dL (8.5-10.1); CREATININE, SERUM 0.93 mg/dL (0.70-1.30); POTASSIUM 3.7 mmol/L (3.5-5.1)
--- NOTE | 2023-11-15 07:30 | NUR ---
REPORT RECIEVED FROM EMPLOYEE RELATIONS CONSULTANT RN. PATIENT RESTING IN BED ON 3L OXYGEN. PATIENT CALLS APPROPRIATELY AND CALL LIGHT IN REACH.
[2023-11-15 08:00] VITALS: BP 127/87
--- NOTE | 2023-11-15 08:00 | NUR ---
THIS RN IN TO CHECK ON PATIENT. PATIENT RESTING I NBED AT THIS TIME. PATIENT HAS TV ON AND MARY GRACE LLIGHT IN REACH. PATIENT ON 3L OXYGEN. PATIENT BREATH SOUNDS COARSE AT TIMES. PATIENT DENIES SOB, RR EVEN AND UNLABORED. PATIENT CLEAR LIQUID TRAY ARRIVED. PER MD ADVANCE PATIENTS DIET AND MONITOR FOR ANY ISSUES. PATIENT DENIES ANY ABD PAIN. NO BM SINCE 11/13. NO NAUSE/VOMITING. RT WILL BE IN TO DO HOME OXYGEN QUALIFIER TO SEE IF PATIENT NEEDS MORE OXYGEN WITH AMBULATION. PATIENT DENIES ANY OTHER NEEDS AT THIS TIME.
--- NOTE | 2023-11-15 09:14 | EKG ---
[facility] [address] [facility] [place] [address] Signed Atrial flutter with variable AV block Abnormal ECG When compared with ECG of 27-JUL-2023 09:19, Atrial flutter has replaced Atrial fibrillation Non-specific change in ST segment in Inferior leads Nonspecific T wave abnormality no longer evident in Inferior leads Nonspecific T wave abnormality, improved in Anterolateral leads Confirmed by GAURI MCPHERSON MD ([id number]) on 11/15/2023 9:14:40 AM Electronically Signed By: GAURI MCPHERSON 11/15/2314 PATIENT NAME: CRYSTAL GALVAN Electrocardiogram DATE OF : 44 PHYSICIAN: GAURI MCPHERSON REPORT #: [id number] REPORT IS CONFIDENTIAL AND NOT TO BE RELEASED WITHOUT AUTHORIZATION
--- NOTE | 2023-11-15 09:35 | NUR ---
PATIENT UP WALKING WITH RT AT THIS TIME OUT OF UNIT. PATIENT IS UTILIZING HIS HOME WALKER FOR STABILITY.
--- NOTE | 2023-11-15 10:00 | NUR ---
PATIENT SITTING UP IN BED EATING HIS BREAKFAST AT THIS TIME. PATIENT HAS CALL LIGHT AND CHOCOLATE ENSURE WAS PROVIDE PER PATIENT REQUEST.
[2023-11-15] MEDS ORDERED: AMOX TR-K CLV1 EAC1 PO (11:26)
[2023-11-15] MEDS ORDERED: METHYLPREDNISOLO4 M1 PO (11:27)
--- NOTE | 2023-11-15 12:00 | NUR ---
PATIENT EATING DINNER AT THIS TIME. PATIENT READY FOR DISCHARGE. NO RIDE AVAILABLE SO STAFF WILL WORK ON HIS TRANSPORTATION HOME. PATIENT HAS HIS HOME OXYGEN TANK. ALL BELONGINGS SENT WITH PATIENT. PATIENT DENIES ANY NEEDS AT THIS TIME.
[2023-11-15 12:50] VITALS: BP 131/99
--- NOTE | 2023-11-15 12:55 | NUR ---
SKYE CEDILLO IN TO GET PATIENT READY FOR DC HOME.
== END 2023-11-15 13:00 | disposition home or self-care (01) ==
LOC: ED 10:16 → CCU 10:18
PROVIDERS: Emergency Medicine; ADMIT Internal Medicine; ATTEND Internal Medicine
DX: J44.1 Chronic obstructive pulmonary disease with (acute) exacerbation (principal); I48.91 Unspecified atrial fibrillation; I10 Essential (primary) hypertension; I25.10 Atherosclerotic heart disease of native coronary artery without angina pectoris; E11.9 Type 2 diabetes mellitus without complications; Z79.899 Other long term (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
CPT/HCPCS: 36415; 71045; 74018; 80048; 80053; 81001; 83605; 85025; 87040; 87088; 87502; 93005; 93010; 94640; 94667; 94668; 94761; 96361; 96365; 96366; 96372; 96375; 96376; 99285-25; A9270; G0378; J0456; J0696; J1160; J1650; J2405; J2930; J7060; J7121; U0002

== ENCOUNTER 2024-02-19 11:44 | Emergency (ER) | payer OTHER ==
[~2024-02-19] VITALS: Ht 175.3 cm; Wt 72.5 kg
[~2024-02-19 11:44] MED LIST changes: +AMOX TR-K CLV1 EAC1 PO
--- OUTSIDE RECORDS SUMMARY | 2024-02-19 11:52 | XMS ---
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 No recent Security Events currently on file CRITERIA MET - 6 ED Visits in 6 Months CARE PROVIDERS Luz Dot Supervisor Shellfish Farming/Wildlife Control Agent 09/26/2023-Current PHONE: [phone] Elian Plummer [place] [facility] [place] 08[place]13/2019-[facility] PHONE: [phone] NAREN Rangel, Registered 08/10/2019-[facility] PHONE: [phone] -Muriel- Dentist: Applications Coordinator Replaced By [facility] PHONE: [phone] JAN BRIAN Historic Preservationist: Foot \T\ Ankle Surgery Current PHONE: [phone] SPEEDY AGUILAR Internal Medicine Current PHONE: [phone] MERON TIRADO Nurse Practitioner: Family Current PHONE: [phone] STEFANI SHIELDS Internal Medicine Current PHONE: [phone] KELVIN BELCHER Nurse Practitioner: Psychiatric/Mental Health Current PHONE: [phone] BRODY CRONIN Nurse Practitioner [facility] PHONE: [phone] [facility]: Rural Health Current \F\ [facility] PHONE: [phone] DORA [place] [facility] Current PHONE: Unknown MARYCARMEN SHAW [facility] Current PHONE: [phone] ANUSHA WEI Nurse Practitioner: Family Current PHONE: Unknown Gracie has no Care Guidelines for this patient. Care History Medical/Surgical 08/13/2019 [facility] \R\- PATIENT IS A -RECEIVES SERVICES AT [facility] [place] VISIT COUNT (12 MO.) 12 [facility]. TOTAL 12 NOTE: Visits indicate total known visits. ED/UCC VISIT TRACKING (12 MO.) 02/19/2024 11:44 [facility] [place] TYPE: Emergency COMPLAINT: - BLOOD PRESSURE 11/21/2023 10:48 [facility] [place] TYPE: Emergency COMPLAINT: - URINE PROBLEM 11/13/2023 10:17 [facility] [place] TYPE: Emergency COMPLAINT: - DIFFICULT BREATHING 11/03/2023 22:52 [facility] [place] TYPE: Emergency COMPLAINT: - URINE PROBLEM DIAGNOSES: - Atherosclerotic heart disease of [place] coronary artery without angina pectoris - Dysuria - Emphysema, unspecified - Essential (primary) hypertension - Hyperlipidemia, unspecified - Nicotine dependence, unspecified, uncomplicated - Other wet process operator (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 - Presence of cardiac pacemaker - Retention of urine, unspecified - Type 2 diabetes mellitus without complications - Urinary tract infection, site not specified 09/21/2023 09:05 [facility] [place] TYPE: Emergency COMPLAINT: - CATHETER PROBLEM DIAGNOSES: - Atherosclerotic heart disease of [place] coronary artery without angina pectoris - Emphysema, unspecified - Encounter for fitting and adjustment of urinary device - Essential (primary) hypertension - Hyperlipidemia, unspecified - Nicotine dependence, unspecified, uncomplicated - Other wet process operator (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 - Presence of cardiac pacemaker - Type 2 diabetes mellitus without complications 09/07/2023 15:36 [facility] [place] TYPE: Emergency COMPLAINT: - PROBLEM WITH CATH DIAGNOSES: - Atherosclerotic heart disease of [place] coronary artery without angina pectoris - Emphysema, unspecified - Encounter for fitting and adjustment of urinary device - Essential (primary) hypertension - Hyperlipidemia, unspecified - Other group home (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 - Presence of cardiac pacemaker - Type 2 diabetes mellitus without complications 08/16/2023 20:34 [facility] [place] TYPE: Emergency COMPLAINT: - CATH ISSUES DIAGNOSES: - Atherosclerotic heart disease of [place] coronary artery without angina pectoris - Emphysema, unspecified - Encounter for fitting and adjustment of urinary device - Essential (primary) hypertension - Laceration without foreign body of left hand, initial encounter - Laceration without foreign body of left shoulder, initial encounter - Nicotine dependence, unspecified, uncomplicated - Other group home (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 - Presence of cardiac pacemaker - Striking against other object with subsequent fall, initial encounter - Type 2 diabetes mellitus without complications 08/10/2023 22:53 [facility] [place] TYPE: Emergency COMPLAINT: - BACK PAIN 07/27/2023 08:[address] [facility] [place] TYPE: Emergency COMPLAINT: - RECTAL BLEEDING 07/19/2023 11:48 [facility] [place] TYPE: Emergency COMPLAINT: - FALL DIAGNOSES: - Anemia, unspecified - Dysuria - Hypokalemia - propellant charge loader (current) use of anticoagulants - Nicotine dependence, unspecified, uncomplicated - Other group home (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 - Urinary tract infection, site not specified 07/04/2023 23:14 [facility] [place] TYPE: Emergency COMPLAINT: - WEAKNESS DIAGNOSES: - Atherosclerotic heart disease of [place] coronary artery without angina pectoris - Contusion of right lower leg, initial encounter - Emphysema, unspecified - Essential (primary) hypertension - Fall on same level from slipping, tripping and stumbling without subsequent striking against object, initial encounter - Hyperlipidemia, unspecified - propellant charge loader (current) use of anticoagulants - Nicotine dependence, unspecified, uncomplicated - Other group home (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 - Pain in right leg - Presence of cardiac pacemaker - Type 2 diabetes mellitus without complications 06/02/2023 08:32 [facility] [place] TYPE: Emergency COMPLAINT: - DIFFICULTY URINATING DIAGNOSES: - Atherosclerotic heart disease of [place] coronary artery without angina pectoris - Essential (primary) hypertension - Hyperlipidemia, unspecified - propellant charge loader (current) use of anticoagulants - residential (current) use of oral hypoglycemic drugs - Other wet process operator (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 - Type 2 diabetes mellitus without complications - Urinary tract infection, site not specified INPATIENT VISIT TRACKING (12 MO.) 11/13/2023 10:18 [facility] [place] TYPE: Observation COMPLAINT: - COPD EXACERBATION DIAGNOSES: - Atherosclerotic heart disease of [place] coronary artery without angina pectoris - Chronic obstructive pulmonary disease with (acute) exacerbation - Essential (primary) hypertension - Other wet process operator (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 - Type 2 diabetes mellitus without complications - Unspecified atrial fibrillation 08/12/2023 16:25 [facility] [place] TYPE: Medical Surgical COMPLAINT: - SEPSIS,UTI,PYELONEPHRITIS,ACUTE URINARY RETENTION DIAGNOSES: - Acquired absence of other specified parts of digestive tract - Acquired absence of other specified parts of digestive tract - Acute and chronic respiratory failure with hypoxia - Acute and chronic respiratory failure with hypoxia - Atherosclerotic heart disease of [place] coronary artery without angina pectoris - Atherosclerotic heart disease of [place] coronary artery without angina pectoris - Chronic atrial fibrillation, unspecified - Chronic atrial fibrillation, unspecified - Enterococcus as the cause of diseases classified elsewhere - Enterococcus as the cause of diseases classified elsewhere - Essential (primary) hypertension - Essential (primary) hypertension - Hyperlipidemia, unspecified - Hyperlipidemia, unspecified - residential (current) use of inhaled steroids - residential (current) use of inhaled steroids - Low back pain, unspecified - Low back pain, unspecified - Nicotine dependence, cigarettes, uncomplicated - Nicotine dependence, cigarettes, uncomplicated - Other wet process operator (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 - Other group home (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 - Other specified bacterial [...] posthemorrhagic anemia - Atherosclerotic heart disease of [place] coronary artery without angina pectoris - Atherosclerotic heart disease of [place] coronary artery without angina pectoris - Chronic [...] - Hypokalemia - Hypomagnesemia - Hypomagnesemia - propellant charge loader (current) use of antibiotics - propellant charge loader (current) use of antibiotics - propellant charge loader (current) use of anticoagulants - residential (current) use of anticoagulants - residential (current) use of inhaled steroids - propellant charge loader (current) use of inhaled steroids - Nicotine dependence, cigarettes, uncomplicated - Nicotine dependence, cigarettes, uncomplicated - 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
[2024-02-19] MEDS ORDERED: NITROFURANTOIN100 M1 PO (12:08)
[2024-02-19 12:15] LABS: BASOPHILS 0.1 % (0-2); EOSINOPHILS 0.1 % (0-6); HEMATOCRIT 32.2 % (35.0-50.0); HEMOGLOBIN 10.7 g/dL (12.0-18.0); LYMPHOCYTES 1.4 % (24-44); MCH 29.2 (27-36); MCHC 33.2 g/dl (30-36); MONOCYTES 2.2 % (0-12); NEUTROPHILS 96.2 % (39-80); PLATELET COUNT 273 K/uL (140-440); RBC 3.65 M/ul (4.3-5.7); RDW 17.7 (10.5-15.0)
[2024-02-19 12:36] LABS: ALBUMIN 3.2 g/dL (3.4-5.0); ALBUMIN/GLOBULIN RATIO 0.84 (1.1-2.4); ANION GAP 16.3 (7-21); BILIRUBIN, TOTAL 0.7 ng/dL (0.2-1.0); BUN/CREATININE RATIO 20.66 (6.0-28.6); CALCIUM 8.7 mg/dL (8.5-10.1); CREATININE, SERUM 1.5 mg/dL (0.70-1.30); POTASSIUM 3.3 mmol/L (3.5-5.1); TSH, 3RD GENERATION 4.088 uIU/mL (0.358-3.740)
[2024-02-19 12:57] LABS: BILIRUBIN, URINE POSITIVE (negative); BLOOD/HGB, URINE SMALL (Negative); KETONE, URINE NEGATIVE (Negative); LEUK ESTERASE, URINE SMALL (negative); NITRITE, URINE NEGATIVE (negative)
[2024-02-19 13:01] LABS: BACTERIA, URINE RARE /hpf (negative); CASTS, URINE NONE SEEN \\lpf; COLLECTION TYPE, URINE CLEAN CATCH; CRYSTALS, URINE NONE SEEN (0-1+); EPITHELIAL CELLS, URINE SQUAMOUS 1+ /lpf (0-1+); REFLEX CULTURE, URINE No (No)
[2024-02-19] MEDS ORDERED: CEFTRIAXONE/SODIUM CHLORIDE 1 GM/100 ML PIGGYBACK IV ONE (14:00)
[2024-02-19 16:15] VITALS: BP 121/68
== END 2024-02-19 16:15 | disposition left against medical advice (07) ==
LOC: ED 11:44 → MS 11:45 → ED 11:45
PROVIDERS: Emergency Medicine
DX: A41.9 Sepsis, unspecified organism (principal); N39.0 Urinary tract infection, site not specified; I10 Essential (primary) hypertension; I25.10 Atherosclerotic heart disease of native coronary artery without angina pectoris; E78.5 Hyperlipidemia, unspecified; M19.90 Unspecified osteoarthritis, unspecified site; F17.200 Nicotine dependence, unspecified, uncomplicated; Z79.899 Other long term (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
CPT/HCPCS: 36415; 71045; 80053; 81001; 83605; 83690; 83880; 84443; 85025; 87070; 87075; 87205; 96374; 99285-25; J0696

== ENCOUNTER 2024-02-20 16:41 | Inpatient (IN) | payer OTHER, MEDICARE ==
[~2024-02-20] VITALS: Ht 172.7 cm; Wt 67.0 kg
--- OUTSIDE RECORDS SUMMARY | 2024-02-20 16:48 | XMS ---
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 - 2 Visits in 30 Days CARE PROVIDERS Dot Escobar Tongue Trimmer/Check Examiner 09/26/2023-Current PHONE: [phone] Elian Plummer [place] [facility] [place] 08/13/2019-[facility] PHONE: [phone] NAREN Rangel, Registered 08/10/2019-[facility] PHONE: [phone] -Muriel- Dentist: Brewery Technician [facility] PHONE: [phone] JAN BRIAN Hide Selector: Foot \T\ Ankle Surgery Current PHONE: [phone] SPEEDY AGUILAR Internal Medicine Current PHONE: [phone] MERON TIRADO Nurse Practitioner: Family Current PHONE: [phone] STEFANI SHIELDS Internal Medicine Current PHONE: [phone] KELVIN BELCHER Nurse Practitioner: Psychiatric/Mental Health Current PHONE: [phone] BRODY CRONIN Nurse Practitioner [facility] PHONE: [phone] [facility]: Rural Health Current \F\ [facility] PHONE: [phone] DORA [facility] Current PHONE: Unknown MARYCARMEN SHAW [facility] Current PHONE: [phone] ANUSHA WEI Nurse Practitioner: Family Current PHONE: Unknown Gracie has no Care Guidelines for this patient. Care History Medical/Surgical 08/13/2019 [facility] \R\- PATIENT IS A -RECEIVES SERVICES AT [facility] [place] VISIT COUNT (12 MO.) 13 [facility]. TOTAL 13 NOTE: Visits indicate total known visits. ED/UCC VISIT TRACKING (12 MO.) 02/20/2024 16:42 [facility] [place] TYPE: Emergency COMPLAINT: - ABDOMINAL PAIN 02/19/2024 11:44 [facility] [place] TYPE: Emergency COMPLAINT: - UTI 11/21/2023 10:48 [facility] [place] TYPE: Emergency COMPLAINT: - URINE PROBLEM 11/13/2023 10:17 [facility] [place] TYPE: Emergency COMPLAINT: - DIFFICULT BREATHING 11/03/2023 22:52 [facility] [place] TYPE: Emergency COMPLAINT: - URINE PROBLEM DIAGNOSES: - Atherosclerotic heart disease of citizen [place] coronary artery without angina pectoris - Dysuria [...] PROBLEM DIAGNOSES: - Atherosclerotic heart disease of citizen [place] coronary artery without angina pectoris - Emphysema, unspecified - Encounter for fitting and adjustment of urinary device - Essential (primary) hypertension - Hyperlipidemia, unspecified - Nicotine dependence, unspecified, uncomplicated - Other fci (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 - Presence of cardiac pacemaker - Type 2 diabetes mellitus without complications 09/07/2023 15:[address] [facility] [place] TYPE: Emergency COMPLAINT: - PROBLEM WITH CATH DIAGNOSES: - Atherosclerotic heart disease of citizen [place] coronary artery without angina pectoris - Emphysema, unspecified - Encounter for fitting and adjustment of urinary device - Essential (primary) hypertension - Hyperlipidemia, unspecified - Other fci (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 - Presence of cardiac pacemaker - Type 2 diabetes mellitus without complications 08/16/2023 20:34 [facility] [place] TYPE: Emergency COMPLAINT: - CATH ISSUES DIAGNOSES: - Atherosclerotic heart disease of citizen [place] coronary artery without angina pectoris - Emphysema, [...] Anemia, unspecified - Dysuria - Hypokalemia - terminal operations supervisor (current) use of anticoagulants - Nicotine dependence, unspecified, uncomplicated - Other termite exterminator (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 - Urinary tract infection, site not specified 07/04/2023 23:14 [facility] [place] TYPE: Emergency COMPLAINT: - WEAKNESS DIAGNOSES: - Atherosclerotic heart disease of citizen [place] coronary artery without angina pectoris - Contusion of right lower leg, initial encounter - Emphysema, unspecified - Essential (primary) hypertension - Fall on same level from slipping, tripping and stumbling without subsequent striking against object, initial encounter - Hyperlipidemia, unspecified - terminal operations supervisor (current) use of anticoagulants - Nicotine dependence, unspecified, uncomplicated - Other fci (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 - Pain in right leg - Presence of cardiac pacemaker - Type 2 diabetes mellitus without complications 06/02/2023 08:32 [facility] [place] TYPE: Emergency COMPLAINT: - DIFFICULTY URINATING DIAGNOSES: - Atherosclerotic heart disease of citizen [place] coronary artery without angina pectoris - Essential (primary) hypertension - Hyperlipidemia, unspecified - terminal operations supervisor (current) use of anticoagulants - intermediate (current) use of oral hypoglycemic drugs - Other fci (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 - Type 2 diabetes mellitus without complications - Urinary tract infection, site not specified INPATIENT VISIT TRACKING (12 MO.) 02/19/2024 11:45 [facility] [place] TYPE: Observation COMPLAINT: - UTI 11/13/2023 10:18 [facility] [place] TYPE: Observation COMPLAINT: - COPD EXACERBATION DIAGNOSES: - Atherosclerotic heart disease of citizen [place] coronary artery without angina pectoris - Chronic obstructive pulmonary disease with (acute) exacerbation - Essential (primary) hypertension - Other fci (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 - Type 2 diabetes [...] with hypoxia - Atherosclerotic heart disease of citizen [place] coronary artery without angina pectoris - Atherosclerotic heart disease of citizen [place] coronary artery without angina pectoris - Chronic atrial fibrillation, unspecified - Chronic atrial fibrillation, unspecified - Enterococcus as the cause of diseases classified elsewhere - Enterococcus as the cause of diseases classified elsewhere - Essential (primary) hypertension - Essential (primary) hypertension - Hyperlipidemia, unspecified - Hyperlipidemia, unspecified - intermediate (current) use of inhaled steroids - terminal operations supervisor (current) use of inhaled steroids - Low back pain, unspecified - Low back pain, unspecified - Nicotine dependence, cigarettes, uncomplicated - Nicotine dependence, cigarettes, uncomplicated - Other fci (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 - Other fci (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 - Other specified bacterial [...] posthemorrhagic anemia - Atherosclerotic heart disease of citizen [place] coronary artery without angina pectoris - Atherosclerotic heart disease of citizen [place] coronary artery without angina pectoris - Chronic [...] Hypokalemia - Hypomagnesemia - Hypomagnesemia - terminal operations supervisor (current) use of antibiotics - terminal operations supervisor (current) use of antibiotics - intermediate (current) use of anticoagulants - terminal operations supervisor (current) use of anticoagulants - terminal operations supervisor (current) use of inhaled steroids - intermediate (current) use of inhaled steroids - Nicotine dependence, cigarettes, uncomplicated - Nicotine dependence, cigarettes, uncomplicated - 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 - Other fci (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 - Other termite exterminator [...] - Urinary tract infection, site not specified [email or web address]
[2024-02-20 17:20] LABS: MCV 89.2 fl (81-99)
[2024-02-20] MEDS ORDERED: ALBUTEROL/IPRATROPIUM 3 ML NEB INH ONE (17:30)
[2024-02-20 17:34] LABS: PH, VENOUS 7.403 (7.31-7.41)
[2024-02-20 17:35] LABS: BASOPHILS 0.4 % (0-2); EOSINOPHILS 3.7 % (0-6); HEMATOCRIT 30.6 % (35.0-50.0); HEMOGLOBIN 10.1 g/dL (12.0-18.0); LYMPHOCYTES 7.8 % (24-44); MCH 29.4 (27-36); MONOCYTES 6.6 % (0-12); NEUTROPHILS 81.5 % (39-80); PLATELET COUNT 243 K/uL (140-440); RBC 3.43 M/ul (4.3-5.7); RDW 17.4 (10.5-15.0)
[2024-02-20 17:37] LABS: ALBUMIN 3.1 g/dL (3.4-5.0); ALBUMIN/GLOBULIN RATIO 0.84 (1.1-2.4); ANION GAP 10.4 (7-21); BILIRUBIN, TOTAL 0.3 ng/dL (0.2-1.0); BUN/CREATININE RATIO 36.36 (6.0-28.6); CALCIUM 8.7 mg/dL (8.5-10.1); CREATININE, SERUM 1.1 mg/dL (0.70-1.30); POTASSIUM 3.4 mmol/L (3.5-5.1); PROTEIN, TOTAL 6.8 g/dL (6.4-8.2)
[2024-02-20] MEDS ORDERED: CEFTRIAXONE/SODIUM CHLORIDE 1 GM/100 ML PIGGYBACK IV ONE (18:00)
[2024-02-20] MEDS ORDERED: methylPREDNISolone SOD SUCC 125 MG/2 ML VIAL IV ONE (19:15)
[2024-02-20] MEDS ORDERED: ENOXAPARIN SODIUM 40 MG/0.4 ML SYR SUB-Q SCH (20:00)
[2024-02-20] MEDS ORDERED: NICOTINE 14 MG/24 HR 1 EA TDSY TD PRN (20:00)
[2024-02-20] MEDS ORDERED: AZITHROMYCIN 250 MG TAB PO SCH (20:01)
[2024-02-20] MEDS ORDERED: BUDESONIDE 0.5 MG/2 ML VIAL INH SCH (20:02)
[2024-02-20] MEDS ORDERED: atenoloL 50 MG TAB PO SCH (21:00)
[2024-02-20 21:23] VITALS: BP 136/79
[2024-02-20] MEDS ORDERED: LIDOCAINE 2% VISCOUS 6 ML SYR TOP ONE (22:15)
[2024-02-20] MEDS ORDERED: POTASSIUM CHLORIDE 20 MEQ/15 ML CUP PO ONE (23:45)
[2024-02-20] MEDS ORDERED: MAGNESIUM HYDROXIDE 30 ML UDC PO PRN (23:45)
[2024-02-20] MEDS ORDERED: MELATONIN 3 MG TAB PO PRN (23:45)
[2024-02-20] MEDS ORDERED: BENZONATATE 100 MG CAP PO PRN (23:45)
[2024-02-20] MEDS ORDERED: ALBUTEROL SULFATE 0.083% 3 ML VIAL INH PRN (23:45)
[2024-02-20] MEDS ORDERED: ACETAMINOPHEN 500 MG TAB PO PRN (23:45)
[2024-02-21] VITALS (8 sets, daily range): BP systolic 110–139; BP diastolic 50–82
[2024-02-21 00:56] LABS: INFLUENZA B NAA NEGATIVE (NEGATIVE); RESPIRATORY SYNCYTIAL VIR NAA NEGATIVE (NEGATIVE)
--- NOTE | 2024-02-21 05:12 | EKG ---
[facility] [address] [facility] [place] [address] Signed Atrial fibrillation Abnormal ECG When compared with ECG of 13-NOV-2023 10:25, Atrial fibrillation has replaced Atrial flutter Vent. rate has decreased BY 53 BPM Nonspecific T wave abnormality no longer evident in Lateral leads Confirmed by Lidia Akers ([id number]) on 02/21/2024 5:12:52 AM Electronically Signed By: LIDIA AKERS MD 02/21/24 0512 PATIENT NAME: CRYSTAL GALVAN Electrocardiogram DATE OF : 44 PHYSICIAN: LIDIA AKERS MD REPORT #: [id number] REPORT IS CONFIDENTIAL AND NOT TO BE RELEASED WITHOUT AUTHORIZATION
[2024-02-21 05:55] LABS: BASOPHILS 0.2 % (0-2); HEMATOCRIT 30.4 % (35.0-50.0); HEMOGLOBIN 10.3 g/dL (12.0-18.0); LYMPHOCYTES 4.1 % (24-44); MCH 29.6 (27-36); MCHC 33.7 g/dl (30-36); MONOCYTES 1.8 % (0-12); NEUTROPHILS 93.9 % (39-80); PLATELET COUNT 240 K/uL (140-440); RBC 3.46 M/ul (4.3-5.7); RDW 17.4 (10.5-15.0)
[2024-02-21 06:06] LABS: ANION GAP 13.1 (7-21); BUN/CREATININE RATIO 41.17 (6.0-28.6); CALCIUM 8.4 mg/dL (8.5-10.1); CREATININE, SERUM 1.02 mg/dL (0.70-1.30); POTASSIUM 4.1 mmol/L (3.5-5.1)
[2024-02-21] MEDS ORDERED: ALBUTEROL/IPRATROPIUM 3 ML NEB INH SCH (08:00)
[2024-02-21] MEDS ORDERED: lisinopriL 5 MG TAB PO SCH (09:00)
[2024-02-21] MEDS ORDERED: methylPREDNISolone SOD SUCC 40 MG/ML VIAL IV SCH (09:00)
[2024-02-21] MEDS ORDERED: GLUCAGON,HUMAN RECOMBINANT 1 MG/ML VIAL SUB-Q PRN (11:30)
[2024-02-21] MEDS ORDERED: IBLOOD GLUCOSE TEST STRIP 1 EA TEST XX PRN (11:30)
[2024-02-21] MEDS ORDERED: DEXTROSE 50% 50 ML SYR IV PRN ×2 (11:30)
[2024-02-21] MEDS ORDERED: DEXTROSE 5% 1,000 ML IV PRN (11:30)
[2024-02-21] MEDS ORDERED: INSULIN LISPRO 100 UNIT/ML ML SUB-Q ONE (11:45)
[2024-02-21] MEDS ORDERED: Insulin Regular, Human 100 UNIT/ML ML SUB-Q ONE (11:45)
[2024-02-21] MEDS ORDERED: PHARMACY RENAL DOSE ADJUSTMENT 1 DOSE MISC PO SCH (12:00)
[2024-02-21] MEDS ORDERED: IBLOOD GLUCOSE TEST STRIP 1 EA TEST VI SCH (12:00)
[2024-02-21] MEDS ORDERED: INSULIN LISPRO 100 UNIT/ML ML SUB-Q SCH (12:00)
[2024-02-21] MEDS ORDERED: ATORVASTATIN 40 MG TAB PO SCH (17:00)
[2024-02-21] MEDS ORDERED: CEFTRIAXONE/SODIUM CHLORIDE 1 GM/100 ML PIGGYBACK IV SCH (18:00)
[2024-02-22 04:41] VITALS: BP 110/57
[2024-02-22 04:45] VITALS: BP 110/57
[2024-02-22 06:21] LABS: BASOPHILS 0.2 % (0-2); EOSINOPHILS 0.3 % (0-6); HEMATOCRIT 28.6 % (35.0-50.0); HEMOGLOBIN 9.4 g/dL (12.0-18.0); LYMPHOCYTES 12.6 % (24-44); MCH 29.1 (27-36); MCV 88.2 fl (81-99); MONOCYTES 6.3 % (0-12); NEUTROPHILS 80.6 % (39-80); PLATELET COUNT 237 K/uL (140-440); RBC 3.24 M/ul (4.3-5.7); RDW 17.3 (10.5-15.0)
[2024-02-22 06:50] LABS: ANION GAP 13.4 (7-21); BUN/CREATININE RATIO 45.91 (6.0-28.6); CALCIUM 8.3 mg/dL (8.5-10.1); CREATININE, SERUM 0.98 mg/dL (0.70-1.30); POTASSIUM 3.4 mmol/L (3.5-5.1)
[2024-02-22] MEDS ORDERED: POTASSIUM CHLORIDE 40 MEQ,LIDOCAINE HCL 1% 40 MG in DEXTROSE 5% 500 ML IV ONE (08:15)
[2024-02-22] MEDS ORDERED: predniSONE 20 MG TAB PO SCH (09:00)
[2024-02-22 10:06] VITALS: BP 115/50
[2024-02-22] MEDS ORDERED: CEFDINIR300 MG PO (12:49)
[2024-02-22] MEDS ORDERED: PREDNISONE20 MG PO (12:51)
[2024-02-22] MEDS ORDERED: BENZONATATE100 MG PO (12:52)
[2024-02-22] MEDS ORDERED: EXPECTORANT200 MG PO (12:54)
[2024-02-22 13:14] VITALS: BP 126/69
== END 2024-02-22 13:45 | disposition home or self-care (01) | DRG 191 ==
LOC: ED 16:41 → MS 20:20
PROVIDERS: Emergency Medicine; ADMIT Family Medicine; ATTEND Family Medicine
DX: J44.1 Chronic obstructive pulmonary disease with (acute) exacerbation (principal); N39.0 Urinary tract infection, site not specified; T83.511A Infection and inflammatory reaction due to indwelling urethral catheter, initial encounter; E87.6 Hypokalemia; F17.210 Nicotine dependence, cigarettes, uncomplicated; R53.81 Other malaise; I25.10 Atherosclerotic heart disease of native coronary artery without angina pectoris; E78.5 Hyperlipidemia, unspecified; M19.90 Unspecified osteoarthritis, unspecified site; J43.9 Emphysema, unspecified; Z96.0 Presence of urogenital implants; B96.89 Other specified bacterial agents as the cause of diseases classified elsewhere; Z95.0 Presence of cardiac pacemaker; Z99.81 Dependence on supplemental oxygen; Z71.6 Tobacco abuse counseling; Z90.49 Acquired absence of other specified parts of digestive tract; Z79.899 Other long term (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
CPT/HCPCS: 36415; 71045; 74177; 80048; 80053; 82803; 83036; 83605; 83735; 84484; 85025; 87077; 87088; 87502; 93005; 93010; 94640; 94762; A9270; J0696; J1650; J1815; J2920; J2930; J3480; J3490; J7060; J7512; Q9967; U0002

== ENCOUNTER 2024-04-19 07:35 | Day surgery (SDC) | payer OTHER ==
[2024-04-14 14:22] VITALS: BP 116/70
[~2024-04-19] VITALS: Ht 172.7 cm; Wt 70.5 kg
[2024-04-19] VITALS (7 sets, daily range): BP systolic 103–131; BP diastolic 57–75
[~2024-04-19 07:35] MED LIST changes: +BENZONATATE100 MG PO; +CEFAZOLIN SODIUM 2 GM/20 ML SYR IV SCH; +DEXAMETHASONE SOD PHOS 4 MG/ML VIAL ONE; +EXPECTORANT200 MG PO; +FAMOTIDINE 20 MG/ 2 ML VIAL ONE; +IBLOOD GLUCOSE TEST STRIP 1 EA TEST VI PRN; +KETOROLAC TROMETHAMINE 30 MG/ML VIAL ONE; +LACTATED RINGER'S 1,000 ML IV ONE; +LACTATED RINGER'S 1,000 ML IV SCH; +LIDOCAINE HCL 1% 5 ML SDV INJ ONE; +METOCLOPRAMIDE HCL 10 MG/2 ML SDV ONE; +MIDAZOLAM HCL 2 MG/2 ML VIAL ONE; +MORPHINE SULFATE 4 MG/ML VIAL IV PRN; +NEURONTIN300 MG PO; +OXYCODONE/APAP 5/325 TAB PO PRN; +diphenhydrAMINE HCL 25 MG CAP PO PRN; +fentaNYL citrate 100 MCG/2 ML VIAL ONE; +ondansetron HCL 4 MG/2 ML VIAL IV PRN; +ondansetron HCL 4 MG/2 ML VIAL ONE; +propofoL 200 MG/20 ML VIAL ONE
[2024-04-19] MEDS ORDERED: ALBUTEROL/IPRATROPIUM 3 ML NEB INH PRN (07:45)
--- NOTE | 2024-04-19 08:07 | NUR ---
DENIES ANY PAIN. CAME WITHOUT ANY FAMILY. LA JOLLA LEFT AIDES AT HOME. DENIES ANY NEEDS AT THIS TIME.
[2024-04-19] MEDS ORDERED: fentaNYL citrate 50 MCG/ML SDV IV PRN (08:15)
[2024-04-19] MEDS ORDERED: droPERidol 5 MG/2 ML VIAL IV PRN (08:15)
[2024-04-19] MEDS ORDERED: METOCLOPRAMIDE HCL 10 MG/2 ML SDV IV PRN (08:15)
[2024-04-19] MEDS ORDERED: IBLOOD GLUCOSE TEST STRIP 1 EA TEST VI PRN (08:15)
[2024-04-19] MEDS ORDERED: NALOXONE HCL 0.4 MG SYR IV PRN (08:15)
[2024-04-19] MEDS ORDERED: ondansetron HCL 4 MG/2 ML VIAL IV PRN (08:15)
[2024-04-19] MEDS ORDERED: PROCHLORPERAZINE EDISYLATE 10 MG/2 ML VIAL IV PRN (08:15)
[2024-04-19] MEDS ORDERED: MORPHINE SULFATE 10 MG/ML VIAL IV PRN (08:15)
[2024-04-19] MEDS ORDERED: GABAPENTIN 300 MG CAP PO SCH (09:00)
--- NOTE | 2024-04-19 09:50 | NUR ---
EMPTIED 175 FROM ÁLVAREZ BAG.
[2024-04-19] MEDS ORDERED: DEXAMETHASONE SOD PHOS 4 MG/ML VIAL ONE (10:56)
[2024-04-19] MEDS ORDERED: propofoL 200 MG/20 ML VIAL ONE ×2 (10:59→12:01)
--- NOTE | 2024-04-19 12:52 | NUR ---
04/19/24 1252 Jacqueline Madison 1239- PT ARRIVES TO PACU TALKING. IT IS DIFFICULT TO UNDERSTAND WHAT THE PT IS SAYING. ANESTHESIA PROVIDER TRYING TO REORIENT PT. PT HAVING DIFFICULTY BEING REORIENTED. PT IS CALM IN THE BED. RESP EVEN AND UNLABORED. OXYGEN SAT HIGH 90'S TO 100% ON 6L VIA MASK. PT IN AFIB. REPORTED THIS IS THE PT'S BASELINE RHYTHM. CBI SLOWLY INFUSING. LIGHT PINK TINGED DRAINAGE IN THE TUBE. 1246- PT'S OXYGEN TITRATED DOWN TO 3L VIA NC. PT USES 3L OF OXYGEN AT HOME. PT IS ABLE TO FOLLOW COMMANDS. PT HAS EQUAL APERTURE MASK ETCHER AND IS ABLE TO STATE THE YEAR AND THAT [employer] IS RUNNING FOR PRESIDENT.
--- NOTE | 2024-04-19 14:00 | NUR ---
PATIENT TO MED SURG AT 1330. PATIENT IS ON CHRONIC 3L, HE REPORTS THAT HE USES UP TO 3.5L AT HOME AND ALSO CONTINUES TO SMOKE. PATIENT IS ON BED REST, CBI TO ÁLVAREZ CATHETER IS CLAMPED UPON ARRIVAL, URINE IS PALEST PINK, NO CLOTS. SUPRAPUBIC CATHETER IS PRESENT, GUAZE TO ABDOMINAL INSERTION SITE, NO DRAINAGE AND CATHETER IS PLUGGED. SCD'S ARE ON, LR @ 50ML/HR IS INFUSING TO LEFT WRIST, BED ALARM IS ON. LATE LUNCH IS ORDERED FOR PATIENT. PATIENT REPORTS PAIN AT ÁLVAREZ INSERTION SITES ARE LOW AT 2/10 AND REQUIRES NO MEDICATIONS AT THIS TIME. PATIENT IS SITTING UP IN BED TO EAT A SANDWICH, NO OTHER NEEDS AT THIS TIME.
[2024-04-19] MEDS ORDERED: TRAMADOL HCL50 MG PO (14:19)
[2024-04-19] MEDS ORDERED: CIPRO500 MG PO (14:20)
--- NOTE | 2024-04-19 14:43 | NUR ---
SECOND SET OF POST OP VITALS COMPLETE. PATIENT REPORTS PAIN IS 1/10 AND REQUIRES NO INTERVENTION. PATIENT ATE 100% OF LUNCH. NO OTHER NEEDS AT THIS TIME.
--- NOTE | 2024-04-19 15:00 | NUR ---
Spoke with pt. He cont. to live in [place] and has assist from state paid CG. Pt is legally blind. He would like more cg hours and I discussed this will only happen if he accepts assist from the [place]. He declines this. He also feels he could use more food, we discussed food boxes and the food bank. Pt refuses this. Feels he will make do. He has assist from [facility] for food stamps and [employer]. Pt refuses all offers for resources and wants to go home with assist from his CG. He states he has an appeal in place to the state as they cut his cg hrs. He denies other needs. Will need transpor home tomorrow through [facility]. I will call and schedule.
--- NOTE | 2024-04-19 15:25 | NUR ---
PT UP IN BED. ÁLVAREZ DRAINING WELL. IVF RUNNING. MEDICATION ADMINISTERED PER ORDER. ICE WATER PROVIDED. PT DENIES ANY NEEDS. CALL LIGHT IN REACH.
--- NOTE | 2024-04-19 15:48 | NUR ---
PT UP IN BED RESTING. VITALS STABLE.ÁLVAREZ DRAINING WELL. PT DENIES ANY NEEDS. CALL LIGHT IN REACH.
[2024-04-19] MEDS ORDERED: ALBUTEROL/IPRATROPIUM 3 ML NEB INH SCH (16:00)
--- NOTE | 2024-04-19 16:48 | NUR ---
Called and scheduled [facility] transport for Hussein. [facility] will call with any changes. Plan for 11:00 to 11:30 transport.
--- NOTE | 2024-04-19 17:00 | NUR ---
LAST POST OP VITAL COMPLETE, VSS. PATIENT IS RESTING IN BED, REPORTS PAIN MINIMAL OF 1/10. CBI CONTINUES TO BE CLAMPED, URINE IS YELLOW WITH BAREST TINGE OF PINK. NO OTHER NEEDS AT THIS TIME.
--- NOTE | 2024-04-19 18:06 | NUR ---
PATIENT SITTING UP IN BED TO EAT DINNER, GIVEN CHOCOLATE ENSURE BY REQUEST, NO OTHER NEEDS.
--- NOTE | 2024-04-19 18:23 | NUR ---
PT UP IN BED EATING DINNER. VS AND IS AND OS COMPLETE. PT REQ MORE CORN BREAD, ATTEMPTED TO CONTACT KITCHEN BUT THEY WERE GONE FOR DAY. PT DENIES ANY NEEDS. CALL LIGHT IN REACH. BED ALARM ON.
--- NOTE | 2024-04-19 19:04 | NUR ---
PATIENT GIVEN WARM BLANKETS AND IS SLEEPING. CALL FROM DR. ROSSI THAT SHE WILL BE IN TO SEE PATIENT AT 0830 TOMORROW MORNING.
--- NOTE | 2024-04-19 19:18 | NUR ---
BEDSIDE REPORT RECEIVED FROM VINOD RN, PT ALERT, ORIENTENED, WITHOUT REQUESTS AT THIS TIME, CBI REMAINS CLAMPED, OXYGEN REMAINS IN PLACE AT 3L/NC. LR CONTINUES AT 50ML/HR, SIDE RAILS UP X 2, HOB ELEVATED APPROX 30 DEGREES, BED IN LOW POSITON AND CALL LIGHT IN REACH.
--- NOTE | 2024-04-19 20:00 | NUR ---
NEBULIZER TREATMENT GIVEN PER RT, PT USING CALL LIGHT, REQUESTING ENSURE, FAN AND WATER, ANGELO SHERWOOD ASSISTED WITH PT'S NEEDS.
[2024-04-19] MEDS ORDERED: atenoloL 50 MG TAB PO SCH (21:00)
--- NOTE | 2024-04-19 22:45 | NUR ---
PT AWAKE AND ALERT, VS AND ASSESSMENT COMPLETED, BP 103/58 (69) HR 78, SCHEDULED TENORIN HELD PER CLINICAL JUDGEMENT DUE TO LOWER BP, PLAN TO MONITOR, PT DENIES PAIN OR NEEDS AT THIS TIME, IVF INFUSING WELL WITH LR AT 50ML/HR, BED ALARM ON, SIDE RAILS UP AND CALL LIGHT IN REACH, ÁLVAREZ PATENT AND DRAINING WELL CLEAR YELLOW URINE, SUPRA PUBIC CATH IN PLACE AND CAPPED, DRESSING AROUND SITE DRY AND INTACT. SCDS IN PLACE.
--- NOTE | 2024-04-19 23:40 | NUR ---
PT RESTING QUIETLY WITH EYES CLOSED, WITHOUT DISTRESS.
--- NOTE | 2024-04-20 00:50 | NUR ---
PT APPEARS TO SLEEP, RESP EVEN AND REG.
[2024-04-20 01:54] VITALS: BP 107/42
--- NOTE | 2024-04-20 01:55 | NUR ---
PT ASLEEP, AWAKEN FOR VS, BP 107/42 (59), OTHER VS STABLE, ÁLVAREZ DRAINING YELLOW CLEAR URINE, PT DENIES NEEDS, OXYGEN REMAINS ON AT 3L/NC, IV SITE PATENT AND LR INFUSING WELL AT 50ML/HR.
--- NOTE | 2024-04-20 01:58 | NUR ---
PT ASLEEP, AWAKEN FOR VS, PT ALERT AND STATES HE HAS BEEN SLEEPING WELL, IVF INFUSING WELL, SITE INTACT, ÁLVAREZ OUT 150ML YELLOW URINE, BP NOTED TO BE 107/42 (59), CONTINUE TO MONITOR.
--- NOTE | 2024-04-20 04:22 | NUR ---
PT APPEARS TO SLEEP, RESP EVEN AND REG, IVF INFUSING WELL.
[2024-04-20 04:45] VITALS: BP 107/42
[2024-04-20 05:28] VITALS: BP 104/52
--- NOTE | 2024-04-20 05:33 | NUR ---
PT CALLED, REQUESTED AND RECEIVED ICE WATER, TURNED TV TO CHANNEL 150 ([employer]); VS, I/O COMPLETED. URINE [place], CBI CLAMPED. BEDALARM IN PLACE. CALL LIGHT WITHIN REACH.
[2024-04-20] MEDS ORDERED: lisinopriL 5 MG TAB PO SCH (06:00)
--- NOTE | 2024-04-20 06:00 | NUR ---
SOREN HELD THIS AM DUE TO BP 104/52.
--- NOTE | 2024-04-20 07:13 | NUR ---
REPORT RECEIVED FROM VICE CHANCELLOR RN FAREED. PATIENT IS LYING IN BED WITH EYES CLOSED AND RESPIRATIONS ARE EVEN AND UNLABORED. PATIENT WITH OXYGEN ON VIA NASAL CANNULA. CALL LIGHT AND PERSONAL BELONGINGS ARE WITHIN REACH.
--- NOTE | 2024-04-20 07:53 | NUR ---
UR CLINICAL REVIEW: [facility] CRITERIA FOR PROCEDURE [facility] EXTENDED STAY 04/19/24 ORDER MATCHED REG NO PA NEEDED PER [facility] GUIDELINES. WILL SEND CLINICALS TO UPDATE. DISCHARGE TO HOME 04/20/24. 04/21/24.
--- NOTE | 2024-04-20 07:55 | NUR ---
0900 MEDICATIONS ADMINISTERED PER THE EMAR. PATIENT FINISHING A RT TREATMENT AT THIS TIME. PATIENT WITH NO COMPLAINTS OF PAIN. LUNG SOUNDS ARE CLEAR IN THE UPPER LOBES BILATERALLY AND DIMINISHED/CLEAR IN THE LOWER LOBES BILATERALLY. PATIENT IS ON 3 L NC WHICH IS CHRONIC FOR THE PATIENT. PATIENT WITH A PACER NOTED ON THE LEFT UPPER CHEST. RADIAL PULSES ARE STRONG BILATERALLY. PATIENT WITH NUMBNESS IN BILATERAL LOWER EXTREMITIES THAT HE STATES IS NORMAL. BOWEL TONES ARE ACTIVE IN ALL FOUR QUADRANTS. SUPRAPUBIC CATHETER NOTED WITH THE DRESSING CLEAN, DRY, AND INTACT. ARIANA CARE AND ÁLVAREZ CARE COMPLETE. PATIENT IS ALERT AND ORIENTED TIMES FOUR. IV SITE FLUSHED WITH 10 ML NORMAL SALINE AND THE IV DRESSING IS CLEAN, DRY, AND INTACT. IV ROCEPHIN INFUSING AT THIS TIME. PATIENT URINE IS YELLOW. PATIENT STATED WANTING TO LEAVE BY 1000 BUT WILL NEED A RIDE HOME. PATIENT STATED NO FURTHER NEEDS AT THIS TIME. CALL LIGHT AND PERSONAL BELONGINGS ARE WITHIN REACH.
[2024-04-20 08:04] VITALS: BP 106/53
[2024-04-20] MEDS ORDERED: CEFTRIAXONE/SODIUM CHLORIDE 1 GM/100 ML PIGGYBACK IV SCH (09:00)
--- NOTE | 2024-04-20 09:00 | NUR ---
Called and left a message with [facility] transport to confirm pt has transport around 11 today.
--- NOTE | 2024-04-20 10:45 | NUR ---
Updated Hussein that I called and confirmed with RAN he has transport home at 11:30. He begins yelling, "that might be too late for my cg". I reminded him he is suppose to call and schedule at least 24 hrs in advance for transport. We were able to get transport the same day. I let him know I can call [facility] and ask if his cg can arrive late. He does not want to do this. He does not want [facility] to know he is going home. He states he will leave it like it is. He denies other needs and will dc to home with transport today.
--- NOTE | 2024-04-20 10:47 | NUR ---
PATIENT IS GETTING DRESSED TO DISCHARGE WITH CARPENTER SUPERVISOR AT THIS TIME.
[2024-04-20] MEDS ORDERED: VENTOLIN HFA18 GM INH (10:53)
[2024-04-20] MEDS ORDERED: DOCUSATE CALCI240 MG PO (10:53)
[2024-04-20] MEDS ORDERED: CENTRUM SILVER1 EAC3 PO (10:54)
[2024-04-20] MEDS ORDERED: ADVAIR 250-501 EACH INH (10:54)
[2024-04-20] MEDS ORDERED: NITROSTAT0.4 MG SL (10:55)
[2024-04-20] MEDS ORDERED: LUBRICANT EYE D15 M3 OU (10:55)
[2024-04-20] MEDS ORDERED: CRESTOR40 MG NG (10:56)
[2024-04-20] MEDS ORDERED: FLOMAX0.4 MG PO (10:58)
--- NOTE | 2024-04-20 11:05 | NUR ---
MED REC COMPLETE
--- NOTE | 2024-04-22 14:47 | PATH ---
[facility] [address] [place], [place] [address] Signed SPECIMEN(S): A PROSTATE CHIPS (TUR) SPECIMEN SOURCE: A. PROSTATE CHIPS (TUR) CLINICAL HISTORY: BPH with LUTS; urinary retention. FINAL PATHOLOGIC DIAGNOSIS: Prostate, transurethral resection: - Fragments of benign prostatic tissue with stromal and glandular hyperplasia consistent with features seen in benign prostatic hyperplasia. - Chronic inflammation. TWK MICROSCOPIC EXAMINATION: Histologic sections of all submitted blocks are examined by light microscopy. These findings, together with the gross examination, support the pathologic diagnosis. GROSS DESCRIPTION: The specimen, labeled and designated "Myesha, prostate chips," is received in formalin and consists of pink-church, irregular shaped, rubbery tissue fragments that aggregate measure 6.5 x 6.2 x 1.3 cm. The specimen weight 15 g. Approximately 90% of the specimen is submitted in (A1-A9). JS (under the direct supervision of a pathologist) The Gross Description was prepared using a voice recognition system. The report was reviewed for accuracy; however, sound-alike word errors, addition and/or deletions may occur. If there is any question about this report, please contact Client Services. ADDITIONAL NOTES: Immunohistochemical and/or in situ hybridization studies if performed in this case included appropriate positive controls that reacted as expected. This test was developed and its performance characteristics determined by [facility]. It has not been cleared or approved by the U.S. Food and Drug Administration. The FDA has determined that such clearance or approval is not necessary. This test is used for clinical purposes. It should not be regarded as investigational or for research. [facility] is certified under the PATIENT NAME: CRYSTAL GALVAN PATHOLOGY DATE OF : 44 REPORT #: [id number] PHYSICIAN: KORY MCGRATH PCP: JASBIR ESPAÑA MD REPORT IS CONFIDENTIAL AND NOT TO BE RELEASED WITHOUT AUTHORIZATION [facility] [address] [facility] [place] [address] Signed Clinical Laboratory Improvement Amendments of 1988 (CLIA) as qualified to perform high complexity clinical laboratory testing. PERFORMING LABORATORY: Technical component was performed by [facility], [address] [place] [address] (CLIA# [id number]). [facility], [facility] [address] [address] (CLIA#:[id number]). Diagnostician: Wes Lee MD Pathologist Electronically Signed 04/22/2024 Copies: ~ PATIENT NAME: CRYSTAL GALVAN PATHOLOGY DATE OF : 44 REPORT #: [id number] PHYSICIAN: KORY PATHOLOGY PCP: JASBIR ESPAÑA MD REPORT IS CONFIDENTIAL AND NOT TO BE RELEASED WITHOUT AUTHORIZATION
== END 2024-04-20 11:25 | disposition home or self-care (01) ==
LOC: DS 07:35 → MS 13:25 → DS 04-20 11:25
PROVIDERS: ATTEND Urology
PROC: 0VB08ZZ Excision of Prostate, Via Natural or Artificial Opening Endoscopic (ICD-10-PCS; principal; 2024-04-19 09:10)
PROC: 0T9B00Z Drainage of Bladder with Drainage Device, Open Approach (ICD-10-PCS; 2024-04-19 09:10)
DX: N40.1 Benign prostatic hyperplasia with lower urinary tract symptoms (principal); N41.1 Chronic prostatitis; R33.8 Other retention of urine; N32.89 Other specified disorders of bladder
CPT/HCPCS: 00914; 88305; 94640; 94760; A9270; C1769; J0690; J0696; J1100; J1885; J2250; J2405; J2704; J2765; J3010; J7121

== ENCOUNTER 2024-09-22 12:52 | Emergency (ER) | payer OTHER ==
[~2024-09-22] VITALS: Ht 172.7 cm; Wt 75.0 kg
[~2024-09-22 12:52] MED LIST changes: +ADVAIR 250-501 EACH INH; -CEFAZOLIN SODIUM 2 GM/20 ML SYR IV SCH; +CRESTOR40 MG NG; -DEXAMETHASONE SOD PHOS 4 MG/ML VIAL ONE; -FAMOTIDINE 20 MG/ 2 ML VIAL ONE; -IBLOOD GLUCOSE TEST STRIP 1 EA TEST VI PRN; -KETOROLAC TROMETHAMINE 30 MG/ML VIAL ONE; -LACTATED RINGER'S 1,000 ML IV ONE; -LACTATED RINGER'S 1,000 ML IV SCH; -LIDOCAINE HCL 1% 5 ML SDV INJ ONE; +LUBRICANT EYE D15 M3 OU; -METOCLOPRAMIDE HCL 10 MG/2 ML SDV ONE; -MIDAZOLAM HCL 2 MG/2 ML VIAL ONE; -MORPHINE SULFATE 4 MG/ML VIAL IV PRN; +NITROSTAT0.4 MG SL; -OXYCODONE/APAP 5/325 TAB PO PRN; +TRAMADOL HCL50 MG PO; +VENTOLIN HFA18 GM INH; -diphenhydrAMINE HCL 25 MG CAP PO PRN; -fentaNYL citrate 100 MCG/2 ML VIAL ONE; -ondansetron HCL 4 MG/2 ML VIAL IV PRN; -ondansetron HCL 4 MG/2 ML VIAL ONE; -propofoL 200 MG/20 ML VIAL ONE
[2024-09-22] MEDS ORDERED: LIDOCAINE/RACEPINEP/TETRACAINE 3 ML SYR TOP ONE (15:00)
[2024-09-22] MEDS ORDERED: CEPHALEXIN500 M1 PO (16:36)
[2024-09-22] MEDS ORDERED: CEPHALEXIN MONOHYDRATE 500 MG CAP PO ONE (16:45)
[2024-09-22] MEDS ORDERED: CEPHALEXIN MONOHYDRATE 500 MG HOME.PACK PO ONE (16:45)
[2024-09-22 16:53] VITALS: BP 127/74
== END 2024-09-22 16:54 | disposition home or self-care (01) ==
LOC: ED 12:52
DX: L02.811 Cutaneous abscess of head [any part, except face] (principal); I10 Essential (primary) hypertension; I25.10 Atherosclerotic heart disease of native coronary artery without angina pectoris; J43.9 Emphysema, unspecified; F17.200 Nicotine dependence, unspecified, uncomplicated; Z79.899 Other long term (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; Z95.0 Presence of cardiac pacemaker
CPT/HCPCS: 10060; 99282-25; A9270

== ENCOUNTER 2025-04-17 01:55 | Emergency (ER) | payer OTHER ==
[~2025-04-17] VITALS: Ht 172.7 cm; Wt 81.3 kg
[2025-04-17] MEDS ORDERED: ondansetron HCL 4 MG/2 ML VIAL IV ONE (02:30)
[2025-04-17] MEDS ORDERED: FAMOTIDINE 20 MG/ 2 ML VIAL IV ONE (02:30)
[2025-04-17] MEDS ORDERED: LACTATED RINGER'S 1,000 ML IV ONE (02:30)
[2025-04-17 03:13] VITALS: BP 103/78
== END 2025-04-17 06:57 | disposition left against medical advice (07) ==
LOC: ED 01:55
DX: R11.2 Nausea with vomiting, unspecified (principal); I10 Essential (primary) hypertension; E78.5 Hyperlipidemia, unspecified; Z79.51 Long term (current) use of inhaled steroids; Z79.899 Other long term (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; F17.200 Nicotine dependence, unspecified, uncomplicated
CPT/HCPCS: 80053; 83690; 83735; 84484; 85025; 99284

== ENCOUNTER 2025-04-18 13:19 | Emergency (ER) | payer OTHER ==
[~2025-04-18] VITALS: Ht 172.7 cm; Wt 75.4 kg
--- OUTSIDE RECORDS SUMMARY | 2025-04-18 13:26 | XMS ---
PreManage Notification: CRYSTAL GALVAN Security Simonizer Events No recent Security Events currently on file CRITERIA MET - [facility] - 2 Visits in 30 Days CARE PROVIDERS Elian Plum[place], [place] [facility] [place] 08/13/2019-[facility] PHONE: [phone] NAREN Rangel, Registered 08/10/2019-[facility] PHONE: [phone] -, [facility] Dentist: Track Watchman Current [place] PHONE: [phone] -, [facility]ist: Track Watchman Current [place] PHONE: [phone] -Muriel- Dentist: Track Watchman [facility] PHONE: [phone] JAN BRIAN Pipeman: Foot \T\ Ankle Surgery Current PHONE: [phone] SPEEDY AGUILAR Internal Medicine Current PHONE: Unknown [facility]: [facility] Current FAMILY PHONE: [phone] MERON TIRADO Nurse Practitioner: Family Current PHONE: [phone] STEFANI SHIELDS Internal Medicine Current PHONE: [phone] KELVIN BELCHER Nurse Practitioner: Psychiatric/Mental Health Current PHONE: [phone] BRODY CRONIN Nurse Practitioner Current PHONE: [phone] [facility] Current PHONE: Unknown MARYCARMEN SHAW [facility] Current PHONE: Unknown [facility]: [phone] ANUSHA WEI Nurse Practitioner: Family Current PHONE: Unknown Gracie has no Care Guidelines for this patient. Care History Medical/Surgical 08/13/2019 [facility] \R\- PATIENT IS A -RECE[facility] [place] [place] [facility] VISIT COUNT (12 MO.) 3 [facility] TOTAL 3 NOTE: Visits indicate total known visits. ED/UCC VISIT TRACKING (12 MO.) 04/18/2025 13:20 [facility] [place] TYPE: Emergency COMPLAINT: - VOMITING W/PAIN 04/17/2025 01:55 [facility] [place] TYPE: Emergency COMPLAINT: - VOMITING 09/22/2024 12:52 [facility] [place] TYPE: Emergency COMPLAINT: - SKIN PROBLEM DIAGNOSES: - Atherosclerotic heart disease of [place] coronary artery without angina pectoris - Cutaneous abscess of head [any part, except face] - Emphysema, unspecified - Essential (primary) hypertension - Localized swelling, mass and lump, neck - Nicotine dependence, unspecified, uncomplicated - Other intermodal customer service (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 - Presence of cardiac pacemaker INPATIENT VISIT TRACKING (12 MO.) No inpatient visits to display in this time frame [email or web address]
[2025-04-18] MEDS ORDERED: ondansetron HCL 4 MG/2 ML VIAL IV ONE ×2 (13:45→14:00)
[2025-04-18 13:51] LABS: BASOPHILS 0.3 % (0.2-1.2); HEMATOCRIT 37.8 % (40.1-51.0); HEMOGLOBIN 12.5 g/dL (13.7-17.5); LYMPHOCYTES 15.3 % (21.8-53.1); MCH 32.6 PG (25.7-32.2); MCHC 33.1 g/dL (32.3-36.5); MCV 98.4 fL (79.0-92.2); MONOCYTES 7.8 % (5.3-12.2); NEUTROPHILS 74.3 % (34.0-67.9); PLATELET COUNT 272 K/uL (163-337); RBC 3.84 M/uL (4.63-6.08)
[2025-04-18] MEDS ORDERED: SODIUM CHLORIDE 0.9% 500 ML IV PRN (14:00)
[2025-04-18 14:12] LABS: ALBUMIN 3.3 g/dL (3.4-5.0); ALBUMIN/GLOBULIN RATIO 0.85 (1.1-2.4); ANION GAP 9.7 (7-21); BILIRUBIN, TOTAL 0.8 mg/dL (0.2-1.0); BUN/CREATININE RATIO 21.49 (6.0-28.6); CALCIUM 9.2 mg/dL (8.5-10.1); CREATININE, SERUM 1.07 mg/dL (0.70-1.30); MAGNESIUM 2.3 mg/dL (1.8-2.4); POTASSIUM 3.7 mmol/L (3.5-5.1); PROTEIN, TOTAL 7.2 g/dL (6.4-8.2)
[2025-04-18 15:54] LABS: BILIRUBIN, URINE NEGATIVE (negative); BLOOD/HGB, URINE TRACE-I (Negative); KETONE, URINE TRACE (Negative); LEUK ESTERASE, URINE TRACE (negative); NITRITE, URINE POSITIVE (negative); PH, URINE 7.5 (5-7)
[2025-04-18 15:59] LABS: BACTERIA, URINE 4+ /hpf (negative); CASTS, URINE NONE SEEN \\lpf; COLLECTION TYPE, URINE CLEAN CATCH; CRYSTALS, URINE NONE SEEN (0-1+); EPITHELIAL CELLS, URINE SQUAMOUS 1+ /lpf (0-1+); RED BLOOD CELLS, URINE 0-1 /hpf (0-5); REFLEX CULTURE, URINE Yes (No); WHITE BLOOD CELLS, URINE >50 /HPF (0-5)
[2025-04-18 16:59] VITALS: BP 135/64
[2025-04-18] MEDS ORDERED: ONDANSETRON 4 MG HOME.PACK SL ONE (17:00)
== END 2025-04-18 17:35 | disposition home or self-care (01) ==
LOC: ED 13:19
PROVIDERS: Emergency Medicine
DX: K11.8 Other diseases of salivary glands (principal); R09.A2 Foreign body sensation, throat; D73.89 Other diseases of spleen; R91.1 Solitary pulmonary nodule; I10 Essential (primary) hypertension; F17.200 Nicotine dependence, unspecified, uncomplicated; Z79.51 Long term (current) use of inhaled steroids; Z79.899 Other long term (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
CPT/HCPCS: 36415; 70491; 74177; 80053; 81001; 83690; 83735; 85025; 87088; 87186; 93005; 93010; 99284-25; A9270; J2405; J7040; Q9967